=== PATIENT | female | born 1960 | race Caucasian/White ===

== ENCOUNTER → 2017-04-20 12:27 | Outpatient (CLI) | payer OTHER, SELFPAY ==
--- NOTE | 2017-04-20 12:29 | HPBI_ITS ---
MAMMOGRAPHY - BILATERAL SCREENING REASON FOR EXAM: Female, 57 years old. Routine annual screening examination. PERTINENT HISTORY: Aunt with breast cancer. TECHNIQUE: Digital bilateral breast radha (3D mammographic acquisition) in the CC and MLO projections. 2-D mediolateral oblique (MLO) and craniocaudad (CC) views of both breasts were obtained. CAD: Full Field Digital Mammography with Computer Added Detection was performed. COMPARISON: Comparison is made with prior study dated July 25, 2012 and May 18, 2011. FINDINGS: Breast Composition: The breasts are heterogeneously dense, which may obscure small masses. There are no dominant masses or suspicious calcifications. A pacemaker battery pack is seen in the upper quadrant of the left breast. No other significant abnormalities are identified. There has been no significant change since the prior study. HPBI/SCREENING MAMM (CAD), BILAT IMPRESSION: Stable bilateral screening mammogram. Yearly follow-up mammogram recommended. (A) ASSESSMENT CATEGORY: BIRADS Category 1: Negative. A letter regarding these results will be sent to the patient by the facility within 30 days. Approximately 10% of breast cancers are not detected by mammography. A normal mammogram should not delay biopsy of a clinically suspicious abnormality. [id number] Electronically Signed: Adelso Reese MD at 13:54 EST Tel [phone], Service support ,
== END ==
PROVIDERS: Visit Provider Internal Medicine Hematology & Oncology
DX: Z12.31 Encounter for screening mammogram for malignant neoplasm of breast (principal); D47.2 Monoclonal gammopathy
CPT/HCPCS: 77063; 77067

== ENCOUNTER → 2017-06-22 11:14 | Outpatient (CLI) | payer OTHER, SELFPAY ==
[2017-06-22 12:41] LABS: AST(SGOT) 25 U/L (15-37); Alanine Aminotransfer ALT/SGPT 17 U/L (13-56); Albumin, Serum 4.1 g/dL (3.2-5.0); Alkaline Phosphatase 120 U/L (45-117); Bilirubin, Direct 0.11 mg/dL (0.00-0.30); Cholesterol 151 mg/dL (200); Globulin 3.7 g/dL (2.2-4.2); High Density Lipoprotein 66 mg/dL; Protein, Total 7.8 g/dL (6.4-8.2); Triglycerides 53 mg/dL; Very Low Density Lipoprotein 11 mg/dL (5-40)
== END ==
PROVIDERS: Visit Provider Nurse Practitioner Family
DX: E78.5 Hyperlipidemia, unspecified (principal); Z79.899 Other long term (current) drug therapy
CPT/HCPCS: 36415; 80061; 80076

== ENCOUNTER → 2017-08-03 10:06 | Outpatient (CLI) | payer OTHER, SELFPAY ==
--- NOTE | 2017-08-03 10:15 | EKG12_ITS ---
Test Reason : PRE-OP Blood Pressure : / mmHG Vent. Rate : 077 BPM Atrial Rate : 077 BPM P-R Int : 158 ms QRS Dur : 158 ms QT Int : 430 ms P-R-T Axes : 060 270 064 degrees QTc Int : 486 ms Normal sinus rhythm with ventricular pacing Ventricular pre-excitation, WPW pattern type A Abnormal ECG Confirmed by HAL OWUSU, ROSENDO ([id number]), proposal editor KIRK SQUIRES ([id number]) on 08/06/2017 2:57:34 PM Referred By: SUSANNAH THAPA Confirmed By:ROSENDO HONG MD
[2017-08-03 11:11] LABS: Anion Gap 4 (5-15); BUN 22 mg/dL (7-18); BUN/Creat Ratio 26.4 RATIO (10-20); Calcium,Total 9.2 mg/dL (8.5-10.1); Chloride 105 mmol/L (98-107); Creatinine, Serum 0.83 mg/dL (0.55-1.02); EST Glomerular Filtration Rate 75 mL/min (>60); Est Glom Filt Rate - Afr Amer 91 mL/min (>60); Glucose 86 mg/dL (74-106); Potassium 4.1 mmol/L (3.5-5.1); Sodium Level 140 mmol/L (136-145)
== END ==
PROVIDERS: Visit Provider Orthopaedic Surgery Hand Surgery
DX: M67.432 Ganglion, left wrist (principal); I10 Essential (primary) hypertension
CPT/HCPCS: 36415; 80048; 93005

== ENCOUNTER → 2018-01-18 10:57 | Outpatient (CLI) | payer OTHER, SELFPAY ==
[2018-01-18 11:53] LABS: AST(SGOT) 22 U/L (15-37); Alanine Aminotransfer ALT/SGPT 18 U/L (13-56); Albumin, Serum 4.1 g/dL (3.2-5.0); Alkaline Phosphatase 113 U/L (45-117); Bilirubin, Direct 0.14 mg/dL (0.00-0.30); Cholesterol 171 mg/dL (200); Globulin 3.7 g/dL (2.2-4.2); High Density Lipoprotein 75 mg/dL; Protein, Total 7.8 g/dL (6.4-8.2); Triglycerides 70 mg/dL; Very Low Density Lipoprotein 14 mg/dL (5-40)
== END ==
PROVIDERS: Referring Provider Nurse Practitioner Family; Visit Provider Nurse Practitioner Family
DX: E78.5 Hyperlipidemia, unspecified (principal); Z79.899 Other long term (current) drug therapy
CPT/HCPCS: 36415; 80061; 80076

== ENCOUNTER → 2018-04-22 14:51 | Outpatient (CLI) | payer OTHER, SELFPAY ==
--- NOTE | 2018-04-22 15:15 | BI_ITS ---
MAMMOGRAPHY - BILATERAL SCREENING REASON FOR EXAM: Female, 58 years old. Routine annual screening examination. PERTINENT HISTORY: Aunt with breast cancer. Remote left excisional breast biopsy. TECHNIQUE: Digital bilateral breast radha (3D mammographic acquisition) in the CC and MLO projections. 2-D mediolateral oblique (MLO) and craniocaudad (CC) views of both breasts were obtained. CAD: Full Field Digital Mammography with Computer Added Detection was performed. COMPARISON: Comparison is made with prior study dated April 20, 2017 and July 25, 2012. FINDINGS: Breast Composition: The breasts are heterogeneously dense, which may obscure small masses. There are no dominant masses or suspicious calcifications. A pacemaker battery pack is once again seen in the axillary region of the left breast. No other significant abnormalities are identified. There has been no significant change since the prior study. BI/SCREENING MAMM (CAD), BILAT IMPRESSION: Stable bilateral screening mammogram. Yearly follow-up mammogram recommended. (A) ASSESSMENT CATEGORY: BIRADS Category 1: Negative. A letter regarding these results will be sent to the patient by the facility within 30 days. Approximately 10% of breast cancers are not detected by mammography. A normal mammogram should not delay biopsy of a clinically suspicious abnormality. [id number] Electronically Signed: Adelso Reese MD at 8:39 EST , Service support ,
[2018-04-22 15:32] LABS: Absolute Lymphocyte Count 1.79 X10^3/ul (0.83-4.51); Absolute Neutrophil Count 2.8 X10^3/uL (2.0-7.7); Basophil# 0.01 X10^3/uL; Basophil% 0.2 % (0-1); Eosinophil# 0.01 X10^3/uL; Eosinophils% 0.2 % (0-5); Hematocrit 40.2 % (37-47); Hemoglobin 13.1 g/dl (12.0-15.0); Lymphocyte # 1.79 X10^3/ul (4.0); Lymphocyte % 36.9 % (19-41); Mean Corp Hgb Conc 32.6 g/gl (32-36); Mean Corpuscular Volume 92.2 fL (81-99); Mean Platelet Vol. 9.6 fl (6.2-12.0); Monocyte# 0.23 X10^3/uL; Monocyte% 4.7 % (0-10); Neutrophil # 2.81 X10^3/uL (2.7-7.7); Platelet Count 270 K/mm3 (150-450); RBC Distribution Width SD 43.5 fl (35.1-43.9); Red Blood Count 4.36 M/mm3 (4.2-5.4); White Blood Count 4.9 K/mm3 (4.4-11.0)
[2018-04-22 15:34] LABS: POSITIVE COUNT NO; POSITIVE DIFFERENTIAL NO; POSITIVE MORPHOLOGY NO
[2018-04-22 15:56] LABS: ALB/GLOB Ratio 1.1 RATIO (0.9-2.4); AST(SGOT) 20 U/L (15-37); Alanine Aminotransfer ALT/SGPT 20 U/L (13-56); Albumin, Serum 4.1 g/dL (3.2-5.0); Alkaline Phosphatase 126 U/L (45-117); Anion Gap 9 (5-15); BUN 20 mg/dL (7-18); BUN/Creat Ratio 25.8 RATIO (10-20); Calcium,Total 9.5 mg/dL (8.5-10.1); Chloride 104 mmol/L (98-107); Creatinine, Serum 0.78 mg/dL (0.55-1.02); EST Glomerular Filtration Rate 81 mL/min (>60); Est Glom Filt Rate - Afr Amer 98 mL/min (>60); Globulin 3.7 g/dL (2.2-4.2); Glucose 98 mg/dL (74-106); Potassium 4.1 mmol/L (3.5-5.1); Protein, Total 7.8 g/dL (6.4-8.2); Sodium Level 142 mmol/L (136-145)
[2018-04-24 20:08] LABS: Albumin 4.1 g/dL (2.9-4.4); Alpha-1-Globulins 0.3 g/dL (0.0-0.4); Alpha-2-Globulins 0.9 g/dL (0.4-1.0); Free Kappa Light Chains 14.4 mg/L (3.3-19.4); Free Lambda Light Chains 10.6 mg/L (5.7-26.3); Gamma Globulin 0.8 g/dL (0.4-1.8); Immunoglobulin A 206 mg/dL (87-352); Immunoglobulin G 932 mg/dL (700-1600); Immunoglobulin M 71 mg/dL (26-217); PROEL- TOTAL PROTEIN 7.5 g/dL (6.0-8.5)
== END ==
PROVIDERS: Referring Provider Internal Medicine Hematology & Oncology; Visit Provider Internal Medicine Hematology & Oncology
DX: Z12.31 Encounter for screening mammogram for malignant neoplasm of breast (principal); D47.2 Monoclonal gammopathy
CPT/HCPCS: 36415; 77063; 77067; 80053; 82784; 83883; 84165; 85025; 86334

== ENCOUNTER → 2018-08-06 11:21 | Outpatient (CLI) | payer OTHER, SELFPAY ==
[2018-05-27 13:05] VITALS: BMI 21.7
[2018-08-06 13:05] LABS: AST(SGOT) 21 U/L (15-37); Alanine Aminotransfer ALT/SGPT 16 U/L (13-56); Albumin, Serum 4.3 g/dL (3.2-5.0); Alkaline Phosphatase 115 U/L (45-117); Bilirubin, Direct 0.14 mg/dL (0.00-0.30); Cholesterol 184 mg/dL (200); High Density Lipoprotein 74 mg/dL; Protein, Total 8.3 g/dL (6.4-8.2); Triglycerides 87 mg/dL; Very Low Density Lipoprotein 17 mg/dL (5-40)
== END ==
PROVIDERS: Referring Provider Nurse Practitioner Family; Visit Provider Nurse Practitioner Family
DX: E78.5 Hyperlipidemia, unspecified (principal)
CPT/HCPCS: 36415; 80061; 80076

== ENCOUNTER → 2018-08-29 14:20 | Outpatient (CLI) | payer OTHER, SELFPAY ==
[2018-05-27 13:05] VITALS: BMI 21.7
[2018-08-29 15:17] LABS: Absolute Neutrophil Count 2.9 X10^3/uL (2.0-7.7); Eosinophil# 0.03 X10^3/uL; Eosinophils% 0.6 % (0-5); Hematocrit 39.3 % (37-47); Hemoglobin 13.1 g/dl (12.0-15.0); Lymphocyte % 29.9 % (19-41); Mean Corp Hgb Conc 33.3 g/gl (32-36); Mean Corpuscular Volume 90.1 fL (81-99); Mean Platelet Vol. 9.6 fl (6.2-12.0); Monocyte% 8.5 % (0-10); Neutrophil # 2.85 X10^3/uL (2.7-7.7); Neutrophil % 60.8 % (47-70); Platelet Count 241 K/mm3 (150-450); RBC Distribution Width CV 12.8 % (11.6-14.6); RBC Distribution Width SD 41.5 fl (35.1-43.9); Red Blood Count 4.36 M/mm3 (4.2-5.4); White Blood Count 4.7 K/mm3 (4.4-11.0)
[2018-08-29 15:20] LABS: POSITIVE COUNT NO; POSITIVE DIFFERENTIAL NO; POSITIVE MORPHOLOGY NO
[2018-08-29 15:58] LABS: T3 Total - Triiodothyronine 0.88 ng/mL (0.6-1.81)
[2018-08-29 16:06] LABS: AST(SGOT) 20 U/L (15-37); Alanine Aminotransfer ALT/SGPT 18 U/L (13-56); Albumin, Serum 3.8 g/dL (3.2-5.0); Alkaline Phosphatase 116 U/L (45-117); Anion Gap 7 (5-15); BUN 18 mg/dL (7-18); BUN/Creat Ratio 22.6 RATIO (10-20); Calcium,Total 9.2 mg/dL (8.5-10.1); Chloride 104 mmol/L (98-107); EST Glomerular Filtration Rate 78 mL/min (>60); Est Glom Filt Rate - Afr Amer 95 mL/min (>60); Globulin 3.8 g/dL (2.2-4.2); Glucose 102 mg/dL (74-106); Potassium 3.9 mmol/L (3.5-5.1); Protein, Total 7.6 g/dL (6.4-8.2); Sodium Level 142 mmol/L (136-145); T4 Total, Thyroxin 8.5 ug/dL (4.8-13.9)
== END ==
PROVIDERS: Referring Provider Physician Assistant; Visit Provider Physician Assistant
DX: L65.9 Nonscarring hair loss, unspecified (principal)
CPT/HCPCS: 36415; 80053; 84436; 84480; 85025

== ENCOUNTER → 2018-11-12 13:19 | Outpatient (CLI) | payer OTHER, SELFPAY ==
[2018-05-27 13:05] VITALS: BMI 21.7
[2018-11-19 08:21] LABS: HPV HC, High Risk Negative (Negative)
== END ==
PROVIDERS: Family Provider Family Medicine; PCP Family Medicine; Visit Provider Family Medicine
DX: Z01.419 Encounter for gynecological examination (general) (routine) without abnormal findings (principal); Z12.4 Encounter for screening for malignant neoplasm of cervix; Z11.3 Encounter for screening for infections with a predominantly sexual mode of transmission
CPT/HCPCS: 87624; 88175; G0145

== ENCOUNTER → 2019-03-03 | Outpatient (CLI) | payer OTHER, SELFPAY ==
[2018-12-04 14:15] VITALS: BMI 21.7
[2019-03-03 11:57] LABS: AST(SGOT) 19 U/L (15-37); Alanine Aminotransfer ALT/SGPT 18 U/L (13-56); Albumin, Serum 4.1 g/dL (3.2-5.0); Alkaline Phosphatase 116 U/L (45-117); Bilirubin, Direct 0.15 mg/dL (0.00-0.30); Cholesterol 161 mg/dL (200); Globulin 3.9 g/dL (2.2-4.2); High Density Lipoprotein 75 mg/dL; Triglycerides 73 mg/dL; Very Low Density Lipoprotein 15 mg/dL (5-40)
== END | disposition home or self-care (01) ==
LOC: LAB 10:41
PROVIDERS: Family Provider Family Medicine; PCP Family Medicine; Referring Provider Nurse Practitioner Family; Visit Provider Nurse Practitioner Family
DX: E78.2 Mixed hyperlipidemia (principal)
CPT/HCPCS: 36415; 80061; 80076

== ENCOUNTER → 2019-03-10 10:55 | Day surgery (SDC) | payer OTHER, SELFPAY ==
[2018-12-04 14:15] VITALS: BMI 21.7
[2019-03-05 09:35] LABS: Bacteria 0 SEEN /hpf (None Seen); Mucous, Urine 0 SEEN /hpf (<or=2+)
[2019-03-05 09:50] VITALS: BMI 21.6
[2019-03-05 10:15] LABS: Hematocrit 40.3 % (37-47); Hemoglobin 13.2 g/dL (12.0-15.0); Mean Corp Hgb Conc 32.8 g/dL (32-36); Mean Corpuscular Hgb 30.3 pg (27.0-32.0); Mean Corpuscular Volume 92.6 fL (81-99); Mean Platelet Vol. 9.3 fl (6.2-12.0); Platelet Count 281 K/mm3 (150-450); RBC Distribution Width CV 12.5 % (11.6-14.6); RBC Distribution Width SD 42.6 fl (35.1-43.9); Red Blood Count 4.35 M/mm3 (4.2-5.4)
[2019-03-05 10:22] LABS: International Normalized Ratio 1.1; Prothrombin Time (Protime)PT. 13.5 SECONDS (11.7-14.9)
[2019-03-05 10:25] LABS: Color, Urine Yellow (Yellow); Glucose, Dipstick Normal (Normal); Ketone-Dipstick Negative (Negative); Leukocyte Esterase-Dipstick 25 /ul (Negative); Nitrite-Dipstick Negative (Negative); Occult Blood-Urine 50 /ul (Negative); Protein-Dipstick Negative (Negative); Urine Bilirubin Dipstick Negative (Negative); Urine Clarity Clear (Clear); Urine Urobilinogen Normal (Normal)
[2019-03-05 10:36] LABS: Red Blood Cells-Urine 0-5 SEEN /hpf (0-5); Squamous Epithelial Cells - UA 0-5 SEEN /hpf (5-10); White Blood Cells 0-5 SEEN /hpf (0-5)
--- NOTE | 2019-03-05 10:42 | RAD_ITS ---
STUDY: X-RAY CHEST REASON FOR EXAM: Female, 59 years old. Pacemaker generator change TECHNIQUE: PA and lateral views of the chest. COMPARISON: None. FINDINGS: Left-sided cardiac device. Cardiac silhouette unremarkable. Pulmonary vascularity unremarkable. Aorta unremarkable. No focal airspace opacities. No pleural effusions. Upper abdomen unremarkable. Osseous structures intact. No pneumothorax. RAD/Chest PA and Lateral IMPRESSION: No acute cardiopulmonary findings Electronically Signed: Neymar Cross, at 21:35 EST Tel , Service support ,
[2019-03-05 10:57] LABS: Anion Gap 7 (5-15); BUN 25 mg/dL (7-18); BUN/Creat Ratio 28.7 RATIO (10-20); Calcium,Total 9.2 mg/dL (8.5-10.1); Chloride 105 mmol/L (98-107); Creatinine, Serum 0.87 mg/dL (0.55-1.02); EST Glomerular Filtration Rate 71 mL/min (>60); Est Glom Filt Rate - Afr Amer 86 mL/min (>60); Glucose 79 mg/dL (74-106); Potassium 3.7 mmol/L (3.5-5.1); Sodium Level 140 mmol/L (136-145)
--- NOTE | 2019-03-06 01:19 | HP_ITS ---
HPI HPI History of Present Illness Surgical H&P: Yes Details: DAKOTA GORDON, is a 59 F who presents to the office today for an updated history and physical for a generator change for her pacemaker. She has a history of Mobitz 2 second-degree AV block with AV sequential pacemaker, mild coronary artery disease, mild aortic sclerosis, hypertension, and hyperlipidemia. From a cardiac standpoint, patient is doing well. She does not have any chest discomfort/heaviness/tightness. Her exercise tolerance is stable for her age. She does not have any worsening symptoms of shortness of breath. She does not have any orthopnea. She denies PND. She does not have any symptoms of congestive heart failure. She does not have any palpitations that she is aware of. She does not have any lightheadedness or dizziness. She does not have any near-syncope or syncope. She does not have any lower extremity edema. She does not have any symptoms of claudication. Patient has multiple questions regarding her generator change on her pacemaker. These were all answered for her. 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 Required: No Is patient in pain?: No Allergies adhesive tape Allergy (Unknown, Verified 03/05/19 09:51) Rash Penicillins Adverse Reaction (Severe, Verified 03/05/19 09:51) Rash Medications Aspirin [Aspirin EC] 81 mg PO DAILY 04/02/17 [History Confirmed 03/05/19] multivitamin 1 tab PO QDAY 06/04/17 [History Confirmed 03/05/19] nebivolol 5 mg tablet 2.5 mg PO DAILY #45 tab 05/27/18 [Rx Confirmed 03/05/19] pravastatin 20 mg tablet 20 mg PO QHS #90 tab 05/27/18 [Rx Confirmed 03/05/19] dupilumab 300 mg/2 mL subcutaneous syringe 300 mg SC Q2W 03/05/19 [History Confirmed 03/05/19] PFSH Medical History Pacemaker at end of battery life (Acute) Non-rheumatic aortic sclerosis (Chronic) Mixed hyperlipidemia (Chronic) Essential hypertension (Chronic) Atherosclerotic heart disease of [place] coronary artery without angina pectoris (Chronic) Other heart block (Chronic) Cardiac pacemaker in situ (Chronic) 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) MGUS (monoclonal gammopathy of unknown significance) (Chronic) Ganglion cyst (Acute) MGUS (monoclonal gammopathy of unknown significance) (Acute) Hypertension (Chronic) Hyperlipidemia (Inactive) Hypertension (Inactive) Surgical History H/O: (Acute) History of surgical removal of ganglion cyst (Acute) Hx of breast biopsy (Acute) Hx of tonsillectomy (Acute) S/P placement of cardiac pacemaker (Acute) Family History Father FH: prostate cancer FH: HTN (hypertension) FH: hyperlipidemia Gait apraxia Mother FH: HTN (hypertension) FH: hyperlipidemia Aunt Breast cancer Grandmother Ovarian cancer Social History (Updated 03/06/19 @ 13:19 by DANIEL Bassett) Smoking Status: Never smoker ROS Const Const: Negative for fatigue, weakness, fever(s) or headache(s) Eyes Eyes: Negative for blind spots, loss of peripheral vision or transient loss of vision ENT ENT: Negative for headache(s), dizziness, tinnitus or Nosebleed/epistaxis Cardio Chest Pain: No Palpitations: No Edema: None Muscle aches with walking: None Resp Respiratory: Negative for SOB with activity, SOB at rest, SOB orthopnea\SOB lying down or Cough GI GI: Negative nausea, vomiting, heartburn or vomiting blood/hematemesis : Negative for hematuria Musc Musc: Negative for muscle aches/ myalgia Neuro Neuro: Negative for dizziness, lightheadedness, near syncope, syncope, orthostatic symptoms, headache(s) or weakness Reed Hematologic/Lymphatic: Negative for easy bleeding Endo Endo: Negative for fatigue Cardiology Exam Const Appearance: cooperative, healthy appearing, comfortable, no acute distress, well developed and well groomed Nutritional Appearance: thin Orientation: alert, awake and oriented x3 Head Head: normal to inspection, normocephalic and atraumatic Nose: external nose normal Mouth: oral mucosae normal Teeth and gingiva: fair dentition Eyes Eyelids: eyelids normal Conjunctivae: conjunctivae normal Pupils: PERRL EOM: EOM intact bilaterally Neck Neck: normal visual inspection, full ROM and no JVD Carotids: normal carotid upstroke Chest Chest inspection: normal inspection of the chest, symmetric chest movement and normal respiratory effort Auscultation: Bilateral: Clear to Auscultation Cardio Rate: regular rate Rhythm: regular rhythm Heart sounds: S1 normal and S2 normal; negative rub or gallop GI GI: normal to inspection, soft and bowel sounds present Neuro General: alert, awake, oriented x3, gait normal and moves all extremities Skin Skin: no rashes or lesions noted Extremities Pulses: Normal: Right Posterior Tibial Pulse, Left Posterior Tibial Pulse, Right Radial Pulse, Left Radial Pulse Lower Extremity Edema: None: Bilateral Musculoskel Musculoskeletal: joint tenderness Psych Psychological: normal affect, anxious Assessment & Plan 1. Essential hypertension I10 Plan Blood pressure is well controlled on current medications, we do not recommend any changes at this time. 2. Cardiac pacemaker in situ Z95.0 Implant of dual chamber pacemaker 08/18/09 Plan Patient is scheduled to undergo a generator change with a Dr. Coreas on March 10, 2019. She will follow-up accordingly in our office after. Orders Orders: 12 Lead EKG performed by [facility] 03/05/19 3. Mixed hyperlipidemia E78.2 Plan Recent lipid profile demonstrates that they are adequately controlled. She has a total cholesterol of 161, HDL 75, LDL 71. She will continue with her low intensity statin. Plan Detail Other Orders Orders: 12 Lead EKG performed by [facility] 03/05/19 I25.10, Z45.010 Follow Up 03/05/19 (keep as is) Coding Level of Care Code Off vis,est,level 3 Diagnoses Essential hypertension I10 Cardiac pacemaker in situ Z95.0 Mixed hyperlipidemia E78.2 Coding Level of Care Code Off vis,est,level 3 Diagnoses Essential hypertension I10 Cardiac pacemaker in situ Z95.0 Mixed hyperlipidemia E78.2 Supplemental Info Supplemental Information Heart catheterization from August 2009 showed an ejection fraction of 65%, left main with mild luminal irregularities, LAD with minor luminal irregularities, LCx with minor luminal irregularities, and RCA with minor luminal irregularities. Echocardiogram from July 2009 showed estimated ejection fraction 55%, trivial mitral valve insufficiency, mild tricuspid valve insufficiency, mild diffuse aortic valve thickening, mild focal aortic valve calcification predominantly right coronary cusps, mild aortic sclerosis, no significant stenosis, trivial aortic valve insufficiency, trivial pulmonic valve insufficiency, and an RVSP of 25 mmHg. Pacemaker/ICD check from December 2016 showed 2 MS episodes (less than 1%), no VHR episodes, P synchronous paced at 80 ppm, and battery longevity approximately 4.7-5.2 years. Labs LDL Cholesterol 71 mg/dL (0-130) 03/03/19 HDL Cholesterol 75 mg/dL (40-) 03/03/19 Triglycerides 73 mg/dL (-199) 03/03/19 VLDL Cholesterol 15 mg/dL (5-40) 03/03/19 Diagnostics Electrocardiogram 03/05/19 Pacemaker Check 03/05/19 Chest X-Ray 03/05/19 03/06/19 1319 <Electronically signed by Frannie Sanchez> Date _ Frannie SANCHEZ
[2019-03-07 07:59] VITALS: BMI 21.6
--- NOTE | 2019-03-10 13:21 | CL.IE_ITS ---
Patient: DAKOTA GORDON Study Date: 03/10/2019 Performing: Pramod Coreas MD : 1960 Age: 59 Gender: female PROCEDURES PERFORMED [id number] REMOVAL+REPLACEMENT PACER-DUAL LEAD INDICATIONS Atrioventricular (AV) block PROCEDURE DETAILS The patient was brought to the Catheterization Lab in the postabsorptive nonsedated state. Infor med consent was obtained prior to the procedure. Local anesthetic was given subcutaneously to the le ft upper chest area with Lidocaine 2%. Incision was made to the left upper chest. PPM generator was r emoved. PPM atrial lead (existing) was checked and tested. PPM ventricular lead (existing) was checke d and tested. PPM generator was attached to the lead(s) and inserted into the pocket. Device pocket w as irrigated with antibiotic. Subcutaneous closure was completed with 3-0 Vicryl. Skin closure was co mpleted with 4-0 Vicryl. Steri-strips applied to left subclavicular incision. The patient tolerated the procedure well. 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 Signed By Pramod Coreas MD On 03/10/2019 13:22:09 Pramod Coreas MD
== END ==
PROVIDERS: Internal Medicine Cardiovascular Disease; Family Provider Family Medicine; PCP Family Medicine; Referring Provider Internal Medicine Cardiovascular Disease; Visit Provider Internal Medicine Cardiovascular Disease
DX: Z45.010 Encounter for checking and testing of cardiac pacemaker pulse generator [battery] (principal); I35.0 Nonrheumatic aortic (valve) stenosis; I05.9 Rheumatic mitral valve disease, unspecified; I44.1 Atrioventricular block, second degree; I25.10 Atherosclerotic heart disease of native coronary artery without angina pectoris; I70.0 Atherosclerosis of aorta; I10 Essential (primary) hypertension; D50.9 Iron deficiency anemia, unspecified; E78.2 Mixed hyperlipidemia; M19.90 Unspecified osteoarthritis, unspecified site; Z79.82 Long term (current) use of aspirin; Z79.899 Other long term (current) drug therapy
CPT/HCPCS: 33228; 36415; 71046; 80048; 81001; 85027; 85610; 99152; 99153; J7040; J7050

== ENCOUNTER → 2019-09-11 11:15 | Outpatient (CLI) | payer OTHER, SELFPAY ==
[2019-03-07 07:59] VITALS: BMI 21.6
[2019-08-08 15:10] VITALS: BMI 21.7
--- NOTE | 2019-09-11 11:17 | BI_ITS ---
MAMMOGRAPHY - BILATERAL SCREENING 3-D TOMOSYNTHESIS REASON FOR EXAM: Female, 59 years old. Routine screening PERTINENT HISTORY: BILAT SCREENING - FAM HX OF PATERNAL AUNT @ AGE 60 and amp; amp; MATERNAL AUNT @ AGE 60 - LT PACEMAKER 2010 REPLACED 02/2019 - LT EXC BX 2002 - RT MOLE. TECHNIQUE: 2-D mammograms and 3-D Tomosynthesis of the breast (s) were performed. CAD was performed. COMPARISON: 04/22/18 FINDINGS: The breast composition is heterogeneously dense that can obscure small breast masses. Scattered benign calcifications are seen. No dense spiculated masses or suspicious microcalcifications are identified. No architectural distortion is identified. There is no skin thickening or retraction. There has been no significant change since the prior study. BI/SCREEN MAMM (CAD) W/GLORIA BILAT IMPRESSION: No mammographic signs of malignancy. Routine yearly mammograms recommended. ASSESSMENT CATEGORY: BIRADS Category 2: Benign. A letter regarding these results will be sent to the patient by the facility within 30 days. FOLLOW UP RECOMMENDATION: Yearly follow up mammogram recommended. (A) Approximately 10% of breast cancers are not detected by mammography. A normal mammogram should not delay biopsy of a clinically suspicious abnormality. Electronically Signed: Christopher Mckeon MD at 13:35 EDT , Service support ,
[2019-09-11 11:30] LABS: Absolute Lymphocyte Count 2.07 X10^3/uL (0.83-4.51); Absolute Neutrophil Count 2.3 X10^3/uL (2.0-7.7); Basophil# 0.01 X10^3/uL; Basophil% 0.2 % (0-1); Eosinophil# 0.04 X10^3/uL; Eosinophils% 0.9 % (0-5); Hematocrit 42.7 % (37-47); Lymphocyte # 2.07 X10^3/ul (4.0); Lymphocyte % 44.2 % (19-41); Mean Corp Hgb Conc 32.8 g/dL (32-36); Mean Corpuscular Hgb 30.4 pg (27.0-32.0); Mean Corpuscular Volume 92.8 fL (81-99); Monocyte% 6.4 % (0-10); NRBC Flagged by Analyzer 0 % (0-5); Neutrophil # 2.25 X10^3/uL (2.7-7.7); Neutrophil % 48.1 % (47-70); Platelet Count 292 K/mm3 (150-450); RBC Distribution Width CV 13.1 % (11.6-14.6); White Blood Count 4.7 K/mm3 (4.4-11.0)
[2019-09-11 12:04] LABS: AST(SGOT) 22 U/L (15-37); Alanine Aminotransfer ALT/SGPT 19 U/L (13-56); Albumin, Serum 4.2 g/dL (3.2-5.0); Alkaline Phosphatase 117 U/L (45-117); Bilirubin, Direct 0.16 mg/dL (0.00-0.30); Cholesterol 174 mg/dL (200); Globulin 4.1 g/dL (2.2-4.2); High Density Lipoprotein 79 mg/dL; Protein, Total 8.3 g/dL (6.4-8.2); Triglycerides 78 mg/dL; Very Low Density Lipoprotein 16 mg/dL (5-40)
[2019-09-11 12:08] LABS: ALB/GLOB Ratio 1.1 RATIO (0.9-2.4); AST(SGOT) 21 U/L (15-37); Alanine Aminotransfer ALT/SGPT 20 U/L (13-56); Albumin, Serum 4.3 g/dL (3.2-5.0); Alkaline Phosphatase 116 U/L (45-117); Anion Gap 5 (5-15); BUN 18 mg/dL (7-18); BUN/Creat Ratio 20.4 RATIO (10-20); Calcium,Total 9.6 mg/dL (8.5-10.1); Chloride 104 mmol/L (98-107); Creatinine, Serum 0.88 mg/dL (0.55-1.02); EST Glomerular Filtration Rate 69 mL/min (>60); Est Glom Filt Rate - Afr Amer 84 mL/min (>60); Globulin 3.9 g/dL (2.2-4.2); Glucose 90 mg/dL (74-106); Protein, Total 8.2 g/dL (6.4-8.2); Sodium Level 139 mmol/L (136-145)
[2019-09-12 16:08] LABS: Albumin 4.1 g/dL (2.9-4.4); Alpha-1-Globulins 0.3 g/dL (0.0-0.4); Alpha-2-Globulins 0.8 g/dL (0.4-1.0); Gamma Globulin 0.9 g/dL (0.4-1.8); Immunoglobulin A 224 mg/dL (87-352); Immunoglobulin G 1041 mg/dL (586-1602); Immunoglobulin M 75 mg/dL (26-217); PROEL- TOTAL PROTEIN 7.3 g/dL (6.0-8.5)
== END ==
PROVIDERS: Nurse Practitioner Family; Family Provider Family Medicine; PCP Family Medicine; Referring Provider Internal Medicine Hematology & Oncology; Visit Provider Internal Medicine Hematology & Oncology
DX: Z12.31 Encounter for screening mammogram for malignant neoplasm of breast (principal); D47.2 Monoclonal gammopathy; E78.00 Pure hypercholesterolemia, unspecified; E78.2 Mixed hyperlipidemia
CPT/HCPCS: 36415; 77063; 77067; 80053; 80061; 80076; 82784; 84165; 85025; 86334

== ENCOUNTER → 2020-03-01 12:39 | Outpatient (CLI) | payer OTHER, SELFPAY ==
[2019-09-23 14:41] VITALS: BMI 21.7
[2020-03-01 13:32] LABS: AST(SGOT) 18 U/L (15-37); Alanine Aminotransfer ALT/SGPT 16 U/L (13-56); Albumin, Serum 4.3 g/dL (3.2-5.0); Alkaline Phosphatase 126 U/L (45-117); Bilirubin, Direct 0.13 mg/dL (0.00-0.30); Cholesterol 173 mg/dL (200); Globulin 3.7 g/dL (2.2-4.2); High Density Lipoprotein 76 mg/dL; Triglycerides 69 mg/dL; Very Low Density Lipoprotein 14 mg/dL (5-40)
== END ==
PROVIDERS: PCP Family Medicine; Referring Provider Internal Medicine Cardiovascular Disease; Visit Provider Internal Medicine Cardiovascular Disease
DX: E78.00 Pure hypercholesterolemia, unspecified (principal)
CPT/HCPCS: 36415; 80061; 80076

== ENCOUNTER 2020-06-01 08:36 | Outpatient (RCR) | payer OTHER, SELFPAY ==
[2019-09-23 14:41] VITALS: BMI 21.7
[2020-06-01] MEDS: COVID-19 VACC, MRNA(PFIZER)/PF 30 MCG/0.3 ML SYRINGE IM (11:47)
[2020-06-22] MEDS: COVID-19 VACC, MRNA(PFIZER)/PF 30 MCG/0.3 ML SYRINGE IM (11:47)
== END 2020-08-24 23:59 ==
LOC: IMMUN 08:36
PROVIDERS: PCP Family Medicine; Visit Provider Family Medicine
DX: Z23 Encounter for immunization (principal)
CPT/HCPCS: 0001A; 0002A; 91300

== ENCOUNTER → 2020-09-06 11:14 | Outpatient (CLI) | payer OTHER, SELFPAY ==
[2019-09-23 14:41] VITALS: BMI 21.7
[2020-09-06 12:53] LABS: AST(SGOT) 19 U/L (15-37); Alanine Aminotransfer ALT/SGPT 17 U/L (13-56); Alkaline Phosphatase 111 U/L (45-117); Bilirubin, Direct 0.16 mg/dL (0.00-0.30); Cholesterol 176 mg/dL (200); Globulin 3.7 g/dL (2.2-4.2); High Density Lipoprotein 75 mg/dL; Protein, Total 7.7 g/dL (6.4-8.2); Triglycerides 99 mg/dL; Very Low Density Lipoprotein 20 mg/dL (5-40)
== END ==
PROVIDERS: Nurse Practitioner Family; PCP Family Medicine; Referring Provider Physician Assistant Medical; Visit Provider Physician Assistant Medical
DX: E78.00 Pure hypercholesterolemia, unspecified (principal); E78.2 Mixed hyperlipidemia
CPT/HCPCS: 36415; 80061; 80076

== ENCOUNTER → 2021-02-01 11:50 | Outpatient (CLI) | payer OTHER, SELFPAY ==
--- NOTE | 2021-02-01 11:52 | BI_ITS ---
MAMMOGRAPHY - BILATERAL SCREENING REASON FOR EXAM: Female, 60 years old. Routine annual screening examination. PERTINENT HISTORY: Aunts with breast cancer. Remote left external breast biopsy. TECHNIQUE: Digital bilateral breast gloria (3D mammographic acquisition) in the CC and MLO projections. 2-D mediolateral oblique (MLO) and craniocaudad (CC) views of both breasts were obtained. CAD: Full Field Digital Mammography with Computer Added Detection was performed. COMPARISON: Comparison is made with prior study dated 09/11/2019 and 04/22/2018. FINDINGS: Breast Composition: The breasts are heterogeneously dense, which may obscure small masses. There are no dominant masses or suspicious calcifications. A pacemaker battery pack is seen in the left axillary region. No other significant abnormalities are identified. There has been no significant change since the prior study. BI/SCRN MAMM (CAD)W/GLORIA BILAT IMPRESSION: Stable bilateral screening mammogram. Yearly follow-up mammogram recommended. (A) ASSESSMENT CATEGORY: BIRADS Category 2: Benign. A letter regarding these results will be sent to the patient by the facility within 30 days. Approximately 10% of breast cancers are not detected by mammography. A normal mammogram should not delay biopsy of a clinically suspicious abnormality. [id number] Electronically Signed: Adelso Reese MD at 12:33 EST , Service support ,
== END ==
PROVIDERS: PCP Family Medicine; Referring Provider Family Medicine; Visit Provider Family Medicine
DX: Z12.31 Encounter for screening mammogram for malignant neoplasm of breast (principal)
CPT/HCPCS: 77063; 77067

== ENCOUNTER → 2021-02-18 11:41 | Outpatient (CLI) | payer OTHER, SELFPAY ==
[2021-02-18 13:25] LABS: AST(SGOT) 22 U/L (15-37); Alanine Aminotransfer ALT/SGPT 17 U/L (13-56); Albumin, Serum 3.9 g/dL (3.2-5.0); Alkaline Phosphatase 115 U/L (45-117); Bilirubin, Direct 0.15 mg/dL (0.00-0.30); Cholesterol 166 mg/dL (200); Globulin 3.7 g/dL (2.2-4.2); High Density Lipoprotein 76 mg/dL; Protein, Total 7.6 g/dL (6.4-8.2); Triglycerides 62 mg/dL; Very Low Density Lipoprotein 12 mg/dL (5-40)
== END ==
PROVIDERS: PCP Family Medicine; Referring Provider Nurse Practitioner Family; Visit Provider Nurse Practitioner Family
DX: E78.00 Pure hypercholesterolemia, unspecified (principal)
CPT/HCPCS: 36415; 80061; 80076

== ENCOUNTER → 2021-09-09 | Outpatient (CLI) | payer OTHER, SELFPAY | END | disposition home or self-care (01) | PROVIDERS: PCP Family Medicine; Referring Provider Nurse Practitioner Family; Visit Provider Nurse Practitioner Family | DX: Z00.00 Encounter for general adult medical examination without abnormal findings (principal) ==

== ENCOUNTER → 2022-05-03 | Outpatient (CLI) | payer OTHER, SELFPAY ==
[2022-05-03 09:03] LABS: AST(SGOT) 20 U/L (15-37); Alanine Aminotransfer ALT/SGPT 14 U/L (13-56); Alkaline Phosphatase 90 U/L (45-117); Bilirubin, Direct 0.18 mg/dL (0.00-0.30); Cholesterol 160 mg/dL (200); Globulin 3.2 g/dL (2.2-4.2); High Density Lipoprotein 84 mg/dL; Protein, Total 7.2 g/dL (6.4-8.2); Triglycerides 56 mg/dL; Very Low Density Lipoprotein 11 mg/dL (5-40)
== END | disposition home or self-care (01) ==
PROVIDERS: PCP Family Medicine; Referring Provider Nurse Practitioner Family; Visit Provider Nurse Practitioner Family
DX: E78.00 Pure hypercholesterolemia, unspecified (principal)
CPT/HCPCS: 36415; 80061; 80076

== ENCOUNTER → 2022-05-30 | Outpatient (CLI) | payer OTHER, SELFPAY ==
--- NOTE | 2022-05-30 12:51 | ECHOD_ITS ---
Reason For Study: ATHERSCLEROSIS OF AORTA Procedure This was a 2D Doppler, Color Flow transthoracic echocardiogram. Exam performed in department. Left Ventricle Normal LV size. Left ventricular systolic function is normal. The estimated ejection fraction is 60 %. Stage 1 diastolic dysfunction. No regional wall motion abnormalities noted. Right Ventricle Normal RV size. ICD or pacer leads identified within the right ventricle. Normal systolic function. Mitral Valve Normal mitral valve. Tricuspid Valve Normal tricuspid valve. Mild tricuspid valve insufficiency. Pulmonary artery systolic pressure is 26 mmHg. Aortic Valve Trisinus/trileaflet aortic valve. Mild (1+) aortic valve insufficiency. Pulmonic Valve Normal pulmonic valve. Great Vessels Normal aortic root. The pulmonary artery is normal size. Normal inferior vena cava. Pericardium/Pleural No pericardial effusion. MMode/2D Measurements & Calculations LVIDd: 3.8 cm IVSd: 1.1 cm Ao root diam: 3.1 cm LVIDs: 2.4 cm LVPWd: 0.92 cm FS: 35.2 % LAV(MOD-bp): 15.2 ml LVAd ap4: 21.5 cm2 LVAd ap2: 22.1 cm2 LAV(MOD-bp) Indexed: 9.2 ml/m2 LVLd ap4: 7.1 cm LVLd ap2: 7.7 cm LAV(MOD-sp2): 15.8 ml EDV(MOD-sp4): 55.2 ml EDV(MOD-sp2): 51.4 ml LAV(MOD-sp4): 14.4 ml EDV(sp4-el): 55.1 ml EDV(sp2-el): 53.7 ml LVAs ap4: 12.0 cm2 LVAs ap2: 12.7 cm2 LVLs ap4: 6.4 cm LVLs ap2: 7.0 cm ESV(MOD-sp4): 19.0 ml ESV(MOD-sp2): 18.4 ml ESV(sp4-el): 19.3 ml ESV(sp2-el): 19.5 ml EF(MOD-sp4): 65.5 % EF(MOD-sp2): 64.2 % EF(sp4-el): 65.0 % SV(MOD-sp4): 36.2 ml SV(MOD-sp2): 33.0 ml SV(sp4-el): 35.8 ml LA dimension(2D): 2.5 cm LA A4 area: 8.2 cm2 RA A4 area: 7.8 cm2 Time Measurements MV dec time: 0.22 sec Doppler Measurements & Calculations MV E max matheus: 77.1 cm/sec Lat Peak E' Matheus: 8.2 cm/sec Med Peak E' Matheus: 5.5 cm/sec MV A max matheus: 82.4 cm/sec E/E' lat: 9.4 E/E' med: 14.0 MV E/A: 0.94 MV V2 max: 111.2 cm/sec MV dec slope: 370.1 cm/sec2 Ao V2 max: 126.8 cm/sec MV max P.0 mmHg Ao max P.4 mmHg MV V2 mean: 79.5 cm/sec Ao V2 mean: 89.4 cm/sec MV mean P.7 mmHg Ao mean P.6 mmHg MV V2 VTI: 34.3 cm Ao V2 VTI: 26.7 cm AV (velocity ratio): 0.81 LV V1 max: 99.7 cm/sec PA V2 max: 88.2 cm/sec TR max matheus: 240.9 cm/sec LV V1 max P.0 mmHg PA V2 mean: 62.7 cm/sec TR max P.2 mmHg LV V1 mean P.3 mmHg LV V1 mean: 71.8 cm/sec LV V1 VTI: 21.5 cm ECHO/Echo Complete Interpretation Summary Normal LV size. Left ventricular systolic function is normal. The estimated ejection fraction is 60 %. Mild (1+) aortic valve insufficiency. Stage 1 diastolic dysfunction. Ordering Physician: Frannie Rodriguez Referring Physician: Frannie Rodriguez Performed By: Courtney Engel RCS
== END | disposition home or self-care (01) ==
LOC: CVS 12:50
PROVIDERS: PCP Family Medicine; Referring Provider Physician Assistant Medical; Visit Provider Physician Assistant Medical
DX: I70.0 Atherosclerosis of aorta (principal); Z95.0 Presence of cardiac pacemaker
CPT/HCPCS: 93306

== ENCOUNTER → 2022-10-19 | Outpatient (CLI) | payer OTHER, SELFPAY ==
--- NOTE | 2022-10-19 12:35 | BI_ITS ---
MAMMOGRAPHY - BILATERAL SCREENING REASON FOR EXAM: Female, 62 years old. Routine annual screening examination. PERTINENT HISTORY: Aunts with breast cancer. TECHNIQUE: Digital bilateral breast gloria (3D mammographic acquisition) in the CC and MLO projections. 2-D mediolateral oblique (MLO) and craniocaudad (CC) views of both breasts were obtained. CAD: Full Field Digital Mammography with Computer Added Detection was performed. COMPARISON: Comparison is made with prior study dated February 01, 2021 and September 11, 2019. FINDINGS: Breast Composition: The breasts are heterogeneously dense, which may obscure small masses. There are no dominant masses or suspicious calcifications. No other significant abnormalities are identified. There has been no significant change since the prior study. BI/SCRN MAMM (CAD)W/GLORIA BILAT IMPRESSION: Stable bilateral screening mammogram. Yearly follow-up mammogram recommended. (A) ASSESSMENT CATEGORY: BIRADS Category 1: Negative. A letter regarding these results will be sent to the patient by the facility within 30 days. Approximately 10% of breast cancers are not detected by mammography. A normal mammogram should not delay biopsy of a clinically suspicious abnormality. [id number] Electronically Signed: Adelso Reese MD at 13:56 EDT ,
== END | disposition home or self-care (01) ==
LOC: OPBI 12:34
PROVIDERS: PCP Family Medicine; Referring Provider Internal Medicine Hematology & Oncology; Visit Provider Internal Medicine Hematology & Oncology
DX: Z12.31 Encounter for screening mammogram for malignant neoplasm of breast (principal)
CPT/HCPCS: 77063; 77067

== ENCOUNTER → 2023-04-30 | Outpatient (CLI) | payer OTHER, SELFPAY ==
--- OUTSIDE RECORDS SUMMARY | 2023-04-30 11:23 | XMS RPT_ITS | CCD ---
Author Name Unknown Address [id number] [place] [address] Organization [facility] Care Team Providers Care Occupational Therapy Supervisor Name Role Phone Joslyn Dove Unavailable Unavailable Sweta, RN, Zina Ladd Unavailable Unavailable DeFinis, Harromie Y Unavailable Unavailable DeFinis, Harumi Y Unavailable Unavailable Yahir Avilez Unavailable Unavailable DIEGO GASTRO RN 1, FRANTZ Unavailable Unavail able Marysol Bennett Unavailable Unavailable Jose Guadalupe Mercer Unavailable Unavailable Allergies Allergy Classification Reported Allergen(s) Allergy Type Date of Onset Reaction(s) Facility (6 sources) Penicillin Drug Allergy 07-17-2011 [facility] Work Phone: (1 source) Adhesive Tape allergy to substance Rash [facility] Work Phone: (1 source) Penicillins; Translations: [Penicillins] drug allergy Hives [facility] Work Phone: Medications Completed/Discontinued Medications Medication Drug Class(es) Dates Sig (Normalized) Sig (Original) aspirin 81 mg oral tablet (7 sources) Platelet Aggregation Inhibitor, Nonsteroidal Anti-inflammatory Drug Start: 07-17-2011 take 1 tablet by mouth once daily ASPIRIN 81 MG TABS One tablet by mouth daily ASPIRIN [id number] Ana Aldridge Problems Active Problems Problem Classification Problem Date Documented Date Episodic/Chronic Cataract (1 source) Bilateral cataracts; Translations: [History of Cataracts, bilateral] Chronic Conduction disorders (6 sources) Heart block ; Translations: [Cardiac pacemaker in situ] Onset: 07-17-2011 07-17-2011 Chronic Coronary atherosclerosis and other heart disease (6 sources) Atherosclerotic heart disease of [place] coronary artery without angina pectoris; Translations: [Coronary arteriosclerosis] Onset: 07-17-2011 06-05-2016 Chronic Disorders of lipid metabolism (3 sources) Hyperlipidemia; Translations: [Hyperlipidemia, unspecified] Onset: 07-14-2011 07-14-2011 Chronic Essential hypertension (3 sources) Hypertensive disorder; Translations: [Essential (primary) hypertension] Onset: 07-17-2011 07-17-2011 Chronic Neoplasms of unspecified nature or uncertain behavior (3 sources) Monoclonal gammopathy (clinical); Translations: [Monoclonal gammopathy] 05-30-2012 Chronic Other circulatory disease (1 source) H/O: hypertension; Translations: [History of hypertension] Episodic Other circulatory disease (1 source) Personal history of other diseases of the circulatory system; Translations: [History of Mobitz type II block] Episodic Other hematologic conditions (1 source) H/O: anemia; Translations: [History of anemia] Episodic Other nutritional; endocrine; and metabolic disorders (1 source) H/O: raised blood lipids; Translations: [History of hyperlipidemia] Episodic Other upper respiratory disease (1 source) Seasonal allergy; Translations: [History of Seasonal allergies] Chronic Residual codes; unclassified (1 source) H/O: Disorder; Translations: [History of complications due to general anesthesia] Episodic Unclassified (1 source) Unknown / UNK(Unknown) Onset: 08-29-2017 Unclassified (9 sources) Long-term drug therapy; Translations: [Long-term (current) use of other medications] Onset: 07-14-2011 Resolved: 01-22-2015 07-14-2011 Past or Other Problems Problem Classification Problem Date Documented Da te Episodic/Chronic Residual codes; unclassified (3 sources) FH: Hypertension; Translations: [Family history of ischemic heart disease and other diseases of the circulatory system] 09-10-2013 Episodic Residual codes; unclassified (3 sources) FH: Raised blood lipids; Translations: [Family history of other endocrine, nutritional and metabolic diseases] 03-25-2014 Episodic Unclassified (1 source) L WRIST DORSAL CARPAL GANGLION Onset: 08-29-2017 Unclassified (1 source) Patient encounter status; Translations: [Screening for colon cancer] Results Test Name Value Interpretation Reference Range Facil ity Vital Signs Date Time Vital Sign Value Performing Clinician Doron choi 01-13-2019 16:51-0400 BMI (Body Mass Index) 22.11 kg/m2 Edward Schirack [facility] Work Phone: 01-13-2019 16:51-0400 Body weight 62.14 kg Yahir Avilez [facility] Work Phone: 01-13-2019 16:51-0400 BP Diastolic 64 mm[Hg] Yahir Avilez [facility] Work Phone: 01-13-2019 16:51-0400 BP Systolic 128 mm[Hg] Yahir Avilez [facility] Work Phone: 01-13-2019 16:51-0400 BSA (Body Surface Area) 1.7 m2 Yahir Avilez [facility] Work Phone: 01-13-2019 16:51-0400 Height 167.64 cm Yahir Avilez [facility] Work Phone: 01-13-2019 16:51-0400 Pulse (Heart Rate) 92 /min Yahir Avilez [facility] Work Phone: 01-13-2019 16:51-0400 Pulse Oximetry 98 % Yahir Avilez [facility] Work Phone: Encounters Encounter Date Encounter Type Care Provider Facility Start: 08-29-2017 Ambulatory Joslyn Dove Facili ty:[facility] Procedures Date Procedure Procedure Detail Performing Clinician Start: 12-19-2016 End: 12-19-2016 Program eval implantable in persn dual ld pacer Frannie Rodriguez, RENAEC Work Phone: Start: 11-30-2016 End: 12-19-2016 *Hepatic Function Panel Jose Guadalupe Mercer MD Start: 11-30-2016 End: 12-19-2016 Lipid 1996 panel - Serum or Plasma Jose Guadalupe Mercer MD Start: 06-07-2016 End: 06-07-2016 *Hepatic Function Panel Jose Guadalupe Mercer MD Start: 06-07-2016 End: 06-07-2016 Lipid 1996 panel - Serum or Plasma Jose Guadalupe Mercer MD Start: 05-30-2016 End: 05-30-2016 Program eval implantable in persn dual ld pacer Pramod Coreas MD Start: 05-17-2016 End: 05-30-2016 *Hepatic Function Panel Jose Guadalupe Mercer MD Start: 05-17-2016 End: 05-30-2016 Lipid 1996 panel - Serum or Plasma Jose Guadalupe Mercer MD Start: 01-25-2016 End: 01-25-2016 Program eval implantable in persn dual ld pacer Frannie Rodriguez PA-C Work Phone: Start: 08-09-2015 End: 08-09-2015 Program eval implantable in persn dual ld pacer Jose Guadalupe Mercer MD Start: 05-28-2015 End: 05-28-2015 Follow Up Appt 1 year Frannie kumari PA-C Work Phone: Start: 05-28-2015 End: 05-28-2015 PF Frannie Rodriguez PA-C Work Phone: Start: 01-22-2015 End: 05-19-2015 Follow Up Appt 6 months Jose Guadalupe Mercer MD Start: 01-22-2015 End: 01-22-2015 Lipid 1996 panel - Serum or Plasma Jose Guadalupe Mercer MD Start: 01-22-2015 End: 05-19-2015 Pacer Clinic Jose Guadalupe Mercer MD Start: 01-22-2015 End: 01-22-2015 Program eval implantable in persn dual ld pacer Jose Guadalupe Mercer MD Start: 10-23-2014 End: 10-24-2014 Documentation of current medications Jose Guadalupe Mercer MD Start: 10-23-2014 End: 10-23-2014 Follow Up Appt 6 months Jose Guadalupe Mercer MD Start: 10-23-2014 End: 10-23-2014 MMM Jose Guadalupe Mercer MD Start: 07-17-2014 End: 05-19-2015 Follow Up Appt 6 months Jose Guadalupe Mercer MD Start: 07-17-2014 End: 08-13-2014 Lipid 1996 panel - Serum or Plasma Jose Guadalupe Mercer MD Start: 07-17-2014 End: 05-19-2015 Pacer Clinic Jose Guadalupe Mercer MD Start: 07-17-2014 End: 08-13-2014 Program eval implantable in persn dual ld pacer Jose Guadalupe Mercer MD Start: 03-25-2014 End: 03-25-2014 Follow Up Appt 6 months Frannie johnson PA-C Work Phone: Start: 03-25-2014 End: 03-25-2014 [facility] Frannie Rodriguez PA-C Work Phone: Start: 01-16-2014 End: 03-04-2014 Follow Up Appt 6 months Jose Guadalupe Mercer MD Start: 01-16-2014 End: 03-04-2014 Pacer Clinic Jose Guadalupe Mercer MD Start: 01-16-2014 End: 01-16-2014 Program eval implantable in persn dual ld pacer Jose Guadalupe Mercer MD Start: 12-17-2013 End: 01-16-2014 Lipid 1996 panel - Serum or Plasma Jose Guadalupe Mercer MD Start: 12-17-2013 End: 01-16-2014 Program eval implantable in persn dual ld pacer Jose Guadalupe Mercer MD Start: 09-10-2013 End: 09-10-2013 Follow Up Appt 6 months Jose Guadalupe Mercer MD Start: 09-10-2013 End: 09-10-2013 MMM Jose Guadalupe Mercer MD Start: 07-11-2013 End: 01-16-2014 Follow Up Appt 6 months Jose Guadalupe Mercer MD Start: 07-11-2013 End: 01-16-2014 Program eval implantable in persn dual ld pacer Jose Guadalupe Mercer MD Start: 07-09-2013 End: 07-11-2013 *Hepatic Function Panel Jose Guadalupe Mercer MD Start: 07-09-2013 End: 07-11-2013 Lipid 1996 panel - Serum or Plasma Jose Guadalupe Mercer MD Start: 03-26-2013 End: 01-16-2014 Follow Up Appt 3 months Jose Guadalupe Mercer MD Start: 03-26-2013 End: 01-16-2014 Pacer Clinic Jose Guadalupe Mercer MD Start: 03-26-2013 End: 03-26-2013 Program eval implantable in persn dual ld pacer Jose Guadalupe Mercer MD Start: 03-05-2013 End: 03-05-2013 PFM Jose Guadalupe Mercer MD Start: 03-05-2013 End: 03-05-2013 Program eval implantable in persn dual ld pacer Jose Guadalupe Mercer MD Start: 12-17-2012 End: 01-16-2014 *Hepatic Function Panel Jose Guadalupe Mercer MD Start: 12-17-2012 End: 01-16-2014 Lipid 1996 panel - Serum or Plasma Jose Guadalupe Mercer MD Start: 12-06-2012 End: 01-16-2014 Follow Up Appt 3 months Dayday Gaines MD Work Phone: Start: 12-06-2012 End: 01-16-2014 Pacer Clinic Dayday Gaines MD Work Phone: Start: 12-06-2012 End: 12-06-2012 Program eval implantable in persn dual ld pacer Dayday Gaines MD Work Phone: Start: 09-04-2012 End: 01-16-2014 *Hepatic Function Panel Brian barrera MD Start: 09-04-2012 End: 01-16-2014 Lipid 1996 panel - Serum or Plasma Brian Chang MD Start: 08-30-2012 End: 01-16-2014 Follow Up Appt 3 months Julee Hernandez Start: 08-30-2012 End: 01-16-2014 Pacer Clinic Pramod Coreas MD Start: 08-30-2012 End: 08-30-2012 Program eval implantable in persn dual ld pacer Pramod Coreas MD Start: 05-31-2012 End: 01-16-2014 Follow Up Appt 3 months Brian barrera MD Start: 05-31-2012 End: 01-16-2014 Pacer Clinic Brian booker MD Start: 05-31-2012 End: 05-31-2012 Program eval implantable in persn dual ld pacer Brian Chang MD Start: 02-19-2012 End: 02-19-2012 Program eval implantable in persn dual ld pacer Brian Chang MD Start: 01-24-2012 End: 01-24-2012 *Hepatic Function Panel Brian barrera MD Start: 01-24-2012 End: 01-24-2012 Lipid 1996 panel - Serum or Plasma Brian Chang MD Start: 07-20-2011 End: 07-20-2011 Follow Up Appt 6 months Brian barrera MD Biopsy of breast [facility]cision [facility] ganglion [facility] Ed [facility] Insertion of pacemak er pulse generator emily [facility] Tonsillectomy [facility] k Plan of Treatment Date Care Activity Detail Author Start: 06-19-2017 End: 12-22-2016 *Hepatic Function Panel *Hepatic Function Panel [facility] Work Phone: Start: 06-19-2017 End: 12-22-2016 Lipid 1996 panel *Lipid Profile CC PCP [facility] Work Phone: Start: 06-04-2017 End: 06-04-2017 Appointment Appointment [facility] Work Phone: Start: 12-19-2016 End: 12-19-2016 Follow Up Appt 6 months Follow Up Appt 6 months [facility] Work Phone: Start: 12-19-2016 End: 12-19-2016 Pacer Clinic [facility] Work Phone: Start: 12-19-2016 End: 12-19-2016 Appointment Appointment [facility] Work Phone: Start: 11-30-2016 End: 12-19-2016 *Hepatic Function Panel *Hepatic Function Panel [facility] Work Phone: Start: 11-30-2016 End: 12-19-2016 Lipid 1996 panel *Lipid Profile CC PCP [facility] Work Phone: Start: 06-07-2016 End: 06-07-2016 *Hepatic Function Panel *Hepatic Function Panel [facility] Work Phone: Start: 06-07-2016 End: 06-07-2016 Follow Up Appt 6 months Follow Up Appt 6 months [facility] Work Phone: Start: 06-07-2016 End: 06-07-2016 Lipid 1996 panel *Lipid Profile CC PCP [facility] Work Phone: Start: 06-07-2016 End: 06-07-2016 MMM MMM [facility] Work Phone: Start: 05-30-2016 End: 05-30-2016 Follow Up Appt 6 months Follow Up Appt 6 months [facility] Work Phone: Start: 05-30-2016 End: 05-30-2016 Pacer Clinic [facility] Work Phone: Start: 05-17-2016 End: 05-30-2016 *Hepatic Function Panel *Hepatic Function Panel [facility] Work Phone: Start: 05-17-2016 End: 05-30-2016 Lipid 1996 panel *Lipid Profile CC PCP [facility] Work Phone: Start: 02-14-2016 End: 02-19-2015 *CBC with Differential *CBC with Differential [facility] Work Phone: Start: 02-14-2016 End: 02-19-2015 *CMP Complete Metabolic Panel *CMP Complete Metabolic Panel [facility] Work Phone: Start: 02-14-2016 End: 02-19-2015 *MISC - Miscellaneous Lab Test #1 *MISC - Miscellaneous Lab Test #1 [facility] Work Phone: Start: 02-14-2016 End: 02-19-2015 *SPEP (Serum Protein Electrophoresis) *SPEP (Serum Protein Electrophoresis) [facility] Work Phone: Start: 02-14-2016 End: 02-19-2015 LDH enzyme act/vol *LDH -LDH (Lactate Dehydrogenase) [facility] Work Phone: Start: 02-14-2016 End: 02-19-2015 Urate mass conc *Uric Acid Blood [facility] Work Phone: Start: 01-25-2016 End: 01-25-2016 Follow Up Appt 6 months Follow Up Appt 6 months [facility] Work Phone: Start: 01-25-2016 End: 01-25-2016 Pac[facility] Clinic [facility] Work Phone: Start: 08-09-2015 End: 08-09-2015 Follow Up Appt 6 months Follow Up Appt 6 months [facility] Work Phone: Start: 08-09-2015 End: 08-09-2015 Pacer Clinic [facility] Work Phone: Start: 07-23-2015 End: 01-22-2015 *Hepatic Function Panel *Hepatic Function Panel [facility] Work Phone: Start: 07-23-2015 End: 01-22-2015 Lipid 1996 panel *Lipid Profile CC PCP [facility] Work Phone: Start: 05-28-2015 End: 05-28-2015 Follow Up Appt 1 year Follow Up Appt 1 year [facility] Work Phone: Start: 05-28-2015 End: 05-28-2015 PFM PFM [facility] Work Phone: Start: 02-12-2015 End: 01-22-2015 Lipid 1996 panel *Lipid Profile CC PCP [facility] Work Phone: Start: 01-22-2015 End: 05-19-2015 Follow Up Appt 6 months Follow Up Appt 6 months [facility] Work Phone: Start: 01-22-2015 End: 05-19-2015 Pacer Clinic Pacer Clinic [facility] Work Phone: Start: 10-23-2014 End: 10-23-2014 Follow Up Appt 6 months Follow Up Appt 6 months [facility] Work Phone: Start: 10-23-2014 End: 10-23-2014 MMM MMM [facility] Work Phone: Start: 07-17-2014 End: 08-13-2014 *Hepatic Function Panel *Hepatic Function Panel [facility] Work Phone: Start: 07-17-2014 End: 05-19-2015 Follow Up Appt 6 months Follow Up Appt 6 months [facility] Work Phone: Start: 07-17-2014 End: 08-13-2014 Lipid 1996 panel *Lipid Profile CC PCP [facility] Work Phone: Start: 07-17-2014 End: 05-19-2015 Pacer Clinic [facility] Work Phone: Start: 03-25-2014 End: 03-25-2014 Follow Up Appt 6 months Follow Up Appt 6 months [facility] Work Phone: Start: 03-25-2014 End: 03-25-2014 PFM PFM [facility] Work Phone: Start: 01-16-2014 End: 03-04-2014 Follow Up Appt 6 months Follow Up Appt 6 months [facility] Work Phone: Start: 01-16-2014 End: 03-04-2014 Pacer Clinic [facility] Work Phone: Start: 12-17-2013 End: 01-16-2014 *Hepatic Function Panel *Hepatic Function Panel [facility] Work Phone: Start: 12-17-2013 End: 01-16-2014 Lipid 1996 panel *Lipid Profile CC PCP [facility] Work Phone: Start: 09-10-2013 End: 09-10-2013 Follow Up Appt 6 months Follow Up Appt 6 months [facility] Work Phone: Start: 09-10-2013 End: 09-10-2013 MMM MMM [facility] Work Phone: Start: 07-11-2013 End: 01-16-2014 Follow Up Appt 6 months Follow Up Appt 6 months [facility] Work Phone: Start: 07-11-2013 End: 01-16-2014 Pacer Clinic [facility] Work Phone: Start: 07-09-2013 End: 07-11-2013 *Hepatic Function Panel *Hepatic Function Panel [facility] Work Phone: Start: 07-09-2013 End: 07-11-2013 Lipid 1996 panel *Lipid Profile CC PCP [facility] Work Phone: Start: 03-26-2013 End: 01-16-2014 Follow Up Appt 3 months Follow Up Appt 3 months [facility] Work Phone: Start: 03-26-2013 End: 01-16-2014 Pacer Clinic Pacer Clinic [facility] Work Phone: Start: 03-05-2013 End: 03-05-2013 Follow Up Appt 6 months Follow Up Appt 6 months [facility] Work Phone: Start: 03-05-2013 End: 03-05-2013 PFM PFM [facility] Work Phone: Start: 12-17-2012 End: 01-16-2014 *Hepatic Function Panel *Hepatic Function Panel [facility] Work Phone: Start: 12-17-2012 End: 01-16-2014 Lipid 1996 panel *Lipid Profile [facility] Work Phone: Start: 12-06-2012 End: 01-16-2014 Follow Up Appt 3 months Follow Up Appt 3 months [facility] Work Phone: Start: 12-06-2012 End: 01-16-2014 Pacer Clinic Pacer Clinic [facility] Work Phone: Start: 09-04-2012 End: 01-16-2014 *Hepatic Function Panel *Hepatic Function Panel [facility] Work Phone: Start: 09-04-2012 End: 01-16-2014 Lipid 1996 panel *Lipid Profile [facility] Work Phone: Start: 08-30-2012 End: 01-16-2014 Follow Up Appt 3 months Follow Up Appt 3 months [facility] Work Phone: Start: 08-30-2012 End: 01-16-2014 Pacer Clinic [facility] Work Phone: Start: 05-31-2012 End: 01-16-2014 Follow Up Appt 3 months Follow Up Appt 3 months [facility] Work Phone: Start: 05-31-2012 End: 01-16-2014 Pacer Clinic Pacer Clinic [facility] Work Phone: Start: 02-19-2012 End: 02-19-2012 Follow Up Appt 1 year Follow Up Appt 1 year [facility] Work Phone: Start: 01-24-2012 End: 01-24-2012 *Hepatic Function Panel *Hepatic Function Panel [facility] Work Phone: Start: 01-24-2012 End: 01-24-2012 Lipid 1996 panel *Lipid Profile [facility] Work Phone: Start: 07-20-2011 End: 07-20-2011 Follow Up Appt 6 months Follow Up Appt 6 months [facility] Work Phone: Patient Education [facility] Work Phone: Immunizations Immunization Date Immunization Notes Care Provider Fa cility influenza, seasonal, injectable Yahir Avilez [facility] Work Phone: Payers Date Payer Category Payer Unknown [id number] Social History Date Type Detail Facility NEGATED: Highlighted row - - [facility] Work Phone: Functional Status Date Assessment Result Facility NEGATED: Highlighted row Functional performance Functional status health issues are not documented Disease [facility] Work Phone: Mental Status Date Assessment Result Facility NEGATED: Highlighted row Cognitive function [Interpretation] Cognitive status health issues are not documented Disease [facility] Work Phone: Summary Purpose Family History No Family History Records Found Advance Directives No Advanced Directives Records Found Additional Source Comments INFORMATION SOURCE (unrecogn ized section and content) FOR RECORDS PERTAINING TO PATIENTS WHO ARE OR HAVE BEEN ENROLLED IN A CHEMICAL DEPENDENCY/SUBSTANCEABUSE PROGRAM, SOME INFORMATION MAY BE OMITTED. This clinical summary was aggregated from multiple sources. Caution should be exercised in using it in the provision of clinical care. This summary normalizes information from multiple sources, and as a consequence, information in this document may materially change the coding, format and clinical context of patient data. In addition, data may be omitted in some cases. CLINICAL DECISIONS SHOULD BE BASED ON THE PRIMARY CLINICAL RECORDS. [facility] [employer] [facility]. provides no warranty or guarantee of the accuracy or completeness of information in this document.
[2023-04-30 14:12] LABS: AST(SGOT) 22 U/L (15-37); Alanine Aminotransfer ALT/SGPT 16 U/L (13-56); Albumin, Serum 4.2 g/dL (3.2-5.0); Alkaline Phosphatase 103 U/L (45-117); Bilirubin, Direct 0.18 mg/dL (0.00-0.30); Cholesterol 164 mg/dL (200); Globulin 3.4 g/dL (2.2-4.2); High Density Lipoprotein 78 mg/dL; Protein, Total 7.6 g/dL (6.4-8.2); Triglycerides 51 mg/dL; Very Low Density Lipoprotein 10 mg/dL (5-40)
== END | disposition home or self-care (01) ==
LOC: LAB 11:04
PROVIDERS: Internal Medicine Cardiovascular Disease; PCP Family Medicine; Visit Provider Physician Assistant Medical
DX: E78.00 Pure hypercholesterolemia, unspecified (principal)
CPT/HCPCS: 36415; 80061; 80076

== ENCOUNTER → 2023-10-23 | Outpatient (CLI) | payer OTHER, SELFPAY ==
--- NOTE | 2023-10-23 12:00 | BI_ITS ---
MAMMOGRAPHY - BILATERAL SCREENING REASON FOR EXAM: Female, 63 years old. Routine annual screening examination. PERTINENT HISTORY: Aunts with breast cancer. TECHNIQUE: Digital bilateral breast gloria (3D mammographic acquisition) in the CC and MLO projections. 2-D mediolateral oblique (MLO) and craniocaudad (CC) views of both breasts were obtained. CAD: Full Field Digital Mammography with Computer Added Detection was performed. COMPARISON: Comparison is made with prior study dated October 19, 2022 and February 01, 2021. FINDINGS: Breast Composition: The breasts are heterogeneously dense, which may obscure small masses. There are no dominant masses or suspicious calcifications. A battery pack from a pacemaker is seen in the left axilla. No other significant abnormalities are identified. There has been no significant change since the prior study. BI/SCRN MAMM (CAD)W/GLORIA BILAT IMPRESSION: Stable bilateral screening mammogram. Yearly follow-up mammogram recommended. (A) ASSESSMENT CATEGORY: BIRADS Category 2: Benign. A letter regarding these results will be sent to the patient by the facility within 30 days. Approximately 10% of breast cancers are not detected by mammography. A normal mammogram should not delay biopsy of a clinically suspicious abnormality. [id number] Electronically Signed: Adelso Reese MD at 12:42 EDT ,
== END | disposition home or self-care (01) ==
LOC: OPBI 12:00
PROVIDERS: PCP Family Medicine; Referring Provider Internal Medicine Hematology & Oncology; Visit Provider Internal Medicine Hematology & Oncology
DX: Z12.31 Encounter for screening mammogram for malignant neoplasm of breast (principal)
CPT/HCPCS: 77063; 77067

== ENCOUNTER → 2023-11-05 | Outpatient (CLI) | payer OTHER, SELFPAY ==
[2023-11-05 12:03] LABS: AST(SGOT) 22 U/L (15-37); Alanine Aminotransfer ALT/SGPT 16 U/L (13-56); Albumin, Serum 3.8 g/dL (3.2-5.0); Alkaline Phosphatase 112 U/L (45-117); Bilirubin, Direct 0.13 mg/dL (0.00-0.30); Cholesterol 176 mg/dL (200); Globulin 3.5 g/dL (2.2-4.2); High Density Lipoprotein 79 mg/dL; Protein, Total 7.3 g/dL (6.4-8.2); Triglycerides 50 mg/dL; Very Low Density Lipoprotein 10 mg/dL (5-40)
== END | disposition home or self-care (01) ==
PROVIDERS: PCP Family Medicine; Referring Provider Nurse Practitioner Family; Visit Provider Nurse Practitioner Family
DX: E78.00 Pure hypercholesterolemia, unspecified (principal)
CPT/HCPCS: 36415; 80061; 80076

== ENCOUNTER → 2024-06-03 | Outpatient (CLI) | payer OTHER, SELFPAY ==
[2024-06-03 10:01] LABS: AST(SGOT) 39 U/L (<=31); Alanine Aminotransfer ALT/SGPT 14 U/L (<=34); Albumin, Serum 4.7 g/dL (3.4-4.8); Alkaline Phosphatase 109 U/L (35-104); Bilirubin, Direct 0.24 mg/dL (0.00-0.30); Protein, Total 7.7 g/dL (5.9-8.4); Total Bilirubin 0.53 mg/dL (0.00-1.30)
[2024-06-03 10:52] LABS: Cholesterol 162 mg/dL (<=200); High Density Lipoprotein 78 mg/dL; Low Density Lipoprotein Calc. 70 mg/dL; Triglycerides 71 mg/dL; Very Low Density Lipoprotein 14 mg/dL (5-40); cholesterol:hdl ratio screen 2.09
== END | disposition home or self-care (01) ==
LOC: PAVLAB 09:25
PROVIDERS: PCP Family Medicine; Referring Provider Physician Assistant Medical; Visit Provider Physician Assistant Medical
DX: E78.00 Pure hypercholesterolemia, unspecified (principal)
CPT/HCPCS: 80061; 80076

== ENCOUNTER → 2024-06-06 | Outpatient (CLI) | payer SELFPAY, OTHER ==
--- NOTE | 2024-06-06 14:18 | BI_ITS ---
EXAM: DIAG MAMM W/CAD, UNILAT; BREAST LIMITED UNILATERAL; LT BRST UNILAT GLORIA ADD ON 06/06/2024 CLINICAL HISTORY: 64-year-old female presents with palpable concern in the left breast. Family history of breast cancer in a paternal aunt and a maternal aunt. TECHNIQUE: Left diagnostic digital breast tomosynthesis with 2D and 3D images. Computer aided detection. Also, targeted left breast ultrasound was performed. COMPARISON: Prior exam(s) dated 10/23/2023. FINDINGS: MAMMOGRAM: The breast tissue is heterogenously dense, which may obscure small masses. There is a high density irregular mass in the upper-outer left breast at posterior depth, which is partially obscured by the overlying cardiac pacemaker device. ULTRASOUND: Targeted left breast ultrasound performed of the upper-outer left breast. Ultrasound performed of the area of palpable concern in the left breast demonstrates a heterogeneous area with internal echogenic septations and internal vascular flow at 1 o'clock 8 cm from the nipple, measuring 3.9 x 3.5 x 1.2 cm. Also, there are 2 mildly prominent left axillary lymph nodes, measuring 2.0 x 2.1 x 0.7 cm and 1.7 x 1.0 x 1.0 cm. BI/Lt Brst Unilat Gloria Add On IMPRESSION: Suspicious left breast mass at 1 o'clock 8 cm from the nipple requires further evaluation. Recommend tissue sampling with ultrasound guided core needle biopsy. OVERALL FINAL ASSESSMENT: BIRADS 4B SUSPICIOUS ABNORMALITY-Moderate suspicion f or malignancy (10-50% likelihood of cancer). RECOMMENDATION: Recommendation: Biopsy should be considered. A letter with findings and recommendations will be mailed to the patient. Reading Location: [id number]
--- NOTE | 2024-06-06 14:30 | BI_ITS ---
EXAM: DIAG MAMM W/CAD, UNILAT; BREAST LIMITED UNILATERAL; LT BRST UNILAT GLORIA ADD ON 06/06/2024 CLINICAL HISTORY: 64-year-old female presents with palpable concern in the left breast. Family history of breast cancer in a paternal aunt and a maternal aunt. TECHNIQUE: Left diagnostic digital breast tomosynthesis with 2D and 3D images. Computer aided detection. Also, targeted left breast ultrasound was performed. COMPARISON: Prior exam(s) dated 10/23/2023. FINDINGS: MAMMOGRAM: The breast tissue is heterogenously dense, which may obscure small masses. There is a high density irregular mass in the upper-outer left breast at posterior depth, which is partially obscured by the overlying cardiac pacemaker device. ULTRASOUND: Targeted left breast ultrasound performed of the upper-outer left breast. Ultrasound performed of the area of palpable concern in the left breast demonstrates a heterogeneous area with internal echogenic septations and internal vascular flow at 1 o'clock 8 cm from the nipple, measuring 3.9 x 3.5 x 1.2 cm. Also, there are 2 mildly prominent left axillary lymph nodes, measuring 2.0 x 2.1 x 0.7 cm and 1.7 x 1.0 x 1.0 cm. BI/DIAG MAMM W/CAD, UNILAT IMPRESSION: Suspicious left breast mass at 1 o'clock 8 cm from the nipple requires further evaluation. Recommend tissue sampling with ultrasound guided core needle biopsy. OVERALL FINAL ASSESSMENT: BIRADS 4B SUSPICIOUS ABNORMALITY-Moderate suspicion f or malignancy (10-50% likelihood of cancer). RECOMMENDATION: Recommendation: Biopsy should be considered. A letter with findings and recommendations will be mailed to the patient. Reading Location: [id number]
== END | disposition home or self-care (01) ==
PROVIDERS: PCP Family Medicine; Referring Provider Nurse Practitioner Family; Visit Provider Nurse Practitioner Family
DX: N63.20 Unspecified lump in the left breast, unspecified quadrant (principal)
CPT/HCPCS: 76642; 77061; 77065; G0279

== ENCOUNTER → 2024-06-11 | Outpatient (CLI) | payer OTHER, SELFPAY ==
--- NOTE | 2024-06-11 15:00 | BRBX_PTH ---
PATIENT: DAKOTA GORDON [facility]: [facility] U#:[id number] AGE/SX: 64/F ROOM: RE06/11/[address]: Dr. Amy Fish MD : 1960 BED: DIS: 06/11/2024 SPEC #: [id number] RECD: 06/12/24 09:10 STATUS: DANNY REQ #: [id number] GIDEON: 06/11/24 15:[address]: Amy Fish DEPT: SURGICAL PATHOLOGY RECD BY: Alexy Hester ENTERED: 06/12/24 09:11 SP TYPE: BREAST BX OTHR DR: Dr. Marysol Bennett MD Tissues: A - Left breast, NOS Procedures: Immunohistochemical Stains Surgery Specimen Level IV IHC Stain ADDITIONAL HEADER OPERATION: Left breast biopsy PRE-OP DIAGNOSIS: Left breast mass TISSUE SUBMITTED: A- Left breast mass, 1o'clock, 8cm from nipple Ischemic Time: 1 minute Fixation Time: 28.5 hours MICROSCOPIC DIAGNOSIS A. 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 * Intermediate nuclear grade, negative for comedonecrosis. * ER: negative (<1%). * ME: negative (0). Note: IHC for CK5/6 supports the histologic impression of DCIS. COMMENT The slides were reviewed in intradepartmental consultation by Dr Romero Mitchell ([facility], [facility]). MICROSCOPIC DESCRIPTION Slides are reviewed. These tests were developed and their performance characteristics determined by [facility]. They may not have been cleared or approved by the U.[place]. Food and Drug Administration. The FDA has determined that such clearance or approval is not necessary. The above immunohistochemical/dualISH markers are ordered and reviewed by the Pathologist. GROSS DESCRIPTION A. Received in formalin labeled, Dakota Gordon and designated left breast, are four yellow-gamino, smooth, cylindrical, tissue cores that range from 0.1 to 1.2 cm long and averages 0.2 cm in diameter. Totally submitted in one cassette. JK 06/12/2024 CPT:44149,65419, [id number] ADDENDUM ADDENDUM ADDENDUM ADDENDUM ADDENDUM ADDENDUM ADDENDUM ADDENDUM ADDENDUM ADDENDUM ADDENDUM 08/04/2024 15:20 ADDENDUM 08/04/2024 15:20 ADDENDUM 08/04/2024 15:20 ADDENDUM 08/04/2024 15:20 ADDENDUM 08/04/2024 15:20 This addendum is added to incorporate an outside pathology consultation report. The case was examined at by Dr. Clemons (#[id number]) and the following diagnosis was rendered. A. Left breast mass, 1o'clock, 8cm from nipple, core biopsy: Apocrine ductal carcinoma in situ (DCIS), cribriform type. Intermediate nuclear grade. Please see complete above mentioned consultation report in EMR
== END | disposition home or self-care (01) ==
LOC: LABSPEC 16:02
PROVIDERS: PCP Family Medicine; Referring Provider Surgery; Visit Provider Surgery
DX: N63.20 Unspecified lump in the left breast, unspecified quadrant (principal)
CPT/HCPCS: 88305; 88342

== ENCOUNTER → 2024-12-15 | Outpatient (CLI) | payer OTHER, SELFPAY ==
--- OUTSIDE RECORDS SUMMARY | 2024-11-25 08:54 | XMS RPT_ITS ---
Author Name Auto Generated Organization OHIP Support Name Relationship Address Phone YANELIS PANIAGUA Next of Kin Unknown [phone] [address] SARAH Next of Kin [address] [place] [address] + ~(330 CIPRIANO SARAH Next of Kin Unknown + ARCELIAYANELIS Next of Kin Unknown [phone] Next of Kin [address] [place] [address] + ~(330 CIPRIANO SARAH Next of Kin Unknown + ARCELIAYANELIS Next of Kin Unknown [phone] EV[address] HORACE Next of Kin [address] [place] [address] + ~(330 CIPRIANO SARAH Next of Kin Unknown + YANELIS PANIAGUA Next of Kin Unknown [phone] [address] SARAH Next of Kin [address] [place] [address] + ~(330 CIPRIANO SARAH Next of Kin Unknown + YANELIS PANIAGUA Next of Kin Unknown [phone] [address] SARAHREY Next of Kin [address] [place] [address] + ~(330 CIPRIANO SARAH Next of Kin Unknown + ARCELIAYANELIS Next of Kin Unknown [phone] H[address] SARAH Next of Kin [address] [place] [address] + ~(330 KREIS, CIPRIANO Next of Kin Unknown + ARCELIA, YANELIS Next of Kin Unknown [phone] KREIS, HORACE Next of Kin Unknown [phone]~(330 KREIS, CIPRIANO Next of Kin Unknown + ARCELIA, YANELIS Next of Kin Unknown [phone] KREIS, HORACE Next of Kin Unknown [phone]~(330 KREIS, CIPRIANO Next of Kin Unknown + ARCELIA, YANELIS Next of Kin Unknown [phone] KREIS, HORACE Next of Kin Unknown [phone]~(330 KREIS, CIPRIANO Next of Kin Unknown + ARCELIA, YANELIS Next of Kin Unknown [phone] KREIS, HORACE Next of Kin Unknown [phone]~(330 KREIS, CIPRIANO Next of Kin Unknown + ARCELIA, YANELIS Next of Kin Unknown [phone] KREIS, HORACE Next of Kin Unknown [phone]~(330 KREIS, CIPRIANO Next of Kin Unknown + ARCELIA, YANELIS Next of Kin Unknown [phone] KREIS, HORACE Next of Kin Unknown [phone]~(330 KREIS, CIPRIANO Next of Kin Unknown + ARCELIA, YANELIS Next of Kin Unknown [phone] KREIS, HORACE Next of Kin Unknown [phone]~([phone] KREIS, CIPRIANO Next of Kin Unknown + ARCELIA, YANELIS Next of Kin Unknown [phone] KREIS, HORACE Next of Kin Unknown [phone]~([phone] KREIS, CIPRIANO Next of Kin Unknown + ARCELIA, YANELIS Next of Kin Unknown [phone] KREIS, HORACE Next of Kin Unknown [phone]~([phone] KREIS, CIPRIANO Next of Kin Unknown + ARCELIA, YANELIS Next of Kin Unknown [phone] KREIS, HORACE Next of Kin Unknown [phone]~([phone] KREIS, CIPRIANO Next of Kin Unknown + ARCELIA, YANELIS Next of Kin Unknown [phone] KREIS, HORACE Next of Kin Unknown [phone]~([phone] KREIS, CIPRIANO Next of Kin Unknown + ARCELIA, YANELIS Next of Kin Unknown [phone] KREIS, HORACE Next of Kin Unknown [phone]~(330 KREIS, CIPRIANO Next of Kin Unknown + ARCELIA, YANELIS Next of Kin Unknown [phone] KREIS, HORACE Next of Kin Unknown [phone]~(330 KREIS, CIPRIANO Next of Kin Unknown + ACRELIA, YANELIS Next of Kin Unknown [phone] KREIS, HORACE Next of Kin Unknown [phone]~(330 KREIS, CIPRIANO Next of Kin Unknown + ARCELIA, YANELIS Next of Kin Unknown [phone] KREIS, HORACE Next of Kin Unknown [phone]~(330 KREIS, CIPRIANO Next of Kin Unknown + ARCELIA, YANELIS Next of Kin Unknown [phone] KREIS, HORACE Next of Kin Unknown [phone]~(330 KREIS, CIPRIANO Next of Kin Unknown + ARCELIA, YANELIS Next of Kin Unknown [phone] KREIS, HORACE Next of Kin Unknown [phone] KREIS, CIPRIANO Next of Kin Unknown + ARCELIA, YANELIS Next of Kin Unknown [phone] HORACE SARAH Next of Kin Unknown [phone] CIPRIANO SARAH Next of Kin Unknown + Care Team Providers 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 Name Role Phone [facility] MARYSOL Primary Care Unavailable MIEDEL, MARYSOL Primary Care Unavailable VAN FOSSEN, GIANNA Referring Unavailable VAN FOSSEN, GIANNA Attending Unavailable MIEDEL, MARYSOL Primary Care Unavailable VAN FOSSEN, GIANNA Referring Unavailable MIEDEL, MARYSOL Primary Care Unavailable VAN FOSSEN, GIANNA Referring Unavailable LORI MYRICK Attending Unavailable MIEDEL, MARYSOL Primary Care Unavailable VAN FOSSEN, GIANNA Referring Unavailable MIEDEL, MARYSOL Primary Care Unavailable ROBOTHAM, ROBIN Referring Unavailable MIEDEL, [facility] Primary Care Unavailable MIEDEL, MARYSOL Referring Unavailable VAN FOSSEN, GIANNA Attending Unavailable MIED, MARYSOL Primary Care Unavailable PAULA HICKS Attending Unavailable MIEDEL, MARYSOL Primary Care Unavailable VAN FOSSEN, GIANNA Attending Unavailable MIEDEL, MARYSOL Primary Care Unavailable VAN FOSSEN, GIANNA Referring Unavailable VAN FOSSEN, GIANNA Attending Unavailable VAN FOSSEN, GIANNA Attending Unavailable MIEDEL, MARYSOL Primary Care Unavailable VAN FOSSEN, GIANNA Referring Unavailable MIEDEL, MARYSOL Primary Care Unavailable VAN FOSSEN, GIANNA Referring Unavailable VAN FOSSEN, GIANNA Attending Unavailable VAN FOSSEN, GIANNA Referring Unavailable MIEDEL, MARYSOL Primary Care Unavailable RICCARDO SMITH Attending Unavailable MIEDEL, MARYSOL Primary Care Unavailable MIEDEL, MARYSOL Primary Care Unavailable DOROTA MAYFIELD Attending Unavailable MIEDEL, MARYSOL Primary Care Unavailable RICCARDO SMITH Attending Unavailable MIEDEL, MARYSOL Primary Care Unavailable DOROTA MAYFIELD Attending Unavailable MIEDEL, MARYSOL Primary Care Unavailable DOROTA MAYFIELD Attending Unavailable MIEDEL, MARYSOL Primary Care Unavailable MIEDEL, MARYSOL Referring Unavailable VAN FOSSEN, GIANNA Attending Unavailable MIEDEL, MARYSOL Primary Care Unavailable DONAL TRAMMELL Attending Unavailable MIEDEL, MARYSOL Primary Care Unavailable LAURIE REED Referring Unavailable MIEDEL, MARYSOL Primary Care Unavailable VAN FOSSEN, GIANNA Attending Unavailable VAN FOSSEN, GIANNA Admitting Unavailable MIEDEL, MARYSOL Primary Care Unavailable ROBOTHAM, ROBIN Referring Unavailable VAN FOSSEN, GIANNA Attending Unavailable MARYSOL BENNETT Primary Care Unavailable DONAL TRAMMELL Attending Unavailable PROBLEMS DATE TYPE CONDITION / CODE ATTENDING STATUS [facility] 11/25/2024 Admitting Diagnosis Stiffness of unspecified joint, not elsewhere classified / M25.60(ICD-10) [facility] 08/26/2024 Admitting Diagnosis Acquired absence of left breast and nipple / Z90.12(ICD-10) GIANNA CARDONA [facility] 10/03/2024 Admitting Diagnosis Post-op / 483() DOROTA MAYFIELD [facility] 09/12/2024 Admitting Diagnosis Presence of cardiac pacemaker / Z95.0(ICD-10) MARQUITA ESCALANTE [facility] 09/12/2024 Admitting Diagnosis Atrioventricular block, complete (HCC) / I44.2(ICD-10) MARQUITA ESCALANTE [facility] 09/10/2024 Admitting Diagnosis Other specified postprocedural states / Z98.890(ICD-10) DOROTA MAYFIELD [facility] 08/27/2024 Admitting Diagnosis 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(ICD-10) MARQUITA ESCALANTE [facility] 08/19/2024 Admitting Diagnosis Encounter for other preprocedural examination / Z01.818(ICD-10) MARQUITA ESCALANTE [facility] 07/30/2024 Admitting Diagnosis Surgical Consult / 868() RICCARDO SMITH [facility] 07/25/2024 Admitting Diagnosis New Patient / 542() DONAL TRAMMELL [facility] 07/25/2024 Admitting Diagnosis Pre-op Exam / [id number]() DONAL TRAMMELL [facility] 07/25/2024 Admitting Diagnosis Abnormal ECG / 293() DONAL TRAMMELL [facility] 07/25/2024 Admitting Diagnosis Encounter for adjustment and management of other cardiac device / Z45.09(ICD-10) [facility] 07/17/2024 Admitting Diagnosis Other abnormal and inconclusive findings on diagnostic imaging of breast / R92.8(ICD-10) [facility] 07/17/2024 Admitting Diagnosis Unspecified lump in the left breast, upper outer quadrant / N63.21(ICD-10) GIANNA CARDONA [facility] 07/11/2024 Admitting Diagnosis Encounter for other screening for genetic and chromosomal anomalies / Z13.79(ICD-10) PAULA HICKS [facility] 07/11/2024 Admitting Diagnosis Family history of malignant neoplasm of ovary / Z80.41(ICD-10) PAULA HICKS [facility] 07/11/2024 Admitting Diagnosis Family history of malignant neoplasm of breast / Z80.3(ICD-10) PAULA HICKS [facility] 07/11/2024 Admitting Diagnosis Dense breasts, unspecified / R92.30(ICD-10) GIANNA CARDONA [facility] PROCEDURES No Procedure Records Found RESULTS PROGRESS NOTE Observed: 11/25/2024 9:00 AM Status: COMPLETED Source: [facility] AT [facility] AT [address] [address] Dept: [phone] Dept PHYSICAL THERAPY TREATMENT Patient Name: Dakota Sarah : 1960 Date of Service: 11/25/2024 Referring Provider: Gianna Cardona MD Visit #: 2 Diagnosis: Ductal carcinoma in situ (DCIS) of left breast Mechanism of injury: L shoulder impaired ROM post L mastectomy 08/26/24 for L breast cancer Patient Preferences: Dakota Precautions: Yes L chest wall pacemaker Subjective Pt reports that the flexibility ex's are really helping. Pt concerned about band of tissue in L axilla that responds well and loosens up with daily stretching but then tightens up over night. Compliance with HEP: Yes Pertinent history of: Diagnosed L breast cancer, DCIS, ER/OK-, Hx of heart block with implanted pacemaker L chest wall Involved body region: left breast Surgery date: 08/26/24, 08/27/24 return to surgery for evacuation and wash out of L mastectomy hematoma. Drain in place till 09/10/24 Related surgery description: Breast Cancer Surgery Breast cancer surgery: simple mastectomy Breast reconstruction: none Lymph Node Surgery Surgery type: SLNB # of nodes removed: 2 # of nodes positive: 0 Chemotherapy: No Radiation Therapy: No Complications: hematoma Objective AROM L shoulder seated: Flex 150, ABD 170 Treatment Therapeutic Exercise # of Activities: 7 Therapeutic Exercise Activity 1: Hands behind head Activity 1 Comment: supine Therapeutic Exercise Activity 2: wand assisted shoulder Flex Activity 2 Comment: supine Therapeutic Exercise Activity 4: standing wall slides Activity 4 Comment: Flex, with lift off Therapeutic Exercise Activity 5: standing wall slides Activity 5 Comment: ABD Therapeutic Exercise Activity 6: Pectorals stretch Activity 6 Comment: standing in doorway Therapeutic Exercise Activity 7: arm hang Activity 7 Comment: standing, use of finger ladder Soft Tissue Mobilization Location: L axilla, pectorals lateral to pacemaker, upper inner arm Body Position: Supine Comments: LUE in varied degrees of shoulder ABD, arm pull Patient Education: Daily education. Written HEP. Pt to avoid extremes of flexibility ex's that might cause any pinching pain in L shoulder. Home Exercise Program: Progressed home exercise program Assessment Skilled physical therapy interventions utilized to improve patient?s impairments and work towards established goals. Pt is now 13 weeks post op. Pt presents with soft tissue tightness of thick band of scar tissue or axillary cording in L axilla that she reports responds well to daily stretching but tightens up over night. Pt responded well this date to STM to this area which is located in L axilla and just lateral to pacemaker site, followed up by flexibility ex's. STM to this area is limited by pacemaker placement. Pt to attempt self massage to area and continue with daily stretching ex's till next PT session. Patient response to treatment: decreases in soft tissue tightness and increases in AROM L shoulder Patient will benefit from continued physical therapy to continue STM L axilla area to The rationale for today?s treatment was explained to the patient. Verbal cues were provided for correct form with all exercises. Advised patient to continue with Home Exercise Program (HEP). Goals General/Ortho Patient will be independent with HEP. (Progressing) Start: 10/28/24 Expected End: 01/26/25 Patient will report decreased pain at 2/10 in L chest wall to be able to improve functional use LUE to 80% baseline. (Progressing) Start: 10/28/24 Expected End: 01/26/25 Patient will increase ROM of L shoulder to be able to perform overhead activities (Progressing) Start: 10/28/24 Expected End: 01/26/25 Patient will increase strength in LUE to be able to improve functional baseline use to 80% (Not Addressed) Start: 10/28/24 Expected End: 01/26/25 Lymphedema Decrease soft tissue restriction/fibrosis in L chest wall/pectorals to allow for improved lymphatic flow and improved ROM/function (Progressing) Start: 10/28/24 Expected End: 01/26/25 Osteoporosis Demonstrate postural awareness and independent ability to self-correct as directed for optimal personal posture and functional use of Devan Ue's. (Progressing) Start: 10/28/24 Expected End: 01/26/25 Plan Plan for next session: STM and flexibility ex's. Time Entry Total Treatment Time Start Time: 09 Stop Time: 944 Time Calculation (min): 45 min PT Therapeutic Procedures Time Entry Therapeutic Exercise Time Entry: 15 Manual Therapy Time Entry: 25 Mya Contreras, PT PROGRESS NOTE Observed: 10/28/2024 10:30 AM Status: COMPLETED [facility] AT [facility] AT [address] [address] Dept: [phone] Dept PHYSICAL THERAPY EVALUATION Patient Name: Dakota Sarah : 1960 Date of Service: 10/28/2024 Referring Provider: Gianna Cardona MD Visit #: 1 Diagnosis: Ductal carcinoma in situ (DCIS) of left breast S/P mastectomy, left General Information Mechanism of injury: L shoulder impaired ROM post L mastectomy 08/26/24 for L breast cancer Patient Preferences: Dakota Precautions: Yes L chest wall pacemaker Red Flags: Negative screen Fall Risk: No Work status: retired Home Setup: Lives with Schuyler who accompanied pt to this visit PMHX: Dakota has a past medical history of Atherosclerotic heart disease of [place] coronary artery without angina pectoris, Breast cancer (HCC), Cardiac pacemaker in situ, Hypertension, Mixed hyperlipidemia, Other specified heart block, PONV (postoperative nausea and vomiting), and Sleep apnea. PSHX: Dakota has a past surgical history that includes Breast biopsy (Left, 06/11/2024); pacemaker (historical); section; Ganglion cyst excision; Tonsillectomy; Breast biopsy (2002); Insert / replace / remove pacemaker (08/18/09 & 03/10/19); Other surgical history (Ganglion cyst removal, left wrist); Colonoscopy (01/16/2019); section, low transverse (09/30/90 & 08/10/92); Breast biopsy (Left); and Mastectomy (Left, 08/26/2024). Have you experienced any anxiety or depression?: No Have you experienced thoughts of self-harm or suicidal thoughts?: No Social Drivers of Health Reviewed: Yes Physician follow-up appointment?: Yes Subjective Chief Complaint: Decreased ROM L shoulder and ability to use LUE overhead post mastectomy Pain: Current: 0/10 Best: 0/10 Worst: 4/10 Symptoms Aggravated by: overhead reaching, stretching Symptoms Relieved by: rest Prior Level of Function: Indep Current Level of Function: Indep ADL's, reports LUE with limited overhead use by 50% Patient?s Stated Goal: Increases ROM L shoulder and increases functional use of LUE Additional Specialty Information: LYMPHEDEMA Pertinent history of: Diagnosed L breast cancer, DCIS, ER/OK-, Hx of heart block with implanted pacemaker L chest wall Involved body region: left breast Surgery date: 08/26/24, 08/27/24 return to surgery for evacuation and wash out of L mastectomy hematoma. Drain in place till 09/10/24 Related surgery description: Breast Cancer Surgery Breast cancer surgery: simple mastectomy Breast reconstruction: none Lymph Node Surgery Surgery type: SLNB # of nodes removed: 2 # of nodes positive: 0 Chemotherapy: No Radiation Therapy: No Complications: hematoma Previous treatment for this condition: no Sleep: - quality: fair - surface: standard mattress bed - positions: supine and R side Sensation/patient reports: tingling, tightness, tenderness, and weakness Factors that increase swelling: NA Factors that improve swelling: NA Cellulitis History: no Compression Garment Worn: no Outcome Measures SPADI: Total Raw score 29, Raw pain score 15, Raw difficulty score 14 Objective LYMPHEDEMA Observation: Unsupported sitting posture with rounded T spine/shoulders and forward head Dominant hand: Right Visible edema: No Pitting: No Cording: No Skin Integrity: Intact Skin Condition/Temp: WNL Skin Color: ecchymosis healing mastectomy scar Palpation: tenderness to palpation L pectorals Upper Extremity ROM (degrees) Right Left AROM PROM AROM PROM Shoulder Flexion 150 seated 140 seated 155 supine Shoulder Abduction 165 seated 140 seated 115 supine Shoulder External Rotation (ER) WFL WFL Shoulder Internal Rotation (IR) WFl WFL Assessment Dakota is a 64 y.o. patient with chief complaint of impaired ROM L shoulder, who presents with signs and symptoms consistent with soft tissue tightness 9 weeks post op L mastectomy with SLNB. The patient would benefit from skilled physical therapy to address decreased strength, decreased range of motion, pain, soft tissue impairment, and impaired functional activities. Evaluation complexity is low secondary to: patient has 1-2 personal factors and/or comorbidities that will affect plan of care, therapy will be addressing 3 or more elements, and clinical presentation is evolving. Body Systems Affected: musculoskeletal and lymphatic Rehab Potential: Good Learning Preferences: none noted Barriers to Rehab: none Goals General/Ortho Patient will be independent with HEP. (Initiated) Start: 10/28/24 Expected End: 01/26/25 Patient will report decreased pain at 2/10 in L chest wall to be able to improve functional use LUE to 80% baseline. (Initiated) Start: 10/28/24 Expected End: 01/26/25 Patient will increase ROM of L shoulder to be able to perform overhead activities (Initiated) Start: 10/28/24 Expected End: 01/26/25 Patient will increase strength in LUE to be able to improve functional baseline use to 80% (Initiated) Start: 10/28/24 Expected End: 01/26/25 Lymphedema Decrease soft tissue restriction/fibrosis in L chest wall/pectorals to allow for improved lymphatic flow and improved ROM/function (Initiated) Start: 10/28/24 Expected End: 01/26/25 Osteoporosis Demonstrate postural awareness and independent ability to self-correct as directed for optimal personal posture and functional use of Devan Ue's. (Initiated) Start: 10/28/24 Expected End: 01/26/25 Plan Frequency and Duration: 1/wk for every 2 weeks 3-4 sessions with intermittent follow up as needed over 90 day timeframe Therapeutic Contents: client education, home exercise program, manual therapy techniques, self care/home management, therapeutic activities, therapeutic exercise, and lymphedema surveillance Plan for next session: Advance flexibility ex's, resistance bands when appropriate, posture education Risks and benefits were discussed with the patient and/or family, and the patient and/or family participated with the plan of care and agrees. Treatment Therapeutic Exercise # of Activities: 5 Therapeutic Exercise Activity 1: Hands behind head Activity 1 Comment: supine Therapeutic Exercise Activity 2: wand assisted shoulder Flex Activity 2 Comment: supine Therapeutic Exercise Activity 3: wand assisted shoulder Extn Activity 3 Comment: standing Therapeutic Exercise Activity 4: standing wall slides Activity 4 Comment: Flex, with lift off Therapeutic Exercise Activity 5: standing wall slides Activity 5 Comment: ABD Patient Education: Daily education. Written HEP Home Exercise Program: Created Time Entry Total Treatment Time Start Time: 1030 Stop Time: 1115 Time Calculation (min): 45 min PT Evaluation Time Entry PT Evaluation (Low) Time Entry: 20 PT Therapeutic Procedures Time Entry Therapeutic Exercise Time Entry: 20 Mya Contreras, PT 36 Observed: 10/22/2024 9:45 AM Status: COMPLETED Source: [facility] LVM with pt about scheduling her yearly visit when the schedule opens. 36 Observed: 10/21/2024 1:19 PM Status: COMPLETED Source: [facility] Pt called to set up follow u p visits with Team Jp/johann. Please advise if she needs to be seen every 6 months JKS/LO. 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 Please advise. 36 Observed: 10/15/2024 12:20 PM Status: COMPLETED Source: [facility] Spoke to pt. She wanted mamm ogram to be done same day as plastics but after her appointment. She is scheduled 01/09/2025 at 12:50. Patient states she will check Fluid-1 for appt info. 36 Observed: 10/10/2024 8:40 AM Status: COMPLETED Source: [facility] Spoke to Dakota today and rec ommended second opinion With her current insurance, she cannot go to [facility] or [facility] She will check and see if she can go to She does change to medicare in January She will discuss options with her and let me know her decision 36 Observed: 10/09/2024 1:43 PM Status: COMPLETED Source: [facility] Update: Spoke with Dr. Trammell from cardiology: If pacemaker needs moved, given her young age- leads also should be extracted which has risk 3-8% of significant problem ( bleeding etc) Other option is capsule pacemaker- limited experience She is pacemaker dependent Spoke with Dr. Myrick- radiation recommended due to 2 focal + margins (anterior and posterior) DCIS palpable and 4 cm in size ER-,OK- Radiation will reduce risk of local recurrence Will discuss with Dakota second opinion at [facility] for radiation oncology evaluation and for EP cardiology LMOM for Dakota to discuss above PROGRESS NOTE Observed: 10/07/2024 11:00 AM Status: COMPLETED Source: [employer] [facility] Cardiology Note Chief Complaint: Chief Complaint Patient presents with Annual Exam History of Present Illness: Dakota Sarah is a 64 y.o. female presenting for follow-up status post left-sided mastectomy and hematoma evacuation with plastic surgery. She has a dual-chamber pacemaker implanted originally in 2009 at [facility] subsequent generator change in [place]. She has a [place] 2087 in the ventricle and in 1998 to in the atrium. She has occasional atrial lead noise causing false mode switching. At this point episodes are short-lived lasting only several seconds. She presents back to consider what changes would be made to her pacing system if she has radiation on the left side. She is considering radiation therapy but has not quite decided to move forward. From a cardiac standpoint she is feeling fine. There has been no lightheadedness presyncope or syncope. Past Medical History: Medical History[1] Past Surgical History Surgical History[2] Family History Family History[3] Social History Social History[4] Allergies: Allergies[5] Medications: Current Medications[6] Review of Systems: Review of Systems Constitutional: Negative. HENT: Negative. Eyes: Negative. Respiratory: Negative. Cardiovascular: Negative. Gastrointestinal: Negative. Endocrine: Negative. Genitourinary: Negative. Musculoskeletal: Negative. Skin: Negative. Allergic/Immunologic: Negative. Neurological: Negative. Hematological: Negative. Psychiatric/Behavioral: Negative. Physical Examination: Vitals: Vitals: 10/07/24 1101 BP: 132/80 BP Location: Right arm Patient Position: Sitting BP Cuff Size: Adult Pulse: 89 SpO2: 98% Weight: 122 lb (55.3 kg) Height: 5' 6 (1.676 m) Body mass index is 19.69 kg/m?. Physical Exam Vitals reviewed. Constitutional: Appearance: Normal appearance. HENT: Head: Normocephalic. Right Ear: External ear normal. Left Ear: External ear normal. Nose: Nose normal. Mouth/Throat: Mouth: Mucous membranes are moist. Eyes: Pupils: Pupils are equal, round, and reactive to light. Cardiovascular: Rate and Rhythm: Normal rate and regular rhythm. Heart sounds: No murmur heard. Pulmonary: Effort: No respiratory distress. Musculoskeletal: General: Normal range of motion. Right lower leg: No edema. Left lower leg: Edema present. Skin: General: Skin is warm and dry. Coloration: Skin is not jaundiced. Neurological: General: No focal deficit present. Mental Status: She is alert. Gait: Gait normal. Psychiatric: Mood and Affect: Mood normal. Behavior: Behavior normal. Thought Content: Thought content normal. Judgment: Judgment normal. Laboratory Tests: Lab Results Component Value Date WBC 9.9 08/27/2024 HGB 10.1 (L) 08/27/2024 HCT 29.4 (L) 08/27/2024 MCV 89.1 08/27/2024 PLT 245 08/27/2024 Lab Results Component Value Date GLUCOSE 130 (H) 08/27/2024 CALCIUM 9.0 08/27/2024 NA 138 08/27/2024 K 4.7 08/27/2024 CO2 25 08/27/2024 CL 107 08/27/2024 BUN 18 08/27/2024 CREATININE 0.76 08/27/2024 @LASTCMP@ No results found for: CHLPL, CHOL No results found for: TRIG No results found for: HDL No results found for: LDLCALC Assessment and Plan: Complete heart block: Pacemaker system is functioning normally but there is some noise on the optisense atrial lead. We discussed several options. Reviewing her chest x-ray combined with the age of her leads as well as the occasional noise on the atrial, I do not believe it is feasible to simply move the system tunneling the leads from left to right. Implanting an entire new system on the right we have the pacemaker with abandonment of the left-sided leads is also not in her best interest given her age of 64 years. We discussed two options of implantation of a capsule system atrial and ventricle versus lead extraction and subsequent reimplantation of a new system on the right side. The age of the leads-15 years, increases the extraction risk. We discussed there are no very long-term data with the capsule systems. The overall risk of the lead extraction in terms of major complications is likely somewhere around 5%. Overall of the 4 options I recommended that she is to move forward with radiation that she pursue lead extraction from the left side, implantation of a right-sided new system likely with an attempt at conduction system pacing. 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 snoring that sometimes results in occasional sleep apnea? no CPAP [2] Past Surgical History: Procedure Laterality Date BREAST BIOPSY Left 06/11/2024 Left Breast US biopsy @ [facility] BRE[facility] [address] [facility] 07/2024, [facility] SECTION (HISTORICAL) SECTION, LOW TRANSVERSE 09/30/90 & 08/10/92 COLONOSCOPY 01/16/2019 Good report. GANGLION CYST EXCISION INSERT / REPLACE / REMOVE PACEMAKER 08/18/09 & 03/10/19 MASTECTOMY Left 08/26/2024 LEFT SIMPLE MASTECTOMY - Left General IDENTIFICATION LYMPH NODE, SENTINEL, INTRAOPERATIVE - Left SENTINEL LYMPH NODE BIOPSY - Left X-RAY, SURGICAL SPECIMEN, BREAST - Left OTHER SURGICAL HISTORY Ganglion cyst removal, left wrist 4x: 2012, 2014, 2016, 2017 PACEMAKER (HISTORICAL) TONSILLECTOMY [3] Family History Problem Relation Name Age of Onset Other cancer Mother KS 87 Gallbladder Cancer Mother KS Hyperlipidemia Mother KS Hypertension Mother KS Rashes / Skin problems Mother KS Thyroid disease Mother KS Prostate cancer Father DS 67 Cancer Father DS Hyperlipidemia Father DS Hypertension Father DS Rashes / Skin problems Father DS Arthritis Father DS Breast cancer Mother's Sister BH 66 Cancer Mother's Sister BH Breast cancer Father's Sister EH 60 Breast Cancer Addt'l Onset Father's Sister EH 69 mets to bone and beyond Cancer Father's Sister EH Hyperlipidemia Maternal Grandmother AB Hypertension Maternal Grandmother AB Hearing loss Maternal Grandmother AB Depression Maternal Grandmother AB Ovarian cancer Paternal Grandmother ES 79 Cancer Paternal Grandmother ES Hypertension Paternal Grandmother ES Arthritis Paternal Grandmother ES Diabetes Maternal Grandfather WB Heart disease Maternal Grandfather WB Heart disease Paternal Grandfather DS Cancer Other Paternal & Maternal Aunts [4] Social History Tobacco Use Smoking status: Never Smokeless tobacco: Never Vaping Use Vaping status: Never Used Substance Use Topics Alcohol use: Never Drug use: Never [5] Allergies Allergen Reactions Penicillins Rash Other Reaction(s): Hives, Rash Tape Rash Wound Dressing Adhesive Rash Bandaids and silk tape. Requests paper tape [6] Current Outpatient Medications: acetaminophen (Tylenol) 500 MG tablet, Take by mouth., Disp: , Rfl: nebivolol (Bystolic) 5 MG tablet, Take 2.5 mg by mouth daily with supper., Disp: , Rfl: pravastatin (Pravachol) 20 MG tablet, Take 20 mg by mouth Nightly., Disp: , Rfl: OFFICE VISIT Observed: 10/07/2024 11:00 AM Status: COMPLETED Source: [employer] [id number] Dakota Sarah F Date Provider Department Center 10/07/2024 [id number]-MCMANDONAL TRAMMELL [facility] ELI [facility] 95 Ar Family History Problem Relation Age of Onset Other cancer Mother 87 Comments: Gallbladder Cancer Mother Hyperlipidemia Mother Hypertension Mother Rashes / Skin problems Mother Thyroid disease Mother Prostate cancer Father 67 Cancer Father Hyperlipidemia Father Hypertension Father Rashes / Skin problems Father Arthritis Father Breast cancer Mother's Sister 66 Cancer Mother's Sister Breast cancer Father's Sister 60 Breast Cancer Addt'l Onset Father's Sister 69 Comments: mets to bone and beyond Cancer Father's Sister Hyperlipidemia Maternal Grandmother Hypertension Maternal Grandmother Hearing loss Maternal Grandmother Depression Maternal Grandmother Ovarian cancer Paternal Grandmother 79 Cancer Paternal Grandmother Hypertension Paternal Grandmother Arthritis Paternal Grandmother Diabetes Maternal Grandfather Heart disease Maternal Grandfather Heart disease Paternal Grandfather Cancer Other Family Status - Relation Status Age at Mother Father Mother's Sister Alive Father's Sister Maternal Grandmother Paternal Grandmother Maternal Grandfather Alive Paternal Grandfather Alive Other Alive Level of Service:01476 OK OFFICE/OUTPATIENT ESTABLISHED MOD MDM 30 MIN Reason for Visit and Comments: Annual Exam [83] PROGRESS NOTE Observed: 10/03/2024 8:45 AM Status: COMPLETED Source: [facility] Dakota is 5 weeks post-op: Co mplex closure of mastectomy incision (08/26/2024). Presenting for follow-up and clearance for radiation therapy. S: Doing well. Patient has noted no excessive redness, swelling, pain, and discharge. She is meeting with cardiology and cardiothoracic surgery next week to discuss potentially relocating the pacemaker in order to allow her to have left breast radiation therapy. Pending the conversation, she will decide if she would like to proceed with radiation. She is also planning to start physical therapy to improve her left upper extremity range of motion. She is having some difficulty with overhead reach. O: Wound healing well. The left breast mastectomy incision is clean, dry, and intact. No palpable fluid collections. Healed without any open wounds or signs or symptoms suggestive of infection or inflammation. A: Satisfactory course. P: Patient is cleared for radiation therapy from PRS perspective. Photos obtained. Patient to return in 3 months if she decides against radiation therapy, or 6 months if she decides to pursue radiation therapy. Patient is to return as needed for redness, swelling, discomfort, or any concern about her surgery. The physician was present, and has seen and examined the patient at the bedside with me. CE VISIT Observed: 10/03/2024 8:45 AM Status: COMPLETED Source: [facility] [id number] Dakota Sarah F Date Provider Department Center 10/03/2024 59-[facility] None Family History Problem Relation Age of Onset Other cancer Mother 87 Comments: Gallbladder Cancer Mother Hyperlipidemia Mother Hypertension Mother Rashes / Skin problems Mother Thyroid disease Mother Prostate cancer Father 67 Cancer Father Hyperlipidemia Father Hypertension Father Rashes / Skin problems Father Arthritis Father Breast cancer Mother's Sister 66 Cancer Mother's Sister Breast cancer Father's Sister 60 Breast Cancer Addt'l Onset Father's Sister 69 Comments: mets to bone and beyond Cancer Father's Sister Hyperlipidemia Maternal Grandmother Hypertension Maternal Grandmother Hearing loss Maternal Grandmother Depression Maternal Grandmother Ovarian cancer Paternal Grandmother 79 Cancer Paternal Grandmother Hypertension Paternal Grandmother Arthritis Paternal Grandmother Diabetes Maternal Grandfather Heart disease Maternal Grandfather Heart disease Paternal Grandfather Cancer Other Family Status - Relation Status Age at Mother Father Mother's Sister Alive Father's Sister Maternal Grandmother Paternal Grandmother Maternal Grandfather Alive Paternal Grandfather Alive Other Alive Level of Service:86369 OK POSTOP FOLLOW UP VISIT RELATED TO ORIGINAL PX Reason for Visit and Comments: Post-op [483] 29 Observed: 10/03/2024 8:44 AM Status: COMPLETED Source: [facility] Addended by: RHODA CARDONA on: 10/03/2024 08:44 AM Modules accepted: Orders 36 Observed: 10/03/2024 8:43 AM Status: COMPLETED Source: [facility] Referral placed 36 Observed: 10/02/2024 4:12 PM Status: COMPLETED Source: [facility] Patient called to ask about the physical therapy appointment since she had not heard anything regarding scheduling. Do not see active PT referral. Request sent to Dr Cardona and direct scheduling number provided to patient to call on Sunday once the referral is in there. She verbalized understanding. She also informs me that her appointment with cardiology is Saturday 10/07. She is hoping to gather information from radiation/onc and cardiology in order to make an informed decision. She is not leaning in either direction at the moment as there are risks either way. Emotional support and encouragement provided. 36 Observed: 09/25/2024 12:31 PM Status: COMPLETED Source: [facility] Dr. Cardona asked if the pt could be seen sooner. JKS opened his schedule on 10/07/24. 36 Observed: 09/18/2024 11:20 AM Status: COMPLETED Source: [facility] Scheduled pt with JKS on 10/17 11/10 at 8:45. 36 Observed: 09/18/2024 10:31 AM Status: COMPLETED Source: [facility] LVM to schedule apt with JKS 36 Observed: 09/18/2024 9:34 AM Status: COMPLETED Source: [facility] Need to d/w Dr Trammell. Radiat ion is a concern with devices. 36 Observed: 09/18/2024 8:41 AM Status: COMPLETED Source: [facility] Pt called about her mastecto my results. The plan is to do radiation and she would like a consult with JKS to determine her best options. She said it will be on the same side as her PPM. Please advise. RUBÉN: 07/25/24 new patient NOV: not scheduled CONSULT Observed: 09/16/2024 9:30 AM Status: COMPLETED Source: [facility] RADIATION ONCOLOGY INITIAL C ONSULTATION PATIENT: Dakota Sarah DATE OF SERVICE: 09/16/24 : 1960 AGE: 64 y.o. 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 STAGE: Left breast- cTis N0 M0, 0; pTis pN0 M0, 0 HISTORY OF PRESENT ILLNESS: This is a 64-year-old female who palpated a mass in May 2024 in the upper outer quadrant of the left breast. Diagnostic mammography and ultrasound at [facility] [place] on 06/06/2024 identified an irregular mass in the upper quadrant of the left breast. On ultrasound it measured approximately 3.9 x 3.5 x 1.2 cm. They also noted to mildly prominent left axillary nodes. Due to a pacemaker patient is unable to have an MRI. She had a biopsy performed on 06/11/2024 at [facility]. Pathology revealed intermediate grade DCIS spanning 0.7 cm on core biopsy. ER negative and OK negative. The patient transferred her care to [facility]. Chest x-ray on 07/14/2024 showed no acute process by report. The patient had a second biopsy on 07/17/2024 at [facility]. 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 Microcalcifications were associated with DCIS and nonneoplastic tissue by report. ER negative at less than 1%, OK negative at less than 1%. Patient was also seen in consultation with plastics. 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 On 08/26/2024, a left simple mastectomy with sentinel node removal along complex closure was performed. Pathology identified at least a 3.8 cm area of DCIS, grade 2 of cribriform micropapillary and solid types without necrosis. The anterior margin was unifocal and positive as was the posterior margin. 2 nodes were removed that were negative. Pathologically staged Tis N0. Operative note identified that the tumor was close to the chest wall and the pectoralis fascia was removed it was overlying the tumor. The patient required being taken back to the operating room on 08/27/2024 for a washout of a hematoma along with debridement. Drain was removed on 09/10/2024. The patient's case was discussed at conference. The patient has been referred for consideration of postoperative radiation therapy due to the positive margin and that it is not hormone positive. The patient is accompanied by her . She notes a pain score 2 out of 10 in the left chest wall area. She has decreased range of motion and is being set up for physical therapy. She notes that the ecchymosis is slowly resolving. She is here to discuss possible radiation therapy. PAST MEDICAL HISTORY: Medical History[1] PAST SURGICAL HISTORY: Surgical History[2] OB History Para Term AB Living 2 2 2 0 0 0 SAB IAB Ectopic Multiple Live Births 0 0 0 0 0 # Outcome Date GA Lbr Casey/2nd Weight Sex Type Anes PTL Lv 2 Term 1 Term Age at Menarche: 12 Age at first : 29 Age at first live : 30 Months : Age at menopause: approx 50 No hormone replacement. 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 Social History Socioeconomic History Marital status: Spouse name: Not on file Number of children: Not on file Years of education: Not on file Highest education level: Not on file Occupational History Not on file Tobacco Use Smoking status: Never Smokeless tobacco: Never Vaping Use Vaping status: Never Used Substance and Sexual Activity Alcohol use: Never Drug use: Never Sexual activity: Yes Partners: Male control/protection: Post-menopausal Other Topics Concern Not on file Social History Narrative Not on file Social Drivers of Health Financial Resource Strain: Not on file Food Insecurity: Not on file Transportation Needs: Not on file Physical Activity: Not on file Stress: Not on file Social Connections: Not on file Intimate Partner Violence: Not on file Housing Stability: Not on file FAMILY HISTORY: Family History[3] ALLERGIES: Allergies as of 09/16/2024 - Reviewed 09/16/2024 Allergen Reaction Noted Penicillins Rash 08/14/2009 Tape Rash 10/05/2020 Wound dressing adhesive Rash 12/04/2018 MEDICATIONS: Current Medications[4] SUMMARY OF SIGNIFICIANT X-RAY/LABORATORY FINDINGS: Radiology as per history. Blood count on 08/27/2024 showed a normal white count 9.9, hemoglobin decreased to 10.1 and platelet count normal at 245,000. Post hematoma. BMP on 08/27/2024 was within normal limits except for glucose elevation 130. REVIEW OF SYSTEMS: Review of Systems Constitutional: Negative for appetite change, chills, diaphoresis, fatigue, fever and unexpected weight change. HENT: Negative for hearing loss, sore throat and trouble swallowing. Eyes: Has glasses. Otherwise negative. Respiratory: Negative. Cardiovascular: Negative. Gastrointestinal: Negative. Genitourinary: Negative. Musculoskeletal: Decreased range of motion in the left shoulder. Being referred to PT. No swelling in extremities. Skin: Positive for wound. Neurological: Negative for headaches. Notes slight numbness to the dorsal surface of the left arm extending downward to the wrist since surgery. No other neurological symptoms. No history of connective tissue disease. No history of DVT or blood transfusion. No history of radiation or chemotherapy. KPS: 90 PHYSICAL EXAM: Accompanied by . BP 136/64 Pulse 81 Temp 97.3 ?F (36.3 ?C) Resp 18 Ht 5' 6 (1.676 m) Wt 125 lb 6.4 oz (56.9 kg) SpO2 99% BMI 20.24 kg/m? Pain Score: 2 Fatigue Assessment: Able to perform daily activities GENERAL: Awake, alert, oriented, no anxiety, dressed appropriately, appears of stated age. Ambulates without assistance. Speech pattern fluent. HEAD AND NECK:Good tongue movement. No exudate or thrush. Nonicteric sclera. LUNGS: Clear to auscultation. No rales or rhonchi. HEART: Regular rate and rhythm, S1-S2 noted no murmur. NECK: Symmetric. No thyroid nodule. NODES: No neck, supraclavicular, infraclavicular, or axillary adenopathy. ABDOMEN: Soft, nontender, nondistended. No hepatosplenomegaly, no suspicious mass. BREAST: Right breast without mass or nipple discharge. Left chest wall has diffuse ecchymosis throughout but is resolving. Puckering of the scar noted. No suspicious mass. Pacemaker located in the upper outer quadrant. MUSCULOSKELETAL: No swelling or calf tenderness bilaterally. Motor strength 5/5 in upper and lower extremities with sensation intact to light touch. No spine or posterior chest wall tenderness. No dullness to percussion. SKIN: Without excessive bruising. No open areas or rash. NEURO: PERRLA, EOMI. CN 2-12 grossly intact except full vision alvarez were not tested. Able to hear light finger rub bilaterally. IMPRESSION: Dakota Sarah is a 64 y.o. who presents with DCIS of the left breast. I have reviewed her epic record and radiology. Case discussed at conference. A large area of DCIS was found with positive margin and negative receptors. No invasive component. Nodes were negative. Patient continues to heal following surgery. With these findings, we did discuss use of radiation therapy to the left chest wall region to help maximize local control. We discussed what a course of treatment entails including the set up, positioning, planning, length of therapy of typically 6 weeks with conventional fractionation, possible side effects both acute and long-term. Side effects during therapy include tiredness, skin reaction, skin breakdown, tenderness, swelling, low blood counts. Long-term risks include skin changes, more firmness of the chest wall tissue, shrinkage or swelling in the area rib weakening, lung injury, heart injury, arm swelling, the inability to control the disease and secondary malignancy. We discussed the utilization of deep inspiration breath-hold to help limit the heart exposure. We discussed the importance of healthy nutrition, going more towards plant-based approach, hydration and exercise including arm exercises long-term. Unfortunately, the pacemaker is within the field and if the patient does decide to pursue therapy, this would need to be relocated. She is setting up an appointment to see Dr. Trammell back for further evaluation and discussion of this. The patient and her had opportunity to ask questions. She was given information on radiation therapy. PLAN: We await her decision. We thank you for the consultation. Lori Myrick MD Total time: 70 minutes in chart review, lab/radiology evaluation/interpretation, patient exam, patient counseling and care coordination. The [facility] Department of Radiation Oncology is an Accredited Facility of the [employer] (ACR). This document was completed utilizing speech recognition software. Grammatical errors, random word insertions, pronoun errors, and incomplete sentences are an occasional consequence of this system due to software limitations, ambient noise, and hardware issues. Any formal questions or concerns about the content, text or information contained within the body of this dictation should be directly addressed to the provider for clarification. 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 snoring that sometimes results in occasional sleep apnea? no CPAP [2] Past Surgical History: Procedure Laterality Date BREAST BIOPSY Left 06/11/2024 Left Breast US biopsy @ [facility] BREAST BIOPSY [address] [facility] BREAST BIOPSY Left 07/2024, [facility] SECTION (HISTORICAL) SECTION, LOW TRANSVERSE 09/30/90 & 08/10/92 COLONOSCOPY 01/16/2019 Good report. GANGLION CYST EXCISION INSERT / REPLACE / REMOVE PACEMAKER 08/18/09 & 03/10/19 MASTECTOMY Left 08/26/2024 LEFT SIMPLE MASTECTOMY - Left General IDENTIFICATION LYMPH NODE, SENTINEL, INTRAOPERATIVE - Left SENTINEL LYMPH NODE BIOPSY - Left X-RAY, SURGICAL SPECIMEN, BREAST - Left OTHER SURGICAL HISTORY Ganglion cyst removal, left wrist 4x: 2012, 2014, 2016, 2018 PACEMAKER (HISTORICAL) TONSILLECTOMY [3] Family History Problem Relation Name Age of Onset Other cancer Mother KS 87 Gallbladder Cancer Mother KS Hyperlipidemia Mother KS Hypertension Mother KS Rashes / Skin problems Mother KS Thyroid disease Mother KS Prostate cancer Father DS 67 Cancer Father DS Hyperlipidemia Father DS Hypertension Father DS Rashes / Skin problems Father DS Arthritis Father DS Breast cancer Mother's Sister BH 66 Cancer Mother's Sister BH Breast cancer Father's Sister EH 60 Breast Cancer Addt'l Onset Father's Sister EH 69 mets to bone and beyond Cancer Father's Sister EH Hyperlipidemia Maternal Grandmother AB Hypertension Maternal Grandmother AB Hearing loss Maternal Grandmother AB Depression Maternal Grandmother AB Ovarian cancer Paternal Grandmother ES 79 Cancer Paternal Grandmother ES Hypertension Paternal Grandmother ES Arthritis Paternal Grandmother ES Diabetes Maternal Grandfather WB Heart disease Maternal Grandfather WB Heart disease Paternal Grandfather DS Cancer Other Paternal & Maternal Aunts [4] Current Outpatient Medications Medication Sig Dispense Refill acetaminophen (Tylenol) 500 MG tablet Take by mouth. nebivolol (Bystolic) 5 MG tablet Take 2.5 mg by mouth daily with supper. pravastatin (Pravachol) 20 MG tablet Take 20 mg by mouth Nightly. No current facility-administered medications for this encounter. NURSING NOTE Observed: 09/16/2024 9:30 AM Status: COMPLETED Source: [facility] Here with her at [facility] for consult with Dr. Myrick. She found a lump in May 2024 during self breast exam. She had ultra sound and bx following at [facility]. Surgeon at [facility] was not comfortable performing surgery due to L chest pacemaker, therefore she was referred to Dr. Salcido. She had Left mastectomy on 08/26/24 - Dr. Salcido. She developed a hematoma with swelling and fluid and on 08/27/24 she went back to surgery for debridment - Dr. Smith. She does have a hx of pacemaker due to 2nd degree Mobitz 2 heart block - she is 99% pacer dependant. Prior cardiology care was at [facility] (Dr. Coreas). She has since changed to [facility] [facility] - Dr. Trammell and has been seen at pacer clinic once for initial check in late June. She reports good healing to L breast. She has no prior hx of cancer, but does report small protein spike that has been observed for 15 years. Medication list reviewed via patient recall. Physics consult placed - pacemaker card and pacer check report scanned to [facility]. HOSPITAL ENCOUNTER Observed: 09/16/2024 9:30 AM Status: COMPLETED Source: [facility] [id number] Dakota Sarah F Date Provider Department Center 09/16/2024 [id number] MYRICK None Family History Problem Relation Age of Onset Other cancer Mother 87 Comments: Gallbladder Cancer Mother Hyperlipidemia Mother Hypertension Mother Rashes / Skin problems Mother Thyroid disease Mother Prostate cancer Father 67 Cancer Father Hyperlipidemia Father Hypertension Father Rashes / Skin problems Father Arthritis Father Breast cancer Mother's Sister 66 Cancer Mother's Sister Breast cancer Father's Sister 60 Breast Cancer Addt'l Onset Father's Sister 69 Comments: mets to bone and beyond Cancer Father's Sister Hyperlipidemia Maternal Grandmother Hypertension Maternal Grandmother Hearing loss Maternal Grandmother Depression Maternal Grandmother Ovarian cancer Paternal Grandmother 79 Cancer Paternal Grandmother Hypertension Paternal Grandmother Arthritis Paternal Grandmother Diabetes Maternal Grandfather Heart disease Maternal Grandfather Heart disease Paternal Grandfather Cancer Other Family Status - Relation Status Age at Mother Father Mother's Sister Alive Father's Sister Maternal Grandmother Paternal Grandmother Maternal Grandfather Alive Paternal Grandfather Alive Other Alive Level of Service:32883 [place] OFFICE/OUTPATIENT [facility] 60 MINUTES Reason for Visit and Comments: Consult [484] - Consult with Dr. Myrick 29 Observed: 09/16/2024 9:30 AM Status: COMPLETED Source: [facility] Encounter addended by: Elisabet Armijo RN on: 09/16/2024 2:19 PM Actions taken: Clinical Note Signed PROGRESS NOTE Observed: 09/12/2024 3:30 PM Status: COMPLETED Source: [facility] Chief Complaint Patient presents with Survivorship Patient states she has some discomfort and achy pain on her left breast. Also she states she feels a tendon under her left axilla with manageable pain, and some pulling when reaching for something HPI: Dakota Sarah is S/P Mastectomy with SLNB without reconstruction Final pathology reviewed with patient today and copy provided to them for their records. Had post op hematoma requiring evacuation by plastics- diffuse oozing noted Has focal + anterior and posterior margin Presented at TB and postmastectomy radiation recommended Will need FU with Cardiology for pacemaker replacement Cancer Staging Ductal carcinoma in situ (DCIS) of left breast Staging form: Breast, AJCC 8th Edition - Clinical stage from 07/10/2024: Stage 0 (cTis (DCIS), cN0, cM0, G2, ER-, OK-) - Signed by Gianna Cardona MD on 07/10/2024 - Pathologic stage from 09/12/2024: Stage 0 (pTis (DCIS), pN0(sn), cM0, G2, ER-, OK-) - Signed by Gianna Cardona MD on 09/12/2024 PATHOLOGY: Correction History Correction within synoptic report to remove distance from posterior margin since it is involved. No change to diagnosis. Final Diagnosis A. LEFT AXILLARY SENTINEL LYMPH NODES, RESECTION: - TWO LYMPH NODES NEGATIVE FOR METASTATIC CARCINOMA (0/2) B. LEFT BREAST, SIMPLE MASTECTOMY: - INTERMEDIATE GRADE DUCTAL CARCINOMA IN SITU - SEE SYNOPTIC REPORT Comment: A p63 and myosin demonstrate intact myoepithelial cells. Amendment electronically signed by Jhonny Brandon MD on 09/03/2024 at 1715 EDT at 1601 EDT Synoptic Checklist DCIS OF THE BREAST: Resection 8th Edition - Protocol posted: 2DCIS OF THE BREAST: RESECTION - All Specimens SPECIMEN Procedure Excision (less than total mastectomy) Specimen Laterality Left TUMOR Histologic Type Ductal carcinoma in situ Size (Extent) of DCIS Estimated size (extent) of DCIS is at least (Millimeters): 38 mm Number of Blocks with DCIS 10 Number of Blocks Examined 21 Architectural Patterns Cribriform Micropapillary Solid Nuclear Grade Grade II (intermediate) Necrosis Not identified Microcalcifications Present in nonneoplastic tissue MARGINS Margin Status DCIS present at margin Margin(s) Involved by DCIS Anterior: unifocal Posterior: unifocal REGIONAL LYMPH NODES Regional Lymph Node Status All regional lymph nodes negative for tumor Total Number of Lymph Nodes Examined (sentinel and non-sentinel) 2 Number of Bendena Nodes Examined 2 PATHOLOGIC STAGE CLASSIFICATION (pTNM, AJCC 8th Edition) Reporting of pT, pN, and (when applicable) pM categories is based on information available to the pathologist at the time the report is issued. As per the AJCC (Chapter 1, 8th Ed.) it is the managing physician?s responsibility to establish the final pathologic stage based upon all pertinent information, including but potentially not limited to this pathology report. pT Category pTis (DCIS) Regional Lymph Nodes Modifier (sn): Bendena node(s) evaluated pN Category pN0 Breast Biomarker Testing Performed on Previous Biopsy Estrogen Receptor (ER) Status Negative Breast Biomarker Testing Performed on Previous Biopsy Progesterone Receptor (PgR) Status Negative Testing Performed on Comment(s) Hearing Instrument Specialist block: B1, B4, B10 . 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 [ICD-10-CM] Incision(s) clean and dry, no evidence of infection Some bruising still Assessment/Plan: Diagnoses and all orders for this visit: Ductal carcinoma in situ (DCIS) of left breast - [facility] [place]; Future - [facility] [place] Breast Cancer Survivorship [facility]; Future - PT lymphedema evaluation and treatment; Future Pacemaker - [facility] [place] [facility] [facility]; Future Complete heart block (HCC) Decreased range of motion - PT lymphedema evaluation and treatment; Future H/O left mastectomy - PT lymphedema evaluation and treatment; Future FU breast center 6 mos Referrals: [] Medical Oncology [x] Radiation Oncology [x] [facility] [place] [facility] Appt [x] Physical Therapy/Lymphedema/Functional Assessment/Exercise Breast Cancer Surveillance: History and physical exam 1-4 times per year for 5 years, then annually Mammography every 12 months (routine imaging of reconstructed breast is not indicated) For women on tamoxifen: annual gynecologic assessment every 12 mo if uterus present For women on aromatase inhibitor: Monitoring of bone density at baseline and periodically thereafter Encouraged physical activity, healthy diet, limiting alcohol intake, and achieving and maintaining a healthy body weight Culturally appropriate shared decision making was used to determine optimal course of workup and treatment for this patient. Gianna Cardona MD OFFICE VISIT Observed: 09/12/2024 3:30 PM Status: COMPLETED Source: [facility] [id number] Dakota Sarahe F Date Provider Department Center 09/12/2024 [id number] CARDONA [facility] [place] [facility] None Family History Problem Relation Age of Onset Other cancer Mother 87 Comments: Gallbladder Cancer Mother Hyperlipidemia Mother Hypertension Mother Rashes / Skin problems Mother Thyroid disease Mother Prostate cancer Father 67 Cancer Father Hyperlipidemia Father Hypertension Father Rashes / Skin problems Father Arthritis Father Breast cancer Mother's Sister 66 Cancer Mother's Sister Breast cancer Father's Sister 60 Breast Cancer Addt'l Onset Father's Sister 69 Comments: mets to bone and beyond Cancer Father's Sister Hyperlipidemia Maternal Grandmother Hypertension Maternal Grandmother Hearing loss Maternal Grandmother Depression Maternal Grandmother Ovarian cancer Paternal Grandmother 79 Cancer Paternal Grandmother Hypertension Paternal Grandmother Arthritis Paternal Grandmother Diabetes Maternal Grandfather Heart disease Maternal Grandfather Heart disease Paternal Grandfather Cancer Other Family Status - Relation Status Age at Mother Father Mother's Sister Alive Father's Sister Maternal Grandmother Paternal Grandmother Maternal Grandfather Alive Paternal Grandfather Alive Other Alive Level of Service:16689 [place] POSTOP FOLLOW UP VISIT RELATED TO ORIGINAL PX Reason for Visit and Comments: Survivorship [620] - Patient states she has some discomfort and achy pain on her left breast. Also she states she feels a tendon under her left axilla with manageable pain, and some pulling when reaching for something [id number] Observed: 09/12/2024 7:40 AM Status: COMPLETED Source: [facility] BREAST TUMOR BOARD RECOMMEND [facility] Consensus Recommendation Summary Privileged Information TUMOR BOARD CLINICAL SUMMARY Basic Demographic Information Dakota Sarah 1960 64 y.o. [id number] Presentation Date and Presenting Physician Date of presentation (mm/dd/yyyy): 09/12/2024 Presenting physician: Dr. Cardona Presentation Type [x] Prospective [] Other Brief Clinical Summary 64 y.o. female s/p left simple mastectomy, left sentinel lymph node biopsy with left breast complex closure on 08/26/24. PATHOLOGY FROM SURGERY 08/26/24: Correction History Correction within synoptic report to remove distance from posterior margin since it is involved. No change to diagnosis. Final Diagnosis A. LEFT AXILLARY SENTINEL LYMPH NODES, RESECTION: - TWO LYMPH NODES NEGATIVE FOR METASTATIC CARCINOMA (0/2) B. LEFT BREAST, SIMPLE MASTECTOMY: - INTERMEDIATE GRADE DUCTAL CARCINOMA IN SITU - SEE SYNOPTIC REPORT Comment: A p63 and myosin demonstrate intact myoepithelial cells. Amendment electronically signed by Jhonny Brandon MD on 09/03/2024 at 1715 EDT at 1601 EDT Synoptic Checklist DCIS OF THE BREAST: Resection 8th Edition - Protocol posted: 2DCIS OF THE BREAST: RESECTION - All Specimens SPECIMEN Procedure Excision (less than total mastectomy) Specimen Laterality Left TUMOR Histologic Type Ductal carcinoma in situ Size (Extent) of DCIS Estimated size (extent) of DCIS is at least (Millimeters): 38 mm Number of Blocks with DCIS 10 Number of Blocks Examined 21 Architectural Patterns Cribriform Micropapillary Solid Nuclear Grade Grade II (intermediate) Necrosis Not identified Microcalcifications Present in nonneoplastic tissue MARGINS Margin Status DCIS present at margin Margin(s) Involved by DCIS Anterior: unifocal Posterior: unifocal REGIONAL LYMPH NODES Regional Lymph Node Status All regional lymph nodes negative for tumor Total Number of Lymph Nodes Examined (sentinel and non-sentinel) 2 Number of Bendena Nodes Examined 2 PATHOLOGIC STAGE CLASSIFICATION (pTNM, AJCC 8th Edition) Reporting of pT, pN, and (when applicable) pM categories is based on information available to the pathologist at the time the report is issued. As per the AJCC (Chapter 1, 8th Ed.) it is the managing physician?s responsibility to establish the final pathologic stage based upon all pertinent information, including but potentially not limited to this pathology report. pT Category pTis (DCIS) Regional Lymph Nodes Modifier (sn): Bendena node(s) evaluated pN Category pN0 Breast Biomarker Testing Performed on Previous Biopsy Estrogen Receptor (ER) Status Negative Breast Biomarker Testing Performed on Previous Biopsy Progesterone Receptor (PgR) Status Negative Stage Cancer Staging Ductal carcinoma in situ (DCIS) of left breast Staging form: Breast, AJCC 8th Edition - Clinical stage from 07/10/2024: Stage 0 (cTis (DCIS), cN0, cM0, G2, ER-, OK-) - Signed by Gianna Cardona MD on 07/10/2024 Specific Question or Problem to be Discussed Treatment Planning and Pathology Review TUMOR BOARD RECOMMENDATIONS Guidelines consulted for recommendations [x] NCCN Notes: [] Other Notes: Genetics [x] Discussed Notes: [x] Tested Results: Negative Available Protocol Recommendation [] Yes Protocol: None at this time Comments Discussed and/or considered: 1) Left simple mastectomy, left sentinel lymph node biopsy with left breast complex closure on 08/26/24. Focal positive anterior and posterior margins- no further surgery planned 2) Discussed referral to radiation oncology. 3) Discussed referral to intervention cardiology for discussion of pacemaker removal and transfer to right chest wall. Guidelines discussed during today's conference are from NCCN unless otherwise stated. Recommendations from Breast Tumor Board are based on national evidence-based guidelines. The plan used by the managing physician(s) may vary based on the status of the individual patient and the reports and results made available at the time of presentation. We recognize that this data set may change and that the final treatment plan may differ from this recommendation. Report Completed by [facility] 09/12/2024 PROGRESS NOTE Observed: 09/10/2024 2:15 PM Status: COMPLETED Source: [facility] Drain Output: Date: Drain Output: (mL) 09/07 13 ml 09/08 15 ml 09/09 15 ml Dixon Gee MA PROGRESS NOTE Observed: 09/10/2024 2:15 PM Status: COMPLETED Source: [facility] Dakota is 15 days post-op: Co mplex closure of mastectomy incision (08/26/2024). Unfortunately, patient was taken back to the OR on postoperative day 1 for washout left breast hematoma. Presenting for drain removal and routine follow-up. S: Doing well. Patient has noted no excessive redness, swelling, and pain. Drain Output: Date: Drain Output: (mL) 09/07 13 ml 09/08 15 ml 09/09 15 ml O: Wound healing well. Left breast transverse mastectomy incision is clean, dry, and intact. Resolving ecchymosis, which is expected given postoperative hematoma. Drainage as expected, minimal and serosanguinous. PROCEDURE: After cleansing the skin with a 70% alcohol wipe, the nylon drain stitch was cut and the negative pressure was released from the drain bulb. The left breast drain was then removed without complication. Patient tolerated the procedure well. The drain site/s was/were dressed with a sterile gauze and paper tape. Patient was advised to leave dressings in place for the first 24 hours, and that some oozing and bleeding from the drain site is to be expected over the next 24-48 hours. A: Satisfactory course. P: Drain removed. Follow-up with Dr. Salcido this Sunday as previously scheduled. Patient to return in 3 weeks for reevaluation and possible clearance for radiation therapy. Patient is to return as needed for redness, swelling, discomfort, or any concern about her surgery. The physician was present, and has seen and examined the patient at the bedside with me. CE VISIT Observed: 09/10/2024 2:15 PM Status: COMPLETED Source: [facility] [id number] Dakota Sarah F Date Provider Department Center 09/10/2024 [address] None Family History Problem Relation Age of Onset Other cancer Mother 87 Comments: Gallbladder Cancer Mother Hyperlipidemia Mother Hypertension Mother Rashes / Skin problems Mother Thyroid disease Mother Prostate cancer Father 67 Cancer Father Hyperlipidemia Father Hypertension Father Rashes / Skin problems Father Arthritis Father Breast cancer Mother's Sister 66 Cancer Mother's Sister Breast cancer Father's Sister 60 Breast Cancer Addt'l Onset Father's Sister 69 Comments: mets to bone and beyond Cancer Father's Sister Hyperlipidemia Maternal Grandmother Hypertension Maternal Grandmother Hearing loss Maternal Grandmother Depression Maternal Grandmother Ovarian cancer Paternal Grandmother 79 Cancer Paternal Grandmother Hypertension Paternal Grandmother Arthritis Paternal Grandmother Diabetes Maternal Grandfather Heart disease Maternal Grandfather Heart disease Paternal Grandfather Cancer Other Family Status - Relation Status Age at Mother Father Mother's Sister Alive Father's Sister Maternal Grandmother Paternal Grandmother Maternal Grandfather Alive Paternal Grandfather Alive Other Alive Level of Service:61452 [place] POSTOP FOLLOW UP VISIT RELATED TO ORIGINAL PX Reason for Visit and Comments: Post-op [483] PROGRESS NOTE Observed: 09/05/2024 10:25 AM Status: COMPLETED Source: [facility] Called to check-in and see h ow recovery from her left simple mastectomy, left SLNB with complex closure was going. She followed up with Dr. Smith's office on 09/03 who stated healing was going well. The LORENZO drain was left in place with repeat follow-up scheduled for 09/10 at 2:15 to re-evaluate. She states she is doing well and has been up moving around without difficulty. She has been alternating tylenol and ibuprofen for pain which has made it tolerable. Discussed arm exercises and lifting restrictions. She inquired about a script for elegant essentials which we discussed she could obtain when she comes in to see Dr. Cardona on 09/12 at 3:30. We also discussed bra use and knitted knockers. She verbalized understanding of all we discussed. Encouraged her to reach out to the breast center over the weekend should she have any concerns. Emotional support and encouragement provided. 36 Observed: 09/03/2024 5:23 PM Status: COMPLETED Source: [facility] Pathology results given to p atient Focal + anterior and posterior margin Tumor approaches cautery Discussed presenting at TB Likely will need radiation and pacemaker removal/moved Please move appt from next Sunday to next Tuesday 09/12 end of day. OFFICE VISIT Observed: 09/03/2024 11:45 AM Status: COMPLETED Source: [facility] [id number] Dakota Sarah F Date Provider Department Center 09/03/2024 59[facility] None Family History Problem Relation Age of Onset Other cancer Mother 87 Comments: Gallbladder Cancer Mother Hyperlipidemia Mother Hypertension Mother Rashes / Skin problems Mother Thyroid disease Mother Prostate cancer Father 67 Cancer Father Hyperlipidemia Father Hypertension Father Rashes / Skin problems Father Arthritis Father Breast cancer Mother's Sister 66 Cancer Mother's Sister Breast cancer Father's Sister 60 Breast Cancer Addt'l Onset Father's Sister 69 Comments: mets to bone and beyond Cancer Father's Sister Hyperlipidemia Maternal Grandmother Hypertension Maternal Grandmother Hearing loss Maternal Grandmother Depression Maternal Grandmother Ovarian cancer Paternal Grandmother 79 Cancer Paternal Grandmother Hypertension Paternal Grandmother Arthritis Paternal Grandmother Diabetes Maternal Grandfather Heart disease Maternal Grandfather Heart disease Paternal Grandfather Cancer Other Family Status - Relation Status Age at Mother Father Mother's Sister Alive Father's Sister Maternal Grandmother Paternal Grandmother Maternal Grandfather Alive Paternal Grandfather Alive Other Alive Level of Service:58171 [place] POSTOP FOLLOW UP VISIT RELATED TO ORIGINAL PX Reason for Visit and Comments: Post-op [483] - MASTECTOMY AND DEBRIDEMENT 08/26 PROGRESS NOTE Observed: 09/03/2024 11:45 AM Status: COMPLETED Source: [facility] Dakota is 8 days post-op: Com plex closure of mastectomy incision (08/26/2024). Unfortunately, patient was taken back to the OR on postoperative day 1 for washout left breast hematoma. Presenting for first postoperative follow-up. S: Doing well. Patient has noted no excessive redness, swelling, and pain. Drain output as follows: 40 mL on 08/31/2024 28 mL on 09/01/2024 22 mL on 09/02/2024 O: Wound healing well. Drainage as expected, serosanguineous. Drain dressing removed and drain stripped in the office to dislodge any clots. We will leave this intact at least through the end of the week, likely through middle of next week to minimize risk of seroma or hematoma formation. Significant ecchymosis of the upper and lower mastectomy flaps, which is expected given hematoma. Incision is otherwise clean, dry, and intact. Still covered by Dermabond. No signs or symptoms suggestive of infection or inflammation. Pressure dressing applied with 4x4s and paper tape to the inferomedial pole of the left breast where crepitus is felt, indicative of significant space and fluid accumulation. Pacemaker palpable within the superior medial pole of the right upper mastectomy flap. A: Satisfactory course. P: Drains left in place. Continue drain care. Continue pressure dressing. Continue antibiotics per Dr. Salcido. Continue weight lifting restrictions, no more than 10 pounds. Patient to return in 1 week for drain removal. Patient is to return as needed for redness, swelling, discomfort, or any concern about her surgery. The physician was present, and has seen and examined the patient at the bedside with me. RESS NOTE Observed: 08/27/2024 11:59 PM Status: COMPLETED Source: [facility] Late entry from 08/27: Visited with Dakota and her -Schuyler while still admitted. They were excited about getting to go home today. They were waiting on medication to be delivered from meds to beds. Discussed pain control, arm exercises and lifting restrictions. She informed me her kids will be with her and helping for the first week after returning home. She was extremely thankful for her care she has received. Will continue to follow and assist as needed. [id number] Observed: 08/27/2024 8:07 PM Status: COMPLETED Source: [facility] Discussed Home Care Services available to patient post DC from the hospital. Educated the patient on the services that are provided, objective of home care, and reason for the services. At this time the patient states they feel home care is not necessary. Pt states she got good instruction on LORENZO drain prior to dc and feels comfortable with it and does not need SN services. The patient politely declined home care services. PROGRESS NOTE Observed: 08/27/2024 7:37 PM Status: COMPLETED Source: [facility] General Surgery Call/Night F loat Progress Note Call concern: PM check Subjective: At bedside patient is sitting up. is next-door. No no acute complaints. Pain well-controlled. Ambulating well Objective: Vitals: 08/27/24 1308 BP: 126/73 Pulse: 88 Resp: 16 Temp: 36.6 ?C (97.9 ?F) SpO2: 98% Exam: Gen: awake, alert, NAD Pulm: non labored breathing, equal chest rise Cor: Regular rate and rhythm Abd: Soft, NT/ND Breast: Left breast incision without obvious hematoma or swelling, LORENZO drain with bloody serosanguineous output A/P: 64 y.o. female s/p left simple mastectomy with sentinel lymph node biopsy plus complex closure - No acute concerns at this time. No concern for hematoma buildup - Incision well-approximated without swelling or hematoma - LORENZO drain with bloody serosanguineous output - No obvious concern at this time to keep patient from discharge - Spoke extensively about return precautions and gave patient clinic numbers Wade Benites MD General Surgery 08/27/24 7:37 PM NURSING NOTE Observed: 08/27/2024 7:28 PM Status: COMPLETED Source: [facility] Pt discharged instructions c ompleted. Questions answered. Education completed for LORENZO drain, Supplies given for monitoring put out. Pt have no concerns at this time. 30 Observed: 08/27/2024 7:00 PM Status: COMPLETED Source: [facility] Problem: Pain - Adult Goal: Verbalizes/displays adequate comfort level or baseline comfort level Outcome: ProgressingProblem: Discharge Planning Goal: Discharge to home or other facility with appropriate resources Outcome: ProgressingProblem: Chronic Conditions and Co-morbidities Goal: Patient's chronic conditions and co-morbidity symptoms are monitored and maintained or improved Outcome: Progressing DISCHARGE SUMMARY Observed: 08/27/2024 5:14 PM Status: COMPLETED Source: [facility] Discharge Summary Dakota Sarah : 1960 ADMIT DATE: 08/26/2024 DISCHARGE DATE: 08/27/2024 PRIMARY CARE PHYSICIAN: Marysol Bennett VISIT STATUS: Admission CODE STATUS: Full Code DISCHARGE DIAGNOSES: Principal Problem: Ductal carcinoma in situ (DCIS) of left breast Active Problems: Pacemaker-dependent due to [place] cardiac rhythm insufficient to support life S/P mastectomy, left HOSPITAL COURSE: Patient presented for elective surgery and was taken 08/26 for Left sided simple mastectomy with sentinel lymph node biopsy. This was done in combination with our plastics reconstructive surgery team who performed the complex closure of the case. There were no apparent immediate operative complications. Due to being pacer dependent the hospital rep placed her pacer in DOO mode prior to the procedure in the OR and re-enabled normal operating mode immediately after the procedure. She was sent for overnight observation to a telemetry floor given the pacer needs and recent surgery. Overnight and into the morning the patient noticed some increased firmness and swelling of the breast, chest wall, and left axilla which was confirmed on physical exam and was taken back to the OR with the PRS team for washout and hematoma evacuation. The procedure had no apparent complications. She was seen hours later after surgery with a stable clinical exam and no residual sign of hematoma. She was previously seen by PT, was ambulating, was tolerating diet, pain and nausea well controlled on medications by mouth, and was agreeable and appropriate for discharge home at this time. SIGNIFICANT DIAGNOSTIC STUDIES: See full chart CONSULTANTS: PRS PT RECOMMENDED NEXT STEPS: Follow up in clinic with breast surgery Follow up in clinic with PRS team, continue drain care DISCHARGE MEDICATIONS: Medication List ASK your doctor about these medications aspirin 81 MG EC tablet biotin 43389 MCG tablet LACTOBACILLUS ACID-PECTIN PO multivitamin tablet nebivolol 5 MG tablet Commonly known as: Bystolic pravastatin 20 MG tablet Commonly known as: Pravachol DIET: NPO diet ACTIVITY: No heavy lifting. COMPLEXITY OF FOLLOW UP: [x] Moderate Complexity: follow up within 7-14 calendar days (99896) [] Severe Complexity: follow up within 7 calendar days (01871) FOLLOW UP TESTING, PENDING RESULTS OR REFERRALS AT TRANSITIONAL CARE VISIT: [] Yes [x] No PENDING STUDIES: Pathology DISPOSITION: Home FACILITY/HOME CARE AGENCY NAME: n/a Follow up with Gianna Cardona MD [address] [place] [phone] Schedule an appointment as soon as possible for a visit in 2 week(s) For post op follow up INSTRUCTIONS TO MA/SW: Please call patient on day after discharge (must document patient contacted within 2 business days of discharge). FOLLOW UP QUESTIONS FOR MA/SW: 1. Did you get medications filled and taking them as instructed from discharge? 2. Are you following your discharge instructions from your hospital stay? 3. Please confirm patient is scheduled for a follow up appointment within the above time frame. DISCHARGE TIME: > 30 minutes SIGNED: Juan Trinidad MD 08/26/2024, 12:22 PM PROGRESS NOTE Observed: 08/27/2024 5:00 PM Status: COMPLETED Source: [facility] Patient seen and evaluated. Exam remains consistent with PRS exam approximately 3 hours prior. Expected ecchymosis, with no residual hematoma appreciated. Skin flat to chest wall laterally. LORENZO drain more SS now. nTTP. Plan for discharge home this evening Dw Dr. Loly Trinidad MD PGY1, General Surgery Resident Pager # [phone] 08/27/24 PROGRESS NOTE Observed: 08/27/2024 3:01 PM Status: COMPLETED Source: [facility] PHYSICAL THERAPY [facility] Initial Evaluation Name/MRN: Dakota Sarah ([id number]) Evaluation Date: 08/27/2024 Date of : 1960 Admission Date: 08/26/2024 8:00 AM Age: 64 y.o. [facility] Discharge Recommendation: Home with assist PRN Equipment Needed: No Assessment IMPRESSION: 64 y.o. pt admitted to [facility] for ductal carcinoma, s/p l simple mastectomy 08/26 and RTOR for hematoma removal 08/27. They were indep with all mobility and demo good safety awareness. Will rec home indep at discharge. No acute PT needs at this time, will sign off. Admitting Diagnosis: ductal carcinoma, s/p l simple mastectomy 08/26 and RTOR for hematoma removal 08/27 Prognosis: excellent Performance Deficits /Impairments: Increased Pain Decision Making: Low Complexity Subjective Pt supine in bed. Agreeable to PT session. Cleared by nursing Pain: Pt denies any current pain. 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 Fall Risk: Pittman Fall Risk Score: 20 (Low Risk) Precautions/Restrictions: Lines/Drains/Airways: PIV, LORENZO drain Post mastectomy: no pushing, no pulling, no shoulder ROM above 90 degrees, no lifting greater than 10# Family/Caregiver Present: spouse Overall Cognitive Status: WFL Overall Orientation Status: Oriented x4 Vision: wears glasses at all times and and are being used during the eval Hearing: normal Social/Functional History Patient admitted from home. Lives With: Spouse Type of Home: single family home Home Layout: Single Level Home Home Access: Stairs to Enter with Rails (# of stairs: 3) Bathroom Shower/Tub: Toilet: Standard Home Equipment: none Homemaking Responsibilities: Independent Receives Help From: None Active Rn Coronary Care Unit: Prior Level of Function Prior Level of ADL Function: Independent Prior Level of Mobility: Independent; Device: None Prior Level of Transfers: Independent Objective Lower Extremity Assessment AROM: WNL PROM: WNL Strength: WNL 5/5 Sensation: WNL Balance: Not assessed this session Bed Mobility: Supine to sit: Supervision Transfers Sit to stand: Supervision Stand to sit: Supervision Ambulation Ambulation 1 Assistive device(s) used: None Assist level: Supervision Distance (ft): 30' Quality of gait: slow master Post-mastectomy handout provided. Performed each exercise 2-5x. IS use x5 to 2000 mL Outcome Measures AM-PAC How much HELP from another person do you currently need Turning from your back to your side while in a flat bed without using bedrails?: None Moving from lying on your back to sitting on the side of a flat bed without using bedrails?: None Moving to and from a bed to a chair (including a wheelchair)?: None Standing up from a chair using your arms (wheelchair or bedside chair)?: None Walking in a hospital room?: A Little Stair climbing assessed?: No AM-PAC Inpatient Mobility Raw Score (No Stairs) : 19 [facility] Score: Walked 25 ft or more (i.e. walked outside of room) Plan No skilled acute PT indicated at this time. Please reconsult should changes occur. Safety/Education Safety Safety Devices in place: All fall risk precautions in place Restraints: No Education Education Given To: patient Education Provided: PT Role, PT Goals, Plan of Care, Home Exercise Program, Precautions, Transfer Training, Fall Prevention Education, Discharge Recommendations, and Benefits of Increasing Activity Education Method: Verbal Barriers to Learning: None Education Outcome: Verbalized Understanding Goals Patient Stated Goal: to go home Encounter Problems Encounter Problems (Active) Pain - Adult Therapy Time Individual Co-Treatment Co-Evaluation Time In 1426 Time Out 1442 Minutes 16 Timed Code Treatment Minutes: (low eval) Lavern Angeles PT Patient's Physical Therapy Plan of Care supervision is transferred to a [facility] Therapy Services Physical Therapist. Goals and/or treatment plan was established in collaboration with patient/family/other representatives. 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 snoring that sometimes results in occasional sleep apnea? no CPAP [2] Past Surgical History: Procedure Laterality Date BREAST BIOPSY Left 06/11/2024 Left Breast US biopsy @ [facility] [address] [facility] Left 07/2024, [facility] SECTION (HISTORICAL) SECTION, LOW TRANSVERSE 09/30/90 & 08/10/92 COLONOSCOPY 01/16/2019 Good report. GANGLION CYST EXCISION INSERT / REPLACE / REMOVE PACEMAKER 08/18/09 & 03/10/19 MASTECTOMY Left 08/26/2024 LEFT SIMPLE MASTECTOMY - Left General IDENTIFICATION LYMPH NODE, SENTINEL, INTRAOPERATIVE - Left SENTINEL LYMPH NODE BIOPSY - Left X-RAY, SURGICAL SPECIMEN, BREAST - Left OTHER SURGICAL HISTORY Ganglion cyst removal, left wrist 4x: 2012, 2014, 2016, 2018 PACEMAKER (HISTORICAL) TONSILLECTOMY NURSING NOTE Observed: 08/27/2024 12:10 PM Status: COMPLETED Source: [facility] Report called to H6 JL robins . Patient resting comfortably and denies any needs. Transport en route. [id number] Observed: 08/27/2024 12:00 PM Status: COMPLETED Source: [facility] Patient: Dakota Sarah Procedure Summary Date: 08/27/24 Room / Location: [address] Operating Room Anesthesia Start: 956 Anesthesia Stop: 1122 Procedure: DEBRIDEMENT SKIN, SUBCUTANEOUS TISSUE/MUSCLE/BONE - LEFT BREAST (Left: Arm Lower) Diagnosis: Ductal carcinoma in situ (DCIS) of left breast Surgeons: Riccardo Smith MD Responsible Provider: Thaddeus De La Cruz MD Anesthesia Type: general ASA Status: 3 - Emergent Anesthesia Type: general Vitals Value Taken Time BP 103/65 08/27/24 11:45 Temp 36.1 ?C (97 ?F) 08/27/24 11:20 Pulse 87 08/27/24 11:59 Resp 14 08/27/24 11:45 SpO2 100 % 08/27/24 11:59 Vitals shown include unfiled device data. Anesthesia Post Evaluation Patient location during evaluation: PACU Patient participation: complete - patient participated Level of consciousness: awake and alert Pain management: satisfactory to patient Airway patency: patent Dental Injury: no Cardiovascular status: acceptable, blood pressure returned to baseline and hemodynamically stable Respiratory status: acceptable and spontaneous ventilation Hydration status: euvolemic Nausea/Vomiting: controlled No notable events documented. Patient can be discharged once all PACU criteria has been met. ANESTHESIA NOTE Observed: 08/27/2024 12:00 PM Status: COMPLETED Source: [facility] [employer] Patient: Dakota Sarah Procedure Summary Date: 08/27/24 Room / Location: [address] Operating Room Anesthesia Start: 956 Anesthesia Stop: 1122 Procedure: DEBRIDEMENT SKIN, SUBCUTANEOUS TISSUE/MUSCLE/BONE - LEFT BREAST (Left: Arm Lower) Diagnosis: Ductal carcinoma in situ (DCIS) of left breast Surgeons: Riccardo Smith MD Responsible Provider: Thaddeus De La Cruz MD Anesthesia Type: general ASA Status: 3 - Emergent Anesthesia Type: general Vitals Value Taken Time BP 103/65 08/27/24 11:45 Temp 36.1 ?C (97 ?F) 08/27/24 11:20 Pulse 87 08/27/24 11:59 Resp 14 08/27/24 11:45 SpO2 100 % 08/27/24 11:59 Vitals shown include unfiled device data. Anesthesia Post Evaluation Patient participation: complete - patient participated Level of consciousness: alert and awake Pain management: satisfactory to patient Multimodal analgesia pain management approach Airway patency: patent Two or more strategies used to mitigate risk of obstructive sleep apnea Respiratory status: acceptable Cardiovascular status: acceptable Hydration status: acceptable No notable events documented. MIPS #[id number] PONV Patient received an inhalational anesthetic (4554F) Patient does not exhibit three or more risk factors for PONV (X0430)) MIPS # 424 Perioperative Temperature Management Anesthesia time was less than 60 minutes (4256F) MIPS #477 Multimodal Pain Management Emergent case Exlusion- Stop here (M1142) MIPS #404 Anesthesiology Smoking Abstinence The patient is not a current smoker (e.g. cigarette, cigar, pipe, e-cigarette/vaping/marijuana) If no stop here (XX404) I completed my handoff to the receiving clinician during which we: 1. Identified the patient 2. Identified the responsible provider 3. Reviewed the pertinent medical history 4. Discussed the surgical course 5. Reviewed intra-op anesthesia management and issues during anesthesia 6. Set expectations for post-procedure period 7. Allowed opportunity for questions and acknowledgement of understanding. PROGRESS NOTE Observed: 08/27/2024 10:33 AM Status: COMPLETED Source: [employer] [facility] PHYSICAL THERAPY [facility] Name/MRN: Dakota Sarah ([id number]) Date: 08/27/2024 PT orders received. Pt back to OR this date. Will follow and assess as able. Lavern Angeles, PT PROCEDURE NOTE Observed: 08/27/2024 10:20 AM Status: COMPLETED Source: [facility] Airway Date/Time: 08/27/2024 10:04 AM Reason: scheduled Airway not difficult General Information and Staff Patient location during procedure: Procedural Resident/ROTARY MACHINE OPERATOR: Michelle Seymour CRNA Performed: ROTARY MACHINE OPERATOR Patient Condition Indications for airway management: anesthesia Patient position: sniffing Sedation level: Asleep and RSI Final Airway Details Preoxygenated: yes Final airway type: endotracheal airway Successful airway: ETT Cuffed: yes Successful intubation technique: direct laryngoscopy Adjuncts used in placement: intubating stylet and cricoid pressure Endotracheal tube insertion site: oral Blade: [place] Blade size: #3 ETT size (mm): 7.0 Cormack-Lehane Classification: grade I - full view of glottis Placement verified by: chest auscultation and capnometry Measured from: lips ETT to lips (cm): 23 Number of attempts at approach: 1 Number of other approaches attempted: 0 PROGRESS NOTE Observed: 08/27/2024 10:00 AM Status: COMPLETED Source: [facility] Department of Plastic & Alan nstructive Surgery Progress Note S: patient doing ok overnight. Some swelling noted to axillary area that she states was not there postop O: BP 109/66 (BP Location: Right arm) Pulse 105 Temp 36.9 ?C (98.5 ?F) (Temporal) Resp 16 SpO2 100% I/O last 3 completed shifts: In: 1379.9 [P.O.:500; I.V.:868.9; IV Piggyback:11] Out: 85 [Drains:55; Blood:30] No intake/output data recorded. GEN: NAD HEENT: NC/AT CV: non-tachycardic PULM: breathing non-labored on RA Chest: Left mastectomy flaps edematous with some bruising, soft but palpable fluid collection laterally, minimal bloody output in drain EXT: moving all NEURO: awake, alert, oriented ASSESSMENT: 64 y.o. F s/p L mastectomy w/ SLNbx and aesthetic closure. Some edema and bruising of mastectomy flaps with palpable fluid collection, does not appear to have firm, expanding hematoma. PLAN: -NPO -OR for washout for likely hematoma -drain care Please contact plastic surgery extension work director fellow with any questions/concerns D/w Dr. Luis Carlos MD PGY-7 Plastic & Reconstructive Surgery Fellow OP NOTE Observed: 08/27/2024 9:58 AM Status: COMPLETED Source: [facility] Date: 08/27/2024 Location: [facility] OR Name: Dakota Sarah, : 1960, Diagnosis Pre-op Diagnosis * Ductal carcinoma in situ (DCIS) of left breast [D05.12] Post-op Diagnosis * Ductal carcinoma in situ (DCIS) of left breast [D05.12] Procedures DEBRIDEMENT SKIN, SUBCUTANEOUS TISSUE/MUSCLE/BONE - LEFT BREAST 30728 - OK DEBRIDEMENT BONE 1ST 20 SQ CM/< Surgeons * Riccardo Said - Primary Dry Cell Tester: Rosita Carlos MD Procedure Summary Anesthesia: General ASA: III Estimated Blood Loss: 400 mL Total IV Fluids: 500 mL Drains: Closed/Suction Drain Left Breast Bulb 19 Fr. (Active) Site Description Intact 08/27/241736 Drainage Appearance Bloody 08/27/241926 Status To bulb suction 08/27/241926 Accordion/Bulb/Other Output (mL) 30 mL 08/27/241926 Staff: Gas Turbine Mechanic: Laura Covarrubias RN Relief Gas Turbine Mechanic: Domi Osborn RN Scrub Person: Iveth Terrellcar Indications: Dakota Sarah is an 64 y.o. female who is having surgery for deep hematoma of the left mastectomy site. On first postoperative day clinical rounds, patient was found to have significant swelling with skin ecchymosis of the left mastectomy site indicative of clinical hematoma. Decision was made to take the patient back to the operating room and explore the mastectomy incision, drain the hematoma and identified a possible source for bleeding. Risk and benefits were discussed with the patient including infection, bleeding, seroma, and recurrent hematoma. In the preoperative holding area, patient's pacemaker settings were adjusted to tolerate a coagulating Bovie. Technical details: Patient was subsequently taken to the operating room. She was placed in the supine position. After induction of general anesthesia with an endotracheal tube, 2 g of Ancef were given for antibiotic prophylaxis. Bilateral sequential devices were placed for DVT prophylaxis. All pressure points were padded and protected for safety. Timeout was conducted as per protocol identifying patient's name, date of , location of the hematoma and the planned procedure. The area of the anterior chest extending from the neck to the umbilicus was prepped and draped in usual sterile fashion. My attention was directed to opening the mastectomy incision. The Dermabond was removed and the incision was reopened cutting the subcuticular Monocryl suture and the deep dermal PDS sutures. We immediately encountered a large hematoma under both the superior and inferior mastectomy flap and extending to the lateral chest wall within the axilla. Hematoma was between 350 to 400 cc. Once the hematoma was evacuated and the surgical field was irrigated we encountered multiple oozing sites with no definitive source. All these oozing and bleeding sites were controlled with a coagulating Bovie. This included on the undersurface of the mastectomy flap, over the pectoralis major muscle and within the lateral axillary tissue. The surgical field was subsequently irrigated with multiple rounds of sterile saline and hemostasis was confirmed to be appropriate. The old drain had clotted blood in the tubing and hence it was discarded and the new #19 Isreal drain was placed through the same stab incision along the lateral aspect of the inframammary fold and secured to the skin with 2-0 nylon suture. Due to the maceration of the edges of the mastectomy incision, the mastectomy incision was cut back 3 mm both along the superior mastectomy flap and the inferior mastectomy flap so as to have straight none macerated edges for adequate suturing and hence a better aesthetic outcome. Closure was performed anatomically in layers by approximation of the deep dermis with 3-0 PDS suture in an inverted interrupted fashion followed by approximation of the superficial dermis and epidermis with a 3-0 Monocryl in a running subcuticular fashion. Incision was cleaned, dried and Dermabond was applied. Patient tolerated the procedure well. Debriefing was done as per protocol. All counts were correct in terms of needles, instruments and sponges. Patient was safely extubated and transferred from the operating room to the PACU for postoperative care. This note may have been dictated using [employer] Practice Edition 2.6 and/or [employer] Voice Recognition Feature. The document was proofread; however, unrecognized voice recognition scheduler conveyor errors may be present. 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 Past Medical History: Past Medical History: No date: Atherosclerotic heart disease of white [place] coronary artery without angina pectoris 06/11/2024: Breast cancer (HCC) Comment: left breast- diagnosed at [facility] No date: Cardiac pacemaker in situ Comment: 2009 No date: Hypertension No date: Mixed hyperlipidemia No date: Other specified heart block Comment: type II 2nd degree AV heart block 2015: PONV (postoperative nausea and vomiting) Comment: proactively given medication to prevent nausea/vomiting for other subsequent anesthesia procedures, after 2014 ?: Sleep apnea Comment: snoring that sometimes results in occasional sleep apnea? no CPAP Past Surgical History: Past Surgical History: 06/11/2024: BREAST BIOPSY; Left Comment: Left Breast US biopsy @ [facility] 2003: [facility] No date: BREAST BIOPSY; Left Comment: 07/2024, [facility] No date: SECTION (HISTORICAL) 09/30/90 & 08/10/92: SECTION, LOW TRANSVERSE 01/16/2019: COLONOSCOPY Comment: Good report. No date: GANGLION CYST EXCISION 08/18/09 & 03/10/19: INSERT / REPLACE / REMOVE PACEMAKER 08/26/2024: MASTECTOMY; Left Comment: LEFT SIMPLE MASTECTOMY - Left General IDENTIFICATION LYMPH NODE, SENTINEL, INTRAOPERATIVE - Left SENTINEL LYMPH NODE BIOPSY - Left X-RAY, SURGICAL SPECIMEN, BREAST - Left Ganglion cyst removal, left wrist: OTHER SURGICAL HISTORY Comment: 4x: 2012, 2014, 2016, 2017 No date: PACEMAKER (HISTORICAL) No date: TONSILLECTOMY Social History: TOBACCO: reports that she has never smoked. She has never used smokeless tobacco. ETOH: reports no history of alcohol use. Social History Substance and Sexual Activity Drug Use Never Family History: Family History[1] Screening: Postmenopausal Clinical information reviewed: Tobacco Allergies Meds Med Hx Surg Hx Fam Hx Soc Hx Physical Exam Airway Mallampati: III TM distance: >3 FB Neck ROM: full Mouth Open: normalendotracheal tube not in place Cardiovascular Dental dentition normal Pulmonary Abdominal Anesthesia Plan patient is not NPO (emergent surgery, full breakfast at 0630) appropriate Any family history or previous problems with anesthesia ASA 3 - emergent general The patient is not a current smoker. Anesthetic plan and risks discussed with patient and spouse. YONG Screening Labs: Lab Results Component Value Date WBC 9.9 08/27/2024 HGB 10.1 (L) 08/27/2024 HCT 29.4 (L) 08/27/2024 MCV 89.1 08/27/2024 PLT 245 08/27/2024 Lab Results Component Value Date NA 138 08/27/2024 K 4.7 08/27/2024 CL 107 08/27/2024 CO2 25 08/27/2024 BUN 18 08/27/2024 CREATININE 0.76 08/27/2024 GLUCOSE 130 (H) 08/27/2024 CALCIUM 9.0 08/27/2024 PROT 7.1 07/14/2024 ALKPHOS 96 07/14/2024 AST 29 07/14/2024 ALT 17 07/14/2024 EGFR 87.6 08/27/2024 Pain Score: Scheduled No echocardiogram results found for the past 14 days 08/19/24 ECG 12-LEAD 08/19/2024 10:23 AM (Final) Impression Atrial-sensed ventricular-paced complexes No previous ECG available for comparison Electronically Signed On 08-19-2024 10:23:49 EDT by Roberto Adrian Signed by: Roberto Adrian MD on 08/19/2024 10:23 AM Equipment Requests: Additional Equipment Requests [1] Family History Problem Relation Name Age of Onset Other cancer Mother [place] 87 Gallbladder Cancer Mother [place] Hyperlipidemia Mother [place] Hypertension Mother [place] Rashes / Skin problems Mother [place] Thyroid disease Mother [place] Prostate cancer Father DS 67 Cancer Father DS Hyperlipidemia Father DS Hypertension Father DS Rashes / Skin problems Father DS Arthritis Father DS Breast cancer Mother's Sister BH 66 Cancer Mother's Sister BH Breast cancer Father's Sister EH 60 Breast Cancer Addt'l Onset Father's Sister EH 69 mets to bone and beyond Cancer Father's Sister EH Hyperlipidemia Maternal Grandmother AB Hypertension Maternal Grandmother AB Hearing loss Maternal Grandmother AB Depression Maternal Grandmother AB Ovarian cancer Paternal Grandmother ES 79 Cancer Paternal Grandmother ES Hypertension Paternal Grandmother ES Arthritis Paternal Grandmother ES Diabetes Maternal Grandfather WB Heart disease Maternal Grandfather WB Heart disease Paternal Grandfather DS Cancer Other Paternal & Maternal Aunts PROGRESS NOTE Observed: 08/27/2024 5:57 AM Status: COMPLETED Source: [facility] Attestation signed by Gianna Cardona MD at 08/27/2024 11:10 AM ~~~~~~~~~~~~~~~~~~~~~~~~~~~~~~~~~~~~~~~~~~~~~~~~~~~~~~~~~~~~~ ATTENDING ADDENDUM I independently saw the above patient and reviewed their imaging, labs, vital signs, and performed a physical exam and ROS. My findings agree with the above note except for any details corrected below. Noted swelling left mastectomy site overnight with pain left axilla Postoperative hematoma Not excessive output from drain Hemoglobin 10 Discuss washout with plastics team Department of Surgery Surgical Service 2 (Breast) Daily Progress Note PATIENT NAME: Dakota Sarah : 1960 ATTENDING PHYSICIAN: Gianna Cardona MD ADMIT DATE: 08/26/2024 TODAY'S DATE: 08/27/2024 SUBJECTIVE Having some pain but tolerable No significant N/V Tolerating diet, ambulating, voiding normally LORENZO drain sanguinous 35/20 output OBJECTIVE VITALS: BP 102/71 Pulse 96 Temp 36.3 ?C (97.3 ?F) (Temporal) Resp 18 SpO2 97% PHYSICAL EXAM: CONSTITUTIONAL: NAD, A&O X3. CHEST: Resp effort easy and unlabored. Left breast incision C/D/I, LORENZO sanguinous output. Edema and likely hematoma with some added fullness to the outer lateral breast/axillary region. Otherwise nTTP, expected ecchymoses. ABDOMEN: soft, nTTP Incisions: C/D/I, no signs of bleeding INTAKE/OUTPUT: @IODETAILS@ I/O last 3 completed shifts: In: 879.9 [I.V.:868.9; IV Piggyback:11] Out: 65 [Drains:35; Blood:30] I/O this shift: In: - Out: 20 [Drains:20] Data Recent Labs 08/27/24 0416 WBC 9.9 HGB 10.1* HCT 29.4* PLT 245 Recent Labs 08/27/24 0416 NA 138 K 4.7 CL 107 CO2 25 BUN 18 CREATININE 0.76 GLUCOSE 130* No results for input(s): AST, ALT, BILITOT, ALKPHOS in the last 72 hours. No lab exists for component: ALB Imaging Pertinent imaging reviewed. ASSESSMENT AND PLAN 64 y.o. female status post Lt simple mastectomy w/ SLNB + PRS complex closure POD 1 - PRS to assess for need of hematoma evacuation - contact REP for pacemaker reset to DOO prior to procedure and reversal afterwards - NPO for tentative OR; otherwise okay for regular outside of OR planning - mIVFs as needed for extended NPO period - MMPR, antiemetics prn - PT to see Dw Dr. Salcido Dispo: pending OR evacuation, likely discharge tomorrow uJan Trinidad MD PGY1, General Surgery Resident Pager # [phone] 08/27/24 CBC WITH AUTO DIFFERENTIAL Collected: 08/27/2024 4:16 AM Status: F Source: [facility] TYPE CODE TESTS RESULT OUT OF RANGE REFERENCE UNITS LAB [id number] WBC 9.9 3.6-10.7 10*3/uL LAB 3465978 RBC 3.30 Low 3.80-5.20 10*6/uL LAB 1367685 HEMOGLOBIN 10.1 Low 11.7-16.0 g/dL LAB 1129522 HEMATOCRIT 29.4 Low 35.0-47.0 % LAB 8849608 MCV 89.1 77.0-99.0 fL LAB 7071342 MCH 30.6 26.0-34.0 pg LAB 2319858 MCHC 34.4 30.5-36.0 % LAB 2125364 RDW 13.0 11.5-15.0 % LAB 9326646 PLATELET COUNT 245 140-440 10*3/uL LAB 0654732 MPV 9.6 9.0-12.7 fL LAB 254 NRBC 0.0 0.0-2.0 /100 WBCs LAB 3377632 NEUTROPHILS RELATIVE 85.7 High 38.0-82.0 % LAB 7470010 LYMPHOCYTES RELATIVE 8.6 Low 15.0-45.0 % LAB 8991458 MONOCYTES RELATIVE 5.3 5.0-13.0 % LAB 8864815 EOSINOPHILS RELATIVE 0.0 0.0-6.0 % LAB 4696369 BASOPHILS RELATIVE 0.1 0.0-2.0 % LAB 6740162 IMMATURE GRANS % 0.3 0.0-2.0 % LAB 5220493 NEUTROPHILS ABSOLUTE 8.5 High 1.8-7.5 10*3/uL LAB 0082062 LYMPHOCYTES ABSOLUTE 0.9 Low 1.0-4.3 10*3/uL LAB 6354700 MONOCYTES ABSOLUTE 0.5 0.0-0.9 10*3/uL LAB 3432019 EOSINOPHILS ABSOLUTE 0.0 0.0-0.5 10*3/uL LAB 4345512 BASOPHILS ABSOLUTE 0.0 0.0-0.2 10*3/uL LAB 549175 IMMATURE GRANS ABSOLUTE 0.0 <0.1 10*3/uL Performed By: #### [id number] # ### Power Manager: SHERYL ALVARES ([id number]) [facility]) [address] [place] [address] BASIC METABOLIC PANEL Collected: 2024 4:16 AM Status: F Source: [facility] TYPE CODE TESTS RESULT OUT OF RANGE REFERENCE UNITS LAB 8376843 SODIUM 138 136-145 mmol/L LAB 4273818 POTASSIUM 4.7 3.5-5.1 mmol/L Result Comment: Plasma potas sium values may be up to 0.5 mmol/L lower than serum values. LAB 0524879 CHLORIDE 107 98-107 mmol/L LAB 2671135 CARBON DIOXIDE 25 23-31 mmol/L LAB 6480136 UREA NITROGEN 18 9-23 mg/dL LAB 0236978 CREATININE 0.76 0.57-1.11 mg/dL LAB 8657152 GLUCOSE 130 High 82-115 mg/dL LAB 8272054 CALCIUM 9.0 8.8-10.0 mg/dL LAB [id number] ANION GAP (MUSE, CALCULATED) 6 3-13 mmol/L LAB 6391128 GLOMERULAR FILTRATION RATE ML/MIN/1.73 SQ M.PREDICTED 87.6 >60.0 mL/min/1. 73m*2 Result Comment: Calculation based on the Chronic Kidney Disease Epidemiology Collaboration (CKD-EPI) equation refit without adjustment for race Performed By: #### [id number] ### # Power Manager: SHERYL ALVARES ([id number]) [facility] ([facility]) [address] [place] [address] 30 Observed: 08/26/2024 6:58 PM Status: COMPLETED Source: [facility] Problem: Pain - Adult Goal: Verbalizes/displays adequate comfort level or baseline comfort level Outcome: ProgressingProblem: Safety - Adult Goal: Free from fall injury Outcome: Progressing PROGRESS NOTE Observed: 08/26/2024 4:38 PM Status: COMPLETED Source: [facility] [employer] [facility] Patient sitting up eating di nner tray, VSS with daughter at bedside, call light within reach NURSING NOTE Observed: 08/26/2024 2:45 PM Status: COMPLETED Source: [facility] [employer] [facility] Family/visitor at bedside wi th patient. NURSING NOTE Observed: 08/26/2024 1:56 PM Status: COMPLETED Source: [facility] [employer] [facility] Pacemaker Rep at bedside to reset pacer for patient. NURSING NOTE Observed: 08/26/2024 1:42 PM Status: COMPLETED Source: [facility] Patient family/visitor updat ed by RN at this time. PROGRESS NOTE Observed: 08/26/2024 1:30 PM Status: COMPLETED Source: [facility] [employer] [facility] REP CALLED TO BEDSIDE TO RES ET PACER [id number] Observed: 08/26/2024 1:20 PM Status: COMPLETED Source: [facility] [employer] [facility] Patient: Dakota Sarah Procedure Summary Date: 08/26/24 Room / Location: [address] Operating Room Anesthesia Start: 1054 Anesthesia Stop: 1307 Procedures: LEFT SIMPLE MASTECTOMY (Left: Breast) IDENTIFICATION LYMPH NODE, SENTINEL, INTRAOPERATIVE (Left: Axilla) SENTINEL LYMPH NODE BIOPSY (Left: Axilla) X-RAY, SURGICAL SPECIMEN, BREAST (Left) LEFT BREAST COMPLEX CLOSURE, POSSIBLE LEFT AXILLA LIPECTOMY FOR LEFT BREAST CANCER, INDOCYANINE GREEN ANGIOGRAPHY/SPY (Left: Breast) Diagnosis: Intraductal carcinoma in situ of left breast Surgeons: Gianna Cardona MD; Riccardo Smith MD Responsible Provider: Violetta Garcia CRNA Anesthesia Type: general, regional ASA Status: 2 Anesthesia Type: general, regional Vitals Value Taken Time BP 120/65 08/26/24 13:15 Temp 97.0 08/26/24 13:20 Pulse 70 08/26/24 13:19 Resp 19 08/26/24 13:19 SpO2 100 % 08/26/24 13:19 Vitals shown include unfiled device data. Anesthesia Post Evaluation Patient location during evaluation: PACU Patient participation: complete - patient participated Level of consciousness: awake and alert Pain management: satisfactory to patient Airway patency: patent Dental Injury: no Cardiovascular status: acceptable, blood pressure returned to baseline and hemodynamically stable Respiratory status: acceptable and spontaneous ventilation Hydration status: euvolemic Nausea/Vomiting: controlled There were no known notable events for this encounter. Patient can be discharged once all PACU criteria has been met. ANESTHESIA NOTE Observed: 08/26/2024 1:19 PM Status: COMPLETED Source: [facility] Patient: Dakota Sarah Procedure Summary Date: 08/26/24 Room / Location: [address] Operating Room Anesthesia Start: 1054 Anesthesia Stop: 1307 Procedures: LEFT SIMPLE MASTECTOMY (Left: Breast) IDENTIFICATION LYMPH NODE, SENTINEL, INTRAOPERATIVE (Left: Axilla) SENTINEL LYMPH NODE BIOPSY (Left: Axilla) X-RAY, SURGICAL SPECIMEN, BREAST (Left) LEFT BREAST COMPLEX CLOSURE, POSSIBLE LEFT AXILLA LIPECTOMY FOR LEFT BREAST CANCER, INDOCYANINE GREEN ANGIOGRAPHY/SPY (Left: Breast) Diagnosis: Intraductal carcinoma in situ of left breast Surgeons: Gianna Cardona MD; Riccardo Smith MD Responsible Provider: Violetta Garcia CRNA Anesthesia Type: general, regional ASA Status: 2 Anesthesia Type: general, regional Vitals Value Taken Time BP 120/65 08/26/24 13:15 Temp 97.0 08/26/24 13:19 Pulse 70 08/26/24 13:19 Resp 19 08/26/24 13:19 SpO2 100 % 08/26/24 13:19 Vitals shown include unfiled device data. Anesthesia Post Evaluation Patient participation: complete - patient participated Level of consciousness: alert and awake Pain management: satisfactory to patient Multimodal analgesia pain management approach Airway patency: patent Two or more strategies used to mitigate risk of obstructive sleep apnea Respiratory status: acceptable Cardiovascular status: acceptable Hydration status: acceptable There were no known notable events for this encounter. MIPS #430 PONV Patient received an inhalational anesthetic (4554F) Patient exhibits three or more risk factors for PONV (4556F) Patient received at leaset 2 prophylactic Rx PONV anti-emtic agents of different classes preop and/or intraop (G9775) MIPS # 424 Perioperative Temperature Management Anesthesia time was 60 minutes or longer (4255F) Anesthesai administered was General (inhalational or TIVA) or Neuraxial block (X0424) At least one body temperature greater than 95.8F/35.5C achieved within the 30 mins immediately prior to or the 15 minutes immediately following anesthesia end time (G9771) MIPS #477 Multimodal Pain Management Not emergent case Patient was administered multimodal pain management (two or more drugs and/or interventions excluding systemic opioids) in the periopeartive period occurring at some time between 6 hours prior to anesthesia start time until discharged from PACU (G2148) MIPS #404 Anesthesiology Smoking Abstinence The patient is not a current smoker (e.g. cigarette, cigar, pipe, e-cigarette/vaping/marijuana) If no stop here (XX404) I completed my handoff to the receiving clinician during which we: 1. Identified the patient 2. Identified the responsible provider 3. Reviewed the pertinent medical history 4. Discussed the surgical course 5. Reviewed intra-op anesthesia management and issues during anesthesia 6. Set expectations for post-procedure period 7. Allowed opportunity for questions and acknowledgement of understanding. XR SURGICAL SPECIMEN IMAGE Observed: 12/2024 12:21 PM Status: F Source: [facility] [employer] [facility] Patient Name: DAKOTA SARAH : 1960 Exam Date/Time: 08/26/2024 11:15 Procedure: XR SURGICAL SPECIMEN IMAGE Ordering Provider: CARDONA VICTORIA Reason For Exam: BREAST BIOPSY FINDINGS: A specimen radiograph was submitted for interpretation. A specimen is submitted including multiple surgical clips along with a biopsy marker clip. I discussed these findings with the ultrasound technologist sonographer Report Dictated on Electronically Signed By: Horace Cesar MD Electronically Signed Date/Time: 08/26/2024 12:21 PM EDT TISSUE EXAM Collected: 12:03 PM Status: C Source: [facility] TYPE CODE TESTS RESULT OUT OF RANGE REFERENCE UNITS PATHOLOGY 1499 LAB AP CASE REPORT Result Comment: Surgical Pat hology Case: [id number] Authorizing Provider: Gianna Cardona MD Collected: 08/26/2024 1203 Ordering Location: [facility] MA[facility] OR Received: 08/26/2024 1412 Pathologist: Jhonny Brandon MD Specimens: A) - Breast, Left, Left Axillary Sentinal Lymph Nodes B) - Breast, Left, Left Breast PATHOLOGY 34 LAB AP REPORT FINAL DIAGNOSIS NARRATIVE Result Comment: A. LEFT AXIL ELIZABETH SENTINEL LYMPH NODES, RESECTION: - TWO LYMPH NODES NEGATIVE FOR METASTATIC CARCINOMA (0/2) B. LEFT BREAST, SIMPLE MASTECTOMY: - INTERMEDIATE GRADE DUCTAL CARCINOMA IN SITU - SEE SYNOPTIC REPORT Comment: A p63 and myosin demonstrate intact myoepithelial cells. Amendment electronically signed by Jhonny Brandon MD on 09/03/2024 at 1715 EDT at 1601 EDT PATHOLOGY 71 LAB AP SYNOPTIC CHECKLIST Result Comment: DCIS OF THE BREAST: Resection DCIS OF THE BREAST: RESECTION - All Specimens 8th Edition - Protocol posted: 06/08/2021 SPECIMEN Procedure: Excision (less than total mastectomy) Specimen Laterality: Left TUMOR Histologic Type: Ductal carcinoma in situ Size (Extent) of DCIS: Estimated size (extent) of DCIS is at least (Millimeters): 38 mm Number of Blocks with DCIS: 10 Number of Blocks Examined: 21 Architectural Patterns: Cribriform Architectural Patterns: Micropapillary Architectural Patterns: Solid Nuclear Grade: Grade II (intermediate) Necrosis: Not identified Microcalcifications: Present in nonneoplastic tissue MARGINS Margin Status: DCIS present at margin Margin(s) Involved by DCIS: Anterior: unifocal Margin(s) Involved by DCIS: Posterior: unifocal REGIONAL LYMPH NODES Regional Lymph Node Status: : All regional lymph nodes negative for tumor Total Number of Lymph Nodes Examined (sentinel and non-sentinel): 2 Number of Bendena Nodes Examined: 2 PATHOLOGIC STAGE CLASSIFICATION (pTNM, AJCC 8th Edition) Reporting of pT, pN, and (when applicable) pM categories is based on information available to the pathologist at the time the report is issued. As per the AJCC (Chapter 1, 8th Ed.) it is the managing physician???s responsibility to establish the final pathologic stage based upon all pertinent information, including but potentially not limited to this pathology report. pT Category: pTis (DCIS) Regional Lymph Nodes Modifier: (sn): Bendena node(s) evaluated pN Category: pN0 Breast Biomarker Testing Performed on Previous Biopsy: Estrogen Receptor (ER) Status: Negative Breast Biomarker Testing Performed on Previous Biopsy: Progesterone Receptor (PgR) Status: Negative Testing Performed on Comment(s): Hearing Instrument Specialist block: B1, B4, B10 PATHOLOGY 29 LAB AP CLINICAL INFORMATION Intraductal carcinoma in situ of left breast - D05.12 [ICD-10-CM] PATHOLOGY 5483329 LAB AP HISTO GROSS DESCRIPTION Result Comment: A. Received in formalin labeled left axillary sentinel lymph nodes is a portion of yellow-gamino soft tissue that measures 2 x 2 x 0.6 cm. Two possible lymph nodes are identified that measure 1.1 and 1.5 cm in greatest dimension. Cassette Summary: 1 one possible lymph node, 2 one possible lymph node bisected. B. Received in formalin labeled left breast is a portion of yellow-gamino soft tissue with overlying portion of skin including nipple and areola complex. It has an overall weight of 359 grams and measures 17 cm from superior to inferior, 16 cm from medial to lateral, and 2.3 cm from anterior to posterior. The portion of skin measures 16 x 5.5 cm. The nipple and areola complex measure approximately 4 x 3 cm. The skin is lightly pigmented, slightly wrinkled, and grossly unremarkable. A short stitch is present on one aspect designated as superior by the surgeon and long stitch is present on another aspect designated as lateral by the surgeon. The specimen is inked as follows: superior/anterior blue, inferior/anterior green, and posterior/deep black. The specimen is X-rayed to reveal a Q-shaped biopsy clip in the upper outer portion of the specimen and numerous vascular clips scattered throughout. The specimen is serially sectioned from medial to lateral into twenty slices. Cut surfaces reveal a mostly well-circumscribed firm and possibly encapsulated heterogenous gamino-white to yellow firm lesion that measures approximately 3.8 x 1.7 x 2.5 cm and they span slices thirteen through seventeen. The Q-shaped biopsy clip is presumed to be within this area. This lesion is approximately 0.3 cm from the closest superior/anterior surface in slice fifteen, 4.5 cm from closest inferior/anterior surface in slice fifteen, and appears to abut the posterior/deep margin but not involve it in slices fourteen through seventeen. The remainder of the tissue reveals lobulated yellow-gamino soft tissue with interspersed areas of gamino-white fibrosis accounting for approximately 50% of the tissue. No additional grossly identifiable masses or lesions are present. Cassette Summary: 1 lesion from slice thirteen, 2 lesion from slice fourteen, 3 and 4 lesion with closest superior/anterior surface from slice fifteen, 5 closest inferior/anterior surface from slice fifteen, 6 and 7 lesion from slice sixteen, 8 lesion from slice seventeen, 9 tissue adjacent to lesion in slice twelve, 10 adjacent to lesion in slice eighteen, 11 and 12 upper inner quadrant, 13 and 14 upper outer quadrant, 15 and 16 lower inner quadrant, 17 and 18 lower outer quadrant, 19 and 20 central tissue, 21 nipple and areolar complex. PATHOLOGY 769 LAB AP ASR DISCLAIMER Result Comment: Disclaimer: The following statement applies to all immunohistochemistry, in situ hybridization, molecular studies, and immunofluorescence testing, if performed on this case. The use of one or more reagents in the above tests is regulated as an analyte specific reagent (ASR). These tests were developed and their performance characteristics determined by the clinical laboratories of [facility]. They have not been cleared by the US Food and Drug Administration (FDA). The FDA has determined that such clearance or approval is not necessary. All immunostains were performed on paraffin embedded tissue. Appropriate positive and negative controls (where applicable) were run in parallel with the patient's specimen; these controls showed expected staining pattern, with acceptable intensity of staining. Immunohistochemical assays have not been validated on decalcified tissues. Results should be interpreted with caution given the raised possibility of false negativity on decalcified specimens. PATHOLOGY 821813 AP CASE PATHOLOGIST INTERP LOCATION [facility], [address] [place] [address], CLIA: [id number]; Joint Commission: [id number]; CAP: [id number] PATHOLOGY EMBDOC OUTGOING CLINICAL RESULTS EMBEDDED DOCUMENT PATHOLOGY 533 LAB AP CORRECTION HISTORY Correction within synoptic report to remove distance from posterior margin since it is involved. No change to diagnosis. Performed By: #### [id number] # ### Power Manager: SHERYL ALVARES ([id number]) [facility] ([facility]) [address] [place] [address] PROCEDURE NOTE Observed: 08/26/2024 11:31 AM Status: COMPLETED Source: [facility] [employer] [facility] Peripheral Block Time Out: 08/26/2024 11:04 AM Patient location during procedure: Procedural Start time: 08/26/2024 11:05 AM End time: 08/26/2024 11:08 AM Reason for block: at surgeon's request and post-op pain management Staffing Performed: ROTARY MACHINE OPERATOR Resident/ROTARY MACHINE OPERATOR: Laurie Domínguez, HARNESS TIER - ROTARY MACHINE OPERATOR Preanesthetic Checklist Completed: patient identified, IV checked, site marked, risks and benefits discussed, surgical consent, monitors and equipment checked, pre-op evaluation and timeout performed Region: [place] Primary: PEC1 (PEC 1) Secondary: PEC 2 Peripheral Block Patient position: supine Prep: ChloraPrep Patient monitoring: heart rate, prenatal genetic counselor, continuous pulse ox and continuous capnometry O2: ETT/LMA Laterality: left Injection technique: single-shot Guidance: ultrasound guided -image retained in chart, tip of the needle identified by ultraound during injection. Needle Needle: 21G X 110 mm Additional Notes Bupivacaine 0.375%/ Epi 1:200,000/ Dex 0.1mg/mL 15ml pec2 Bupivacaine 0.375%/ Epi 1:200,000/ Dex 0.1mg/mL 10ml pec1 08/26/2024 11:05 AM Assessment Injection assessment: negative aspiration for heme and incremental injection Heart rate change: no Slow fractionated injection: yes Required Documentation: Relevant anatomy identified (Nerves, Vessels, Muscles), Negative for blood on aspiration, Local anesthetic injected incrementally with intermittent aspiration every 5 mL, Normal resistance with injection, Local anesthetic spread visualized around nerves or plane., No EKG changes noted, No symptoms of toxicity and Local anesthetic injected without jiyrozbyinAahfhsvogwrysgESPHVhhmdj-ylzopptcjte-zzebiptzkdn (TAP) syringe - Injection 25 mL - 08/26/2024 11:05:00 AM PROCEDURE NOTE Observed: 08/26/2024 11:31 AM Status: COMPLETED Source: [facility] Airway Date/Time: 08/26/2024 11:04 AM Reason: scheduled Airway not difficult General Information and Staff Patient location during procedure: Procedural Resident/ROTARY MACHINE OPERATOR: Violetta Garcia CRNA Performed: SRNA Patient Condition Indications for airway management: anesthesia Patient position: sniffing Sedation level: Asleep Final Airway Details Preoxygenated: yes Final airway type: endotracheal airway Successful airway: ETT Cuffed: yes (MOV) Successful intubation technique: direct laryngoscopy Adjuncts used in placement: intubating stylet Blade: Henny Blade size: #3 ETT size (mm): 7.0 Cormack-Lehane Classification: grade IIb - view of arytenoids or posterior of glottis only Placement verified by: chest auscultation and capnometry Measured from: lips ETT to lips (cm): 22 Number of attempts at approach: 1 Additional Comments atraumatic OP NOTE Observed: 08/26/2024 10:54 AM Status: COMPLETED Source: [employer] Date: 08/26/2024 Location: [facility] OR Name: Dakota Sarah, : 1960, Diagnosis Pre-op Diagnosis * Intraductal carcinoma in situ of left breast [D05.12] Post-op Diagnosis * Intraductal carcinoma in situ of left breast [D05.12] Procedures 1-indocyanine green angiography 2-complex closure mastectomy incision 20 cm Surgeons Panel 1: * Gianna Cardona - Primary Panel 2: * Riccardo Smith - Primary assistant office manager: MD Nehemias Howard PA-C Procedure Summary Anesthesia: General ASA: II Estimated Blood Loss: 30 mL Total IV Fluids: 1000 mL Drains: Closed/Suction Drain Left Breast Bulb 19 Fr. (Active) Site Description Intact 08/27/24 1737 Drainage Appearance Bloody 08/27/24 1927 Status To bulb suction 08/27/24 1927 Accordion/Bulb/Other Output (mL) 30 mL 08/27/24 1927 [REMOVED] Closed/Suction Drain Lateral;Left Breast Bulb 19 Fr. (Removed) Site Description Intact 08/27/24 0910 Dressing Status Clean, dry & intact 08/27/24 0910 Drainage Appearance Bloody 08/26/24 1637 Status To bulb suction 08/27/24 0910 Accordion/Bulb/Other Output (mL) 5 mL 08/27/24 0427 Specimens ID Source Type Tests Collected By Collected At Frozen? Priority Lab ID 1 Breast, Left Tissue TISSUE EXAM Gianna Cardona MD 08/26/24 1203 No Routine [id number] Description: Left Axillary Sentinal Lymph Nodes 2 Breast, Left Tissue TISSUE EXAM Gianna Cardona MD 08/26/24 1209 No Routine [id number] Description: Left Breast Comment: Short Stitch is Superior. Long Stitch is Lateral Staff: Gas Turbine Mechanic: Rocio Phillips RN Relief Scrub: Zulema Chowdhury Scrub Person: Rachel Frazier; Magali Contreras RN Austin to Circ: Ofe Davila RN Indications: Dakota Sarah is an 64 y.o. female who is having surgery for left breast cancer. Patient with a significant history of DCIS of the left breast ER negative, OK negative. Genetic testing was negative for any deleterious mutations. Patient's palpable mass was about 4 cm. Adjuvant radiation treatment is contraindicated since the patient has an active pacemaker. Based on this, patient was offered a skin sparing mastectomy. Patient was seen and evaluated for left breast reconstruction following skin sparing mastectomy. Patient was offered implant-based breast reconstruction. However, at this point patient elected to proceed with skin sparing mastectomy with aesthetic/complex closure. Patient was seen and evaluated in the preoperative holding area where her wristband was matched to her stated name and date of . Preoperative markings were performed by marking the midline from the suprasternal notch to the umbilicus. The breast meridian was marked bilaterally in a symmetrical fashion. The breast footprint was marked in a symmetrical fashion. An oblique as shaped mastectomy excision was marked in elliptical fashion incorporating the anterior and middle portion of the anterior axillary fold to avoid dogears. Patient has a pacemaker along the superior anterior chest wall skin. The perimeter of the pacemaker was marked. We discussed risk and benefits including but not limited to infection, bleeding, seroma and hematoma formation as well as the potential possibility of disrupting the pacemaker or the connected cable. Patient was tentatively wired with a percutaneous pacemaker. All patient questions were answered to her satisfaction patient signed informed consent. Technical details: Patient was subsequently taken to the operating room. She was placed in supine position. After induction of general esthesia with an endotracheal tube, 600 mg of clindamycin were given for antibiotic prophylaxis. Bilateral sequential devices were placed for DVT prophylaxis. All pressure points were padded and protected for safety. Timeout was conducted as per protocol identifying patient's name, date of , location of the breast cancer on the left and the planned procedure. The pacemaker settings were adjusted by the manufacture to tolerate using the coagulating Bovie. The area of the anterior torso extending from the neck to the umbilicus was prepped and draped in usual sterile fashion. Kindly refer to Dr. Salcido's note regarding skin sparing mastectomy which was performed following the preoperative markings. My portion of the procedure started when Dr. Salcido had reached the level of the pacemaker raising the superior mastectomy flap. Once the pacemaker was palpated, using a 10 blade knife dissection was sharply performed between the anterior surface of the breast parenchyma and the posterior capsule of the pacemaker preserving the capsule intact. Cephalad to the superior border of the capsulated pacemaker dissection was taken up to the upper border of the breast parenchyma exposing the pectoralis major muscle. At this point Dr. Salcido had taken over and completed the skin sparing mastectomy and sentinel lymph node biopsy. Once Dr. Salcido had completed her skin sparing mastectomy, I took over irrigating the surgical field with sterile saline. Hemostasis was achieved with a coagulating Bovie for any blood vessel less than 1 mm in diameter and with a clip customer support executive for any blood vessel greater than 1 mm in diameter. Intraoperative understanding angiography was performed, 3 cc of indocyanine green was injected intravenously followed by 10 cc of saline flush. After 3 minutes of buffering, perfusion of the mastectomy flap was evaluated and percentage perfusions were obtained. Clinically mastectomy flaps seem to be well-perfused and percentage perfusion numbers were or above 60%. The edges of the mastectomy flap was sharply trimmed back to sharp bleeding edges. Excision of the axillary fold along the anterior and the mid axillary line was performed sharply with a 10 blade knife to avoid dogears laterally. A small dogear was encountered medially, this was managed by extending the incision slanting medially and upwards. The inferior mastectomy flap was not dropped over the incision and any excess skin was sharply excised with a 10 blade knife. #19 Isreal drain was placed through a separate stab incision just above the lateral aspect of the inframammary fold and secured to the skin with 2-0 nylon suture. Mastectomy incision was approximated anatomically by approximation of the deep dermis with 3-0 PDS suture in an inverted interrupted fashion followed by approximation of the superficial dermis and epidermis with a 3-0 Monocryl in a running subcuticular fashion. Incision was cleaned, dried and Dermabond was applied. Patient tolerated the procedure well. Debriefing was done as per protocol. All counts were correct in terms of needles, instruments and sponges. Patient was safely extubated and transferred from the operating room to the PACU for postoperative care. This note may have been dictated using [employer] Edition 2.6 and/or [employer] Voice Recognition Feature. The document was proofread; however, unrecognized voice recognition scheduler conveyor errors may be present. NOTE Observed: 08/26/2024 10:54 AM Status: COMPLETED Source: 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 Smith) ANESTHESIA: General endotracheal anesthesia, left pectoral block ESTIMATED BLOOD LOSS: Minimal WOUND CLASSIFICATION: Class I: Clean INDICATION FOR PROCEDURE: This is a 64-year-old female who noted a palpable mass in her left breast in May of this year. She underwent a core biopsy which showed ductal carcinoma in situ ER/OK negative, OK negative. She also has a pacemaker in the left chest wall and is pacemaker dependent so could not have an MRI. Repeat imaging and biopsy here also showed ductal carcinoma in situ ER-negative OK negative. She had genetic testing expanded panel which was negative. The palpable mass measured about 4 cm. She was clinically node-negative. Radiation therapy is contraindicated with an active pacemaker. She understood she needed mastectomy as surgical option. She did see plastic surgery and elected to have an aesthetic flat closure. Dr. Smith and I planned a combined case. We discussed sentinel lymph node biopsy and possible subsequent adjuvant therapy pending her final pathology report. She did see cardiology and a pacemaker rep was present in her surgery today to put her in the appropriate mode for surgery. Risks of breast surgery were explained including but not limited to bleeding, infection,seroma formation, lymphedema, arm or chest wall numbness or pain DESCRIPTION OF PROCEDURE: The patient was seen in the presurgical area. She was marked by plastic surgery and myself. She was brought to the operating room. General endotracheal anesthesia was induced. I injected approximately 500 ?Ci of technetium 99 M tilmanocept in divided doses around the left nipple and also injected 2 cc of methylene blue diluted in 2 cc of sterile saline intraparenchymal subareolar left breast. The left breast was massaged for 5 minutes. She did get a left pectoral block by anesthesia. The pacemaker field sales representative did come in to the operating room and convert her pacemaker to D00 mode. Both breasts were then prepped and draped in usual sterile manner. An elliptical incision was made around the nipple areolar complex on the left. Skin flaps were raised superiorly to the clavicle medially to the sternum inferiorly to the inframammary fold and laterally to latissimus dorsi. The superior portion of the flap did go beneath the pacemaker. We were able to liftthe pacemaker up without going into the capsule. The breast and pectoralis fascia were removed in a superior to inferior and medial to lateral fashion. The clavipectoral fascia was opened and in the left axilla were two lymph nodes identified. The first lymph node was blue and had counts of about 1000 the second lymph node was not blue but radioactive with counts of 4300. The lymphatics to these lymph nodes were clipped and these lymph nodes were removed and sent for permanent section. There were no other palpable, blue or radioactive lymph nodes in the left axilla. The left breast was then removed. Margins were marked short superior, long lateral. The tumor was very close to the chest wall but the pectoralis fascia was removed overlying the tumor. The wound was irrigated. Hemostasis controlled. Specimen x-ray showed both core biopsy clips within the left breast mass. Dr. Smith will dictate his portion of the procedure. She tolerated my portion of the procedure well. [place] Node Biopsy for Breast Cancer Operation performed with curative intent Yes Tracer(s) used to identify sentinel nodes in the upfront surgery (non-neoadjuvant) setting Dye and Radioactive tracer Tracer(s) used to identify sentinel nodes in the neoadjuvant setting N/A All nodes (colored or non-colored) present at the end of a dye-filled lymphatic channel were removed Yes All significantly radioactive nodes were removed Yes All palpably suspicious nodes were removed Yes Biopsy-proven positive nodes marked with clips prior to chemotherapy were identified and removed N/A lymph nodes identified. 1 was blue and hot HISTORY AND PHYSICAL NOTE Observed: 08/26/2024 10:00 AM Status: COMPLETED Source: [facility] H&P reviewed. The patient wa s examined and there are no changes to the H&P. Risks of breast surgery were explained including but not limited to bleeding, infection,seroma formation, lymphedema, arm or chest wall numbness or pain. HISTORY AND PHYSICAL NOTE Observed: 08/17 9:37 AM Status: COMPLETED Source: [facility] PLASTIC SURGERY [address] [place] [id number] Dept: [phone] Dept Patient Name: Dakota Sarah Date: 08/26/24 Update History & Physical I examined the patient and there were no significant changes from the previous History and Physical. I verify that the patient's condition and planned treatment has not changed. I also confirm the necessity for the procedure still present. Planned Procedure: LEFT BREAST COMPLEX CLOSURE, POSSIBLE LEFT AXILLA LIPECTOMY FOR LEFT BREAST CANCER, ICG ANGIOGRAPHY/SPY (Left) LIPOSUCTION, TORSO (Left) Patient seen and marked today. Risks/benefits/possible complications were reviewed with the patient as per the preoperative office note to include but not limited to bleeding, infection, wound healing issues, seroma/hematoma. Patient understands and wants to proceed with the procedure. Dear Dr. Salcido, Thank you very much for allowing me to participate in the care of your patient. 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 Her history of present illness includes a breast biopsy performed in May 2024 that revealed DCIS at [facility]. Genetic testing is pending. She is planning to proceed with a right mastectomy. 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 She is pacemaker dependent. She can walk more than a mile without shortness of breath or chest pain. She meets more than 10 METS. Patient is scheduled for a repeat biopsy of the lesion tomorrow. She cannot receive adjuvant radiation treatment due to the presence of the pacemaker and hence decision was made to proceed with a mastectomy. 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 [facility]) GANGLION CYST EXCISION PACEMAKER (HISTORICAL) TONSILLECTOMY Her current medications list includes Current Outpatient Medications Medication Instructions aspirin 81 mg, Daily biotin 06236 MCG tablet Take by mouth. LACTOBACILLUS ACID-PECTIN PO Lactobacillus Combination No.9 (Adult 50 Plus Probiotic) 4 billion cell capsule Active 4000 NMA PO daily June 03, 2024 12:00am administer with a meal Multiple Vitamin (multivitamin) tablet 1 tablet, Daily nebivolol (Bystolic) 5 MG tablet pravastatin (Pravachol) 20 MG tablet She has Allergies Allergies Allergen Reactions Penicillins Rash Other Reaction(s): Hives, Rash Wound Dressing Adhesive Rash Bandaids and silk tape. Requests paper tape On social history, Social History Socioeconomic History Marital status: Spouse name: Not on file Number of children: Not on file Years of education: Not on file Highest education level: Not on file Occupational History Not on file Tobacco Use Smoking status: Never Smokeless tobacco: Never Substance and Sexual Activity Alcohol use: Never Drug use: Never Sexual activity: Yes Partners: Male control/protection: Post-menopausal Other Topics Concern Not on file Social History Narrative Not on file Social Drivers of Health Financial Resource Strain: Not on file Food Insecurity: Not on file Transportation Needs: Not on file Physical Activity: Not on file Stress: Not on file Social Connections: Not on file Intimate Partner Violence: Not on file Housing Stability: Not on file Family history Breast Cancer-related family history includes Breast cancer (age of onset: 60) in her father's sister; Breast cancer (age of onset: 66) in her mother's sister. Family History Family History Problem Relation Name Age of Onset Other cancer Mother KS 87 Gallbladder Cancer Mother KS Hyperlipidemia Mother KS Hypertension Mother KS Rashes / Skin problems Mother KS Thyroid disease Mother KS Prostate cancer Father DS 67 Cancer Father DS Hyperlipidemia Father DS Hypertension Father DS Rashes / Skin problems Father DS Breast cancer Mother's Sister BH 66 Breast cancer Father's Sister EH 60 Breast Cancer Addt'l Onset Father's Sister EH 69 mets to bone and beyond Hyperlipidemia Maternal Grandmother AB Hypertension Maternal Grandmother AB Ovarian cancer Paternal Grandmother ES 79 Cancer Paternal Grandmother ES Hypertension Paternal Grandmother ES Review of Systems Constitutional: Negative. HENT: Negative. Eyes: Negative. Respiratory: Negative. Cardiovascular: Negative. Gastrointestinal: Negative. Endocrine: Negative. Genitourinary: Negative. Musculoskeletal: Negative. Skin: Negative. Allergic/Immunologic: Negative. Neurological: Negative. Hematological: Negative. Psychiatric/Behavioral: Negative. On physical examination, she is a well-nourished, well-developed adult female who appears her stated age. She stands 5'6 tall with 123 pounds and a calculated Body mass index is 19.85 kg/m?. Breasts are a self stated 32 C cup size. Right breast is slightly larger in volume. Palpation of the right breast reveals fibronodular breast tissue with no definitive palpable masses or lumps. Palpation of the right axilla reveals no palpable lymphadenopathy. Palpation of the left breast reveals a palpable lump at the 1 o'clock position measuring 3 cm in diameter 6 cm from the nipple. There is also another palpable fullness at the 12 o'clock position 3 cm from the nipple. Palpation of the left axilla reveals palpable yet mobile and discrete lymph nodes which are not clinically significant. Breast measurements: Family History of Cancer [x] Breast Cancer: Maternal Aunt, Paternal Aunt X 2 [x] Ovarian Cancer: Paternal Grandmother [] Colon Cancer: [x] Pancreatic Cancer: [x] Prostate Cancer: Father [x] Other Cancer: Gallbladder Mother [] Children: [] Future Pregnancies: [] Breast Feeding: [] Weight Stability: [x] Last Mammogram: 05/2024 Breast Measurements: Right Left Sternal Notch to Nipple 23 23.5 IMF to Nipple 7.5 7.5 Midline to Nipple 9.5 7 Areolar Diameter 4.5 4 Ptosis Grade 3 bilaterally 3 bilaterally Breast Base 11 cm New Nipple Location 19 cm from super sternal notch Current Bra Size 32 C or D Larger Breast right Additional Comments: Right: [x] Dense fibronodular tissue [] Masses [] No Masses [] Lumps [x] No Lumps [] Palpable lymph nodes in axilla [x] No palpable lymph nodes in axilla Left: 3 cm palpable lump at 1 o'clock position 6 cm away from the nipple. Freely movable lymph nodes. Another palpable lump 12 o'clock position 3 cm from the nipple [] Dense fibronodular tissue [] Masses [] No Masses [] Lumps [] No Lumps [] Palpable lymph nodes in axilla [] No palpable lymph nodes in axilla There is a 4cm incision that healed well at the 12 oclock position over the left superior breast border for the pacemaker. grade 3 mammary ptosis bilaterally. There are wasscars on her abdomen. C section scar healed well with primary intention. She has no amount of infraumbilical tissue to reconstruct the breasts. Overall, patient Dakota Sarah is a very pleasant 46-year-old female with the unfortunate diagnosis of Left breast cancer who has elected to undergo a Left skin-sparing mastectomy. She presented today to review her options for breast reconstruction. We discussed both implant and autologous tissue reconstructive options. She is not a good candidate for autologous based reconstruction due to lack of abdominal tissue and the thigh tissue is not enough to reconstruct cup C breast (barely a cup B) . We discussed direct to implant with the use of AlloDerm that would need to also include a right mastopexy due to the degree of ptosis present. We discussed intraoperative indocyanine green angiography to test the mastectomy flaps and the possibility of using tissue communication coordinator if the mastectomy flap shows evidence of ischemia. Risks and benefits including but not limited to infection, bleeding, seroma and hematoma formation as well as risks associated with breast implants which includes loss of breast implant infection, implant rupture, implant malposition, capsular contracture and the management of capsular contracture as well as LAVONNE-ALCL and LAVONNE-SCC which are mostly associated with textured breast implant. Patient wanted some time to think about her options including going flat with aesthetic closure versus direct to implant The procedure was explained in detail, including the length of hospital stay and the recovery involved. The patient was seen and examined today by myself. We spent approximately 45 minutes on the patients visit today with greater than 50% of time spent counseling. Thank you once again for allowing us to participate in the care of your patient. Sincerely, Office Visit on 07/16/2024 Note viewed by patient Additional Documentation Vitals: BP 112/72 (BP Location: Left arm, Patient Position: Sitting, BP Cuff Size: Adult) Pulse 82 Ht 5' 6 (1.676 m) Wt 123 lb (55.8 kg) BMI 19.85 kg/m? BSA 1.61 m? More Vitals Encounter Info: Billing Info, History, Allergies, Detailed Report Orders Performed [facility] [place] Closed Medication Changes None Medication List Visit Diagnoses Encounter for breast reconstruction following mastectomy Ductal carcinoma in situ (DCIS) of left breast Pacemaker 36 Observed: 08/20/2024 10:30 AM Status: COMPLETED Source: [facility] I left a vmail msg for pt th at her surgery time for 08/26/24 has changed to 10am with arrival time of 8am. If she has any questions to call the office. BLOOD TYPE AND SCREEN GEL Collected: 08/19/2024 10:45 AM Status: F [facility] TYPE CODE TESTS RESULT OUT OF RANGE REFERENCE UNITS LAB [id number] ABO GROUPING O LAB [id number] ANTIBODY SCREEN NEG LAB [id number] RH TYPE IN BLOOD POS Performed By: #### [id number] ## ## Power Manager: SHERYL ALVARES ([id number]) [facility] ([facility]) [address] [place] [address] ECG 12-LEAD Observed: 08/19/2024 10:23 AM Status: F Source: [facility] IMPRESSION: Atrial-sensed ventricular-paced complexes No previous ECG available for comparison Electronically Signed On 08-19-2024 10:23:49 EDT by Roberto Adrian ANESTHESIA NOTE Observed: 08/19/2024 10:04 AM Status: COMPLETED Source: [facility] Patient: Dakota Sarah Procedure Information Date/Time: 08/26/24 1000 Procedures: LEFT SIMPLE MASTECTOMY (Left: Breast) - LOLY 150 MINS LUIS 60 MINS NUCLEAR MEDICINE APPT NEEDED-SENTINEL INJECTION IN OR IDENTIFICATION LYMPH NODE, SENTINEL, INTRAOPERATIVE (Left: Axilla) SENTINEL LYMPH NODE BIOPSY (Left: Axilla) X-RAY, SURGICAL SPECIMEN, BREAST (Left) LEFT BREAST COMPLEX CLOSURE, POSSIBLE LEFT AXILLA LIPECTOMY FOR LEFT BREAST CANCER, INDOCYANINE GREEN ANGIOGRAPHY/SPY (Left) Location: [facility] OR [address] [place] [address] Operating Room Surgeons: Gianna Cardona MD; Riccardo Smith MD Relevant Problems Anesthesia (+) PONV (postoperative nausea and vomiting) Past Medical History: Past Medical History: No date: 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 no CPAP Past Surgical History: Past Surgical History: 06/11/2024: BREAST BIOPSY; Left Comment: Left Breast US biopsy @ [facility] 2003: BREAST BIOPSY Comment: Excisional biopsy [facility] No date: BREAST BIOPSY; Left Comment: 07/2024, [facility] No date: SECTION (HISTORICAL) 09/30/90 & 08/10/92: SECTION, LOW TRANSVERSE 01/16/2019: COLONOSCOPY Comment: Good report. No date: GANGLION CYST EXCISION 08/18/09 & 03/10/19: INSERT / REPLACE / REMOVE PACEMAKER Ganglion cyst removal, left wrist: OTHER SURGICAL HISTORY Comment: 4x: 2012, 2014, 2016, 2017 No date: PACEMAKER (HISTORICAL) No date: TONSILLECTOMY Social History: TOBACCO: reports that she has never smoked. She has never used smokeless tobacco. ETOH: reports no history of alcohol use. Social History Substance and Sexual Activity Drug Use Never Family History: Family History[1] Screening: Postmenopausal Clinical information reviewed: Tobacco Allergies Meds Med Hx Surg Hx Fam Hx Soc Hx Physical Exam Airway Mallampati: IV TM distance: >3 FB Neck ROM: full Mouth Open: normalendotracheal tube not in place Cardiovascular Dental dentition normal Pulmonary Abdominal Anesthesia Plan patient is NPO appropriate Any family history or previous problems with anesthesia yes (Mother - slow to emerge) ASA 2 general and regional Any family history or previous problems with anesthesia yes (Mother - slow to emerge)(PEC) The patient is not a current smoker. Anesthetic plan and risks discussed with patient (sister). Anesthesia Nielsen Considerations Type II second-degree heart block - Pacemaker in place, last device check 07/25/24; Pacer Rep to change pacer mode to DOO prior to surgery. Pt is pacer dependent YONG Screening Labs: Lab Results Component Value Date WBC 4.9 07/14/2024 HGB 13.2 07/14/2024 HCT 39.5 07/14/2024 MCV 90.6 07/14/2024 PLT 284 07/14/2024 Lab Results Component Value Date NA 140 07/14/2024 K 4.4 07/14/2024 CL 104 07/14/2024 CO2 28 07/14/2024 BUN 27 (H) 07/14/2024 CREATININE 0.77 07/14/2024 GLUCOSE 73 (L) 07/14/2024 CALCIUM 9.6 07/14/2024 PROT 7.1 07/14/2024 ALKPHOS 96 07/14/2024 AST 29 07/14/2024 ALT 17 07/14/2024 EGFR 86.3 07/14/2024 Pain Score: Scheduled No echocardiogram results found for the past 14 days 08/19/24 ECG 12-LEAD 08/19/2024 10:23 AM (Final) Impression Atrial-sensed ventricular-paced complexes No previous ECG available for comparison Electronically Signed On 08-19-2024 10:23:49 EDT by Roberto Adrian Signed by: Roberto Adrian MD on 08/19/2024 10:23 AM Equipment Requests: Additional Equipment Requests Vascular Equipment: 2nd IV [1] Family History Problem Relation Name Age of Onset Other cancer Mother [place] 87 Gallbladder Cancer Mother [place] Hyperlipidemia Mother [place] Hypertension Mother KS Rashes / Skin problems Mother KS Thyroid disease Mother KS Prostate cancer Father DS 67 Cancer Father DS Hyperlipidemia Father DS Hypertension Father DS Rashes / Skin problems Father DS Arthritis Father DS Breast cancer Mother's Sister BH 66 Cancer Mother's Sister BH Breast cancer Father's Sister EH 60 Breast Cancer Addt'l Onset Father's Sister EH 69 mets to bone and beyond Cancer Father's Sister EH Hyperlipidemia Maternal Grandmother AB Hypertension Maternal Grandmother AB Hearing loss Maternal Grandmother AB Depression Maternal Grandmother AB Ovarian cancer Paternal Grandmother ES 79 Cancer Paternal Grandmother ES Hypertension Paternal Grandmother ES Arthritis Paternal Grandmother ES Diabetes Maternal Grandfather WB Heart disease Maternal Grandfather WB Heart disease Paternal Grandfather DS Cancer Other Paternal & Maternal Aunts PROGRESS NOTE Observed: 08/19/2024 9:30 AM Status: COMPLETED Source: [facility] Dakota Sarah : 1960 Primary Care Physician: Marysol Bennett MD The patient and/or family/surrogate voluntarily agreed to participate in ACP services. Patient?s cognitive capacity: A&O x3 Code Status: [x] [FULL CODE - Continue all advanced life support: CPR,intubation,invasive procedures] [_] [DNR-CCA - DO NOT do CPR, intubation] [_] [DNR-[employer] - Comfort care only] [_] DNR form [was/was not] signed Summary of discussion: The patient health care POA/ surrogate is the following: Schuyler Sarah (). [Condition that instigated the ACP on this DOS, relevant PMH, functional status, goals of care, and whom this was discussed with including names and relationship to the patient, and any relevant advance care documentation discussion] I answered all the patient/family questions that I could within the range and scope of the current medical situation. We discussed the medical conditions, risks, benefits, outcomes, and goals of care at this time for the patient's medical issues at hand in the face of the patient's chronic issues and current presentation. Total time spent: 2 minutes were spent discussing the patient's resuscitation status, advance care planning, and end of life care, with patient and/or family/surrogate. Michelle Navarro APRN - LIFE CARE PLANNER [employer] 08/19/2024, 10:44 AM HISTORY AND PHYSICAL NOTE Observed: 05/2024 9:30 AM Status: COMPLETED Source: [facility] Comprehensive Pre Surgical H istory and Physical ? Name: Dakota Sarah : 1960 (Age-64 y.o.) Date of Service: Pt seen/examined on 08/19/2024 Procedure Information Date/Time: 08/26/24 1130 Procedures: LEFT SIMPLE MASTECTOMY (Left: Breast) - LOLY 150 MINS LUIS 60 MINS NUCLEAR MEDICINE APPT NEEDED-SENTINEL INJECTION IN OR IDENTIFICATION LYMPH NODE, SENTINEL, INTRAOPERATIVE (Left: Axilla) SENTINEL LYMPH NODE BIOPSY (Left: Axilla) X-RAY, SURGICAL SPECIMEN, BREAST (Left) LEFT BREAST COMPLEX CLOSURE, POSSIBLE LEFT AXILLA LIPECTOMY FOR LEFT BREAST CANCER, ICG ANGIOGRAPHY/SPY (Left) LIPOSUCTION, TORSO (Left) Location: [address] Operating Room Surgeons: Gianna Cardona MD; Riccardo Smith MD Chief Complaint: 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 Based on the above evaluation, the benefits of the planned procedure likely exceed the risks. The patient is medically optimized to proceed with the planned procedure without any further cardiopulmonary testing. 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 Trammell in EP, last visit 07/22/24, per note: 4) Hyperlipidemia - Treated with pravastatin - Followed by PCP 5) PONV - pt does not know what has worked for her in the past Visit Type: Pre-Admission Testing Visit Labs Ordered: YES - PER PAT PROTOCOL Sleep Referral Ordered: NO - NEGATIVE SCREEN PER SLEEP REFERRAL PROTOCOL Total time spent (which include face to face and non face to face encounters) : 40 minutes Toxic drug monitoring/narrow therapeutic index drug monitoring : # Drug name : NA # Route administered : NA # Method of monitoring : NA PAT Protocol referenced includes: 1. Anesthesia Lab Protocol Orders 2. Perioperative Cardiovascular Risk Assessment 3. Anesthesia Assessment 4. Pain Assessment and Acute Pain Service Consult (if appropriate) 5. Medical Clearance/Consult from Internal Medicine (IMS) 6. Shower/Wash Order (for designated surgeries) 7. YONG Screen and Sleep Clinic Referral (if appropriate) History Of Present Illness: 64 y.o. female who we are asked to see/evaluate by [place] [id number] for pre-operative evaluation prior to ? Case: [id number] Date/Time: 08/26/24 1130 Procedures: LEFT SIMPLE MASTECTOMY (Left: Breast) [33183 CPT(R)] - LOLY 150 MINS LUIS 60 MINS NUCLEAR MEDICINE APPT NEEDED-SENTINEL INJECTION IN OR IDENTIFICATION LYMPH NODE, SENTINEL, INTRAOPERATIVE (Left: Axilla) [82178 CPT(R)] SENTINEL LYMPH NODE BIOPSY (Left: Axilla) [03576 CPT(R)] X-RAY, SURGICAL SPECIMEN, BREAST (Left) [04657 CPT(R)] LEFT BREAST COMPLEX CLOSURE, POSSIBLE LEFT AXILLA LIPECTOMY FOR LEFT BREAST CANCER, ICG ANGIOGRAPHY/SPY (Left) [93829 CPT(R)] LIPOSUCTION, TORSO (Left) [49496 CPT(R)] Anesthesia type: General From last office visit with Dr. Cardona on 08/06/24 : Dakota Sarah is a 64 y.o. female here to discuss upcoming mastectomy for LEFT sided DCIS ( 2 biopsies showed DCIS ER- OK-) Due to her pacemaker on there left side cannot have breast conservation unless pacemaker is moved ( radiation contraindicated) Saw cardiology and recommendation for pacer to be in DOO mode for surgery ( per note) Tumor is close to the pacemaker and discussion at tumor board about moving pacemaker superiorly if needed. Will also plan on SLNB and aesthetic flat closure per patient request From Dr. Smith last telemedicine visit on 07/30/24: Patient with a significant history of DCIS of the left breast who was seen and evaluated on 07/16/2024 regarding breast reconstruction following left mastectomy. After evaluating the patient's history and conducting clinical examination patient was offered Direct to implant with the use of AlloDerm and right mastopexy due to the degree of ptosis for symmetry. At the time, patient's genetic testing was pending. 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 Pt has no new complaints. No recent illnesses. She denies CP, DOMINGUEZ, edema, orthopnea, PND, dizziness, syncope or near syncope. Past Medical History: Past Medical History: No date: 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 no CPAP Past Surgical History: Past Surgical History: 06/11/2024: BREAST BIOPSY; Left Comment: Left Breast US biopsy @ [facility] 2002: BRE[facility]SY [facility] No date: [facility]AST BIOPSY; Left Comment: 07/2024, [facility] No date: SECTION (HISTORICAL) 09/30/90 & 08/10/92: SECTION, LOW TRANSVERSE 01/16/2019: COLONOSCOPY Comment: Good report. No date: GANGLION CYST EXCISION 08/18/09 & 03/10/19: INSERT / REPLACE / REMOVE PACEMAKER Ganglion cyst removal, left wrist: OTHER SURGICAL HISTORY Comment: 4x: 2012, 2014, 2016, 2017 No date: PACEMAKER (HISTORICAL) No date: TONSILLECTOMY Medications Prior to Admission: Medications Ordered Prior to Encounter[1] CHRONIC NARCOTIC USAGE: No Allergies: Penicillins, Tape, and Wound dressing adhesive If patient has opioid allergy, is it okay to take Acetaminophen: Yes Social History: TOBACCO: reports that she has never smoked. She has never used smokeless tobacco. ETOH: reports no history of alcohol use. Social History Substance and Sexual Activity Drug Use Never Family History: Family History[2] REVIEW OF SYSTEMS: Review of Systems Constitutional: Negative for chills and fever. HENT: Negative for congestion and sore throat. Eyes: Negative for visual disturbance. Respiratory: Negative for cough and shortness of breath. Cardiovascular: Negative for chest pain, palpitations and leg swelling. Gastrointestinal: Negative for abdominal pain, nausea and vomiting. Genitourinary: Negative for difficulty urinating, dysuria and hematuria. Musculoskeletal: Negative for gait problem and neck stiffness. Skin: Negative for rash and wound. Allergic/Immunologic: Positive for food allergies (Tomato-based foods - head itching). Negative for immunocompromised state. Neurological: Positive for headaches (2/2 weather changes). Negative for dizziness, seizures, syncope and numbness. Hematological: Does not bruise/bleed easily. Psychiatric/Behavioral: Negative for behavioral problems and confusion. Physical Exam: Physical Exam Constitutional: General: She is not in acute distress. Appearance: Normal appearance. She is normal weight. HENT: Head: Normocephalic and atraumatic. Mouth/Throat: Mouth: Mucous membranes are moist. Pharynx: Oropharynx is clear. No oropharyngeal exudate. Eyes: General: No scleral icterus. Pupils: Pupils are equal, round, and reactive to light. Cardiovascular: Rate and Rhythm: Normal rate and regular rhythm. Heart sounds: No murmur heard. No friction rub. No gallop. Pulmonary: Effort: Pulmonary effort is normal. No respiratory distress. Breath sounds: No wheezing, rhonchi or rales. Abdominal: Palpations: Abdomen is soft. Musculoskeletal: Cervical back: Normal range of motion and neck supple. Comments: Moves all extremities Skin: General: Skin is warm and dry. Capillary Refill: Capillary refill takes less than 2 seconds. Coloration: Skin is not jaundiced. Neurological: General: No focal deficit present. Mental Status: She is alert and oriented to person, place, and time. Psychiatric: Mood and Affect: Mood normal. Behavior: Behavior normal. Vitals: Vitals Value Taken Time BP 128/74 08/19/24 09:43 Temp 36.9 ?C (98.5 ?F) 08/19/24 09:43 Pulse 73 08/19/24 09:43 Resp 16 08/19/24 09:43 SpO2 99 % 08/19/24 09:43 Labs: Lab Results Component Value Date WBC 4.9 07/14/2024 HGB 13.2 07/14/2024 HCT 39.5 07/14/2024 MCV 90.6 07/14/2024 PLT 284 07/14/2024 Lab Results Component Value Date NA 140 07/14/2024 K 4.4 07/14/2024 CL 104 07/14/2024 CO2 28 07/14/2024 BUN 27 (H) 07/14/2024 CREATININE 0.77 07/14/2024 GLUCOSE 73 (L) 07/14/2024 CALCIUM 9.6 07/14/2024 PROT 7.1 07/14/2024 ALKPHOS 96 07/14/2024 AST 29 07/14/2024 ALT 17 07/14/2024 EGFR 86.3 07/14/2024 Manoj's Simple Cardiac Risk Index: MANOJ'S SIMPLE CARDIAC RISK SCORE: 0 Interpretation: 0 Points Class I 0.5% 1 Point Class II 1.3% 2 Points Class III 3.6% 3+ Points Class IV 9.1% PAT Pain Score: 0/10 Postop Pain Management Plan (Pain consult ordered?): Pain consult not indicated at this time ? EKG: Encounter Date: 08/19/24 ECG 12 lead Result Value Heart Rate 70 QRSD Interval 139 QT Interval 421 QTC Interval 456 P [place] 52 QRS [place] -93 T Wave [place] 60 OK Interval 182 Impression Atrial-sensed ventricular-paced complexes No previous ECG available for comparison Electronically Signed On 08-19-2024 10:23:49 EDT by Roberto RAPHAEL and EF:None on file Electronically signed by: SHAHID Fallon CNP Date: 08/19/2024 at 10:43 AM [1] Current Outpatient Medications on File Prior to Visit Medication Sig Dispense Refill LACTOBACILLUS ACID-PECTIN PO Lactobacillus Combination No.9 (Adult 50 Plus Probiotic) 4 billion cell capsule Active 4000 NMA PO daily June 03, 2024 12:00am administer with a meal Multiple Vitamin (multivitamin) tablet Take 1 tablet by mouth daily. nebivolol (Bystolic) 5 MG tablet Take 2.5 mg by mouth daily with supper. pravastatin (Pravachol) 20 MG tablet Take 20 mg by mouth Nightly. aspirin 81 MG EC tablet Take 81 mg by mouth daily. (Patient not taking: Reported on 08/19/2024) biotin 19784 MCG tablet Take by mouth. (Patient not taking: Reported on 08/19/2024) No current facility-administered medications on file prior to visit. [2] Family History Problem Relation Name Age of Onset Other cancer Mother [place] 87 Gallbladder Cancer Mother KS Hyperlipidemia Mother KS Hypertension Mother KS Rashes / Skin problems Mother KS Thyroid disease Mother KS Prostate cancer Father DS 67 Cancer Father DS Hyperlipidemia Father DS Hypertension Father DS Rashes / Skin problems Father DS Arthritis Father DS Breast cancer Mother's Sister BH 66 Cancer Mother's Sister BH Breast cancer Father's Sister EH 60 Breast Cancer Addt'l Onset Father's Sister EH 69 mets to bone and beyond Cancer Father's Sister EH Hyperlipidemia Maternal Grandmother AB Hypertension Maternal Grandmother AB Hearing loss Maternal Grandmother AB Depression Maternal Grandmother AB Ovarian cancer Paternal Grandmother ES 79 Cancer Paternal Grandmother ES Hypertension Paternal Grandmother ES Arthritis Paternal Grandmother ES Diabetes Maternal Grandfather WB Heart disease Maternal Grandfather WB Heart disease Paternal Grandfather DS Cancer Other Paternal & Maternal Aunts [id number] Observed: 08/19/2024 9:30 AM Status: COMPLETED Source: [facility] Medication List Accurate as of August 19, 2024 10:10 AM. Always use your most recent med list. aspirin 81 MG EC tablet Notes to patient: NOT TAKING biotin 39295 MCG tablet Notes to patient: NOT TAKING LACTOBACILLUS ACID-PECTIN PO Medication Adjustments for Surgery: Hold morning of surgery multivitamin tablet Medication Adjustments for Surgery: Hold morning of surgery nebivolol 5 MG tablet Commonly known as: Bystolic Medication Adjustments for Surgery: Take night before surgery pravastatin 20 MG tablet Commonly known as: Pravachol Medication Adjustments for Surgery: Take night before surgery Additional Instructions: You may take your prescription pain medication. You may take Tylenol for pain. NO Motrin, ibuprofen or Advil for 24 hours prior to surgery or longer if instructed by your surgeon. NO Aleve, Aspirin, or Naprosyn for 5 days prior to surgery or longer if instructed by your surgeon. Follow any instructions given to you by Dr. Salcido and Dr. Smith If you have specific questions, please call your surgeon. Shower with an antibacterial soap such as Dial or Safeguard before coming to the hospital. No makeup, lotion, powder, deodorant or body sprays. No hair products. Remove all jewelry and leave it at home. Wear loose comfortable clothing to go home in. You may brush your teeth morning of surgery. Do not wear contacts day of surgery. No marijuana (THC), smoking or alcohol for 24 hours prior to surgery. Please arrange for a responsible adult to drive you home after your surgery and that there is a responsible adult with you for 24 hours post discharge. You will receive a call the day before your surgery to verify your arrival time and date. You will be asked to arrive at least two hours prior to your scheduled surgery time. We encourage you to write down any questions you may have for the surgeon, anesthesiologist, or other members of the surgical team and bring it with you the day of surgery. Please bring photo ID and insurance information. No food after midnight. You may have clear liquids up to 2 hours prior to surgery including: -water -apple or cranberry juice (NO orange juice) -black coffee or clear tea (NO creamer or milk) -soda (carbonated beverages) -sports drinks Have up to 16 ounces of your favorite clear fluid, preferably a sports drink such as Gatorade or Powerade up to 2 hours before your surgery start time. For patients with diabetes, please opt for a zero sugar fluid. SUPPLIER ENGINEER AND PARKING IN THE MAIN DECK ARE FREE DAY OF SURGERY. PARKING IN THE DECK-- AFTER PARKING TAKE THE ELEVATOR TO LEVEL ONE AND TAKE THE BRIDGE TO THE HOSPITAL. GO TO THE RIGHT AND GO AROUND THE CORNER TO THE SAME DAY SURGERY DESK AND CHECK IN THERE. IF GOING IN THE MAIN ENTRANCE-- TURN LEFT AND GO DOWN THE WEI TO THE H ELEVATORS AND TAKE THEM TO ONE, LEFT OFF THE ELEVATOR AND GO AROUND TO THE SAME DAY DESK AND CHECK IN. HISTORY AND PHYSICAL NOTE Observed: 05/2024 9:30 AM Status: COMPLETED Source: [facility] Comprehensive Pre Surgical H istory and Physical ? Name: Dakota Sarah : 1960 (Age-64 y.o.) Date of Service: Pt seen/examined on 08/19/2024 Procedure Information Date/Time: 08/26/24 1130 Procedures: LEFT SIMPLE MASTECTOMY (Left: Breast) - LOLY 150 MINS SAID 60 MINS NUCLEAR MEDICINE APPT NEEDED-SENTINEL INJECTION IN OR IDENTIFICATION LYMPH NODE, SENTINEL, INTRAOPERATIVE (Left: Axilla) SENTINEL LYMPH NODE BIOPSY (Left: Axilla) X-RAY, SURGICAL SPECIMEN, BREAST (Left) LEFT BREAST COMPLEX CLOSURE, POSSIBLE LEFT AXILLA LIPECTOMY FOR LEFT BREAST CANCER, ICG ANGIOGRAPHY/SPY (Left) LIPOSUCTION, TORSO (Left) Location: [facility] OR [address] [place] [address] Operating Room Surgeons: Gianna Cardona MD; Riccardo Smith MD Chief Complaint: 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 Based on the above evaluation, the benefits of the planned procedure likely exceed the risks. The patient is medically optimized to proceed with the planned procedure without any further cardiopulmonary testing. 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 Trammell in EP, last visit 07/22/24, per note: 4) Hyperlipidemia - Treated with pravastatin - Followed by PCP 5) PONV - pt does not know what has worked for her in the past Visit Type: Pre-Admission Testing Visit Labs Ordered: YES - PER PAT PROTOCOL Sleep Referral Ordered: NO - NEGATIVE SCREEN PER SLEEP REFERRAL PROTOCOL Total time spent (which include face to face and non face to face encounters) : 40 minutes Toxic drug monitoring/narrow therapeutic index drug monitoring : # Drug name : NA # Route administered : NA # Method of monitoring : NA PAT Protocol referenced includes: 1. Anesthesia Lab Protocol Orders 2. Perioperative Cardiovascular Risk Assessment 3. Anesthesia Assessment 4. Pain Assessment and Acute Pain Service Consult (if appropriate) 5. Medical Clearance/Consult from Internal Medicine (IMS) 6. Shower/Wash Order (for designated surgeries) 7. YONG Screen and Sleep Clinic Referral (if appropriate) History Of Present Illness: 64 y.o. female who we are asked to see/evaluate by [facility] for pre-operative evaluation prior to ? Case: [id number] Date/Time: 08/26/24 1130 Procedures: LEFT SIMPLE MASTECTOMY (Left: Breast) [96237 CPT(R)] - LOLY 150 MINS LUIS 60 MINS NUCLEAR MEDICINE APPT NEEDED-SENTINEL INJECTION IN OR IDENTIFICATION LYMPH NODE, SENTINEL, INTRAOPERATIVE (Left: Axilla) [52456 CPT(R)] SENTINEL LYMPH NODE BIOPSY (Left: Axilla) [20668 CPT(R)] X-RAY, SURGICAL SPECIMEN, BREAST (Left) [18808 CPT(R)] LEFT BREAST COMPLEX CLOSURE, POSSIBLE LEFT AXILLA LIPECTOMY FOR LEFT BREAST CANCER, ICG ANGIOGRAPHY/SPY (Left) [07331 CPT(R)] LIPOSUCTION, TORSO (Left) [66918 CPT(R)] Anesthesia type: General From last office visit with Dr. Cardona on 08/06/24 : Dakota Sarah is a 64 y.o. female here to discuss upcoming mastectomy for LEFT sided DCIS ( 2 biopsies showed DCIS ER- OK-) Due to her pacemaker on there left side cannot have breast conservation unless pacemaker is moved ( radiation contraindicated) Saw cardiology and recommendation for pacer to be in DOO mode for surgery ( per note) Tumor is close to the pacemaker and discussion at tumor board about moving pacemaker superiorly if needed. Will also plan on SLNB and aesthetic flat closure per patient request From Dr. Smith last telemedicine visit on 07/30/24: Patient with a significant history of DCIS of the left breast who was seen and evaluated on 07/16/2024 regarding breast reconstruction following left mastectomy. After evaluating the patient's history and conducting clinical examination patient was offered Direct to implant with the use of AlloDerm and right mastopexy due to the degree of ptosis for symmetry. At the time, patient's genetic testing was pending. 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 Pt has no new complaints. No recent illnesses. She denies CP, DOMINGUEZ, edema, orthopnea, PND, dizziness, syncope or near syncope. Past Medical History: Past Medical History: No date: Atherosclerotic heart disease of [place] coronary artery without angina pectoris 06/11/2024: Breast cancer (HCC) Comment: left breast- diagnosed at [facility] [place] No date: Cardiac pacemaker in situ Comment: 2009 No date: Hypertension No date: Mixed hyperlipidemia No date: Other specified heart block Comment: type II 2nd degree AV heart block 2015: PONV (postoperative nausea and vomiting) Comment: proactively given medication to prevent nausea/vomiting for other subsequent anesthesia procedures, after 2014 ?: Sleep apnea Comment: snoring that sometimes results in occasional sleep apnea? no CPAP Past Surgical History: Past Surgical History: 06/11/2024: BREAST BIOPSY; Left Comment: Left Breast US biopsy @ [facility] 2002: BREAST [facility]SY [facility] No date: BREAST BIOPSY; Left Comment: 07/2024, [facility] No date: SECTION (HISTORICAL) 09/30/90 & 08/10/92: SECTION, LOW TRANSVERSE 01/16/2019: COLONOSCOPY Comment: Good report. No date: GANGLION CYST EXCISION 08/18/09 & 03/10/19: INSERT / REPLACE / REMOVE PACEMAKER Ganglion cyst removal, left wrist: OTHER SURGICAL HISTORY Comment: 4x: 2012, 2014, 2016, 2017 No date: PACEMAKER (HISTORICAL) No date: TONSILLECTOMY Medications Prior to Admission: Medications Ordered Prior to Encounter[1] CHRONIC NARCOTIC USAGE: No Allergies: Penicillins, Tape, and Wound dressing adhesive If patient has opioid allergy, is it okay to take Acetaminophen: Yes Social History: TOBACCO: reports that she has never smoked. She has never used smokeless tobacco. ETOH: reports no history of alcohol use. Social History Substance and Sexual Activity Drug Use Never Family History: Family History[2] REVIEW OF SYSTEMS: Review of Systems Constitutional: Negative for chills and fever. HENT: Negative for congestion and sore throat. Eyes: Negative for visual disturbance. Respiratory: Negative for cough and shortness of breath. Cardiovascular: Negative for chest pain, palpitations and leg swelling. Gastrointestinal: Negative for abdominal pain, nausea and vomiting. Genitourinary: Negative for difficulty urinating, dysuria and hematuria. Musculoskeletal: Negative for gait problem and neck stiffness. Skin: Negative for rash and wound. Allergic/Immunologic: Positive for food allergies (Tomato-based foods - head itching). Negative for immunocompromised state. Neurological: Positive for headaches (2/2 weather changes). Negative for dizziness, seizures, syncope and numbness. Hematological: Does not bruise/bleed easily. Psychiatric/Behavioral: Negative for behavioral problems and confusion. Physical Exam: Physical Exam Constitutional: General: She is not in acute distress. Appearance: Normal appearance. She is normal weight. HENT: Head: Normocephalic and atraumatic. Mouth/Throat: Mouth: Mucous membranes are moist. Pharynx: Oropharynx is clear. No oropharyngeal exudate. Eyes: General: No scleral icterus. Pupils: Pupils are equal, round, and reactive to light. Cardiovascular: Rate and Rhythm: Normal rate and regular rhythm. Heart sounds: No murmur heard. No friction rub. No gallop. Pulmonary: Effort: Pulmonary effort is normal. No respiratory distress. Breath sounds: No wheezing, rhonchi or rales. Abdominal: Palpations: Abdomen is soft. Musculoskeletal: Cervical back: Normal range of motion and neck supple. Comments: Moves all extremities Skin: General: Skin is warm and dry. Capillary Refill: Capillary refill takes less than 2 seconds. Coloration: Skin is not jaundiced. Neurological: General: No focal deficit present. Mental Status: She is alert and oriented to person, place, and time. Psychiatric: Mood and Affect: Mood normal. Behavior: Behavior normal. Vitals: Vitals Value Taken Time BP 128/74 08/19/24 09:43 Temp 36.9 ?C (98.5 ?F) 08/19/24 09:43 Pulse 73 08/19/24 09:43 Resp 16 08/19/24 09:43 SpO2 99 % 08/19/24 09:43 Labs: Lab Results Component Value Date WBC 4.9 07/14/2024 HGB 13.2 07/14/2024 HCT 39.5 07/14/2024 MCV 90.6 07/14/2024 PLT 284 07/14/2024 Lab Results Component Value Date NA 140 07/14/2024 K 4.4 07/14/2024 CL 104 07/14/2024 CO2 28 07/14/2024 BUN 27 (H) 07/14/2024 CREATININE 0.77 07/14/2024 GLUCOSE 73 (L) 07/14/2024 CALCIUM 9.6 07/14/2024 PROT 7.1 07/14/2024 ALKPHOS 96 07/14/2024 AST 29 07/14/2024 ALT 17 07/14/2024 EGFR 86.3 07/14/2024 Manoj's Simple Cardiac Risk Index: MANOJ'S SIMPLE CARDIAC RISK SCORE: 0 Interpretation: 0 Points Class I 0.5% 1 Point Class II 1.3% 2 Points Class III 3.6% 3+ Points Class IV 9.1% PAT Pain Score: 0/10 Postop Pain Management Plan (Pain consult ordered?): Pain consult not indicated at this time ? EKG: Encounter Date: 08/19/24 ECG 12 lead Result Value Heart Rate 70 QRSD Interval 139 QT Interval 421 QTC Interval 456 P [place] 52 QRS [place] -93 T Wave [place] 60 OK Interval 182 Impression Atrial-sensed ventricular-paced complexes No previous ECG available for comparison Electronically Signed On 08-19-2024 10:23:49 EDT by Roberto RAPHAEL and EF:None on file Electronically signed by: SHAHID Fallon CNP Date: 08/19/2024 at 10:43 AM [1] Current Outpatient Medications on File Prior to Visit Medication Sig Dispense Refill LACTOBACILLUS ACID-PECTIN PO Lactobacillus Combination No.9 (Adult 50 Plus Probiotic) 4 billion cell capsule Active 4000 NMA PO daily June 03, 2024 12:00am administer with a meal Multiple Vitamin (multivitamin) tablet Take 1 tablet by mouth daily. nebivolol (Bystolic) 5 MG tablet Take 2.5 mg by mouth daily with supper. pravastatin (Pravachol) 20 MG tablet Take 20 mg by mouth Nightly. aspirin 81 MG EC tablet Take 81 mg by mouth daily. (Patient not taking: Reported on 08/19/2024) biotin [address]50 MCG tablet Take by mouth. (Patient not taking: Reported on 08/19/2024) No current facility-administered medications on file prior to visit. [2] Family History Problem Relation Name Age of Onset Other cancer Mother KS 87 Gallbladder Cancer Mother [place] Hyperlipidemia Mother KS Hypertension Mother KS Rashes / Skin problems Mother KS Thyroid disease Mother KS Prostate cancer Father DS 67 Cancer Father DS Hyperlipidemia Father DS Hypertension Father DS Rashes / Skin problems Father DS Arthritis Father DS Breast cancer Mother's Sister BH 66 Cancer Mother's Sister BH Breast cancer Father's Sister EH 60 Breast Cancer Addt'l Onset Father's Sister EH 69 mets to bone and beyond Cancer Father's Sister EH Hyperlipidemia Maternal Grandmother AB Hypertension Maternal Grandmother AB Hearing loss Maternal Grandmother AB Depression Maternal Grandmother AB Ovarian cancer Paternal Grandmother ES 79 Cancer Paternal Grandmother ES Hypertension Paternal Grandmother ES Arthritis Paternal Grandmother ES Diabetes Maternal Grandfather WB Heart disease Maternal Grandfather WB Heart disease Paternal Grandfather DS Cancer Other Paternal & Maternal Aunts PROGRESS NOTE Observed: 08/19/2024 8:30 AM Status: COMPLETED Source: [facility] Functional Ass essment Survivorship Phase: Pre-surgery DASH Score: Cervical Evaluation Range of Motion Flexion [x] WNL (60?) []Limited Extension [x] WNL (75?) []Limited Rotation Right [x] WNL (80?) []Limited Rotation Left [x] WNL (80?) []Limited Lateral Bend Right [x] WNL (45?) []Limited Lateral Bend Left [x] WNL (45?) []Limited Cervical ROM Comments: Upper Extremity Evaluation Right Range of Motion Standing Abduction [x] WNL (180?) []Limited Supine Flexion [x] WNL (180?) []Limited Supine Internal Rotation [x] WNL (90?) []Limited Supine External Rotation [x] WNL (90?) []Limited Elbow Flexion [x] WNL (140?) []Limited Elbow Extension [x] WNL (0?) []Limited Pronation [x] WNL (80?) []Limited Supination [x] WNL (80?) []Limited Wrist Flexion [x] WNL (60?) []Limited Wrist Extension [x] WNL (60?) []Limited Ulnar Deviation [x] WNL (20?) []Limited Radial Deviation [x] WNL (20?) []Limited Strength Shoulder Flexion 5/5 Shoulder Abduction 5/5 Shoulder Int Rotation 5/5 Shoulder Ext Rotation 5/5 Elbow Flexion 5/5 Elbow Extension 5/5 Wrist Flexion 5/5 Wrist Extension 5/5 Legal Entity Controller Strength 29 kg Left Range of Motion Standing Abduction [x] WNL (180?) []Limited Supine Flexion [x] WNL (180?) []Limited Supine Internal Rotation [x] WNL (90?) []Limited Supine External Rotation [x] WNL (90?) []Limited Elbow Flexion [x] WNL (140?) []Limited Elbow Extension [x] WNL (0?) []Limited Pronation [x] WNL (80?) []Limited Supination [x] WNL (80?) []Limited Wrist Flexion [x] WNL (60?) []Limited Wrist Extension [x] WNL (60?) []Limited Ulnar Deviation [x] WNL (20?) []Limited Radial Deviation [x] WNL (20?) []Limited Strength Shoulder Flexion 5/5 Shoulder Abduction 5/5 Shoulder Int Rotation 5/5 Shoulder Ext Rotation 5/5 Elbow Flexion 5/5 Elbow Extension 5/5 Wrist Flexion 5/5 Wrist Extension 5/5 Legal Entity Controller Strength 25 kg Upper Extremity Comments: Lower Extremity Evaluation 5x sit to stand without arm assistance [x] WNL <15 sec [] NWNL >15 sec ABC Balance Score: Balance Error Scoring System (CRISTIAN): Lower Extremity Comments: EXERCISE AND CANCER EDUCATION [] Discussed Alin Mendez, LONNIE, etc - N/A [x] Provided educational handouts on importance of exercise and cancer 36 Observed: 08/12/2024 4:08 PM Status: COMPLETED Source: [facility] Pt had returned a call to [facility] office. I called her and informed her that revised copy of genetic result was mailed to her with same result but provider name is corrected. Pt also had called [facility] about her billing and she was told that a form is being mailed to her to fill out for financial assistance. Also pt states that she was told by the rep that they did not know what the TRF is. I told pt that I would reach out to our rep Sharon to contact her to offer some assistance with her billing. I sent a message to Romero Wilcox requesting a call to this pt. 36 Observed: 08/08/2024 3:21 PM Status: COMPLETED Source: [facility] genetic BRCA plus resu lt received, scanned to pt chart and forwarded to [facility] providers. I attempted to call pt to inform her of revised report, unable to reach her. LM on with request for call back This is a revised report with provider corrected. Copy mailed to the pt PROGRESS NOTE Observed: 08/06/2024 3:30 PM Status: COMPLETED Source: [facility] Chief Complaint Patient presents with Cancer Treatment Planning Re-discuss treatment planning History of Present Illness: Dakota Sarah is a 64 y.o. female here to discuss upcoming mastectomy for LEFT sided DCIS ( 2 biopsies showed DCIS ER- OK-) Due to her pacemaker on there left side cannot have breast conservation unless pacemaker is moved ( radiation contraindicated) Saw cardiology and recommendation for pacer to be in DOO mode for surgery ( per note) Tumor is close to the pacemaker and discussion at tumor board about moving pacemaker superiorly if needed. 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 We discussed that this typically includes a combination of surgery, radiation, and estrogen blockade when applicable. Genetic Testing: Pathology: 07/17/2024 Pathology Final Diagnosis LEFT BREAST, 1:00, 8 CM FROM NIPPLE, CORE BIOPSY: - APOCRINE DUCTAL CARCINOMA IN SITU (DCIS), INTERMEDIATE NUCLEAR GRADE, CRIBRIFORM TYPE. - MICROCALCIFICATIONS ASSOCIATED WITH DCIS AND NONNEOPLASTIC TISSUE. at 1025 Comment Immunohistochemistry (A2), with controls: E-cadherin is positive and myoepithelial stains, p63 and myosin, are positive. Intradepartmental consultation: Dr. Marcelo. Synoptic Checklist Breast Biomarker Reporting Template Protocol posted: 02/28/2023REAST BIOMARKER REPORTING TEMPLATE - All Specimens Test(s) Performed Estrogen Receptor (ER) Status Negative (less than 1%) Internal control cells present and stain as expected Test Type Food and Drug Administration (FDA) cleared (test / vendor): CONFIRM ANTI-ER Rabbit Monoclonal Antibody/Nohemy Primary Antibody SP1 Scoring System No separate scoring system used Test(s) Performed Progesterone Receptor (PgR) Status Negative (less than 1%) Internal control cells present and stain as expected Test Type Food and Drug Administration (FDA) cleared (test / vendor): CONFIRM Anti-Progesterone Receptor (OK) Rabbit Monoclonal Antibody/Nohemy Primary Antibody 1E2 Scoring System No separate scoring system used Cold Ischemia and Fixation Times Meet requirements specified in latest version of the ASCO / CAP Guidelines METHODS Fixative Formalin Comment(s) Quality Review Performed by: RANULFO Nicole Clinical Information Ductal carcinoma in situ (DCIS) of left breast - D05.12 [ICD-10-CM] Mass of upper outer quadrant of left breast - N63.21 [ICD-10-CM] Imaging: Exam Date/Time: 07/17/2024 14:19 Procedure: BI US GUIDED BREAST BIOPSY LEFT Ordering Provider: CARDONA VICTORIA Reason For Exam: re biopsy left firm palpable mass UOQ --------ADDENDUM #1 -------- ADDENDUM: This addendum is being provided to report the pathology results, concordance and recommendation for the previous report. PATHOLOGY OUTCOME: Malignant PATHOLOGY RESULT: Imaging and pathology are concordant. Apocrine ductal carcinoma in situ, intermediate grade cribriform type. RECOMMENDATION: Follow Surgical Treatment Plan Left Report Dictated on Electronically Signed By: Laurie Reed MD Electronically Signed Date/Time: 07/21/2024 2:57 PM EDT --------ORIGINAL REPORT -------- REASON FOR EXAMINATION: Repeat biopsy left breast. CONSENT: The patient presents for ultrasound-guided core biopsy of the left breast. Prior to the procedure red rules were performed which included patient name, date of , and procedure type. Risks, benefits and alternatives were explained to the patient and informed consent was obtained. The patient's prior imaging dated 06/06/2024 was reviewed. Prior to the procedure the patient was scanned and the lesion at the 1:00 position 8 cm from the nipple was redemonstrated measuring 4.3 x 4.3 x 1.4 cm. Additionally the left breast was surveyed at the 12:00 position 3 cm from the nipple were a palpable lump was felt on physical examination by the provider. No mass or focal abnormality is seen. PROCEDURE: An audible time out was performed. I washed my hands and wore sterile gloves. The patient was scanned and the lesion in the left breast at the 1:00 position 8 cm from the nipple was redemonstrated. The patient was prepped in the usual sterile fashion. 10 mL of 1% Lidocaine was administered for local anesthesia. A kay was made in the skin and a 14-gauge ACHIEVE core biopsy device was advanced into the lesion with ultrasound guidance. 4 core specimens were obtained. Following the procedure a [place] Q-shape tissue marker was deployed at the site of biopsy. Hemostasis was obtained by holding manual pressure. The patient tolerated the procedure without immediate complications. Home-going instructions were given and the patient was discharged in good condition. IMPRESSION: Technically successful US guided biopsy of the left breast. PATHOLOGY STATUS: Waiting for Pathology MAMMOGRAM: Following the procedure the patient was transported to the mammography suite and a 2D digital mammogram was performed demonstrating satisfactory placement of the tissue marker at the site of biopsy. A risk been tissue marker is also identified from previous biopsy site at the outside institution. This is only seen in the lateral view. The tissue markers are obscured by the pacemaker in the MLO view and outside the [id number] in the cc projection. No hematoma is identified on post procedure mammography. Markings on images: BB's = Nipples; skin lesions Open ambler = Palpable Line = Scar Report Dictated on Electronically Signed By: Laurie Reed MD Electronically Signed Date/Time: 07/17/2024 3:23 PM EDT Lt Surg Trtmnt Pathology Addended by Laurie Reed MD on 07/21/2024 2:57 PM 06/11/2024-Bi[facility] Review of Systems: Review of Systems Constitutional: Negative for appetite change, diaphoresis, fatigue, fever and unexpected weight change. HENT: Negative for trouble swallowing and voice change. Eyes: Negative for visual disturbance. Respiratory: Negative for apnea, cough, choking, shortness of breath and stridor. Cardiovascular: Negative for chest pain. Complete heart block- pacer left chest wall Endocrine: Negative for cold intolerance and heat intolerance. Musculoskeletal: Negative for arthralgias, joint swelling, myalgias and neck pain. Skin: Negative for color change and rash. Allergic/Immunologic: Negative for immunocompromised state. Neurological: Negative for dizziness, tremors, weakness, numbness and headaches. Hematological: Negative for adenopathy. Psychiatric/Behavioral: Negative for decreased concentration and dysphoric mood. The patient is not nervous/anxious. Medical History[1] Surgical History[2] Allergies[3] BP 111/67 (BP Location: Left arm, Patient Position: Sitting) Pulse 83 Temp 36.6 ?C (97.8 ?F) Resp 12 Ht 5' 6 (1.676 m) Wt 123 lb (55.8 kg) BMI 19.85 kg/m? Current Medications[4] Physical Exam: Physical Exam Constitutional: Appearance: Normal appearance. She is normal weight. HENT: Head: Normocephalic and atraumatic. Eyes: Extraocular Movements: Extraocular movements intact. Conjunctiva/sclera: Conjunctivae normal. Pupils: Pupils are equal, round, and reactive to light. Cardiovascular: Rate and Rhythm: Normal rate and regular rhythm. Pulses: Normal pulses. Pulmonary: Effort: Pulmonary effort is normal. Breath sounds: Normal breath sounds. No stridor. Chest: Chest wall: No deformity, tenderness or edema. Breasts: Breasts are symmetrical. Right: No swelling, inverted nipple, mass, nipple discharge, skin change or tenderness. Left: Mass present. No swelling, inverted nipple, nipple discharge, skin change or tenderness. Comments: Appears to be < 1 cm between tumor and pacer Musculoskeletal: General: No swelling, tenderness or deformity. Normal range of motion. Cervical back: Normal range of motion and neck supple. No rigidity or tenderness. Right lower leg: No edema. Left lower leg: No edema. Lymphadenopathy: Cervical: No cervical adenopathy. Right cervical: No superficial, deep or posterior cervical adenopathy. Left cervical: No superficial, deep or posterior cervical adenopathy. Upper Body: Right upper body: No supraclavicular, axillary or pectoral adenopathy. Left upper body: No supraclavicular, axillary or pectoral adenopathy. Skin: General: Skin is warm and dry. Coloration: Skin is not jaundiced or pale. Findings: No erythema, lesion or rash. Neurological: General: No focal deficit present. Mental Status: She is alert and oriented to person, place, and time. Motor: No weakness. Gait: Gait normal. Psychiatric: Mood and Affect: Mood normal. Behavior: Behavior normal. Thought Content: Thought content normal. Assessment: 1. Ductal carcinoma in situ (DCIS) of left breast Cancer Staging Ductal carcinoma in situ (DCIS) of left breast Staging form: Breast, AJCC 8th Edition - Clinical stage from 07/10/2024: Stage 0 (cTis (DCIS), cN0, cM0, G2, ER-, OK-) - Signed by Gianna Cardona MD on 07/10/2024 NCCN guidelines were discussed. Plan: First Treatment: Primary Surgery: LEFT simple Mastectomy with SLNB without reconstruction. Risks of breast surgery were explained including but not limited to bleeding, infection,seroma formation, lymphedema, arm or chest wall numbness or pain Functional Assessment: Yes Plastic Surgery Referral: Yes- saw Dr. Smith Genetic Testing: Yes Orders Placed This Encounter Procedures NM Injection Bendena Node Culturally appropriate shared decision making was used to determine optimal course of workup and treatment for this patient. Patient demonstrates understanding of and agreement with the above plan of care. All questions have been answered to her satisfaction. Gianna Cardona MD 08/06/2024 Please disregard any typographical errors. This note was dictated using voice recognition software. [1] Past Medical History: Diagnosis Date Atherosclerotic heart disease of [place] coronary artery without angina pectoris Breast cancer (HCC) 06/11/2024 left breast- diagnosed at [facility] Cardiac pacemaker in situ Hypertension Mixed hyperlipidemia Other specified heart block [2] Past Surgical History: Procedure Laterality Date BREAST BIOPSY Left 06/11/2024 Left Breast US biopsy @ [facility] [address] [facility] GANGLION CYST EXCISION PACEMAKER (HISTORICAL) TONSILLECTOMY [3] Allergies Allergen Reactions Penicillins Rash Other Reaction(s): Hives, Rash Tape Rash Wound Dressing Adhesive Rash Bandaids and silk tape. Requests paper tape [4] Current Outpatient Medications: LACTOBACILLUS ACID-PECTIN PO, Lactobacillus Combination No.9 (Adult 50 Plus Probiotic) 4 billion cell capsule Active 4000 NMA PO daily June 03, 2024 12:00am administer with a meal, Disp: , Rfl: Multiple Vitamin (multivitamin) tablet, Take 1 tablet by mouth daily., Disp: , Rfl: nebivolol (Bystolic) 5 MG tablet, Take 2.5 mg by mouth daily., Disp: , Rfl: pravastatin (Pravachol) 20 MG tablet, Take 20 mg by mouth Nightly., Disp: , Rfl: aspirin 81 MG EC tablet, Take 81 mg by mouth daily. (Patient not taking: Reported on 07/11/2024), Disp: , Rfl: biotin 49290 MCG tablet, Take by mouth. (Patient not taking: Reported on 07/11/2024), Disp: , Rfl: OFFICE VISIT Observed: 08/06/2024 3:30 PM Status: COMPLETED Source: [facility] [id number] Dakota Sarah Zina F Date Provider Department Center 08/06/2024 [id number]-OVGGIANNA CARDONA [facility] None Family History Problem Relation Age of Onset Other cancer Mother 87 Comments: Gallbladder Cancer Mother Hyperlipidemia Mother Hypertension Mother Rashes / Skin problems Mother Thyroid disease Mother Prostate cancer Father 67 Cancer Father Hyperlipidemia Father Hypertension Father Rashes / Skin problems Father Breast cancer Mother's Sister 66 Breast cancer Father's Sister 60 Breast Cancer Addt'l Onset Father's Sister 69 Comments: mets to bone and beyond Hyperlipidemia Maternal Grandmother Hypertension Maternal Grandmother Ovarian cancer Paternal Grandmother 79 Cancer Paternal Grandmother Hypertension Paternal Grandmother Family Status - Relation Status Age at Mother Father Mother's Sister Alive Father's Sister Maternal Grandmother Paternal Grandmother Level of Service:72206 [place] OFFICE/OUTPATIENT ESTABLISHED LOW MDM 20 MIN Reason for Visit and Comments: Cancer Treatment Planning [712] - Re-discuss treatment planning PROGRESS NOTE Observed: 08/06/2024 3:30 PM Status: COMPLETED Source: [facility] I met with pt and her justine lilly. I reviewed drain care with them with [facility]. I provided pt with drain apron, lanyard for showering with drain, written drain instructions and drain record. I showed pt surgical bra. We discussed importance of ambulation and position change post op. I encouraged pt to call the office with any concerns after surgery especially any signs of infection. Pt is aware of section in her [facility] binder with post op stretching and exercises. I also provided pt with contact number for [facility] to discuss her billing questions further, 36 Observed: 08/01/2024 2:45 PM Status: COMPLETED Source: [facility] Surgery scheduled for 5. She has a follow up appt 5/21/25 to discuss surgery. I called and confirmed surgery information with pt. I advised her that I would give her some additional information at appt. Pt states her understanding. 36 Observed: 08/01/2024 7:39 AM Status: COMPLETED Source: [facility] ----- Message from Riccardo lilly MD sent at 07/16/2024 12:25 PM EDT ----- Sheryl, Patient will call to finalize the decision regarding the procedure whether to go flat or have a breast implant. She might need a telephone encounter. Azalea, once the patient calls please contact me to place the orders with her final decision. Thank you. Riccardo Smith MD 36 Observed: 07/31/2024 2:42 PM Status: COMPLETED Source: [facility] ----- Message from Riccardo lilly MD sent at 07/30/2024 12:51 PM EDT ----- Azalea, Please communicate with the breast center to arrange this combo case with Dr. Salcido The plastic surgery component is only for 1 hour at the end of her procedure. So I will be sitting idle until her portion is done. You can schedule another case for 2 hours at the same time. Procedure is: Left breast complex closure. Possible left axilla lipectomy for left breast cancer. ICG angiography/spy Thank you. Riccardo Smith MD 36 Observed: 07/31/2024 2:00 PM Status: COMPLETED Source: [facility] Case# Procedure: LEFT BREAST COMPLEX CLOSURE POSSIBLE LEFT AXILLA LIPECTOMY FOR LEFT BREAST CANCER. ICG ANGIOGRAPHY/SPY Sx Date: 08/26 Time: 2 HOURS Location: [facility] Anesthesia: GENERAL CPT: 96832, 79383, 85080, 35171 ICD-10: D05.12 Special Equipment: ICG ANGIOGRAPHY/SPY PAT: Submitted auth thru insurance portal, awaiting determination. INSURANCE DENIED CODE [id number], CALLED TO SCHEDULE [id number] 08/12 [id number] SCHEDULED 08/15 AT 12:00 WITH NEHEMIAS. PHONE NUMBER TO CALL IS , CASE # IS [id number] AUTH APPROVAL #[id number] 36 Observed: 07/31/2024 2:00 PM Status: COMPLETED [facility]: [facility] [facility] ----- Message from Riccardo lilly MD sent at 07/30/2024 12:51 PM EDT ----- Azalea, Please communicate with the breast center to arrange this combo case with Dr. Salcido The plastic surgery component is only for 1 hour at the end of her procedure. So I will be sitting idle until her portion is done. You can schedule another case for 2 hours at the same time. Procedure is: Left breast complex closure. Possible left axilla lipectomy for left breast cancer. ICG angiography/spy Thank you. Riccardo Smith MD PROGRESS NOTE Observed: 07/30/2024 12:45 PM Status: COMPLETED Source: [facility] Patient was identified and s een today via Telehealth by agreement and consent. I used the following Telehealth technology: Audio and video capabilities. Patient location: Patient Location: Home. This patient encounter is appropriate and reasonable under the circumstances: Patient's request to finalize her decision regarding upcoming procedure. The patient has been advised of the potential risks and limitations of this mode of treatment (including but not limited to the absence of in-person examination) and has agreed to be treated in a remote fashion in spite of them. Any and all of the patient's/patient's family's questions on this issue have been answered and I have made no promises or guarantees to the patient. The patient has also been advised to contact this office for worsening conditions or problems, and seek emergency medical treatment and/or call 911 if the patient deems either necessary. The patient stated that they are currently in the [facility]. Patient with a significant history of DCIS of the left breast who was seen and evaluated on 07/16/2024 regarding breast reconstruction following left mastectomy. After evaluating the patient's history and conducting clinical examination patient was offered Direct to implant with the use of AlloDerm and right mastopexy due to the degree of ptosis for symmetry. At the time, patient's genetic testing was pending. 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 Patient requested a televisit today to discuss and finalize her decision. Patient wanted to proceed with left mastectomy and metastatic complex closure of the mastectomy incision which includes left axillary lipectomy. Patient had questions related to the procedure, as well as postoperative care. We discussed drain placement and when to remove the drain. All patient questions were answered to her satisfaction. Will place surgical orders and communicate with Dr. Salcido's office. This note may have been dictated using [employer] Edition 2.6 and/or [employer] Voice Recognition Feature. The document was proofread; however, unrecognized voice recognition scheduler conveyor errors may be present. 36 Observed: 07/29/2024 1:08 PM Status: COMPLETED Source: [facility] Spoke with patient about her + [facility] with HOXB13 pathogenic mutation. Will place the copy of the results in the mail and I did make a referral to genetic counseling for her with [facility]. There is no impact for her since the cancer risk is for prostate cancer. Since she is female and does not have a prostate there is no risk to her. She voiced understanding. 36 Observed: 07/29/2024 12:23 PM Status: COMPLETED Source: [facility] genetic final result r eceived, scanned to pt chart and forwarded to [facility] providers for review. 36 Observed: 07/28/2024 3:05 PM Status: COMPLETED Source: [facility] Yes- she needs drain teachin g and wants to go over surgery again Need to coordinate with pacemaker issue 36 Observed: 07/25/2024 4:37 PM Status: COMPLETED Source: [facility] Spoke to patient and mastect iliana recommend from TB unless she wants to move pacemaker ( whichs she does not want to do) We will need to contact Dr. Donal Trammell office once surgery date known for pacemaker rep to change the setting on her pacemaker preop and postop 36 Observed: 07/25/2024 4:23 PM Status: COMPLETED Source: [facility] I spoke with pt today about her cardiology appt. And made her a f/up appt with Dr Salcido. Pt would like to proceed with flat closure if tumor board still recommended a mastectomy. She would like to discuss further with you. Please call the pt. Thank 36 Observed: 07/25/2024 4:18 PM Status: COMPLETED Source: [facility] [employer] [facility] TREATMENT PLANNING APPT MADE FOR 08/06/2024 @ 330PM. Pt is questioning the outcome of tumor board today. What was discussed? Lumpectomy vs mastectomy has anything changed with that. Pt wants to have a flat closure only if she needs a mastectomy . She left a msg at Dr Smith office with this information. OFFICE VISIT Observed: 07/25/2024 9:30 AM Status: COMPLETED Source: [facility] [id number] Dakota Sarah F Date Provider Department Center 07/25/2024 [id number] TRAMMELL [facility]I [facility] 95 Ar Family History Problem Relation Age of Onset Other cancer Mother 87 Comments: Gallbladder Cancer Mother Hyperlipidemia Mother Hypertension Mother Rashes / Skin problems Mother Thyroid disease Mother Prostate cancer Father 67 Cancer Father Hyperlipidemia Father Hypertension Father Rashes / Skin problems Father Breast cancer Mother's Sister 66 Breast cancer Father's Sister 60 Breast Cancer Addt'l Onset Father's Sister 69 Comments: mets to bone and beyond Hyperlipidemia Maternal Grandmother Hypertension Maternal Grandmother Ovarian cancer Paternal Grandmother 79 Cancer Paternal Grandmother Hypertension Paternal Grandmother Family Status - Relation Status Age at Mother Father Mother's Sister Alive Father's Sister Maternal Grandmother Paternal Grandmother Level of Service:26702 OK OFFICE/OUTPATIENT NEW MODERATE MDM 45 MINUTES Reason for Visit and Comments: New Patient [542] Pre-op Exam [705277] Abnormal ECG [293] - Mobitz type II, PPM PROGRESS NOTE Observed: 07/25/2024 9:30 AM Status: COMPLETED Source: [facility] Cardiology Note Chief Complaint: Chief Complaint Patient presents with New Patient Pre-op Exam Abnormal ECG Mobitz type II, PPM History of Present Illness: Dakota Sarah is a 64 y.o. female presents to [facility] for EP care. She is a very pleasant 64-year-old who in 2009 had type II second-degree AV block. She was at [facility] transfer to [facility]. These records are not available for review but she provides an excellent history. She had seen multiple electrophysiologists in the hospital, an MRI was performed and was unremarkable, she had an EP study as well and then immediately underwent permanent pacing. She has a [employer] system with an OPTi sense lead in the atrium. She had her device changed by Dr. CUEVAS and was followed in [place]. She is now transitioning care to [facility]. Overall she feels great from a cardiac standpoint. She walks with her , there is no lower extreme edema chest discomfort or shortness of breath. No orthopnea no PND. No trouble with the pacemaker site. Device was interrogated today. Excellent pacing and sensing parameters are noted. Heart rate histograms are completely normal. She has been troubled by atrial lead noise, very short episodes lasting 2 or 3 seconds causing very brief increases in ventricular pacing. No ventricular lead noise. Last echocardiogram which was followed from time to time was from 2021 and by report was normal Past Medical History: Past Medical History: Diagnosis Date Atherosclerotic heart disease of [place] coronary artery without angina pectoris Breast cancer (HCC) 06/11/2024 left breast- diagnosed at [facility] Cardiac pacemaker in situ Hypertension Mixed hyperlipidemia Other specified heart block Past Surgical History Past Surgical History: Procedure Laterality Date BREAST BIOPSY Left 06/11/2024 Left Breast US biopsy @ [facility] BREAST [facility]OPSY [address] [facility] ([facility]ORICAL) GANGLION CYST EXCISION PACEMAKER (HISTORICAL) TONSILLECTOMY Family History Family History Problem Relation Name Age of Onset Other cancer Mother KS 87 Gallbladder Cancer Mother [place] Hyperlipidemia Mother [place] Hypertension Mother [place] Rashes / Skin problems Mother KS Thyroid disease Mother [place] Prostate cancer Father DS 67 Cancer Father DS Hyperlipidemia Father DS Hypertension Father DS Rashes / Skin problems Father DS Breast cancer Mother's Sister BH 66 Breast cancer Father's Sister EH 60 Breast Cancer Addt'l Onset Father's Sister EH 69 mets to bone and beyond Hyperlipidemia Maternal Grandmother AB Hypertension Maternal Grandmother AB Ovarian cancer Paternal Grandmother ES 79 Cancer Paternal Grandmother ES Hypertension Paternal Grandmother ES Social History Social History Tobacco Use Smoking status: Never Smokeless tobacco: Never Substance Use Topics Alcohol use: Never Drug use: Never Allergies: Allergies Allergen Reactions Penicillins Rash Other Reaction(s): Hives, Rash Wound Dressing Adhesive Rash Bandaids and silk tape. Requests paper tape Medications: Current Outpatient Medications: aspirin 81 MG EC tablet, Take 81 mg by mouth daily. (Patient not taking: Reported on 07/11/2024), Disp: , Rfl: biotin 39099 MCG tablet, Take by mouth. (Patient not taking: Reported on 07/11/2024), Disp: , Rfl: LACTOBACILLUS ACID-PECTIN PO, Lactobacillus Combination No.9 (Adult 50 Plus Probiotic) 4 billion cell capsule Active 4000 NMA PO daily June 03, 2024 12:00am administer with a meal, Disp: , Rfl: Multiple Vitamin (multivitamin) tablet, Take 1 tablet by mouth daily., Disp: , Rfl: nebivolol (Bystolic) 5 MG tablet, , Disp: , Rfl: pravastatin (Pravachol) 20 MG tablet, , Disp: , Rfl: Review of Systems: Review of Systems Constitutional: Negative for activity change. Respiratory: Negative for shortness of breath. Cardiovascular: Negative for chest pain, palpitations and leg swelling. Gastrointestinal: Negative for abdominal distention. Neurological: Negative for dizziness and light-headedness. Physical Examination: Vitals: There were no vitals filed for this visit. There is no height or weight on file to calculate BMI. Physical Exam Vitals reviewed. Constitutional: Appearance: Normal appearance. HENT: Head: Normocephalic. Right Ear: External ear normal. Left Ear: External ear normal. Nose: Nose normal. Mouth/Throat: Mouth: Mucous membranes are moist. Eyes: Pupils: Pupils are equal, round, and reactive to light. Cardiovascular: Rate and Rhythm: Normal rate and regular rhythm. Heart sounds: No murmur heard. Pulmonary: Effort: No respiratory distress. Musculoskeletal: General: Normal range of motion. Right lower leg: No edema. Left lower leg: No edema. Skin: General: Skin is warm and dry. Coloration: Skin is not jaundiced. Neurological: General: No focal deficit present. Mental Status: She is alert. Motor: No weakness. Psychiatric: Mood and Affect: Mood normal. Behavior: Behavior normal. Thought Content: Thought content normal. Judgment: Judgment normal. Laboratory Tests: Lab Results Component Value Date WBC 4.9 07/14/2024 HGB 13.2 07/14/2024 HCT 39.5 07/14/2024 MCV 90.6 07/14/2024 PLT 284 07/14/2024 Lab Results Component Value Date GLUCOSE 73 (L) 07/14/2024 CALCIUM 9.6 07/14/2024 NA 140 07/14/2024 K 4.4 07/14/2024 CO2 28 07/14/2024 CL 104 07/14/2024 BUN 27 (H) 07/14/2024 CREATININE 0.77 07/14/2024 @LASTCMP@ No results found for: CHLPL, CHOL No results found for: TRIG No results found for: HDL No results found for: LDLCALC Assessment and Plan: AV block: The patient has early fibrosis of the conduction system with a full workup at [facility] many years ago. She is pacemaker dependent. She will follow in our device clinic per routine. She is given a remote box as well. She has atrial lead noise seemingly unchanged and not increasing in frequency at less than 1% of the time. We discussed this in detail. Battery life 4 to 5 years on the current device. Breast cancer: She has an excellent functional capacity, has had normal echocardiography from time to time since the original workup, and would be at low risk for the planned breast surgery and can proceed without any further cardiac workup. Her device should be changed to DOO mode for the surgery. [id number] Observed: 07/25/2024 7:40 AM Status: COMPLETED Source: [facility] Consensus Recommendation Summary Privileged Information TUMOR BOARD CLINICAL SUMMARY Basic Demographic Information Dakota Sarah 1960 64 y.o. [id number] Presentation Date and Presenting Physician Date of presentation (mm/dd/yyyy): 07/25/2024 Presenting physician: Dr. Cardona Presentation Type [x] Prospective [] Other Brief Clinical Summary 64 y.o. female here for second opinion from [facility] She had screening mammogram October 2023 negative Did self breast exam in February normal She felt a palpable mass UOQ left breast May 2024 She was diagnosed with DCIS of the left breast 06/11/24 Has pacemaker left chest wall ( so cannot do MRI, cannot have radiation) Films reviewed with Dr. Mayorga- mixed mass LEFT breast [address] seen in left axilla PATHOLOGY FROM BIOPSY COMPLETED AT [facility] 06/11/24: Final Diagnosis OUTSIDE CASE REVIEW - [facility] ([id number]) MICROSCOPIC DIAGNOSIS A. LEFT BREAST MASS, 1:00, 8 cm FN, CORE BIOPSY: APOCRINE DUCTAL CARCINOMA IN SITU (DCIS), CRIBRIFORM TYPE INTERMEDIATE NUCLEAR GRADE at 1532 Comment Case seen in consultation with Monica Marcelo M.D., PhD. Synoptic Checklist Breast Biomarker Reporting Template Protocol posted: 02/28/2023REAST BIOMARKER REPORTING TEMPLATE - All Specimens Test(s) Performed Estrogen Receptor (ER) Status Negative (less than 1%) Internal control cells present and stain as expected Test Type Laboratory-developed test Primary Antibody Not given in the outside report. Test(s) Performed Progesterone Receptor (PgR) Status Negative (less than 1%) Internal control cells present and stain as expected PATHOLOGY FROM REPEAT BIOPSY AT [facility] 07/17/2024: Final Diagnosis LEFT BREAST, 1:00, 8 CM FROM NIPPLE, CORE BIOPSY: - APOCRINE DUCTAL CARCINOMA IN SITU (DCIS), INTERMEDIATE NUCLEAR GRADE, CRIBRIFORM TYPE. - MICROCALCIFICATIONS ASSOCIATED WITH DCIS AND NONNEOPLASTIC TISSUE. at 1025 Comment Immunohistochemistry (A2), with controls: E-cadherin is positive and myoepithelial stains, p63 and myosin, are positive. Intradepartmental consultation: Dr. Marcelo. Synoptic Checklist Breast Biomarker Reporting Template Protocol posted: 02/28/2023REAST BIOMARKER REPORTING TEMPLATE - All Specimens Test(s) Performed Estrogen Receptor (ER) Status Negative (less than 1%) Internal control cells present and stain as expected Test Type Food and Drug Administration (FDA) cleared (test / vendor): CONFIRM ANTI-ER Rabbit Monoclonal Antibody/Nohemy Primary Antibody SP1 Scoring System No separate scoring system used Test(s) Performed Progesterone Receptor (PgR) Status Negative (less than 1%) Stage Cancer Staging Ductal carcinoma in situ (DCIS) of left breast Staging form: Breast, AJCC 8th Edition - Clinical stage from 07/10/2024: Stage 0 (cTis (DCIS), cN0, cM0, G2, ER-, OK-) - Signed by Gianna Cardona MD on 07/10/2024 Specific Question or Problem to be Discussed Treatment Planning and Pathology Review TUMOR BOARD RECOMMENDATIONS Guidelines consulted for recommendations [x] NCCN Notes: [] Other Notes: Genetics [x] Discussed Notes: [x] Tested Results: Negative Available Protocol Recommendation [] Yes Protocol: None at this time Comments Discussed and/or considered: 1) Discussed the particular features of her breast cancer as well as the general treatment paradigm of noninvasive stage 0 breast cancer. We discussed that this typically includes a combination of surgery, radiation, and estrogen blockade when applicable. 2) Discussed patient unable to have breast MRI or radiation due to pacemaker in left chest wall which she does not want to have moved. 3) Discussed recommendation of left mastectomy and sentinel lymph node biopsy give above situation. 4) Referral to [facility] cardiology per pt request to establish and discuss pacemaker 5) Referral to plastic surgery to discuss reconstruction options Guidelines discussed during today's conference are from NCCN unless otherwise stated. Recommendations from Breast Tumor Board are based on national evidence-based guidelines. The plan used by the managing physician(s) may vary based on the status of the individual patient and the reports and results made available at the time of presentation. We recognize that this data set may change and that the final treatment plan may differ from this recommendation. Report Completed by [facility] 07/25/2024 36 Observed: 07/24/2024 3:31 PM Status: COMPLETED Source: [facility] to [facility] thong lilly requested last interrogation. I asked for an email and fax copy. She did inform me the patient's visit from June was just a 1/2 office note but last interrogation is from October 2023. Once received I will give a copy to [facility] for review along with transferring over to [employer]. 36 Observed: 07/24/2024 2:53 PM Status: COMPLETED Source: [facility] Patient is notified of appt prior to [facility]. Implant sheet requested and will download into [employer] once received. 36 Observed: 07/24/2024 2:30 PM Status: COMPLETED Source: [facility] to patient. She has a STJ PPM, gen change on 03.10.2019 at [facility]. Last device check 06.19.24. Toyin is going to double check with [facility] if he wants to review a device check prior to his appt with our device nurse, primarily because there are no reports that I can find. Patient is okay with coming in early for DC. She has no remote box since all device check visits were Clinic. 36 Observed: 07/24/2024 1:44 PM Status: COMPLETED Source: [facility] Patient added as INSULATOR TECHNICIAN appointm ent tomorrow 07/25/24 with [facility], has PPM hx of mobitz 2nd degree AV block, has left sided breast cancer and may require masectomy, establishing with our office and device clinic. 36 Observed: 07/24/2024 1:35 PM Status: COMPLETED Source: [facility] Name of caller: Dakota Contact phone number: [phone] Relationship to Patient: patient Provider: Dr Julee Smith Practice: Plastics Chief Complaint/Reason for Call: patient has made a discission on her surgery and is asking for a call back to discuss them with the provider. Please assist. Thank you Best time of day caller can be reached: any Patient advised that office/PCP has 24-48 business hours to return their call: Yes PROGRESS NOTE Observed: 07/23/2024 4:37 PM Status: COMPLETED Source: [facility] Received message from Dr. 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 Patients current appointment is with Dr. Osorio in [place] on 07/25 at 3pm. New order placed for EP cardiology and I called over to the new patient scheduling line for [facility] [phone]. Message left for Daya requesting new appointment. Will follow-up tomorrow. Update: Patient now scheduled to see Device clinic 07/[address] Trammell 07/25 at 9:30 on the [facility] campus. Dakota is aware of the change. Will continue to monitor and assist as needed. PROGRESS NOTE Observed: 07/23/2024 4:35 PM Status: COMPLETED Source: [facility] Pathology slides that were r brijeshested 06/11/24 have now arrived are available in [facility] with [facility] interpretation. 36 Observed: 07/23/2024 3:39 PM Status: COMPLETED Source: [facility] Patient called in about text from [facility] about her copay amount of 249$. We did fill out paperwork for income under 79,000, so will send a email to [facility] about this to check and provide more support. 36 Observed: 07/22/2024 5:18 PM Status: COMPLETED Source: [facility] I called [facility] to request th at provider name be changed on pt genetic reports to Abdiaziz Hicks NP, the provider who met with pt for genetic counseling visit. [facility] nagy stated that they will make the change and will send revised report. 36 Observed: 07/22/2024 10:38 AM Status: COMPLETED Source: [facility] genetic BRCa plus resu lt received, scanned to pt chart and forwarded to [facility] providers. I called pt and informed her of negative result. Will await final genetic report. BI US GUIDED BREAST BIOPSY LEFT Observed: 07/21/2024 2:57 PM Status: F Source: [facility] Patient Name: DAKOTA SARAH : 1960 Exam Date/Time: 07/17/2024 14:19 Procedure: BI US GUIDED BREAST BIOPSY LEFT Ordering Provider: CARDONA VICTORIA Reason For Exam: re biopsy left firm palpable mass UOQ --------ADDENDUM #1 -------- ADDENDUM: This addendum is being provided to report the pathology results, concordance and recommendation for the previous report. PATHOLOGY OUTCOME: Malignant PATHOLOGY RESULT: Imaging and pathology are concordant. Apocrine ductal carcinoma in situ, intermediate grade cribriform type. RECOMMENDATION: Follow Surgical Treatment Plan Left Report Dictated on Electronically Signed By: Laurie Reed MD Electronically Signed Date/Time: 07/21/2024 2:57 PM EDT --------ORIGINAL REPORT -------- REASON FOR EXAMINATION: Repeat biopsy left breast. CONSENT: The patient presents for ultrasound-guided core biopsy of the left breast. Prior to the procedure red rules were performed which included patient name, date of , and procedure type. Risks, benefits and alternatives were explained to the patient and informed consent was obtained. The patient's prior imaging dated 06/06/2024 was reviewed. Prior to the procedure the patient was scanned and the lesion at the 1:00 position 8 cm from the nipple was redemonstrated measuring 4.3 x 4.3 x 1.4 cm. Additionally the left breast was surveyed at the 12:00 position 3 cm from the nipple were a palpable lump was felt on physical examination by the provider. No mass or focal abnormality is seen. PROCEDURE: An audible time out was performed. I washed my hands and wore sterile gloves. The patient was scanned and the lesion in the left breast at the 1:00 position 8 cm from the nipple was redemonstrated. The patient was prepped in the usual sterile fashion. 10 mL of 1% Lidocaine was administered for local anesthesia. A kay was made in the skin and a 14-gauge ACHIEVE core biopsy device was advanced into the lesion with ultrasound guidance. 4 core specimens were obtained. Following the procedure a [place] Q-shape tissue marker was deployed at the site of biopsy. Hemostasis was obtained by holding manual pressure. The patient tolerated the procedure without immediate complications. Home-going instructions were given and the patient was discharged in good condition. IMPRESSION: Technically successful US guided biopsy of the left breast. PATHOLOGY STATUS: Waiting for Pathology MAMMOGRAM: Following the procedure the patient was transported to the mammography suite and a 2D digital mammogram was performed demonstrating satisfactory placement of the tissue marker at the site of biopsy. A risk been tissue marker is also identified from previous biopsy site at the outside institution. This is only seen in the lateral view. The tissue markers are obscured by the pacemaker in the MLO view and outside the [id number] in the cc projection. No hematoma is identified on post procedure mammography. Markings on images: BB's = Nipples; skin lesions Open ambler = Palpable Line = Scar Report Dictated on Electronically Signed By: Laurie Reed MD Electronically Signed Date/Time: 07/17/2024 3:23 PM EDT Lt Surg Trtmnt Pathology Patient Name: DAKOTA SARAH : 1960 Exam Date/Time: 07/17/2024 14:19 Procedure: BI US GUIDED BREAST BIOPSY LEFT Ordering Provider: CARDONA VICTORIA Reason For Exam: re biopsy left firm palpable mass UOQ REASON FOR EXAMINATION: Repeat biopsy left breast. CONSENT: The patient presents for ultrasound-guided core biopsy of the left breast. Prior to the procedure red rules were performed which included patient name, date of , and procedure type. Risks, benefits and alternatives were explained to the patient and informed consent was obtained. The patient's prior imaging dated 06/06/2024 was reviewed. Prior to the procedure the patient was scanned and the lesion at the 1:00 position 8 cm from the nipple was redemonstrated measuring 4.3 x 4.3 x 1.4 cm. Additionally the left breast was surveyed at the 12:00 position 3 cm from the nipple were a palpable lump was felt on physical examination by the provider. No mass or focal abnormality is seen. PROCEDURE: An audible time out was performed. I washed my hands and wore sterile gloves. The patient was scanned and the lesion in the left breast at the 1:00 position 8 cm from the nipple was redemonstrated. The patient was prepped in the usual sterile fashion. 10 mL of 1% Lidocaine was administered for local anesthesia. A kay was made in the skin and a 14-gauge ACHIEVE core biopsy device was advanced into the lesion with ultrasound guidance. 4 core specimens were obtained. Following the procedure a Tumark Q-shape tissue marker was deployed at the site of biopsy. Hemostasis was obtained by holding manual pressure. The patient tolerated the procedure without immediate complications. Home-going instructions were given and the patient was discharged in good condition. IMPRESSION: Technically successful US guided biopsy of the left breast. PATHOLOGY STATUS: Waiting for Pathology MAMMOGRAM: Following the procedure the patient was transported to the mammography suite and a 2D digital mammogram was performed demonstrating satisfactory placement of the tissue marker at the site of biopsy. A risk been tissue marker is also identified from previous biopsy site at the outside institution. This is only seen in the lateral view. The tissue markers are obscured by the pacemaker in the MLO view and outside the [id number] in the cc projection. No hematoma is identified on post procedure mammography. Markings on images: BB's = Nipples; skin lesions Open ambler = Palpable Line = Scar Report Dictated on Electronically Signed By: Laurie Reed MD Electronically Signed Date/Time: 07/17/2024 3:23 PM EDT 36 Observed: 07/21/2024 1:35 PM Status: COMPLETED Source: [facility] Spoke with patient about her repeated left breast biopsy that again revealed DCIS. The hormone receptors are not returned yet and will call once they are completed. She has not been contacted by cardiology yet and we discussed that when she goes to [facility] for surgical clearance they can get this arranged quickly if needed prior to surgery. Genetics are pending and I could not look them up because they are under Dr. Cardona's name and not mine. She is aware I will send this on to Dr. Cardona Preliminary Diagnosis LEFT BREAST, 1:00, 8 CM FROM NIPPLE, CORE BIOPSY: - APOCRINE DUCTAL CARCINOMA IN SITU (DCIS), INTERMEDIATE NUCLEAR GRADE, CRIBRIFORM TYPE. - MICROCALCIFICATIONS ASSOCIATED WITH DCIS AND NONNEOPLASTIC TISSUE. (IMMUNOHISTOCHEMISTRY PENDING) Preliminary result electronically signed by Jose Guadalupe Lema MD on 07/21/2024 at 11 36 Observed: 07/18/2024 9:58 AM Status: COMPLETED Source: [facility] Dakota Sarah 1960 Are you having discomfort? [x] Yes [] No Have you taken anything for the discomfort? [x] Yes [] No What have you taken Tylenol? [x] Yes [] No Have you used the ice pack? [x] Yes [] No Has it provided relief? [x] Yes [] No Any fever, redness, warmth to the touch? [] Yes [x] No Patient reported bleeding after biopsy [] Yes [x] No If yes, Mass size: If yes, did this require any follow up with provider [] Yes [] No Did they take their antithrombotic after their biopsy as instructed by their breast specialist or provider? [] Yes [x] No Are you having any drainage from your incision? [] Yes [x] No Patient was reminded no tub bathing or swimming until the incision is healed [x] Yes [] No Is patient still wearing bra? [x] Yes [] No Patient was reminded to wear supportive bra for the next day. [x] Yes [] No Remind patient to keep bandages on for 3 days [x] Yes [] No Patient was reminded that their surgeon will follow up with results [x] Yes [] No UE EXAM Collected: 2:53 PM Status: F Source: [facility] TYPE CODE TESTS RESULT OUT OF RANGE REFERENCE UNITS PATHOLOGY 1499 LAB AP CASE REPORT Result Comment: Surgical Pat hology Case: [id number] Authorizing Provider: Gianna Cardona MD Collected: 07/17/2024 9793 Ordering Location: [facility] Breast Received: 07/18/2024 0730 Center Pathologist: Jose Guadalupe Lema MD Specimen: Breast, Left, LEFT BREAST 1:00 8 CM FN US CORE BX PATHOLOGY 35 LAB AP DIAGNOSIS COMMENT Result Comment: Immunohistoc hemistry (A2), with controls: E-cadherin is positive and myoepithelial stains, p63 and myosin, are positive. Intradepartmental consultation: Dr. Marcelo. PATHOLOGY 29 LAB AP CLINICAL INFORMATION Result Comment: Ductal carci noma in situ (DCIS) of left breast - D05.12 [ICD-10-CM] Mass of upper outer quadrant of left breast - N63.21 [ICD-10-CM] PATHOLOGY 3064289 LAB AP HISTO GROSS DESCRIPTION Received in formalin labeled left breast 1:00, 8 cm from nipple are four pink-white and yellow fibroadipose tissue cores ranging from 1.4 x 0.2 cm - 1.8 x 0.2 cm. The specimen has a cold ischemic time of one minute. The specimen is entirely submitted in two cassettes. PATHOLOGY 769 LAB AP ASR DISCLAIMER Result Comment: Disclaimer: The following statement applies to all immunohistochemistry, in situ hybridization, molecular studies, and immunofluorescence testing, if performed on this case. The use of one or more reagents in the above tests is regulated as an analyte specific reagent (ASR). These tests were developed and their performance characteristics determined by the clinical laboratories of [facility]. They have not been cleared by the US Food and Drug Administration (FDA). The FDA has determined that such clearance or approval is not necessary. All immunostains were performed on paraffin embedded tissue. Appropriate positive and negative controls (where applicable) were run in parallel with the patient's specimen; these controls showed expected staining pattern, with acceptable intensity of staining. Immunohistochemical assays have not been validated on decalcified tissues. Results should be interpreted with caution given the raised possibility of false negativity on decalcified specimens. PATHOLOGY 748412 AP CASE PATHOLOGIST INTERP LOCATION [facility], [address] [place] [id number], CLIA: [id number]; Joint Commission: [id number]; CAP: [id number] PATHOLOGY EMBDOC OUTGOING CLINICAL RESULTS EMBEDDED DOCUMENT Result Comment: ORDER COMMEN TS: The previously reported component Preliminary Diagnosis is no longer being reported. PATHOLOGY 34 LAB AP REPORT FINAL DIAGNOSIS NARRATIVE Result Comment: LEFT BREAST, 1:00, 8 CM FROM NIPPLE, CORE BIOPSY: - APOCRINE DUCTAL CARCINOMA IN SITU (DCIS), INTERMEDIATE NUCLEAR GRADE, CRIBRIFORM TYPE. - MICROCALCIFICATIONS ASSOCIATED WITH DCIS AND NONNEOPLASTIC TISSUE. OLOGY 71 LAB AP SYNOPTIC CHECKLIST Result Comment: Breast Bioma rker Reporting Template BREAST BIOMARKER REPORTING TEMPLATE - All Specimens Protocol posted: 02/28/2023 Test(s) Performed: Estrogen Receptor (ER) Status: Negative (less than 1%) : Internal control cells present and stain as expected Test Type: Food and Drug Administration (FDA) cleared (test / vendor): CONFIRM ANTI-ER Rabbit Monoclonal Antibody/Nohemy Primary Antibody: SP1 Scoring System: No separate scoring system used Test(s) Performed: Progesterone Receptor (PgR) Status: Negative (less than 1%) : Internal control cells present and stain as expected Test Type: Food and Drug Administration (FDA) cleared (test / vendor): CONFIRM Anti-Progesterone Receptor (OK) Rabbit Monoclonal Antibody/Nohemy Primary Antibody: 1E2 Scoring System: No separate scoring system used Cold Ischemia and Fixation Times: Meet requirements specified in latest version of the ASCO / CAP Guidelines METHODS Fixative: Formalin Comment(s): Quality Review Performed by: RANULFO Performed By: #### [id number] # ### Power Manager: SHERYL ALVARES ([id number]) [facility] ([facility] PROCEDURE NOTE Observed: 07/17/2024 2:30 PM Status: COMPLETED Source: [facility] [employer] [facility] Local Anesthesia: [x]Lidocaine 1% Total Dose Given 10mL Probe Used: 14 GAUGE (ACHIEVE) Specimen: [x] Specimen A LEFT Position: 1:00 8 CM FN Samples 4 Lot Number [id number] Shape: Tumark Q Post Mammo [x] Yes [] No EDURE NOTE Observed: 07/17/2024 2:30 PM Status: COMPLETED Source: [facility] Patient Name: Dakota Sarah Date of : 1960 Pre-Procedure: Breast: LEFT Biopsy Type: ULTRASOUND Number of Sites: 1 History and Physical Performed: Date:07/11/2024 Level of Consciousness: [x]Alert & Oriented []Confused & Disoriented []Other Allergy to Lidocaine: [] Yes [x] No Allergy to other numbing medications: [] Yes [x] No List drug name: Blood Thinners: [] Yes [x] No If yes, please list: Date of last dose: Mg of dose: Pain: [x] None [] Present: 0 Intraprocedure Notes: Prep: [x] Chlorhexidine [] Betadine Pain: 0 Bleeding: Scant, <1 cc Emotional Support Provided: [x] Yes [] No Post Procedure Notes: Biopsy Site Care: [x] Pressure Held for 5 minutes [x] Steri-Strip and Tegaderm [x] Cold Pack [x] Susan Bandage Level of Consciousness [x] Alert & Oriented [] Confused & Disoriented [] Other Post Procedure Symptoms: [x] Pt tolerated procedure without any symptoms [] Lightheaded [] Dizziness [] Nausea [] Sweating [] Fainting [] Pallor [] Low Blood Pressure [] Rapid Heart rate/Palpitations [] Hematoma present per radiologist and patient made aware Care Provided if Symptomatic: [] Radiologist notified Time: Name of Radiologist: [] Ambulated with assistance [] Assisted to chair/wheelchair [] Assisted to exam table/cart [] Patient placed in trendelenburg position [] Provided fluids (cleve jillian;water) [] Provided crackers [] Code Blue Team 4 called [] Patient remained in department [] Patient transferred to Emergency Department Pain: 0 Post Biopsy Discharge Instructions: [x] Image Guided Breast Biopsy Discharge Instructions reviewed and given to patient, patient verbalizes understanding [x] Gauze placed over biopsy site, cold pack applied over gauze at biopsy site for 20 minutes. After 20 minutes remove ice pack for one hour. Repeat 20 minutes gauze/ice at site and one hour with ice removed from site for remainder of day. [x] Patient instructed to wear supportive bra for 48 hours [] *If excessive bleeding or patient taking blood thinners, then 6 inch susan is wrapped around the patient to provide support, patient will need to wear for 24 hours *[] After 24 hours the patient may remove the susan wrap and wear supportive bra for the next 24 hours *[] Patient instructed to observe the biopsy site each time cold pack is removed to check for active bleeding *[] Patient instructed if bleeding noted to ambler the bleeding with a marking pen and note if bleeding goes beyond the ambler *[] If patient notes bleeding continues, the patient is to hold pressure on the site for up to 20 minutes with a clean dry washcloth tightly at biopsy site *[] If bleeding still occurs after continuously applying pressure for 20 minutes, the patient is to call the Breast Center at the number provided *[] If the patient notices any new mass or lump under the dressing at the biopsy site, please ambler the mass or lump with a pen and check frequently for any increase in size outside of the ambler. Please call the Breast Center at the number provided *[] If patient taking blood thinners, instructed to take as directed by ordering provider Discharge: Time: 1520 Accompanied by: [x] Self [] Family/friend [] Attendant [] Other, explain To: [x] Home [] Skilled Care Facility [] Hospital Inpatient [] Other, explain RESS NOTE Observed: 07/17/2024 2:22 PM Status: COMPLETED [facility] Pathology also shows DCIS She will need surgery first: LEFT mastectomy with SLNB LEFT axilla Flat closure with Said I placed referral to cardiology ( pacemaker) and they have not scheduled yet- this needs scheduled preop She also wants another appt here to go over surgery 36 Observed: 07/16/2024 4:08 PM Status: COMPLETED Source: [facility] [employer] [facility] I left a vmail for pt. I nee d her to sign pathology slide release form tomorrow when she comes for her additional bx. I asked that she stop by front desk assistant 07/22 to sign for me. If she has any questions to please call me. XR CHEST 2 VIEWS Observed: 07/16/2024 12:39 PM Status: F Source: [facility] [employer] [facility] Patient Name: DAKOTA SARAH : 1960 Exam Date/Time: 07/14/2024 12:27 Procedure: XR CHEST 2 VIEWS Ordering Provider: CARDONA VICTORIA Reason For Exam: breast cancer EXAMINATION: PA/Lateral chest INDICATION: breast cancer FINDINGS: There is no focal consolidation, sizable pleural effusion or pneumothorax. The cardiac silhouette and mediastinum are within normal limits. Left-sided cardiac pacemaker is present. Minimal degenerative changes of the spine. IMPRESSION: No radiographic evidence of acute cardiopulmonary process. Report Dictated on Electronically Signed By: Amanda Douglass MD Electronically Signed Date/Time: 07/16/2024 12:39 PM EDT 36 Observed: 07/16/2024 11:00 AM Status: COMPLETED Source: [facility] Left voice message to remind of upcoming procedure. Aware of arrival time 30 minutes prior to procedure scheduled for Date:07/16/2024 Time: 2:30 Patient encouraged to eat and drink prior to procedure. Also to bring or wear a supportive bra without wires. No perfumes, lotions, powder, or deodorant on the day of procedure. Provided contact information and encouraged to call with any questions or concerns. PROGRESS NOTE Observed: 07/16/2024 11:00 AM Status: COMPLETED Source: [facility] *Leads 15 years old, device was change in 02/2019.* Family History of Cancer [x] Breast Cancer: Maternal Aunt, Paternal Aunt X 2 [x] Ovarian Cancer: Paternal Grandmother [] Colon Cancer: [x] Pancreatic Cancer: [x] Prostate Cancer: Father [x] Other Cancer: Gallbladder Mother [] Children: [] Future Pregnancies: [] Breast Feeding: [] Weight Stability: [x] Last Mammogram: 05/2024 Breast Measurements: Right Left Sternal Notch to Nipple 23 23.5 IMF to Nipple 7.5 7.5 Midline to Nipple 9.5 7 Areolar Diameter 4.5 4 Ptosis Grade 3 bilaterally 3 bilaterally Breast Base 11 cm New Nipple Location 19 cm from super sternal notch Current Bra Size 32 C or D Larger Breast right Additional Comments: Right: [x] Dense fibronodular tissue [] Masses [] No Masses [] Lumps [x] No Lumps [] Palpable lymph nodes in axilla [x] No palpable lymph nodes in axilla Left: 3 cm palpable lump at 1 o'clock position 6 cm away from the nipple. Freely movable lymph nodes. Another palpable lump 12 o'clock position 3 cm from the nipple [] Dense fibronodular tissue [] Masses [] No Masses [] Lumps [] No Lumps [] Palpable lymph nodes in axilla [] No palpable lymph nodes in axilla Pearl Gee OFFICE VISIT Observed: 07/16/2024 11:00 AM Status: COMPLETED Source: [facility] [id number] Dakota Sarah F Date Provider Department Center 07/16/2024 [id number][facility] [employer] [facility] None Family History Problem Relation Age of Onset Other cancer Mother 87 Comments: Gallbladder Cancer Mother Hyperlipidemia Mother Hypertension Mother Rashes / Skin problems Mother Thyroid disease Mother Prostate cancer Father 67 Cancer Father Hyperlipidemia Father Hypertension Father Rashes / Skin problems Father Breast cancer Mother's Sister 66 Breast cancer Father's Sister 60 Breast Cancer Addt'l Onset Father's Sister 69 Comments: mets to bone and beyond Hyperlipidemia Maternal Grandmother Hypertension Maternal Grandmother Ovarian cancer Paternal Grandmother 79 Cancer Paternal Grandmother Hypertension Paternal Grandmother Family Status - Relation Status Age at Mother Father Mother's Sister Alive Father's Sister Maternal Grandmother Paternal Grandmother Level of Service:88488 OK OFFICE/OUTPATIENT NEW MODERATE MDM 45 MINUTES Reason for Visit and Comments: New Patient [542] - Left breast cancer DCIS. Has a pacemaker heart block PROGRESS NOTE Observed: 07/16/2024 11:00 AM Status: COMPLETED Source: [facility] Dear Dr. Salcido, Thank you very much for allowing me to participate in the care of your patient. 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 Her history of present illness includes a breast biopsy performed in May 2024 that revealed DCIS at [facility]. Genetic testing is pending. She is planning to proceed with a right mastectomy. 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 She is pacemaker dependent. She can walk more than a mile without shortness of breath or chest pain. She meets more than 10 METS. Patient is scheduled for a repeat biopsy of the lesion tomorrow. She cannot receive adjuvant radiation treatment due to the presence of the pacemaker and hence decision was made to proceed with a mastectomy. Patient has a significant past medical history of breast cancer, ovarian cancer and prostate cancer as follows: Breast cancer maternal aunt 60 Breast cancer paternal aunt 60 Paternal gma ovarian cancer Father prostate cancer age 67 Her past medical history is significant for the above-stated left breast cancer Past Medical History: Diagnosis Date Atherosclerotic heart disease of [place] coronary artery without angina pectoris Breast cancer (HCC) 06/11/2024 left breast- diagnosed at [facility] [place] Cardiac pacemaker in situ Hypertension Mixed hyperlipidemia Other specified heart block Past Surgical History: Procedure Laterality Date BREAST BIOPSY Left 06/11/2024 Left Breast US biopsy @ [facility] BRE[facility]SY [address] [facility] GANGLION CYST EXCISION PACEMAKER (HISTORICAL) TONSILLECTOMY Her current medications list includes Current Outpatient Medications Medication Instructions aspirin 81 mg, Daily biotin 84138 MCG tablet Take by mouth. LACTOBACILLUS ACID-PECTIN PO Lactobacillus Combination No.9 (Adult 50 Plus Probiotic) 4 billion cell capsule Active 4000 NMA PO daily June 03, 2024 12:00am administer with a meal Multiple Vitamin (multivitamin) tablet 1 tablet, Daily nebivolol (Bystolic) 5 MG tablet pravastatin (Pravachol) 20 MG tablet She has Allergies Allergen Reactions Penicillins Rash Other Reaction(s): Hives, Rash Wound Dressing Adhesive Rash Bandaids and silk tape. Requests paper tape On social history, Social History Socioeconomic History Marital status: Spouse name: Not on file Number of children: Not on file Years of education: Not on file Highest education level: Not on file Occupational History Not on file Tobacco Use Smoking status: Never Smokeless tobacco: Never Substance and Sexual Activity Alcohol use: Never Drug use: Never Sexual activity: Yes Partners: Male control/protection: Post-menopausal Other Topics Concern Not on file Social History Narrative Not on file Social Drivers of Health Financial Resource Strain: Not on file Food Insecurity: Not on file Transportation Needs: Not on file Physical Activity: Not on file Stress: Not on file Social Connections: Not on file Intimate Partner Violence: Not on file Housing Stability: Not on file Family history Breast Cancer-related family history includes Breast cancer (age of onset: 60) in her father's sister; Breast cancer (age of onset: 66) in her mother's sister. Family History Problem Relation Name Age of Onset Other cancer Mother [place] 87 Gallbladder Cancer Mother [place] Hyperlipidemia Mother [place] Hypertension Mother [place] Rashes / Skin problems Mother [place] Thyroid disease Mother [place] Prostate cancer Father DS 67 Cancer Father DS Hyperlipidemia Father DS Hypertension Father DS Rashes / Skin problems Father DS Breast cancer Mother's Sister BH 66 Breast cancer Father's Sister EH 60 Breast Cancer Addt'l Onset Father's Sister EH 69 mets to bone and beyond Hyperlipidemia Maternal Grandmother AB Hypertension Maternal Grandmother AB Ovarian cancer Paternal Grandmother ES 79 Cancer Paternal Grandmother ES Hypertension Paternal Grandmother ES Review of Systems Constitutional: Negative. HENT: Negative. Eyes: Negative. Respiratory: Negative. Cardiovascular: Negative. Gastrointestinal: Negative. Endocrine: Negative. Genitourinary: Negative. Musculoskeletal: Negative. Skin: Negative. Allergic/Immunologic: Negative. Neurological: Negative. Hematological: Negative. Psychiatric/Behavioral: Negative. On physical examination, she is a well-nourished, well-developed adult female who appears her stated age. She stands 5'6 tall with 123 pounds and a calculated Body mass index is 19.85 kg/m?. Breasts are a self stated 32 C cup size. Right breast is slightly larger in volume. Palpation of the right breast reveals fibronodular breast tissue with no definitive palpable masses or lumps. Palpation of the right axilla reveals no palpable lymphadenopathy. Palpation of the left breast reveals a palpable lump at the 1 o'clock position measuring 3 cm in diameter 6 cm from the nipple. There is also another palpable fullness at the 12 o'clock position 3 cm from the nipple. Palpation of the left axilla reveals palpable yet mobile and discrete lymph nodes which are not clinically significant. Breast measurements: Family History of Cancer [x] Breast Cancer: Maternal Aunt, Paternal Aunt X 2 [x] Ovarian Cancer: Paternal Grandmother [] Colon Cancer: [x] Pancreatic Cancer: [x] Prostate Cancer: Father [x] Other Cancer: Gallbladder Mother [] Children: [] Future Pregnancies: [] Breast Feeding: [] Weight Stability: [x] Last Mammogram: 05/2024 Breast Measurements: Right Left Sternal Notch to Nipple 23 23.5 IMF to Nipple 7.5 7.5 Midline to Nipple 9.5 7 Areolar Diameter 4.5 4 Ptosis Grade 3 bilaterally 3 bilaterally Breast Base 11 cm New Nipple Location 19 cm from super sternal notch Current Bra Size 32 C or D Larger Breast right Additional Comments: Right: [x] Dense fibronodular tissue [] Masses [] No Masses [] Lumps [x] No Lumps [] Palpable lymph nodes in axilla [x] No palpable lymph nodes in axilla Left: 3 cm palpable lump at 1 o'clock position 6 cm away from the nipple. Freely movable lymph nodes. Another palpable lump 12 o'clock position 3 cm from the nipple [] Dense fibronodular tissue [] Masses [] No Masses [] Lumps [] No Lumps [] Palpable lymph nodes in axilla [] No palpable lymph nodes in axilla There is a 4cm incision that healed well at the 12 oclock position over the left superior breast border for the pacemaker. grade 3 mammary ptosis bilaterally. There are wasscars on her abdomen. C section scar healed well with primary intention. She has no amount of infraumbilical tissue to reconstruct the breasts. Overall, patient Dakota Sarah is a very pleasant 46-year-old female with the unfortunate diagnosis of Left breast cancer who has elected to undergo a Left skin-sparing mastectomy. She presented today to review her options for breast reconstruction. We discussed both implant and autologous tissue reconstructive options. She is not a good candidate for autologous based reconstruction due to lack of abdominal tissue and the thigh tissue is not enough to reconstruct cup C breast (barely a cup B) . We discussed direct to implant with the use of AlloDerm that would need to also include a right mastopexy due to the degree of ptosis present. We discussed intraoperative indocyanine green angiography to test the mastectomy flaps and the possibility of using tissue communication coordinator if the mastectomy flap shows evidence of ischemia. Risks and benefits including but not limited to infection, bleeding, seroma and hematoma formation as well as risks associated with breast implants which includes loss of breast implant infection, implant rupture, implant malposition, capsular contracture and the management of capsular contracture as well as LAVONNE-ALCL and LAVONNE-SCC which are mostly associated with textured breast implant. Patient wanted some time to think about her options including going flat with aesthetic closure versus direct to implant The procedure was explained in detail, including the length of hospital stay and the recovery involved. The patient was seen and examined today by myself. We spent approximately 45 minutes on the patients visit today with greater than 50% of time spent counseling. Thank you once again for allowing us to participate in the care of your patient. Sincerely, 36 Observed: 07/15/2024 3:05 PM Status: COMPLETED Source: [facility] Rcvd referral from JL Riddle that pt was interested in talking about breast cancer grants/resources. Placed t/c to pt and offered assistance. Provided education on SW role and ways this worker can be of assistance. Provided information on breat cancer grants of [facility], Tracie Edouard, Sandy Deng, and Carie Nicci. Along with information on [facility] and this workers contact information. Encouraged pt to reach out to this worker with any concerns/needs moving forward. PROGRESS NOTE Observed: 07/15/2024 2:28 PM Status: COMPLETED Source: [facility] Received a phone call from Casper varela requesting referral to nephrology social worker regarding breast grants as well as information about her surgery. Discussed that I would send her information over to the nephrology social worker who would reach out to her about the grants. Answered patient questions about surgery and antibacterial showering prior to surgery. Will continue to monitor and assist as needed. CBC (HEMOGRAM) Collected: 07/14/2024 1:23 PM Status: F Source: [facility] TYPE CODE TESTS RESULT OUT OF RANGE REFERENCE UNITS LAB [id number] WBC 4.9 3.6-10.7 10*3/uL LAB [id number] RBC 4.36 3.80-5.20 10*6/uL LAB [id number] HEMOGLOBIN 13.2 11.7-16.0 g/dL LAB [id number] HEMATOCRIT 39.5 35.0-47.0 % LAB [id number] MCV 90.6 77.0-99.0 fL LAB [id number] MCH 30.3 26.0-34.0 pg LAB [id number] MCHC 33.4 30.5-36.0 % LAB [id number] RDW 13.1 11.5-15.0 % LAB [id number] PLATELET COUNT 284 140-440 10*3/uL LAB [id number] MPV 10.3 9.0-12.7 fL Performed By: #### [id number] ## ## Power Manager: SHERYL ALVARES ([id number]) [facility] ([facility]) [address] [place] [address] COMPREHENSIVE METABOLIC PANEL Collected: 07/14/2024 1 :23 PM Status: F Source: [facility] TYPE CODE TESTS RESULT OUT OF RANGE REFERENCE UNITS LAB [id number] SODIUM 140 136-145 mmol/L LAB [id number] POTASSIUM 4.4 3.5-5.1 mmol/L Result Comment: Plasma potas sium values may be up to 0.5 mmol/L lower than serum values. LAB [id number] CHLORIDE 104 98-107 mmol/L LAB [id number] CARBON DIOXIDE 28 23-31 mmol/L LAB [id number] ANION GAP (MUSE, CALCULATED) 8 3-13 mmol/L LAB [id number] UREA NITROGEN 27 High 9-23 mg/dL LAB [id number] CREATININE 0.77 0.57-1.11 mg/dL LAB [id number] GLUCOSE 73 Low 82-115 mg/dL LAB [id number] CALCIUM 9.6 8.8-10.0 mg/dL LAB [id number] AST (SGOT) 29 <34 U/L LAB [id number] ALT 17 <30 U/L LAB [id number] ALKALINE PHOSPHATASE 96 40-150 U/L LAB [id number] ALBUMIN 4.2 3.4-4.8 g/dL LAB [id number] BILIRUBIN, TOTAL 0.5 <1.2 mg/dL LAB [id number] TOTAL PROTEIN 7.1 6.4-8.3 g/dL LAB [id number] GLOMERULAR FILTRATION RATE ML/MIN/1.73 SQ M.PREDICTED 86.3 >60.0 mL/min/1. 73m*2 Result Comment: Calculation based on the Chronic Kidney Disease Epidemiology Collaboration (CKD-EPI) equation refit without adjustment for race Performed By: #### LAB17 ### # Power Manager: SHERYL ALVARES ([id number]) [address] PROGRESS NOTE Observed: 07/14/2024 9:33 AM Status: COMPLETED Source: [facility] Breast Imaging Nurse Navigat or Note Today's Date: July 14, 2024 Patient Name: Dakota Sarah : 1960 Summary of discussion with patient: Nurse Navigator Note: Spoke with patient today regarding her upcoming Ultrasound Biopsy of the Left Breast scheduled for 07/17/24. Patient knows to check in at 1415, to be ready for biopsy at 1430. Patient does take ASA 81mg and has a pacemaker in her left chest wall. Patient states she has a sensitivity to band aids and silk tape. Patient is unsure of tegaderm/steri strips. Pre, during and post procedure was discussed with patient, along with Breast Center Diagnostic Plan of Care. All questions were answered and patient verbalized understanding. The contact information for the nurse navigator was provided and the patient was encouraged to call with any additional questions or concerns. Signed, Didi Borges RN PROGRESS NOTE Observed: 07/11/2024 2:48 PM Status: COMPLETED Source: [facility] [facility] Met with patient and spouse Schuyler for discussion of new breast cancer diagnosis, Left DCIS following office visit with Dr Cardona. Introduced myself and role. Reviewed pathology and answered questions. Reviewed contents of breast cancer bag and binder and encouraged to review areas that are marked for specific breast cancer related resources. Provided surgical pillow, exercise ball and contact information. Discussed available supportive services including but not limited to financial navigator, nephrology social worker, dietitian, psychologist, renewal nook, massage therapy and wig salon. Discussed support groups available through [facility] and at [facility]. Encouraged patient to explore [facility] website for available options including exercise classes. Education provided on importance of keeping physically active and benefits of activity throughout the journey. At this time patient denies any current needs but is aware she can request information or referrals at any time. Distress level reviewed at a 4 out of 10 due to diagnosis and wanting to know plan and timeframe of treatment. Endorses a good support system at home. Feels better after speaking with Dr. Cardona. Discussed what to expect with surgery and location of same day surgery. Educated patient on tracer/dye used for SLNB and that it can cause temporary ashen skin discoloration and blue/green urine post-operatively. Reviewed signs and symptoms of infection and reasons to contact the office. Reviewed risk for lymphedema and prevention by avoiding extreme temperature cold or hot for extended periods of time, constriction of the extremity, injury or trauma to the surgical arm and prolonged inactivity. Instructed to call anytime for increased pain, swelling, fever, arm heaviness, rash, itching or redness. Encouraged various prevention strategies such as exercise, hydration, avoiding sun exposure for extended periods of time, use of sunscreen reapplied every half hour when in the sun and a moisturizing lotion for the affected arm. Patient aware that prior to surgery they will be evaluated by an business trainer with a functional assessment to determine if there are any mobility concerns to be aware of prior to surgery. Patient is also aware of pre-admission testing appointment and purpose for visit. Provided emotional support and encouraged to call with any questions or concerns. Patient currently has a repeat left breast biopsy scheduled for 07/17 at 2:30 and an appointment with the plastic surgeon, Dr. Smith, on 07/30 at 2:30. Further treatment planning once we get results of repeat biopsy and appointment with plastics. Patient verbalizes understanding and agrees with the plan. PROGRESS NOTE Observed: 07/11/2024 2:30 PM Status: COMPLETED Source: [facility] Paula Hicks HARNESS TIER 07/11/2024 at 3:25 PM Breast Center [facility] [place] [address] [address] [facility] [address] [facility] [address] Dept: [phone] Dept Loc: [phone] Dakota Sarah is a 64 y.o. F here for genetic counseling. HPI Breast History: 1. Patient is here for genetic counseling. She recently had a left breast biopsy that is + for DCIS and ER- OK- diagnosed on 06/19/2024 at [facility] [place]. She is here today to discuss diagnosis with Dr. Cardona and her is present today in the office. 2. Family history of breast cancer: Self breast cancer age 64 Maternal aunt breast cancer age 66 Paternal aunt breast cancer age 60 metastatic breast cancer age 69 . Family history of ovarian, pancreatic, or prostate cancer: Father prostate cancer Paternal grandmother ovarian cancer age 79 Family history of Viera-syndrome related cancers: None Prior personal or family history of genetic testing:none She does meet NCCN criteria for genetic testing for hereditary cancer. Risk Factors: Menarche: age 12 Age of first : age 30 Menopause: post Weight: BMI 20.18 kg/m2 Smoking: non smoker ETOH: not currently Family History of Cancer and Cancer Risk Assessment : Self breast cancer age 64 Mother gall bladder cancer age 87 Father prostate cancer age 67 Paternal grandmother ovarian cancer age 79 Maternal aunt breast cancer age 66 Paternal aunt breast cancer age 60, metastatic breast cancer age 69 The patient's medical history, reproductive history, breast history and family history have been reviewed. Using Cvent software, the family genogram has been generated and reviewed. A complete risk assessment has been performed using validated statistical models. The estimated risk of a BRCA 1/2 mutation predicted by BRCAPRO is 9.22 %. The estimated risk of a mutation in an HNPCC related gene is 0.03 %. The patient does meet NCCN criteria for genetic testing for hereditary cancer. 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 Surgical History includes : Past Surgical History: Procedure Laterality Date BREAST BIOPSY Left 06/11/2024 Left Breast US biopsy @ [facility] BRE[facility]SY [address] [facility]) GANGLION CYST EXCISION PACEMAKER (HISTORICAL) TONSILLECTOMY Medications include: Current Outpatient Medications Medication Sig Dispense Refill aspirin 81 MG EC tablet Take 81 mg by mouth daily. (Patient not taking: Reported on 07/11/2024) biotin 97269 MCG tablet Take by mouth. (Patient not taking: Reported on 07/11/2024) LACTOBACILLUS ACID-PECTIN PO Lactobacillus Combination No.9 (Adult 50 Plus Probiotic) 4 billion cell capsule Active 4000 NMA PO daily June 03, 2024 12:00am administer with a meal LACTOBACILLUS PROBIOTIC PO Take by mouth. Multiple Vitamin (multivitamin) tablet Take 1 tablet by mouth daily. Multiple Vitamins-Minerals (Centrum Adults) tablet Take by mouth. nebivolol (Bystolic) 5 MG tablet pravastatin (Pravachol) 20 MG tablet No current facility-administered medications for this visit. Allergies include: Allergies as of 07/11/2024 - Reviewed 07/11/2024 Allergen Reaction Noted Penicillins Rash 08/14/2009 Wound dressing adhesive Rash 12/04/2018 Review of Systems Constitutional: Negative. Negative for chills and fever. Respiratory: Negative. Cardiovascular: Negative. Gastrointestinal: Negative. Negative for constipation, diarrhea, nausea and vomiting. Genitourinary: Negative. Musculoskeletal: Negative. Negative for arthralgias and joint swelling. Skin: Negative. Negative for rash. Neurological: Negative. Negative for dizziness. Psychiatric/Behavioral: Negative. BP 134/81 Pulse 78 Ht 5' 6 (1.676 m) Wt 125 lb (56.7 kg) BMI 20.18 kg/m? Physical Exam Constitutional: Appearance: Normal appearance. She is normal weight. Eyes: Pupils: Pupils are equal, round, and reactive to light. Pulmonary: Effort: Pulmonary effort is normal. Musculoskeletal: Right lower leg: No edema. Left lower leg: No edema. Neurological: Mental Status: She is alert and oriented to person, place, and time. Psychiatric: Mood and Affect: Mood normal. Behavior: Behavior normal. Assessment/Plan: Diagnoses and all orders for this visit: Genetic testing - This is a 64 y.o. woman who meets HBOC criteria based on her family history of breast and ovarian cancer - An extended visit was carried out for analysis of family history, pedigree construction, discussion of genetic principles and familial cancer patterns. The patient received counseling about the risks, benefits, and limitations of genetic analysis. We reviewed options for management of increased cancer risk including high risk surveillance, surgical intervention, and chemo prevention options. - We discussed the process of testing, which genes are tested, possible results and their implications for management, [place] law, notifying relatives if a pathogenic mutation is found, cascade testing for blood relatives, and post counseling if a pathogenic mutation was found. - The patient expressed understanding of the information provided and decided to proceed with genetic testing. She signed consent for genetic testing. - I have reviewed this chart and this patient does meet NCCN criteria for genetic testing. The patient has been given the opportunity to ask questions. - We did discuss that [facility] will prior Auth the blood draw for genetics. Generally it is covered at $0-$100. If it goes over $100 the maximum [id number] would be $250 and if this occurs [facility] will call her and let her know before they proceed with the testing and she can choose to cancel at that time. If she does not answer the call and does not call them back they will run the test and charged the full $250. - Genetics-Call with results With patient's new diagnosis discussed that we would be running the BRCA plus analysis along with the full genetics. The BRCA plus analysis covers the 8 highest risk for breast cancer genes. This testing will return in 7 to 10 days and this will help guide treatment planning. To the rest the panel will return at 2 to 4 weeks. We will call patient once we get the results. - Call with any questions or breast concerns - Encourage self breast awareness and SBE's Ductal carcinoma in situ (DCIS) of left breast - outside biopsy completed with diagnosis and ER- OK- Family history of ovarian cancer - patient has paternal grandmother with ovarian cancer and she does qualify for genetic testing. Family history of breast cancer She was previously seen by Dr. Cardona today. I spent 31 minutes total on the day of the visit obtaining history, reviewing imaging and laboratory results, performing a physical exam and providing patient education and counseling and documenting. Culturally appropriate shared decision making was used to determine optimal course of workup and treatment for this patient. Paula Hicks, SHAHID - LIFE CARE PLANNER 07/11/24 Please disregard any typographical errors. This note was dictated using voice recognition software. PROGRESS NOTE Observed: 07/11/2024 2:30 PM Status: COMPLETED Source: [facility] Genetics paperwork signes. L eft AC prepped with alcohol after tourniquet applied. #23F butterfly needle used to access vein on first attempt. 2 vials of blood were drawn. Tourniquet removed and needle retracted. Direct pressure applied to venipuncture site until bleeding stopped. Band aid applied to site. Patient tolerated procedure without problems. OFFICE VISIT Observed: 07/11/2024 2:30 PM Status: COMPLETED Source: [facility] [id number] Dakota Sarah Zina Date Provider Department Center 07/11/2024 [id number] MENEZES [facility] None Family History Problem Relation Age of Onset Other cancer Mother 87 Comments: Gallbladder Prostate cancer Father 67 Breast cancer Mother's Sister 66 Breast cancer Father's Sister 60 Breast Cancer Addt'l Onset Father's Sister 69 Comments: mets to bone and beyond Ovarian cancer Paternal Grandmother 79 Family Status - Relation Status Age at Mother Father Mother's Sister Alive Father's Sister Maternal Grandmother Paternal Grandmother Level of Service:39925 [place] POSTOP FOLLOW UP VISIT RELATED TO ORIGINAL PX Reason for Visit and Comments: Breast Cancer [302] - Genetic testing OFFICE VISIT Observed: 07/11/2024 1:15 PM Status: COMPLETED Source: [facility] [id number] Dakota Sarahe Date Provider Department Center 07/11/2024 [id number] RIVERA [facility] None Family History Problem Relation Age of Onset Other cancer Mother 87 Comments: Gallbladder Prostate cancer Father 67 Breast cancer Mother's Sister 66 Breast cancer Father's Sister 60 Breast Cancer Addt'l Onset Father's Sister 69 Comments: mets to bone and beyond Ovarian cancer Paternal Grandmother 79 Family Status - Relation Status Age at Mother Father Mother's Sister Alive Father's Sister Maternal Grandmother Paternal Grandmother Level of Service:87082 [place] OFFICE/OUTPATIENT NEW MODERATE MDM 45 MINUTES Reason for Visit and Comments: Cancer Treatment Planning [712] - Treatment planning 29 Observed: 07/11/2024 1:15 PM Status: COMPLETED Source: [facility] Addended by: ANGELINE CHOWDHURY on: 07/14/2024 12:47 PM Modules accepted: Orders PROGRESS NOTE Observed: 07/11/2024 1:15 PM Status: COMPLETED Source: [facility] Chief Complaint Patient presents with Cancer Treatment Planning Treatment planning History of Present Illness: Dakota Sarah is a 64 y.o. female here for second opinion from [facility] She had screening mammogram October 2023 negative Did self breast exam in February normal She felt a palpable mass UOQ left breast May 2024 She was diagnosed with DCIS of the left breast 06/11/24 Has pacemaker left chest wall ( so cannot do MRI, cannot have radiation) BREAST CANCER TYPE: DCIS Today, we discussed the particular features of her breast cancer as well as the general treatment paradigm of noninvasive stage 0 breast cancer. We discussed that this typically includes a combination of surgery, radiation, and estrogen blockade when applicable. FH: Breast cancer maternal aunt 60 Breast cancer paternal aunt 60 Paternal gma ovarian cancer Father prostate cancer age 67 Meets criteria for genetic testing- done today Breast density C Films reviewed with Dr. Mayorga- mixed mass LEFT breast [address] seen in left axilla Pathology: Imagin06/11/2024-Biopsy- In Office- Dr. Fish- [facility] Review of Systems: Review of Systems Constitutional: Negative for appetite change, diaphoresis, fatigue, fever and unexpected weight change. HENT: Negative for trouble swallowing and voice change. Eyes: Negative for visual disturbance. Respiratory: Negative for apnea, cough, choking, shortness of breath and stridor. Cardiovascular: Negative for chest pain. Has pacemaker due to complete heart block 2009 Endocrine: Negative for cold intolerance and heat intolerance. Musculoskeletal: Negative for arthralgias, joint swelling, myalgias and neck pain. Skin: Negative for color change and rash. Allergic/Immunologic: Negative for immunocompromised state. Neurological: Negative for dizziness, tremors, weakness, numbness and headaches. Hematological: Negative for adenopathy. Psychiatric/Behavioral: Negative for decreased concentration and dysphoric mood. The patient is not nervous/anxious. 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 [facility] ([facility]OR[facility]) GANGLION CYST EXCISION PACEMAKER (HISTORICAL) TONSILLECTOMY Allergies Allergen Reactions Penicillins Rash Other Reaction(s): Hives, Rash Wound Dressing Adhesive Rash BP 134/81 (BP Location: Left arm, Patient Position: Sitting, BP Cuff Size: Small adult) Pulse 78 Temp 36.7 ?C (98 ?F) Ht 5' 6 (1.676 m) Wt 125 lb (56.7 kg) BMI 20.18 kg/m? Current Outpatient Medications: LACTOBACILLUS ACID-PECTIN PO, Lactobacillus Combination No.9 (Adult 50 Plus Probiotic) 4 billion cell capsule Active 4000 NMA PO daily June 03, 2024 12:00am administer with a meal, Disp: , Rfl: Multiple Vitamin (multivitamin) tablet, Take 1 tablet by mouth daily., Disp: , Rfl: nebivolol (Bystolic) 5 MG tablet, , Disp: , Rfl: pravastatin (Pravachol) 20 MG tablet, , Disp: , Rfl: aspirin 81 MG EC tablet, Take 81 mg by mouth daily. (Patient not taking: Reported on 07/11/2024), Disp: , Rfl: biotin 91031 MCG tablet, Take by mouth. (Patient not taking: Reported on 07/11/2024), Disp: , Rfl: LACTOBACILLUS PROBIOTIC PO, Take by mouth., Disp: , Rfl: Multiple Vitamins-Minerals (Centrum Adults) tablet, Take by mouth., Disp: , Rfl: Physical Exam: Physical Exam Constitutional: Appearance: Normal appearance. She is normal weight. HENT: Head: Normocephalic and atraumatic. Eyes: Extraocular Movements: Extraocular movements intact. Conjunctiva/sclera: Conjunctivae normal. Pupils: Pupils are equal, round, and reactive to light. Cardiovascular: Rate and Rhythm: Normal rate and regular rhythm. Pulses: Normal pulses. Pulmonary: Effort: Pulmonary effort is normal. Breath sounds: Normal breath sounds. No stridor. Chest: Chest wall: No deformity, tenderness or edema. Breasts: Breasts are symmetrical. Right: No swelling, inverted nipple, mass, nipple discharge, skin change or tenderness. Left: Mass (firm 4 cm mass) present. No swelling, inverted nipple, nipple discharge, skin change or tenderness. Musculoskeletal: General: No swelling, tenderness or deformity. Normal range of motion. Cervical back: Normal range of motion and neck supple. No rigidity or tenderness. Right lower leg: No edema. Left lower leg: No edema. Lymphadenopathy: Cervical: No cervical adenopathy. Right cervical: No superficial, deep or posterior cervical adenopathy. Left cervical: No superficial, deep or posterior cervical adenopathy. Upper Body: Right upper body: No supraclavicular, axillary or pectoral adenopathy. Left upper body: No supraclavicular, axillary or pectoral adenopathy. Skin: General: Skin is warm and dry. Coloration: Skin is not jaundiced or pale. Findings: No erythema, lesion or rash. Neurological: General: No focal deficit present. Mental Status: She is alert and oriented to person, place, and time. Motor: No weakness. Gait: Gait normal. Psychiatric: Mood and Affect: Mood normal. Behavior: Behavior normal. Thought Content: Thought content normal. Assessment: 1. Ductal carcinoma in situ (DCIS) of left breast 2. Mass of upper outer quadrant of left breast 3. Dense breasts 4. Family history of breast cancer 5. Family history of ovarian cancer 6. Pacemaker 7. Complete heart block (HCC) NCCN guidelines were discussed. Plan: Pending second US guided biopsy - recommend second biopsy due to concerning physical examination She has pacemaker and cannot have MRI or radiation unless pacemaker is moved( does not want to do this)so mastectomy with SLNB possible ax LN dissection She will meet with plastic surgery to discuss reconstruction options Wants to change cardiology to here Genetic testing today Functional Assessment: Yes Plastic Surgery Referral: Yes Genetic Testing: Yes Orders Placed This Encounter Procedures XR chest 2 views BI US guided breast biopsy left Comprehensive metabolic panel [facility] Films reviewed I spent 50 minutes total on the day of the visit obtaining history, reviewing imaging and laboratory results, performing a physical exam and providing patient education and counseling. Culturally appropriate shared decision making was used to determine optimal course of workup and treatment for this patient. Patient demonstrates understanding of and agreement with the above plan of care. All questions have been answered to her satisfaction. Gianna Cardona MD 07/11/2024 Please disregard any typographical errors. This note was dictated using voice recognition software. 36 Observed: 07/08/2024 8:50 AM Status: COMPLETED Source: [facility] Appt 07/11/2024 Films obtained from [employer] and will be merged into [employer] chart by Film room. 36 Observed: 07/04/2024 1:10 PM Status: COMPLETED Source: [facility] Records received from [employer] r-will scan into [employer]. Sent request to obtain films from [employer]. ALLERGIES No Allergies Records Found ENCOUNTERS ADMIT/DISCHARGE ACCOUNT NUMBER ADMITTING ENCOUNTER CLASS LOC ATION SOURCE 11/25/2024/ 5 [id number] Ambulatory Buildin [id number] [facility] 10/28/2024/ 5 [id number] Ambulatory Buildin [id number] [facility] 10/27/2024/ 5 [id number] Ambulatory Buildin [id number] [facility] 10/07/2024/ 5 [id number] Ambulatory Buildin [id number] [facility] 10/03/2024/ 5 [id number] Ambulatory Buildin [id number] [facility] 09/16/2024/ 5 [id number] Ambulatory Buildin [id number] [facility] 09/12/2024/ 5 [id number] Ambulatory Buildin [id number] [facility] 09/10/2024/ 5 [id number] Ambulatory Buildin [id number] [facility] 09/03/2024/ 5 [id number] Ambulatory Buildin [id number] [facility] 08/26/2024/ 5 [id number] Ambulatory Buildin [id number] [facility] 08/26/2024/ 5 [id number] GIANNA CARDONA Inpatient Encounter Buildin [id number]: [facility] H-6125Bed: H-6125 A [facility] 08/19/2024/ 5 [id number] Ambulatory Buildin [id number] [facility] 08/19/2024/ 5 [id number] Ambulatory Buildin [id number] [facility] 08/06/2024/ 5 [id number] Ambulatory Buildin [id number] [facility] 07/30/2024/ 5 [id number] Ambulatory Buildin [id number] [facility] 07/25/2024/ 5 [id number] Ambulatory Buildin [id number] [facility] 07/25/2024/ 5 [id number] Ambulatory Buildin [id number] [facility] 07/17/2024/ 5 [id number] Ambulatory Buildin [id number] [facility] 07/17/2024/ 5 [id number] Ambulatory Buildin [id number] [facility] 07/16/2024/ 5 [id number] Ambulatory Buildin [id number] [facility] 07/14/2024/ 5 [id number] Ambulatory Buildin [id number] [facility] 07/14/2024/ 5 [id number] Ambulatory Buildin [id number] [facility] 07/11/2024/ 5 [id number] Ambulatory Buildin [id number] [facility] 07/11/2024/ 5 [id number] Ambulatory Buildin [id number] [facility] PAYERS ENCOUNTER [employer]OURCE 11/25/2024 Primary Insurance:MEDICAL MUTUALPolicy Number: [id number] Date:3094-43-39Dkbz Name:Hayden VALENZUELAOB: [id number] [place] [address] [facility] 10/28/2024 Primary Insurance:MEDICAL MUTUALPolicy Number: [id number] Date:3089-37-58Kzok Name:Commercial DAKOTA HUIISDOB: [id number] [place] [address] [facility] 10/27/2024 Primary Insurance:MEDICAL MUTUALPolicy Number: [id number] Date:0067-56-87Nqeo Name:Commercial DAKOTA JOYCE KREISDOB: [id number] [place] [address] [facility] 10/07/2024 Primary Insurance:MEDICAL MUTUALPolicy Number: [id number] Date:0681-26-69Ussi Name:Commercial DAKOTA JOYCE KREISDOB: [id number] [place] [address] [facility] 10/03/2024 Primary Insurance:MEDICAL MUTUALPolicy Number: [id number] Date:5908-17-12Nqgu Name:Commercial DAKOTA JOYCE KREISDOB: [id number] [place] [address] [facility] 09/16/2024 Primary Insurance:MEDICAL MUTUALPolicy Number: [id number] Date:8686-88-59Hxgw Name:Commercial DAKOTA HUIISDOB: [id number] [place] [address] [facility] 09/12/2024 Primary Insurance:MEDICAL MUTUALPolicy Number: [id number] Date:3679-22-07Nwjq Name:Commercial DAKOTA HUIISDOB: [id number] [place] [address] [facility] 09/10/2024 Primary Insurance:MEDICAL MUTUALPolicy Number: [id number] Date:5319-31-65Lziq Name:Commercial DAKOTA HUIISDOB: [id number] [place] [address] [facility] 09/03/2024 Primary Insurance:MEDICAL MUTUALPolicy Number: [id number] Date:7745-17-02Uvgn Name:Commercial DAKOTA HUIISDOB: [id number] [place] [address] [facility] 08/26/2024 Primary Insurance:MEDICAL MUTUALPolicy Number: [id number] Date:3311-88-04Chdp Name:Commercial DAKOTA HUIISDOB: [id number] [place] [address] [facility] 08/26/2024 Primary Insurance:MEDICAL MUTUALPolicy Number: [id number] Date:9652-25-06Vaev Name:Commercial DAKOTA HUIISDOB: [id number] [place], [place] [address] [place] [address] 08/19/2024 Primary Insurance:MEDICAL MUTUALPolicy Number: [id number] Date:8838-31-91Sphg Name:Commercial DAKOTA HUIISDOB: [id number] [place] [address] [facility] 08/19/2024 Primary Insurance:MEDICAL MUTUALPolicy Number: [id number] Date:0918-22-97Yatj Name:Commercial DAKOTA HUIISDOB: [id number] [place] [address] [facility] 08/06/2024 Primary Insurance:MEDICAL MUTUALPolicy Number: [id number] Date:7260-09-06Lles Name:Commercial DAKOTA HUIISDOB: [id number] [place] [address] [facility] 07/30/2024 Primary Insurance:MEDICAL MUTUALPolicy Number: [id number] Date:5564-32-38Yejc Name:Commercial DAKOTA HUIISDOB: [id number] [place] [address] [facility] 07/25/2024 Primary Insurance:MEDICAL MUTUALPolicy Number: [id number] Date:5285-50-37Pyol Name:Commercial DAKOTA HUIISDOB: [id number] [place] [address] [facility] 07/25/2024 Primary Insurance:MEDICAL MUTUALPolicy Number: [id number] Date:1180-92-83Qxpz Name:Commercial DAKOTA HUIISDOB: [id number] [place], [place] [address] [place] [address] 07/17/2024 Primary Insurance:MEDICAL MUTUALPolicy Number: [id number] Date:5298-09-02Jcnp Name:Hayden HUIISDOB: [id number] [place] [address] [facility] 07/17/2024 Primary Insurance:MEDICAL MUTUALPolicy Number: [id number] Date:7342-59-13Hpaf Name:Commercial DAKOTA HUIISDOB: [id number] [place], [place] [address] [place] [address] 07/16/2024 Primary Insurance:MEDICAL MUTUALPolicy Number: [id number] Date:2883-74-81Wggs Name:Hayden HUIISDOB: [id number] [place] [address] [facility] 07/14/2024 Primary Insurance:MEDICAL MUTUALPolicy Number: [id number] Date:0444-71-27Wcdn Name:Commercial DAKOTA HUIISDOB: [id number] [place], [place] [address] [place] [address] 07/14/2024 Primary Insurance:MEDICAL MUTUALPolicy Number: [id number] Date:6432-06-33Tpjh Name:Hayden HUIISDOB: [id number] [place] [address] [facility] 07/11/2024 Primary Insurance:MEDICAL MUTUALPolicy Number: [id number] Date:0604-72-34Cdfe Name:Commercial DAKOTA HUIKRISTINOB: [id number] [place] [address] [facility] 07/11/2024 Primary Insurance:MEDICAL MUTUALPolicy Number: [id number] Date:4718-89-02Eumd Name:Commercial DAKOTA HUIKRISTINOB: [id number] [facility] [place] [address] [facility]
--- OUTSIDE RECORDS SUMMARY | 2024-11-25 08:54 | XMS RPT_ITS ---
Author Name Auto Generated Organization OHIP Support Name Relationship Address Phone YANELIS PANIAGUA Next of Kin Unknown [phone] HORACE SARAH Next of Kin [address] [place] [address] + ~([phone] CIPRIANO SARAH Next of Kin Unknown + ARCELIAYANELIS Next of Kin Unknown [phone] [address]ACE Next of Kin [address] [place] [address] + ~(330 CIPRIANO SARAH Next of Kin Unknown + ARCELIAYANELIS Next of Kin Unknown [phone] EVAN HORACE Next of Kin [address] [place] [address] + ~(330 CIPRIANO SARAH Next of Kin Unknown + YANELIS PANIAGUA Next of Kin Unknown [phone] HORACE SARAH Next of Kin [address] [place] [address] + ~(330 CIPRIANO SARAH Next of Kin Unknown + YANELIS PANIAGUA Next of Kin Unknown [phone] SCHUYLER SARAHREY Next of Kin [address] [place] [address] + ~(330 CIPRIANO SARAH Next of Kin Unknown + ARCELIAYANELIS Next of Kin Unknown [phone] HORACE SARAH Next of Kin [address] [place] [address] + ~(330 KREIS, CIPRIANO Next of Kin [...] + ARCELIA, YANELIS Next of Kin Unknown [phone] HORAEC SARAH Next of Kin Unknown [phone] CIPRIANO SARAH Next of Kin Unknown + Care Team Providers Care Rental Agent Name Role Phone [facility] Primary Care Unavailable MIEDEL, MARYSOL Primary Care Unavailable VAN FOSSEN, GIANNA Referring Unavailable VAN FOSSEN, GIANNA Attending Unavailable MIEDEL, MARYSOL Primary Care Unavailable VAN FOSSEN, GIANNA Referring Unavailable MIEDEL, MARYSOL Primary Care Unavailable VAN FOSSEN, GIANNA Referring Unavailable LORI MYRICK Attending Unavailable MIEDEL, MARYSOL Primary Care Unavailable VAN FOSSEN, GIANNA Referring Unavailable MIEDEL, MARYSOL Primary Care Unavailable ROBOTHAM, ROBIN Referring Unavailable MIEDEL, BRONWOOD Primary Care Unavailable MIEDEL, MARYSOL Referring Unavailable [...] DATE TYPE CONDITION / CODE ATTENDING STATUS [facility] 11/25/2024 Admitting Diagnosis Stiffness of unspecified joint, not elsewhere classified / M25.60(ICD-10) [facility] 08/26/2024 Admitting Diagnosis Acquired absence of left breast and nipple / Z90.12(ICD-10) GIANNA CARDONA [facility] 10/03/2024 Admitting Diagnosis Post-op / 483() DOROTA MAYFIELD [facility] 09/12/2024 Admitting Diagnosis Presence of cardiac pacemaker / Z95.0(ICD-10) MARQUITA ESCALANTE [facility] 09/12/2024 Admitting Diagnosis Atrioventricular block, complete (HCC) / I44.2(ICD-10) MARQUITA ESCALANTE [facility] 09/10/2024 Admitting Diagnosis Other specified postprocedural states / Z98.890(ICD-10) DOROTA MAYFIELD [facility] 08/27/2024 Admitting Diagnosis 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(ICD-10) MARQUITA ESCALANTE [facility] 08/19/2024 Admitting Diagnosis Encounter for other preprocedural examination / Z01.818(ICD-10) MARQUITA ESCALANTE [facility] 07/30/2024 Admitting Diagnosis Surgical Consult / 868() RICCARDO SMITH [facility] 07/25/2024 Admitting Diagnosis New Patient / 542() DONAL TRAMMELL [facility] 07/25/2024 Admitting Diagnosis Pre-op Exam / [id number]() DONAL TRAMMELL [facility] 07/25/2024 Admitting Diagnosis Abnormal ECG / 293() DONAL TRAMMELL [facility] 07/25/2024 Admitting Diagnosis Encounter for adjustment and management of other cardiac device / Z45.09(ICD-10) [facility] 07/17/2024 Admitting Diagnosis Other abnormal and inconclusive findings on diagnostic imaging of breast / R92.8(ICD-10) [facility] 07/17/2024 Admitting Diagnosis Unspecified lump in the left breast, upper outer quadrant / N63.21(ICD-10) GIANNA CARDONA [facility] 07/11/2024 Admitting Diagnosis Encounter for other screening for genetic and chromosomal anomalies / Z13.79(ICD-10) PAULA HICKS [facility] 07/11/2024 Admitting Diagnosis Family history of malignant neoplasm of ovary / Z80.41(ICD-10) PAULA HICKS [facility] 07/11/2024 Admitting Diagnosis Family history of malignant neoplasm of breast / Z80.3(ICD-10) PAULA HICKS [facility] 07/11/2024 Admitting Diagnosis Dense breasts, unspecified / R92.30(ICD-10) GIANNA CARDONA [facility] PROCEDURES No Procedure Records Found RESULTS PROGRESS NOTE Observed: 11/25/2024 9:00 AM Status: COMPLETED Source: [facility] AT [facility] AT [address] [address] Dept: [phone] Dept PHYSICAL THERAPY TREATMENT Patient Name: Dakota [...] history of: Diagnosed L breast cancer, DCIS, ER/NV-, Hx of heart block with implanted pacemaker [...] Observed: 10/28/2024 10:30 AM Status: COMPLETED [facility] AT [facility] AT [address] [address] Dept: [phone] Dept PHYSICAL THERAPY EVALUATION Patient Name: Dakota [...] medical history of 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 36 Observed: 10/21/2024 1:19 PM Status: COMPLETED Source: [facility] Pt called to set up follow u p visits with Team Jp/johann. Please advise if she needs to be seen every 6 months JKS/LO. 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 Please advise. 36 Observed: 10/15/2024 12:20 PM Status: COMPLETED Source: [facility] Spoke to pt. She wanted mamm ogram to be done same day as plastics but after her appointment. She is scheduled 01/09/2025 at 12:50. Patient states she will check [email or web address] for appt info. 36 Observed: 10/10/2024 8:40 AM Status: COMPLETED Source: [facility] Spoke to Dakota today and rec ommended second opinion With her current insurance, she cannot go to [facility] or [facility] She will check and see if she can go to She does change to medicare in January She will discuss options with her and let me know her decision 36 Observed: 10/09/2024 1:43 PM Status: COMPLETED Source: [facility] Update: Spoke with Dr. Trammell from [...] DCIS palpable and 4 cm in size ER-,NV- Radiation will reduce risk of local recurrence Will discuss with Dakota second opinion at [facility] for radiation oncology evaluation and for EP cardiology LMOM for Dakota to discuss above PROGRESS NOTE Observed: 10/07/2024 11:00 AM Status: COMPLETED Source: [employer] [facility] Cardiology Note Chief Complaint: Chief Complaint Patient presents with Annual Exam History of Present Illness: Dakota Sarah is a 64 y.o. female presenting for follow-up status post left-sided mastectomy and hematoma evacuation with plastic surgery. She has a dual-chamber pacemaker implanted originally in 2009 at [facility] subsequent generator change in [place]. 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 [facility] BI[facility]SY Left 07/2024, [facility] SECTION (HISTORICAL) SECTION, LOW TRANSVERSE 09/30/90 [...] Observed: 10/07/2024 11:00 AM Status: COMPLETED Source: [employer] [facility] [id number] Dakota Sarah F Date Provider Department Center 10/07/2024 [id number]-TJBTRDONAL TRAMMELL [facility] [address] [...] Paternal Grandfather Alive Other Alive Level of Service:18182 [place] OFFICE/OUTPATIENT ESTABLISHED MOD MDM 30 MIN Reason for Visit and Comments: Annual Exam [83] PROGRESS NOTE Observed: 10/03/2024 8:45 AM Status: COMPLETED Source: [facility] Dakota is 5 weeks post-op: Co [...] Observed: 10/03/2024 8:45 AM Status: COMPLETED Source: [facility] [id number] Dakota Sarah F Date Provider Department Center [...] Paternal Grandfather Alive Other Alive Level of Service:45200 [place] POSTOP FOLLOW UP VISIT RELATED TO ORIGINAL PX Reason for Visit and Comments: Post-op [483] 29 Observed: 10/03/2024 8:44 AM Status: COMPLETED Source: [facility] Addended by: RHODA CARDONA on: 10/03/2024 08:44 AM Modules accepted: Orders 36 Observed: 10/03/2024 8:43 AM Status: COMPLETED Source: [facility] Referral placed 36 Observed: 10/02/2024 4:12 PM Status: COMPLETED Source: [facility] Patient called to ask about the [...] Observed: 09/25/2024 12:31 PM Status: COMPLETED Source: [facility] Dr. Cardona asked if the pt could be seen sooner. JKS opened his schedule on 10/07/24. 36 Observed: 09/18/2024 11:20 AM Status: COMPLETED Source: [facility] Scheduled pt with JKS on 10/17 11/10 at 8:45. 36 Observed: 09/18/2024 10:31 AM Status: COMPLETED Source: [facility] LVM to schedule apt with JKS 36 Observed: 09/18/2024 9:34 AM Status: COMPLETED Source: [facility] Need to d/w Dr Trammell. Radiat ion is a concern with devices. 36 Observed: 09/18/2024 8:41 AM Status: COMPLETED Source: [facility] Pt called about her mastecto my results. The plan is to do radiation and she would like a consult with JKS to determine her best options. She said it will be on the same side as her PPM. Please advise. RUBÉN: 07/25/24 new patient NOV: not scheduled CONSULT Observed: 09/16/2024 9:30 AM Status: COMPLETED Source: [facility] RADIATION ONCOLOGY INITIAL C ONSULTATION PATIENT: Dakota Sarah DATE OF SERVICE: 09/16/24 : 1960 AGE: 64 y.o. 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 STAGE: Left breast- cTis N0 M0, 0; pTis pN0 M0, 0 HISTORY OF PRESENT ILLNESS: This is a 64-year-old female who palpated a mass in May 2024 in the upper outer quadrant of the left breast. Diagnostic mammography and ultrasound at [facility] on 06/06/2024 identified an irregular mass in the upper quadrant of the left breast. On ultrasound it measured approximately 3.9 x 3.5 x 1.2 cm. They also noted to mildly prominent left axillary nodes. Due to a pacemaker patient is unable to have an MRI. She had a biopsy performed on 06/11/2024 at [facility]. Pathology revealed intermediate grade DCIS spanning 0.7 cm on core biopsy. ER negative and NV negative. The patient transferred her care to [facility]. Chest x-ray on 07/14/2024 showed no acute process by report. The patient had a second biopsy on 07/17/2024 at [facility]. 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 Microcalcifications were associated with DCIS and nonneoplastic tissue by report. ER negative at less than 1%, NV negative at less than 1%. Patient was also seen in consultation with plastics. She underwent [employer] genetic testing with the final result on [...] 0 0 # Outcome Date GA Lbr Casye/2nd Weight Sex Type Anes PTL Lv 2 Term 1 Term Age at Menarche: 12 Age at first : 29 Age at first live : 30 Months : Age at menopause: approx 50 No hormone replacement. 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 She is also a [...] exam, patient counseling and care coordination. The [facility] Department of Radiation Oncology is an Accredited Facility of the [employer] (ACR). 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 [facility] BREAST BIOPSY Left 07/2024, [facility] SECTION [...] Observed: 09/16/2024 9:30 AM Status: COMPLETED Source: [facility] Here with her at [facility] for consult with Dr. Myrick. She found a lump in May 2024 during self breast exam. She had ultra sound and bx following at [facility]. Surgeon at [facility] was not comfortable performing surgery due [...] pacer dependant. Prior cardiology care was at [facility] (Dr. Coreas). She has since changed to [facility] - Dr. Trammell and has been seen at pacer clinic once for initial check in late June. She reports good healing to L breast. She has no prior hx of cancer, but does report small protein spike that has been observed for 15 years. Medication list reviewed via patient recall. Physics consult placed - pacemaker card and pacer check report scanned to [facility]. HOSPITAL ENCOUNTER Observed: 09/16/2024 9:30 AM Status: COMPLETED Source: [facility] [id number] Dakota Sarah F Date Provider Department Center 09/16/2024 [id number]-YXYRCMFLORI MYRICK None Family History Problem Relation Age [...] Paternal Grandfather Alive Other Alive Level of Service:66663 [place] OFFICE/OUTPATIENT [facility] 60 MINUTES Reason for Visit and Comments: Consult [484] - Consult with Dr. Myrick 29 Observed: 09/16/2024 9:30 AM Status: COMPLETED Source: [facility] Encounter addended by: Elisbaet Armijo RN on: 09/16/2024 2:19 PM Actions taken: Clinical Note Signed PROGRESS NOTE Observed: 09/12/2024 3:30 PM Status: COMPLETED Source: [facility] Chief Complaint Patient presents with Survivorship [...] 0 (cTis (DCIS), cN0, cM0, G2, ER-, NV-) - Signed by Gianna Cardona MD on 07/10/2024 - Pathologic stage from 09/12/2024: Stage 0 (pTis (DCIS), pN0(sn), cM0, G2, ER-, NV-) - Signed by Gianna Cardona MD on [...] Examined (sentinel and non-sentinel) 2 Number of Dandridge Nodes Examined 2 PATHOLOGIC STAGE CLASSIFICATION (pTNM, [...] pTis (DCIS) Regional Lymph Nodes Modifier (sn): Dandridge node(s) evaluated pN Category pN0 Breast Biomarker Testing Performed on Previous Biopsy Estrogen Receptor (ER) Status Negative Breast Biomarker Testing Performed on Previous Biopsy Progesterone Receptor (PgR) Status Negative Testing Performed on Comment(s) Nutrition Professor block: B1, B4, B10 . 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 [ICD-10-CM] Incision(s) clean and dry, no evidence of infection Some bruising still Assessment/Plan: Diagnoses and all orders for this visit: Ductal carcinoma in situ (DCIS) of left breast - [facility]; Future - [facility]; Future - PT lymphedema evaluation and treatment; Future Pacemaker - [facility]; Future Complete heart block (HCC) Decreased range of motion - PT lymphedema evaluation and treatment; Future H/O left mastectomy - PT lymphedema evaluation and treatment; Future FU breast center 6 mos Referrals: [] Medical Oncology [x] Radiation Oncology [x] [facility] Appt [x] Physical Therapy/Lymphedema/Functional [...] Observed: 09/12/2024 3:30 PM Status: COMPLETED Source: [facility] [id number] Dakota Sarahe F Date Provider Department Center 09/12/2024 [id number] CARDONA [facility] None Family History Problem Relation [...] Paternal Grandfather Alive Other Alive Level of Service:12378 [place] POSTOP FOLLOW UP VISIT RELATED TO ORIGINAL PX Reason for Visit and Comments: Survivorship [620] - Patient states she has some discomfort and achy pain on her left breast. Also she states she feels a tendon under her left axilla with manageable pain, and some pulling when reaching for something [id number] Observed: 09/12/2024 7:40 AM Status: COMPLETED Source: [facility] Cons[facility]ation Summary Privileged Information TUMOR BOARD CLINICAL SUMMARY Basic Demographic Information Dakota Sarah 1960 64 y.o. [id number] Presentation Date and Presenting Physician Date of [...] Examined (sentinel and non-sentinel) 2 Number of Dandridge Nodes Examined 2 PATHOLOGIC STAGE CLASSIFICATION (pTNM, [...] pTis (DCIS) Regional Lymph Nodes Modifier (sn): Dandridge node(s) evaluated pN Category pN0 Breast Biomarker Testing Performed on Previous Biopsy Estrogen Receptor (ER) Status Negative Breast Biomarker Testing Performed on Previous Biopsy Progesterone Receptor (PgR) Status Negative Stage Cancer Staging Ductal carcinoma in situ (DCIS) of left breast Staging form: Breast, AJCC 8th Edition - Clinical stage from 07/10/2024: Stage 0 (cTis (DCIS), cN0, cM0, G2, ER-, NV-) - Signed by Gianna Cardona MD on [...] Observed: 09/10/2024 2:15 PM Status: COMPLETED Source: [facility] Drain Output: Date: Drain Output: (mL) 09/07 13 ml 09/08 15 ml 09/09 15 ml Dixon Gee MA PROGRESS NOTE Observed: 09/10/2024 2:15 PM Status: COMPLETED Source: [facility] Dakota is 15 days post-op: Co [...] Observed: 09/10/2024 2:15 PM Status: COMPLETED Source: [facility] [id number] Dakota Sarah F Date Provider Department Center [...] Paternal Grandfather Alive Other Alive Level of Service:65707 [place] POSTOP FOLLOW UP VISIT RELATED TO ORIGINAL PX Reason for Visit and Comments: Post-op [483] PROGRESS NOTE Observed: 09/05/2024 10:25 AM Status: COMPLETED Source: [facility] Called to check-in and see h [...] Observed: 09/03/2024 5:23 PM Status: COMPLETED Source: [facility] Pathology results given to p atient Focal + anterior and posterior margin Tumor approaches cautery Discussed presenting at [facility] Likely will need radiation and pacemaker removal/moved Please move appt from next Sunday to next Tuesday 09/12 end of day. OFFICE VISIT Observed: 09/03/2024 11:45 AM Status: COMPLETED Source: [facility] [id number] Dakota Sarah F Date Provider Department Center [...] Paternal Grandfather Alive Other Alive Level of Service:30484 [place] POSTOP FOLLOW UP VISIT RELATED TO ORIGINAL PX Reason for Visit and Comments: Post-op [483] - MASTECTOMY AND DEBRIDEMENT 08/26 PROGRESS NOTE Observed: 09/03/2024 11:45 AM Status: COMPLETED Source: [facility] Dakota is 8 days post-op: Com [...] Observed: 08/27/2024 11:59 PM Status: COMPLETED Source: [facility] Late entry from 08/27: Visited with [...] continue to follow and assist as needed. [id number] Observed: 08/27/2024 8:07 PM Status: COMPLETED Source: [facility] Discussed Home Care Services available to [...] Observed: 08/27/2024 7:37 PM Status: COMPLETED Source: [facility] General Surgery Call/Night F loat Progress [...] Observed: 08/27/2024 7:28 PM Status: COMPLETED Source: [facility] Pt discharged instructions c ompleted. Questions answered. Education completed for LORENZO drain, Supplies given for monitoring put out. Pt have no concerns at this time. 30 Observed: 08/27/2024 7:00 PM Status: COMPLETED Source: [facility] Problem: Pain - Adult Goal: Verbalizes/displays adequate comfort level or baseline comfort level Outcome: ProgressingProblem: Discharge Planning Goal: Discharge to home or other facility with appropriate resources Outcome: ProgressingProblem: Chronic Conditions and Co-morbidities Goal: Patient's chronic conditions and co-morbidity symptoms are monitored and maintained or improved Outcome: Progressing DISCHARGE SUMMARY Observed: 08/27/2024 5:14 PM Status: COMPLETED Source: [facility] Discharge Summary Dakota Sarah : 1960 ADMIT DATE: 08/26/2024 DISCHARGE DATE: 08/27/2024 PRIMARY CARE PHYSICIAN: Marysol Bennett VISIT STATUS: Admission CODE STATUS: Full Code DISCHARGE DIAGNOSES: Principal Problem: Ductal carcinoma in situ (DCIS) of left breast Active Problems: 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 COMPLEXITY OF FOLLOW UP: [x] Moderate Complexity: follow up within 7-14 calendar days (97963) [] Severe Complexity: follow up within 7 calendar days (88284) FOLLOW UP TESTING, PENDING RESULTS OR REFERRALS AT TRANSITIONAL CARE VISIT: [] Yes [x] No PENDING STUDIES: Pathology DISPOSITION: Home FACILITY/HOME CARE AGENCY NAME: n/a Follow up with Gianna Cardona MD [address] [place] [address] [phone] Schedule an appointment as soon as possible [...] Observed: 08/27/2024 5:00 PM Status: COMPLETED Source: [facility] Patient seen and evaluated. Exam remains consistent with PRS exam approximately 3 hours prior. Expected ecchymosis, with no residual hematoma appreciated. Skin flat to chest wall laterally. LORENZO drain more SS now. nTTP. Plan for discharge home this evening Dw Dr. Loly Trinidad MD PGY1, General Surgery Resident Pager # [phone] 08/27/24 PROGRESS NOTE Observed: 08/27/2024 3:01 PM Status: COMPLETED Source: [facility] PHYSICAL THERAPY [facility] Initial Evaluation Name/MRN: Dakota Sarah ([id number]) Evaluation Date: 08/27/2024 Date of : 1960 Admission Date: 08/26/2024 8:00 AM Age: 64 y.o. [facility] Discharge Recommendation: Home with assist PRN Equipment Needed: No Assessment IMPRESSION: 64 y.o. 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 [...] of Care supervision is transferred to a [facility] Therapy Services Physical Therapist. Goals and/or treatment plan was established in collaboration with patient/family/other representatives. [1] Past Medical History: Diagnosis Date 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 Breast cancer (HCC) 06/11/2024 left breast- diagnosed at [facility] Cardiac pacemaker in situ 2009 Hypertension Mixed [...] Left 06/11/2024 Left Breast US biopsy @ [facility] BREAST BIOPSY [address] [facility] BREAST BIOPSY Left 07/2024, [facility] SECTION (HISTORICAL) SECTION, LOW TRANSVERSE 09/30/90 [...] Observed: 08/27/2024 12:10 PM Status: COMPLETED Source: [facility] Report called to H6 JL robins . Patient resting comfortably and denies any needs. Transport en route. [id number] Observed: 08/27/2024 12:00 PM Status: COMPLETED Source: [facility] Patient: Dakota Sarah Procedure Summary Date: 08/27/24 Room / Location: [address] Operating Room Anesthesia Start: 956 Anesthesia [...] Observed: 08/27/2024 12:00 PM Status: COMPLETED Source: [employer] [facility] Patient: Dakota Sarah Procedure Summary Date: 08/27/24 Room / Location: [address] Operating Room Anesthesia Start: 956 Anesthesia [...] Observed: 08/27/2024 10:33 AM Status: COMPLETED Source: [employer] [place] [facility] Name/MRN: Dakota Sarah ([id number]) Date: 08/27/2024 PT orders received. Pt back to OR this date. Will follow and assess as able. Lavern Angeles, PT PROCEDURE NOTE Observed: 08/27/2024 10:20 AM Status: COMPLETED Source: [employer] [facility] Airway Date/Time: 08/27/2024 10:04 AM Reason: scheduled Airway not difficult General Information and Staff Patient location during procedure: Procedural Resident/GLASS ROLLING MACHINE OPERATOR: Michelle Seymour CRNA Performed: GLASS ROLLING MACHINE OPERATOR Patient Condition Indications for airway [...] Observed: 08/27/2024 10:00 AM Status: COMPLETED Source: [facility] Department of Plastic & Alan nstructive [...] hematoma -drain care Please contact plastic surgery rn occupational fellow with any questions/concerns D/w Dr. Luis Carlos MD PGY-7 Plastic & Reconstructive Surgery Fellow OP NOTE Observed: 08/27/2024 9:58 AM Status: COMPLETED Source: [facility] Date: 08/27/2024 Location: [facility] OR Name: Dakota Sarah, : 1960, Diagnosis Pre-op Diagnosis * Ductal carcinoma in situ (DCIS) of left breast [D05.12] Post-op Diagnosis * Ductal carcinoma in situ (DCIS) of left breast [D05.12] Procedures DEBRIDEMENT SKIN, SUBCUTANEOUS TISSUE/MUSCLE/BONE - LEFT BREAST 23336 - NV DEBRIDEMENT BONE 1ST 20 SQ CM/< Surgeons * Riccardo Said - Primary Catering Server: Rosita Carlos MD Procedure Summary Anesthesia: General ASA: III Estimated Blood Loss: 400 mL Total IV Fluids: 500 mL Drains: Closed/Suction Drain Left Breast Bulb 19 Fr. (Active) Site Description Intact 08/27/241736 Drainage Appearance Bloody 08/27/241926 Status To bulb suction 08/27/241926 Accordion/Bulb/Other Output (mL) 30 mL 08/27/241926 Staff: Bridge Instructor: Laura Covarrubias RN Relief Bridge Instructor: Domi Osborn RN Scrub Person: Iveth Terrellcar [...] This note may have been dictated using Lookback Practice Edition 2.6 and/or Fluentify Voice Recognition Feature. The document was proofread; however, unrecognized voice recognition truck caterer errors may be present. 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 No date: BREAST BIOPSY; Left Comment: 07/2024, [...] Observed: 08/27/2024 5:57 AM Status: COMPLETED Source: [place] [facility] Attestation signed by Gianna Cardona MD [...] Dispo: pending OR evacuation, likely discharge tomorrow Juan Trinidad MD PGY1, General Surgery Resident Pager # [phone] 08/27/24 CBC WITH AUTO DIFFERENTIAL Collected: 08/27/2024 4:16 AM Status: F Source: [facility] TYPE CODE TESTS RESULT OUT OF RANGE REFERENCE UNITS LAB 4343067 WBC 9.9 3.6-10.7 10*3/uL LAB 9248273 RBC 3.30 Low 3.80-5.20 10*6/uL LAB 9817765 HEMOGLOBIN 10.1 Low 11.7-16.0 g/dL LAB 8264533 HEMATOCRIT 29.4 Low 35.0-47.0 % LAB 4224212 MCV 89.1 77.0-99.0 fL LAB 8396118 MCH 30.6 26.0-34.0 pg LAB 5237505 MCHC 34.4 30.5-36.0 % LAB 2592381 RDW 13.0 11.5-15.0 % LAB 2561661 PLATELET COUNT 245 140-440 10*3/uL LAB 0778808 MPV 9.6 9.0-12.7 fL LAB 254 NRBC 0.0 0.0-2.0 /100 WBCs LAB 1315526 NEUTROPHILS RELATIVE 85.7 High 38.0-82.0 % LAB 4461098 LYMPHOCYTES RELATIVE 8.6 Low 15.0-45.0 % LAB 0911987 MONOCYTES RELATIVE 5.3 5.0-13.0 % LAB 7959932 EOSINOPHILS RELATIVE 0.0 0.0-6.0 % LAB 4872813 BASOPHILS RELATIVE 0.1 0.0-2.0 % LAB 7566079 IMMATURE GRANS % 0.3 0.0-2.0 % LAB 2549107 NEUTROPHILS ABSOLUTE 8.5 High 1.8-7.5 10*3/uL LAB 7643536 LYMPHOCYTES ABSOLUTE 0.9 Low 1.0-4.3 10*3/uL LAB 5979651 MONOCYTES ABSOLUTE 0.5 0.0-0.9 10*3/uL LAB 8602857 EOSINOPHILS ABSOLUTE 0.0 0.0-0.5 10*3/uL LAB 2767285 BASOPHILS ABSOLUTE 0.0 0.0-0.2 10*3/uL LAB 658387 IMMATURE GRANS ABSOLUTE 0.0 <0.1 10*3/uL Performed By: #### [id number] # ### Edge Stripper: SHERYL ALVARES ([id number]) [facility]) [address] [place] [address] BASIC METABOLIC PANEL Collected: 2024 4:16 AM Status: F Source: [facility] TYPE CODE TESTS RESULT OUT OF RANGE REFERENCE UNITS LAB 3384581 SODIUM 138 136-145 mmol/L LAB 6314011 POTASSIUM 4.7 3.5-5.1 mmol/L Result Comment: Plasma potas sium values may be up to 0.5 mmol/L lower than serum values. LAB 9945373 CHLORIDE 107 98-107 mmol/L LAB 3401220 CARBON DIOXIDE 25 23-31 mmol/L LAB 6417405 UREA NITROGEN 18 9-23 mg/dL LAB 8850938 CREATININE 0.76 0.57-1.11 mg/dL LAB 8502509 GLUCOSE 130 High 82-115 mg/dL LAB 2319641 CALCIUM 9.0 8.8-10.0 mg/dL LAB [id number] ANION GAP (MUSE, CALCULATED) 6 3-13 mmol/L LAB 9818169 GLOMERULAR FILTRATION RATE ML/MIN/1.73 SQ M.PREDICTED 87.6 >60.0 mL/min/1. 73m*2 Result Comment: Calculation based on the Chronic Kidney Disease Epidemiology Collaboration (CKD-EPI) equation refit without adjustment for race Performed By: #### [id number] ### # Edge Stripper: SHERYL ALVARES ([id number]) [facility] ([facility]) [address] [place] [address] 30 Observed: 08/26/2024 6:58 PM Status: COMPLETED Source: [facility] Problem: Pain - Adult Goal: Verbalizes/displays adequate comfort level or baseline comfort level Outcome: ProgressingProblem: Safety - Adult Goal: Free from fall injury Outcome: Progressing PROGRESS NOTE Observed: 08/26/2024 4:38 PM Status: COMPLETED Source: [facility] [employer] [facility] Patient sitting up eating di nner tray, VSS with daughter at bedside, call light within reach NURSING NOTE Observed: 08/26/2024 2:45 PM Status: COMPLETED Source: [facility] [employer] [facility] Family/visitor at bedside wi th patient. NURSING NOTE Observed: 08/26/2024 1:56 PM Status: COMPLETED Source: [facility] [employer] [facility] Pacemaker Rep at bedside to reset pacer for patient. NURSING NOTE Observed: 08/26/2024 1:42 PM Status: COMPLETED Source: [facility] Patient family/visitor updat ed by RN at this time. PROGRESS NOTE Observed: 08/26/2024 1:30 PM Status: COMPLETED Source: [facility] [employer] [facility] REP CALLED TO BEDSIDE TO RES ET PACER [id number] Observed: 08/26/2024 1:20 PM Status: COMPLETED Source: [facility] [employer] [facility] Patient: Dakota Sarah Procedure Summary Date: 08/26/24 Room / Location: [address] Operating Room Anesthesia Start: 1054 Anesthesia [...] Observed: 08/26/2024 1:19 PM Status: COMPLETED Source: [facility] Patient: Dakota Sarah Procedure Summary Date: 08/26/24 Room / Location: [address] Operating Room Anesthesia Start: 1054 Anesthesia [...] Observed: 12/2024 12:21 PM Status: F Source: [facility] [employer] [facility] Patient Name: DAKOTA SARAH : 1960 Exam Date/Time: 08/26/2024 11:15 Procedure: XR SURGICAL SPECIMEN IMAGE Ordering Provider: CARDONA VICTORIA Reason For Exam: BREAST BIOPSY FINDINGS: A specimen radiograph was submitted for interpretation. A specimen is submitted including multiple surgical clips along with a biopsy marker clip. I discussed these findings with the rn operating room Report Dictated on Electronically Signed By: Horace Cesar MD Electronically Signed Date/Time: 08/26/2024 12:21 PM EDT TISSUE EXAM Collected: 12:03 PM Status: C Source: [facility] TYPE CODE TESTS RESULT OUT OF RANGE REFERENCE UNITS PATHOLOGY 1499 LAB AP CASE REPORT Result Comment: Surgical Pat hology Case: [id number] Authorizing Provider: Gianna Cardona MD Collected: 08/26/2024 1203 Ordering Location: [facility] OR Received: 08/26/2024 1412 Pathologist: [...] Examined (sentinel and non-sentinel): 2 Number of Dandridge Nodes Examined: 2 PATHOLOGIC STAGE CLASSIFICATION (pTNM, [...] pTis (DCIS) Regional Lymph Nodes Modifier: (sn): Dandridge node(s) evaluated pN Category: pN0 Breast Biomarker Testing Performed on Previous Biopsy: Estrogen Receptor (ER) Status: Negative Breast Biomarker Testing Performed on Previous Biopsy: Progesterone Receptor (PgR) Status: Negative Testing Performed on Comment(s): Nutrition Professor block: B1, B4, B10 PATHOLOGY 29 LAB AP CLINICAL INFORMATION 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 They have not been cleared by the [...] of false negativity on decalcified specimens. PATHOLOGY 575884 AP CASE PATHOLOGIST INTERP LOCATION [facility], [address] [place] [address], CLIA: [id number]; Joint Commission: [id number]; CAP: [id number] PATHOLOGY EMBDOC OUTGOING CLINICAL RESULTS EMBEDDED DOCUMENT PATHOLOGY 533 LAB AP CORRECTION HISTORY Correction within synoptic report to remove distance from posterior margin since it is involved. No change to diagnosis. Performed By: #### [id number] # ### Edge Stripper: SHERYL ALVARES ([id number]) [facility] ([facility]) [address] [place] [address] PROCEDURE NOTE Observed: 08/26/2024 11:31 AM Status: COMPLETED Source: [facility] [employer] [facility] Peripheral Block Time Out: 08/26/2024 11:04 AM Patient location during procedure: Procedural Start time: 08/26/2024 11:05 AM End time: 08/26/2024 11:08 AM Reason for block: at surgeon's request and post-op pain management Staffing Performed: GLASS ROLLING MACHINE OPERATOR Resident/GLASS ROLLING MACHINE OPERATOR: Laurie Domínguez, ARTIFICIAL CANDY MAKER - GLASS ROLLING MACHINE OPERATOR Preanesthetic Checklist Completed: patient identified, IV checked, site marked, risks and benefits discussed, surgical consent, monitors and equipment checked, pre-op evaluation and timeout performed Region: [place] Primary: PEC1 (PEC 1) Secondary: PEC 2 Peripheral Block Patient position: supine Prep: ChloraPrep Patient monitoring: heart rate, head still operator, continuous pulse ox and continuous capnometry O2: [...] of toxicity and Local anesthetic injected without bxvxtyjlgyAhsjeopotoyowoQOQAWiqtzo-kmgqkkrdafe-npjxxnywcnj (TAP) syringe - Injection 25 mL - 08/26/2024 11:05:00 AM PROCEDURE NOTE Observed: 08/26/2024 11:31 AM Status: COMPLETED Source: [facility] Airway Date/Time: 08/26/2024 11:04 AM Reason: scheduled Airway not difficult General Information and Staff Patient location during procedure: Procedural Resident/GLASS ROLLING MACHINE OPERATOR: Violetta Garcia CRNA Performed: SRNA [...] Observed: 08/26/2024 10:54 AM Status: COMPLETED Source: [employer] [facility] Date: 08/26/2024 Location: [facility] OR Name: Dakota Sarah, : 1960, Diagnosis Pre-op Diagnosis * 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 Long Stitch is Lateral Staff: Bridge Instructor: Rocio Phillips RN Relief Scrub: Zulema Chowdhury Scrub Person: Rachel Frazier; Magali Contreras RN [place] to Circ: Ofe Davila RN Indications: Dakota Sarah is an 64 y.o. female who is having surgery for left breast cancer. 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 Genetic testing was negative for any [...] mm in diameter and with a clip direct service provider for any blood vessel greater than 1 [...] This note may have been dictated using Unomy Medical Practice Edition 2.6 and/or Fluentify Voice Recognition Feature. The document was proofread; however, unrecognized voice recognition truck caterer errors may be present. NOTE Observed: 08/26/2024 10:54 AM Status: COMPLETED Source: [facility] OPERATIVE NOTE Patient Name: Dakota Sarah : 1960 DATE OF PROCEDURE: 08/26/24 SURGEON: Gianna Cardona MD PREOPERATIVE DIAGNOSES: DCIS LEFT breast Cancer Staging Ductal carcinoma in situ (DCIS) of left breast Staging form: Breast, AJCC 8th Edition - Clinical stage from 07/10/2024: Stage 0 (cTis (DCIS), cN0, cM0, G2, ER-, NV-) - Signed by Gianna Cardona MD on [...] biopsy which showed ductal carcinoma in situ ER/NV negative, NV negative. She also has a pacemaker in the left chest wall and is pacemaker dependent so could not have an MRI. Repeat imaging and biopsy here also showed ductal carcinoma in situ ER-negative NV negative. She had genetic testing expanded panel [...] left pectoral block by anesthesia. The pacemaker route sales representative did come in to the [...] tolerated my portion of the procedure well. Dandridge Node Biopsy for Breast Cancer Operation performed [...] Observed: 08/26/2024 10:00 AM Status: COMPLETED Source: [place] [facility] H&P reviewed. The patient wa s examined and there are no changes to the H&P. Risks of breast surgery were explained including but not limited to bleeding, infection,seroma formation, lymphedema, arm or chest wall numbness or pain. HISTORY AND PHYSICAL NOTE Observed: 08/17 9:37 AM Status: COMPLETED Source: [facility] PLAST[facility]GERY [address] [place] [id number] Dept: [phone] Dept Patient Name: Dakota Sarah Date: 08/26/24 [...] in May 2024 that revealed DCIS at [facility]. Genetic testing is pending. 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 [facility] SECTION (HISTORICAL) GANGLION CYST EXCISION PACEMAKER (HISTORICAL) TONSILLECTOMY Her current medications list includes Current Outpatient Medications Medication Instructions aspirin 81 mg, Daily biotin 41756 MCG tablet Take by mouth. LACTOBACILLUS ACID-PECTIN [...] flaps and the possibility of using tissue certified green building engineer if the mastectomy flap shows evidence of [...] Info, History, Allergies, Detailed Report Orders Performed [facility] Closed Medication Changes None Medication List Visit Diagnoses Encounter for breast reconstruction following mastectomy Ductal carcinoma in situ (DCIS) of left breast Pacemaker 36 Observed: 08/20/2024 10:30 AM Status: COMPLETED Source: [place] [facility] I left a vmail msg for pt th at her surgery time for 08/26/24 has changed to 10am with arrival time of 8am. If she has any questions to call the office. BLOOD TYPE AND SCREEN GEL Collected: 08/19/2024 10:45 AM Status: F [facility] TYPE CODE TESTS RESULT OUT OF RANGE REFERENCE UNITS LAB 3785078 ABO GROUPING O LAB 9826927 ANTIBODY SCREEN NEG LAB 5138731 RH TYPE IN BLOOD POS Performed By: #### [id number] ## ## Edge Stripper: SHERYL ALVARES ([id number]) [facility] ([facility]) [address] [place] [address] ECG 12-LEAD Observed: 08/19/2024 10:23 AM Status: F Source: [employer] [facility] IMPRESSION: Atrial-sensed ventricular-paced complexes No previous ECG available for comparison Electronically Signed On 08-19-2024 10:23:49 EDT by Roberto Adrian ANESTHESIA NOTE Observed: 08/19/2024 10:04 AM Status: COMPLETED Source: [employer] [facility] Patient: Dakota Sarah Procedure Information Date/Time: [...] BREAST CANCER, INDOCYANINE GREEN ANGIOGRAPHY/SPY (Left) Location: [facility] OR [address] [place] [address] Operating Room Surgeons: Gianna Cardona MD; Riccardo Smith MD Relevant Problems Anesthesia (+) PONV (postoperative nausea and vomiting) Past Medical History: Past Medical History: No date: 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 06/11/2024: Breast cancer (HCC) Comment: left breast- diagnosed at [facility] No date: Cardiac pacemaker in situ Comment: [...] Left Comment: Left Breast US biopsy @ [facility] 2003: BREAST BIOPSY Comment: Excisional biopsy [facility] No date: BREAST BIOPSY; Left Comment: 07/2024, [facility] No date: SECTION (HISTORICAL) 09/30/90 & [...] Observed: 08/19/2024 9:30 AM Status: COMPLETED Source: [facility] ADVANCED CARE PLANNING Dakota Sarah : 1960 Primary Care Physician: Marysol Bennett MD The patient and/or family/surrogate voluntarily agreed to participate in ACP services. Patient?s cognitive capacity: A&O x3 Code Status: [x] [FULL CODE - Continue all advanced life support: CPR,intubation,invasive procedures] [_] [DNR-CCA - DO NOT do CPR, intubation] [_] [DNR-SHREDDED FILLER CUTTER OPERATOR - Comfort care only] [_] DNR form [...] patient and/or family/surrogate. Michelle Navarro APRN - DIRECTOR OF COMMUNITY SERVICES [facility] care [facility] 08/19/2024, 10:44 AM HISTORY AND PHYSICAL NOTE Observed: 05/2024 9:30 AM Status: COMPLETED Source: [facility] Comprehensive Pre Surgical H istory and [...] ICG ANGIOGRAPHY/SPY (Left) LIPOSUCTION, TORSO (Left) Location: [address] Operating Room Surgeons: Gianna Cardona MD; [...] who we are asked to see/evaluate by [place] [address] for pre-operative evaluation prior to ? Case: [id number] Date/Time: 08/26/24 1130 Procedures: LEFT SIMPLE MASTECTOMY (Left: Breast) [93574 CPT(R)] - LOLY 150 MINS LUIS 60 MINS NUCLEAR MEDICINE APPT NEEDED-SENTINEL INJECTION IN OR IDENTIFICATION LYMPH NODE, SENTINEL, INTRAOPERATIVE (Left: Axilla) [73171 CPT(R)] SENTINEL LYMPH NODE BIOPSY (Left: Axilla) [64894 CPT(R)] X-RAY, SURGICAL SPECIMEN, BREAST (Left) [40857 CPT(R)] LEFT BREAST COMPLEX CLOSURE, POSSIBLE LEFT AXILLA LIPECTOMY FOR LEFT BREAST CANCER, ICG ANGIOGRAPHY/SPY (Left) [55856 CPT(R)] LIPOSUCTION, TORSO (Left) [92513 CPT(R)] Anesthesia type: General From last office visit with Dr. Cardona on 08/06/24 : Dakota Sarah is a 64 y.o. female here to discuss upcoming mastectomy for LEFT sided DCIS ( 2 biopsies showed DCIS ER- NV-) Due to her pacemaker on there left [...] History: No date: 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 06/11/2024: Breast cancer (HCC) Comment: left breast- diagnosed at [facility] No date: Cardiac pacemaker in situ Comment: [...] Left Comment: Left Breast US biopsy @ [facility] 2002: BREAST BIOPSY Comment: [facility] No date: BREAST BIOPSY; Left Comment: 07/2024, [...] QT Interval 421 QTC Interval 456 P [employer] 52 QRS [employer] -93 T Wave [employer] 60 NV Interval 182 Impression Atrial-sensed ventricular-paced complexes No [...] (Patient not taking: Reported on 08/19/2024) biotin 35142 MCG tablet Take by mouth. (Patient not [...] DS Cancer Other Paternal & Maternal Aunts [id number] Observed: 08/19/2024 9:30 AM Status: COMPLETED Source: [employer] [facility] Medication List Accurate as of August 19, 2024 10:10 AM. Always use your most recent med list. aspirin 81 MG EC tablet Notes to patient: NOT TAKING biotin 56024 MCG tablet Notes to patient: NOT TAKING [...] please opt for a zero sugar fluid. MARKETING PERFORMANCE ANALYST AND PARKING IN THE MAIN DECK ARE [...] Observed: 05/2024 9:30 AM Status: COMPLETED Source: [facility] Comprehensive Pre Surgical H istory and [...] ICG ANGIOGRAPHY/SPY (Left) LIPOSUCTION, TORSO (Left) Location: [facility] OR [address] [place] [address] Operating Room Surgeons: Gianna Cardona MD; Riccardo [...] who we are asked to see/evaluate by [facility] NEELIMA for pre-operative evaluation prior to ? Case: [id number] Date/Time: 08/26/24 1130 Procedures: LEFT SIMPLE MASTECTOMY (Left: Breast) [94700 CPT(R)] - LOLY 150 MINS LUIS 60 MINS NUCLEAR MEDICINE APPT NEEDED-SENTINEL INJECTION IN OR IDENTIFICATION LYMPH NODE, SENTINEL, INTRAOPERATIVE (Left: Axilla) [48883 CPT(R)] SENTINEL LYMPH NODE BIOPSY (Left: Axilla) [74493 CPT(R)] X-RAY, SURGICAL SPECIMEN, BREAST (Left) [01575 CPT(R)] LEFT BREAST COMPLEX CLOSURE, POSSIBLE LEFT AXILLA LIPECTOMY FOR LEFT BREAST CANCER, ICG ANGIOGRAPHY/SPY (Left) [42147 CPT(R)] LIPOSUCTION, TORSO (Left) [45182 CPT(R)] Anesthesia type: General From last office visit with Dr. Cardona on 08/06/24 : Dakota Sarah is a 64 y.o. female here to discuss upcoming mastectomy for LEFT sided DCIS ( 2 biopsies showed DCIS ER- NV-) Due to her pacemaker on there left [...] History: No date: 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 06/11/2024: Breast cancer (HCC) Comment: left breast- diagnosed at [facility] No date: Cardiac pacemaker in situ Comment: [...] Left Comment: Left Breast US biopsy @ [facility] 2002: BREAST BIOPSY Comment: [facility] No date: BREAST BIOPSY; Left Comment: 07/2024, [...] QT Interval 421 QTC Interval 456 P [employer] 52 QRS [employer] -93 T Wave [employer] 60 NV Interval 182 Impression Atrial-sensed ventricular-paced complexes No [...] (Patient not taking: Reported on 08/19/2024) biotin 45665 MCG tablet Take by mouth. (Patient not [...] Observed: 08/19/2024 8:30 AM Status: COMPLETED Source: [facility] Breast Center Functional Ass essment Survivorship [...] 5/5 Wrist Flexion 5/5 Wrist Extension 5/5 Electrical Power Station Technician Strength 29 kg Left Range of Motion [...] 5/5 Wrist Flexion 5/5 Wrist Extension 5/5 Electrical Power Station Technician Strength 25 kg Upper Extremity Comments: Lower [...] Observed: 08/12/2024 4:08 PM Status: COMPLETED Source: [facility] Pt had returned a call to [facility] office. I called her and informed her [...] Observed: 08/08/2024 3:21 PM Status: COMPLETED Source: [facility] [place] genetic BRCA plus resu lt received, scanned to pt chart and forwarded to [facility] providers. I attempted to call pt to inform her of revised report, unable to reach her. LM on with request for call back This is a revised report with provider corrected. Copy mailed to the pt PROGRESS NOTE Observed: 08/06/2024 3:30 PM Status: COMPLETED Source: [facility] Chief Complaint Patient presents with Cancer Treatment Planning Re-discuss treatment planning History of Present Illness: Dakota Sarah is a 64 y.o. female here to discuss upcoming mastectomy for LEFT sided DCIS ( 2 biopsies showed DCIS ER- NV-) Due to her pacemaker on there left [...] 0 (cTis (DCIS), cN0, cM0, G2, ER-, NV-) - Signed by Gianna Cardona MD on [...] cleared (test / vendor): [employer] Anti-Progesterone Receptor (NV) Rabbit Monoclonal Antibody/Nohemy Primary Antibody 1E2 Scoring [...] in the MLO view and outside the mxbnq-bm-mctd in the cc projection. No hematoma is identified on post procedure mammography. Markings on images: BB's = Nipples; skin lesions Open [place] = Palpable Line = Scar Report Dictated on Electronically Signed By: Laurie Reed MD Electronically Signed Date/Time: 07/17/2024 3:23 PM EDT Lt Surg Trtmnt Pathology Addended by Laurie Reed MD on 07/21/2024 2:57 PM 06/11/2024-Biopsy- [facility] of Systems: Review of [...] 0 (cTis (DCIS), cN0, cM0, G2, ER-, NV-) - Signed by Gianna Cardona MD on [...] Orders Placed This Encounter Procedures NM Injection Dandridge Node Culturally appropriate shared decision making was used to determine optimal course of workup and treatment for this patient. Patient demonstrates understanding of and agreement with the above plan of care. All questions have been answered to her satisfaction. Gainna Cardona MD 08/06/2024 Please disregard any typographical errors. This note was dictated using voice recognition software. [1] Past Medical History: Diagnosis Date 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 Breast cancer (HCC) 06/11/2024 left breast- diagnosed at [facility] Cardiac pacemaker in situ Hypertension Mixed hyperlipidemia Other specified heart block [2] Past Surgical History: Procedure Laterality Date BREAST BIOPSY Left 06/11/2024 Left Breast US biopsy @ [facility] BREAST BIOPSY [address] [facility] SECTION (HISTORICAL) GANGLION CYST EXCISION PACEMAKER (HISTORICAL) [...] Reported on 07/11/2024), Disp: , Rfl: biotin 89483 MCG tablet, Take by mouth. (Patient not taking: Reported on 07/11/2024), Disp: , Rfl: OFFICE VISIT Observed: 08/06/2024 3:30 PM Status: COMPLETED Source: [facility] [id number] Dakota Sarah Zina F Date Provider Department Center 08/06/2024 50688-KZIGIANNA CARDONA [facility] None Family History Problem Relation [...] Sister Maternal Grandmother Paternal Grandmother Level of Service:66452 [place] OFFICE/OUTPATIENT ESTABLISHED LOW MDM 20 MIN Reason for Visit and Comments: Cancer Treatment Planning [712] - Re-discuss treatment planning PROGRESS NOTE Observed: 08/06/2024 3:30 PM Status: COMPLETED Source: [facility] I met with pt and her [...] Pt is aware of section in her [facility] binder with post op stretching and exercises. I also provided pt with contact number for [facility] to discuss her billing questions further, 36 Observed: 08/01/2024 2:45 PM Status: COMPLETED Source: [facility] Surgery scheduled for 5. She has a follow up appt 5/21/25 to discuss surgery. I called and confirmed surgery information with pt. I advised her that I would give her some additional information at appt. Pt states her understanding. 36 Observed: 08/01/2024 7:39 AM Status: COMPLETED Source: [facility] ----- Message from Riccardo lilly MD [...] Observed: 07/31/2024 2:42 PM Status: COMPLETED Source: [facility] ----- Message from Riccardo lilly MD [...] Observed: 07/31/2024 2:00 PM Status: COMPLETED Source: [facility] Case# Procedure: LEFT BREAST COMPLEX CLOSURE POSSIBLE LEFT AXILLA LIPECTOMY FOR LEFT BREAST CANCER. ICG ANGIOGRAPHY/SPY Sx Date: 08/26 Time: 2 HOURS Location: [facility] Anesthesia: GENERAL CPT: 06890, 15681, 93875, 69414 ICD-10: D05.12 Special Equipment: ICG ANGIOGRAPHY/SPY PAT: Submitted auth thru insurance portal, awaiting determination. INSURANCE DENIED CODE 96335, CALLED TO SCHEDULE [id number] 08/12 [id number] SCHEDULED 08/15 AT 12:00 WITH NEHEMIAS. PHONE NUMBER TO CALL IS , CASE # IS [id number] AUTH APPROVAL #[id number] 36 Observed: 07/31/2024 2:00 PM Status: COMPLETED Source: [facility] ----- Message from Riccardo lilly MD [...] Observed: 07/30/2024 12:45 PM Status: COMPLETED Source: [facility] Patient was identified and s een [...] stated that they are currently in the [facility]. Patient with a significant history of [...] This note may have been dictated using Un[employer] Medical Practice Edition 2.6 and/or Fluentify Voice Recognition Feature. The document was proofread; however, unrecognized voice recognition truck caterer errors may be present. 36 Observed: 07/29/2024 1:08 PM Status: COMPLETED Source: [facility] Spoke with patient about her + [...] Observed: 07/29/2024 12:23 PM Status: COMPLETED Source: [facility] genetic final result r eceived, scanned to pt chart and forwarded to [facility] providers for review. 36 Observed: 07/28/2024 3:05 PM Status: COMPLETED Source: [facility] Yes- she needs drain teachin g and wants to go over surgery again Need to coordinate with pacemaker issue 36 Observed: 07/25/2024 4:37 PM Status: COMPLETED Source: [facility] Spoke to patient and mastect iliana recommend from TB unless she wants to move pacemaker ( whichs she does not want to do) We will need to contact Dr. Donal Trammell office once surgery date known for pacemaker rep to change the setting on her pacemaker preop and postop 36 Observed: 07/25/2024 4:23 PM Status: COMPLETED Source: [facility] I spoke with pt today about her cardiology appt. And made her a f/up appt with Dr Salcido. Pt would like to proceed with flat closure if tumor board still recommended a mastectomy. She would like to discuss further with you. Please call the pt. Thank 36 Observed: 07/25/2024 4:18 PM Status: COMPLETED Source: [facility] [employer] [facility] TREATMENT PLANNING APPT MADE FOR 08/06/2024 @ 330PM. Pt is questioning the outcome of tumor board today. What was discussed? Lumpectomy vs mastectomy has anything changed with that. Pt wants to have a flat closure only if she needs a mastectomy . She left a msg at Dr Smith office with this information. OFFICE VISIT Observed: 07/25/2024 9:30 AM Status: COMPLETED Source: [facility] [id number] Dakota Sarah F Date Provider Department Center 07/25/2024 87127-VHJRBDONAL TRAMMELL [facility] [address] [...] Sister Maternal Grandmother Paternal Grandmother Level of Service:39798 [place] OFFICE/OUTPATIENT NEW MODERATE MDM 45 MINUTES Reason for Visit and Comments: New Patient [542] Pre-op Exam [741345] Abnormal ECG [293] - Mobitz type II, PPM PROGRESS NOTE Observed: 07/25/2024 9:30 AM Status: COMPLETED Source: [facility] Cardiology Note Chief Complaint: Chief Complaint Patient presents with New Patient Pre-op Exam Abnormal ECG Mobitz type II, PPM History of Present Illness: Dakota Saarh is a 64 y.o. female presents to [facility] for EP care. She is a very pleasant 64-year-old who in 2009 had type II second-degree AV block. She was at [facility] transfer to [facility]. These records are not available for review [...] by Dr. CUEVAS and was followed in [place]. She is now transitioning care to [facility]. 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 [facility] SECTION (HISTORICAL) GANGLION CYST EXCISION PACEMAKER (HISTORICAL) [...] Reported on 07/11/2024), Disp: , Rfl: biotin 75971 MCG tablet, Take by mouth. (Patient not [...] conduction system with a full workup at [facility] many years ago. She is pacemaker dependent. [...] changed to DOO mode for the surgery. [id number] Observed: 07/25/2024 7:40 AM Status: COMPLETED Source: [facility] Cons[facility]ation Summary Privileged Information TUMOR BOARD CLINICAL SUMMARY Basic Demographic Information Dakota Sarah 1960 64 y.o. [id number] Presentation Date and Presenting Physician Date of presentation (mm/dd/yyyy): 07/25/2024 Presenting physician: Dr. Cardona Presentation Type [x] Prospective [] Other Brief Clinical Summary 64 y.o. female here for second opinion from [facility] She had screening mammogram October 2023 [...] left axilla PATHOLOGY FROM BIOPSY COMPLETED AT [facility] 06/11/24: Final Diagnosis OUTSIDE CASE REVIEW - [facility] ([id number]) MICROSCOPIC DIAGNOSIS A. LEFT BREAST MASS, 1:00, [...] as expected PATHOLOGY FROM REPEAT BIOPSY AT [facility] 07/17/2024: Final Diagnosis LEFT BREAST, 1:00, [...] 0 (cTis (DCIS), cN0, cM0, G2, ER-, NV-) - Signed by Gianna Cardona MD on [...] biopsy give above situation. 4) Referral to [employer] cardiology per pt request to establish and [...] Observed: 07/24/2024 3:31 PM Status: COMPLETED Source: [facility] to [facility] thong lilly requested last interrogation. I asked for an email and fax copy. She did inform me the patient's visit from June was just a 1/2 office note but last interrogation is from October 2023. Once received I will give a copy to [facility] for review along with transferring over to [employer]. 36 Observed: 07/24/2024 2:53 PM Status: COMPLETED Source: [facility] Patient is notified of appt prior to [facility]. Implant sheet requested and will download into [employer] once received. 36 Observed: 07/24/2024 2:30 PM Status: COMPLETED Source: [facility] to patient. She has a STJ PPM, gen change on 03.10.2019 at [facility]. Last device check 06.19.24. Toyin is going to double check with [facility] if he wants to review a device check prior to his appt with our device nurse, primarily because there are no reports that I can find. Patient is okay with coming in early for DC. She has no remote box since all device check visits were Clinic. 36 Observed: 07/24/2024 1:44 PM Status: COMPLETED Source: [facility] Patient added as NUTRITIONIST appointm ent tomorrow 07/25/24 with CHIARA, has PPM hx of mobitz 2nd degree AV block, has left sided breast cancer and may require masectomy, establishing with our office and device clinic. 36 Observed: 07/24/2024 1:35 PM Status: COMPLETED Source: [facility] Name of caller: Dakota Contact phone number: [phone] Relationship to Patient: patient Provider: Dr Julee [...] Observed: 07/23/2024 4:37 PM Status: COMPLETED Source: [facility] Received message from Dr. 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 Patients current appointment is with Dr. Osorio in [place] on 07/25 at 3pm. New order placed for EP cardiology and I called over to the new patient scheduling line for [facility] [phone]. Message left for Daya requesting new appointment. Will follow-up tomorrow. Update: Patient now scheduled to see Device clinic 07/[address] Trammell 07/25 at 9:30 on the [facility] campus. Dakota is aware of the change. Will continue to monitor and assist as needed. PROGRESS NOTE Observed: 07/23/2024 4:35 PM Status: COMPLETED Source: [facility] Pathology slides that were r brijeshested 06/11/24 have now arrived are available in [facility] with [facility] interpretation. 36 Observed: 07/23/2024 3:39 PM Status: COMPLETED Source: [facility] Patient called in about text from [facility] about her copay amount of 249$. We did fill out paperwork for income under 79,000, so will send a email to [facility] Wilcox about this to check and provide more support. 36 Observed: 07/22/2024 5:18 PM Status: COMPLETED Source: [facility] I called [facility] to request th at provider name be changed on pt genetic reports to Abdiaziz Hicks NP, the provider who met with pt for genetic counseling visit. [facility] nagy stated that they will make the change and will send revised report. 36 Observed: 07/22/2024 10:38 AM Status: COMPLETED Source: [facility] genetic BRCa plus resu lt received, scanned to pt chart and forwarded to [facility] providers. I called pt and informed her of negative result. Will await final genetic report. BI US GUIDED BREAST BIOPSY LEFT Observed: 07/21/2024 2:57 PM Status: F Source: [facility] Patient Name: DAKOTA SARAH : 1960 [...] in the MLO view and outside the [id number]-yv-dpgm in the cc projection. No hematoma is identified on post procedure mammography. Markings on images: BB's = Nipples; skin lesions Open [place] = Palpable Line = Scar Report Dictated [...] in the MLO view and outside the [id number]-dv-ibcv in the cc projection. No hematoma is identified on post procedure mammography. Markings on images: BB's = Nipples; skin lesions Open [place] = Palpable Line = Scar Report Dictated on Electronically Signed By: Laurie Reed MD Electronically Signed Date/Time: 07/17/2024 3:23 PM EDT 36 Observed: 07/21/2024 1:35 PM Status: COMPLETED Source: [facility] Spoke with patient about her repeated left breast biopsy that again revealed DCIS. The hormone receptors are not returned yet and will call once they are completed. She has not been contacted by cardiology yet and we discussed that when she goes to [facility] for surgical clearance they can get this [...] Observed: 07/18/2024 9:58 AM Status: COMPLETED Source: [facility] Dakota Sarah 1960 Are you having [...] EXAM Collected: 2:53 PM Status: F Source: [facility] TYPE CODE TESTS RESULT OUT OF RANGE REFERENCE UNITS PATHOLOGY 1499 LAB AP CASE REPORT Result Comment: Surgical Pat hology Case: [id number] Authorizing Provider: Gianna Cardona MD Collected: 07/17/2024 1613 Ordering Location: [facility] Breast Received: 07/18/2024 0730 Center Pathologist: Jose [...] of left breast - N63.21 [ICD-10-CM] PATHOLOGY [id number] LAB AP HISTO GROSS DESCRIPTION Received in [...] characteristics determined by the clinical laboratories of [facility]. They have not been cleared by the [...] of false negativity on decalcified specimens. PATHOLOGY 405884 AP CASE PATHOLOGIST INTERP LOCATION [facility], [address] [place] [address] 10[address], CLIA: [id number]; Joint Commission: [id number]; CAP: [id number] PATHOLOGY EMBDOC OUTGOING CLINICAL RESULTS EMBEDDED DOCUMENT [...] cleared (test / vendor): CONFIRM Anti-Progesterone Receptor (NV) Rabbit Monoclonal Antibody/Onhemy Primary Antibody: 1E2 Scoring System: No separate scoring system used Cold Ischemia and Fixation Times: Meet requirements specified in latest version of the ASCO / CAP Guidelines METHODS Fixative: Formalin Comment(s): Quality Review Performed by: RANULFO Performed By: #### [id number] # ### Edge Stripper: SHERYL ALVARES ([id number]) [facility] ([address] PROCEDURE NOTE Observed: 07/17/2024 2:30 PM Status: COMPLETED Source: [facility] [employer] [facility] Local Anesthesia: [x]Lidocaine 1% Total Dose Given 10mL Probe Used: 14 GAUGE (ACHIEVE) Specimen: [x] Specimen A LEFT Position: 1:00 8 CM FN Samples 4 Lot Number [id number] Shape: Tumark Q Post Mammo [x] Yes [] No EDURE NOTE Observed: 07/17/2024 2:30 PM Status: COMPLETED Source: [facility] Patient Name: Dakota Sarah Date of [...] *[] Patient instructed if bleeding noted to [place] the bleeding with a marking pen and note if bleeding goes beyond the [place] *[] If patient notes bleeding continues, the [...] the dressing at the biopsy site, please [place] the mass or lump with a pen and check frequently for any increase in size outside of the [place]. Please call the Breast Center at the number provided *[] If patient taking blood thinners, instructed to take as directed by ordering provider Discharge: Time: 1520 Accompanied by: [x] Self [] Family/friend [] Attendant [] Other, explain To: [x] Home [] Skilled Care Facility [] Hospital Inpatient [] Other, explain RESS NOTE Observed: 07/17/2024 2:22 PM Status: COMPLETED [facility] Pathology also shows DCIS She will need surgery first: LEFT mastectomy with SLNB LEFT axilla Flat closure with Said I placed referral to cardiology ( pacemaker) and they have not scheduled yet- this needs scheduled preop She also wants another appt here to go over surgery 36 Observed: 07/16/2024 4:08 PM Status: COMPLETED Source: [facility] [employer] [facility] I left a vmail for pt. I nee d her to sign pathology slide release form tomorrow when she comes for her additional bx. I asked that she stop by front office specialist 07/22 to sign for me. If she has any questions to please call me. XR CHEST 2 VIEWS Observed: 07/16/2024 12:39 PM Status: F Source: [facility] [employer] [facility] Patient Name: DAKOTA SARAH : 1960 [...] Observed: 07/16/2024 11:00 AM Status: COMPLETED Source: [facility] Left voice message to remind of upcoming [...] Observed: 07/16/2024 11:00 AM Status: COMPLETED Source: [facility] *Leads 15 years old, device was change [...] Observed: 07/16/2024 11:00 AM Status: COMPLETED Source: [facility] [id number] Dakota Sarah F Date Provider Department Center 07/16/2024 67472-OZPOR[facility]ARDO [employer] [employer] None Family History Problem [...] Sister Maternal Grandmother Paternal Grandmother Level of Service:68283 [place] OFFICE/OUTPATIENT NEW MODERATE MDM 45 MINUTES Reason for Visit and Comments: New Patient [542] - Left breast cancer DCIS. Has a pacemaker heart block PROGRESS NOTE Observed: 07/16/2024 11:00 AM Status: COMPLETED Source: [facility] Dear Dr. Salcido, Thank you very [...] in May 2024 that revealed DCIS at [facility]. Genetic testing is pending. 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 [facility] SECTION (HISTORICAL) GANGLION CYST EXCISION PACEMAKER (HISTORICAL) TONSILLECTOMY Her current medications list includes Current Outpatient Medications Medication Instructions aspirin 81 mg, Daily biotin 73090 MCG tablet Take by mouth. LACTOBACILLUS ACID-PECTIN [...] flaps and the possibility of using tissue certified green building engineer if the mastectomy flap shows evidence of [...] Provided information on breat cancer grants of [facility], Tracie Edouard, Sandy Deng, and Carie Nicci. Along with information on [facility] and this workers contact information. Encouraged pt to reach out to this worker with any concerns/needs moving forward. PROGRESS NOTE Observed: 07/15/2024 2:28 PM Status: COMPLETED Source: [facility] Received a phone call from Casper varela requesting referral to social services director regarding breast grants as well as information about her surgery. Discussed that I would send her information over to the social services director who would reach out to her about the grants. Answered patient questions about surgery and antibacterial showering prior to surgery. Will continue to monitor and assist as needed. CBC (HEMOGRAM) Collected: 07/14/2024 1:23 PM Status: F Source: [facility] TYPE CODE TESTS RESULT OUT OF RANGE REFERENCE UNITS LAB [id number] WBC 4.9 3.6-10.7 10*3/uL LAB 6959124 RBC 4.36 3.80-5.20 10*6/uL LAB 2530824 HEMOGLOBIN 13.2 11.7-16.0 g/dL LAB 1818143 HEMATOCRIT 39.5 35.0-47.0 % LAB 3600487 MCV 90.6 77.0-99.0 fL LAB 8513919 MCH 30.3 26.0-34.0 pg LAB 5033098 MCHC 33.4 30.5-36.0 % LAB 8602335 RDW 13.1 11.5-15.0 % LAB 4418822 PLATELET COUNT 284 140-440 10*3/uL LAB 9564918 MPV 10.3 9.0-12.7 fL Performed By: #### [id number] ## ## Edge Stripper: SHERYL ALVARES ([id number]) [facility] ([facility]) [address] [place] [address] COMPREHENSIVE METABOLIC PANEL Collected: 07/14/2024 1 :23 PM Status: F Source: [facility] TYPE CODE TESTS RESULT OUT OF RANGE REFERENCE UNITS LAB 9849398 SODIUM 140 136-145 mmol/L LAB 6507578 POTASSIUM 4.4 3.5-5.1 mmol/L Result Comment: Plasma potas sium values may be up to 0.5 mmol/L lower than serum values. LAB 7143022 CHLORIDE 104 98-107 mmol/L LAB 0777182 CARBON DIOXIDE 28 23-31 mmol/L LAB [id number] ANION GAP (MUSE, CALCULATED) 8 3-13 mmol/L LAB 0938624 UREA NITROGEN 27 High 9-23 mg/dL LAB 3812291 CREATININE 0.77 0.57-1.11 mg/dL LAB 9857252 GLUCOSE 73 Low 82-115 mg/dL LAB 2383870 CALCIUM 9.6 8.8-10.0 mg/dL LAB 3191629 AST (SGOT) 29 <34 U/L LAB 0810779 ALT 17 <30 U/L LAB 6133942 ALKALINE PHOSPHATASE 96 40-150 U/L LAB 4199297 ALBUMIN 4.2 3.4-4.8 g/dL LAB 9121153 BILIRUBIN, TOTAL 0.5 <1.2 mg/dL LAB 2073663 TOTAL PROTEIN 7.1 6.4-8.3 g/dL LAB 1454263 GLOMERULAR FILTRATION RATE ML/MIN/1.73 SQ M.PREDICTED 86.3 >60.0 mL/min/1. 73m*2 Result Comment: Calculation based on the Chronic Kidney Disease Epidemiology Collaboration (CKD-EPI) equation refit without adjustment for race Performed By: #### [id number] ### # Edge Stripper: SHERYL ALVARES ([id number]) [address] PROGRESS NOTE Observed: 07/14/2024 9:33 AM Status: COMPLETED Source: [facility] Breast Imaging Nurse Navigat or Note [...] Observed: 07/11/2024 2:48 PM Status: COMPLETED Source: [facility] [employer] [facility] Met with patient and spouse Schuyler for [...] including but not limited to financial navigator, social services director, dietitian, psychologist, renewal nook, massage therapy and wig salon. Discussed support groups available through [facility] and at [facility]. Encouraged patient to explore [facility] website for available options including exercise classes. [...] surgery they will be evaluated by an athletic field custodian with a functional assessment to determine if [...] Observed: 07/11/2024 2:30 PM Status: COMPLETED Source: [facility] Paula Hicks ARTIFICIAL CANDY MAKER 07/11/2024 at 3:[address] [facility] [address] [facility] [address] [facility] [address] Dept: [phone] Dept Loc: [phone] Dakota Sarah is a 64 y.o. F here for genetic counseling. HPI Breast History: 1. Patient is here for genetic counseling. She recently had a left breast biopsy that is + for DCIS and ER- NV- diagnosed on 06/19/2024 at [facility]. She is here today to discuss diagnosis [...] and family history have been reviewed. 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 Surgical History includes : Past Surgical History: Procedure Laterality Date BREAST BIOPSY Left 06/11/2024 Left Breast US biopsy @ [facility] BREAST BIOPSY [address] [facility] SECTION (HISTORICAL) GANGLION CYST EXCISION PACEMAKER (HISTORICAL) TONSILLECTOMY Medications include: Current Outpatient Medications Medication Sig Dispense Refill aspirin 81 MG EC tablet Take 81 mg by mouth daily. (Patient not taking: Reported on 07/11/2024) biotin 51142 MCG tablet Take by mouth. (Patient not [...] If it goes over $100 the maximum yla-lf-zgjtee would be $250 and if this occurs [...] outside biopsy completed with diagnosis and ER- NV- Family history of ovarian cancer - patient [...] for this patient. Paula Hicks, SHAHID - DIRECTOR OF COMMUNITY SERVICES 07/11/24 Please disregard any typographical errors. This note was dictated using voice recognition software. PROGRESS NOTE Observed: 07/11/2024 2:30 PM Status: COMPLETED Source: [facility] Genetics paperwork signes. L eft AC prepped with alcohol after tourniquet applied. #23F butterfly needle used to access vein on first attempt. 2 vials of blood were drawn. Tourniquet removed and needle retracted. Direct pressure applied to venipuncture site until bleeding stopped. Band aid applied to site. Patient tolerated procedure without problems. OFFICE VISIT Observed: 07/11/2024 2:30 PM Status: COMPLETED Source: [facility] [id number] Dakota Sarah Zina Date Provider Department Center 07/11/2024 63016-OWXKPAULA MENEZES [facility] None Family History Problem Relation [...] Sister Maternal Grandmother Paternal Grandmother Level of Service:88529 [place] POSTOP FOLLOW UP VISIT RELATED TO ORIGINAL PX Reason for Visit and Comments: Breast Cancer [302] - Genetic testing OFFICE VISIT Observed: 07/11/2024 1:15 PM Status: COMPLETED Source: [facility] [id number] Dakota Sarahe Date Provider Department Center 07/11/2024 67252-SFTGIANNA RIVERA [facility] None Family History Problem Relation [...] Sister Maternal Grandmother Paternal Grandmother Level of Service:23263 [place] OFFICE/OUTPATIENT NEW MODERATE MDM 45 MINUTES Reason for Visit and Comments: Cancer Treatment Planning [712] - Treatment planning 29 Observed: 07/11/2024 1:15 PM Status: COMPLETED Source: [facility] Addended by: ANGELINE CHOWDHURY on: 07/14/2024 12:47 PM Modules accepted: Orders PROGRESS NOTE Observed: 07/11/2024 1:15 PM Status: COMPLETED Source: [facility] Chief Complaint Patient presents with Cancer Treatment Planning Treatment planning History of Present Illness: Dakota Sarah is a 64 y.o. female here for second opinion from [facility] She had screening mammogram October 2023 [...] axilla Pathology: Imagin06/11/2024-Biopsy- In Office- Dr. Fish- [facility] Review of Systems: Review of Systems [...] History: Diagnosis Date 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 Breast cancer (HCC) 06/11/2024 left breast- diagnosed at [facility] Cardiac pacemaker in situ Hypertension Mixed hyperlipidemia Other specified heart block Past Surgical History: Procedure Laterality Date BREAST BIOPSY Left 06/11/2024 Left Breast US biopsy @ [facility] BREAST BIOPSY [address] [facility] SECTION (HISTORICAL) GANGLION CYST EXCISION PACEMAKER (HISTORICAL) [...] Reported on 07/11/2024), Disp: , Rfl: biotin 53998 MCG tablet, Take by mouth. (Patient not [...] Observed: 07/08/2024 8:50 AM Status: COMPLETED Source: [facility] Appt 07/11/2024 Films obtained from [employer] and will be merged into [employer] chart by Film room. 36 Observed: 07/04/2024 1:10 PM Status: COMPLETED Source: [facility] Records received from [employer] by [employer] r-will scan into [facility]. Sent request to obtain films from [employer]. ALLERGIES No Allergies Records Found ENCOUNTERS ADMIT/DISCHARGE ACCOUNT NUMBER ADMITTING ENCOUNTER CLASS LOC ATION SOURCE 11/25/2024/ 5 [id number] Ambulatory Buildin [id number] [facility] 10/28/2024/ 5 [id number] Ambulatory Buildin [id number] [facility] 10/27/2024/ 5 [id number] Ambulatory Buildin [id number] [facility] 10/07/2024/ 5 [id number] Ambulatory Buildin [id number] [facility] 10/03/2024/ 5 [id number] Ambulatory Buildin [id number] [facility] 09/16/2024/ 5 [id number] Ambulatory Buildin [id number] [facility] 09/12/2024/ 5 [id number] Ambulatory Buildin [id number] [facility] 09/10/2024/ 5 [id number] Ambulatory Buildin [id number] [facility] 09/03/2024/ 5 [id number] Ambulatory Buildin [id number] [facility] 08/26/2024/ 5 [id number] Ambulatory Buildin [id number] [facility] 08/26/2024/ 5 [id number] GIANNA CARDONA Inpatient Encounter Buildin [id number]: [facility] H-6125Bed: H-6125 A [facility] 08/19/2024/ 5 [id number] Ambulatory Buildin [id number] [facility] 08/19/2024/ 5 [id number] Ambulatory Buildin [id number] [facility] 08/06/2024/ 5 [id number] Ambulatory Buildin [id number] [facility] 07/30/2024/ 5 [id number] Ambulatory Buildin [id number] [facility] 07/25/2024/ 5 [id number] Ambulatory Buildin [id number] [facility] 07/25/2024/ 5 [id number] Ambulatory Buildin [id number] [facility] 07/17/2024/ 5 [id number] Ambulatory Buildin [id number] [facility] 07/17/2024/ 5 [id number] Ambulatory Buildin [id number] [facility] 07/16/2024/ 5 [id number] Ambulatory Buildin [id number] [facility] 07/14/2024/ 5 [id number] Ambulatory Buildin [id number] [facility] 07/14/2024/ 5 [id number] Ambulatory Buildin [id number] [facility] 07/11/2024/ 5 [id number] Ambulatory Buildin [id number] [facility] 07/11/2024/ 5 [id number] Ambulatory Buildin [id number] [facility] PAYERS ENCOUNTER GUARANTOR PAYER SUBSCRIBER SOURCE 11/25/2024 Primary Insurance:MEDICAL MUTUALPolicy Number: [id number] Date:7062-34-52Uawj Name:Hayden VALENZUELAOB: [id number] [place] [address] [facility] 10/28/2024 Primary Insurance:MEDICAL MUTUALPolicy Number: [id number] Date:8043-13-16Plrm Name:Commercial DAKOTA HUIISDOB: [id number] [place] [address] [facility] 10/27/2024 Primary Insurance:MEDICAL MUTUALPolicy Number: [id number] Date:5486-20-35Ijhn Name:Commercial DAKOTA JOYCE KREISDOB: [id number] [place] [address] [facility] 10/07/2024 Primary Insurance:MEDICAL MUTUALPolicy Number: [id number] Date:7706-18-57Dqnt Name:Commercial DAKOTA JOYCE KREISDOB: [id number] [place] [address] [facility] 10/03/2024 Primary Insurance:MEDICAL MUTUALPolicy Number: [id number] Date:1585-72-21Hfqn Name:Commercial DAKOTA JOYCE KREISDOB: [id number] [place] [address] [facility] 09/16/2024 Primary Insurance:MEDICAL MUTUALPolicy Number: [id number] Date:6516-68-72Dpwt Name:Commercial DAKTOA HUIISDOB: [id number] [place] [address] [facility] 09/12/2024 Primary Insurance:MEDICAL MUTUALPolicy Number: [id number] Date:6818-18-13Lngz Name:Commercial DAKOTA HUIISDOB: [id number] [place] [address] [facility] 09/10/2024 Primary Insurance:MEDICAL MUTUALPolicy Number: [id number] Date:8293-05-19Ctsx Name:Commercial DAKOTA HUIISDOB: [id number] [place] [address] [facility] 09/03/2024 Primary Insurance:MEDICAL MUTUALPolicy Number: [id number] Date:5977-18-60Loxp Name:Commercial DAKOTA HUIISDOB: [id number] [place] [address] [facility] 08/26/2024 Primary Insurance:MEDICAL MUTUALPolicy Number: [id number] Date:3842-81-21Yqxt Name:Commercial DAKOTA HUIISDOB: [id number] [place] [address] [facility] 08/26/2024 Primary Insurance:MEDICAL MUTUALPolicy Number: [id number] Date:0169-24-23Bmhe Name:Commercial DAKOTA HUIISDOB: [id number] [place], [place] [address] [place] [address] 08/19/2024 Primary Insurance:MEDICAL MUTUALPolicy Number: [id number] Date:1310-11-56Edit Name:Commercial DAKOTA HUIISDOB: [id number] [place] [address] [facility] 08/19/2024 Primary Insurance:MEDICAL MUTUALPolicy Number: [id number] Date:0147-00-05Buia Name:Commercial DAKOTA HUIISDOB: [id number] [place] [address] [facility] 08/06/2024 Primary Insurance:MEDICAL MUTUALPolicy Number: [id number] Date:2149-43-56Nezo Name:Commercial DAKOTA HUIISDOB: [id number] [place] [address] [facility] 07/30/2024 Primary Insurance:MEDICAL MUTUALPolicy Number: [id number] Date:8655-04-37Ybwd Name:Commercial DAKOTA HUIISDOB: [id number] [place] [address] [facility] 07/25/2024 Primary Insurance:MEDICAL MUTUALPolicy Number: [id number] Date:5918-86-41Hpke Name:Commercial DAKOTA HUIISDOB: [id number] [place] [address] [facility] 07/25/2024 Primary Insurance:MEDICAL MUTUALPolicy Number: [id number] Date:7660-40-74Byvz Name:Commercial DAKOTA HUIISDOB: [id number] [place], [place] [address] [place] [address] 07/17/2024 Primary Insurance:MEDICAL MUTUALPolicy Number: [id number] Date:6660-40-94Wdzo Name:Hayden HUIISDOB: [id number] [place] [address] [facility] 07/17/2024 Primary Insurance:MEDICAL MUTUALPolicy Number: [id number] Date:2214-23-28Umcn Name:Commercial DAKOTA HUIISDOB: [id number] [place], [place] [address] [place] [address] 07/16/2024 Primary Insurance:MEDICAL MUTUALPolicy Number: [id number] Date:4478-99-07Pagq Name:Hayden HUIISDOB: [id number] [place] [address] [facility] 07/14/2024 Primary Insurance:MEDICAL MUTUALPolicy Number: [id number] Date:2125-54-68Pupz Name:Commercial DAKOTA HUIISDOB: [id number] [place], [place] [address] [place] [address] 07/14/2024 Primary Insurance:MEDICAL MUTUALPolicy Number: [id number] Date:9650-74-85Zuqo Name:Hayden HUIISDOB: [id number] [place] [address] [facility] 07/11/2024 Primary Insurance:MEDICAL MUTUALPolicy Number: [id number] Date:5860-78-32Iebi Name:Commercial DAKOTA HUIKRISTINOB: [id number] [facility] [place] [address] [facility] 07/11/2024 Primary Insurance:MEDICAL MUTUALPolicy Number: [id number] Date:6115-82-37Isea Name:Commercial DAKOTA HUIKRISTINOB: [id number] [facility] [place] [address] [facility]
[2024-12-15 11:53] LABS: AST(SGOT) 28 U/L (<=31); Alanine Aminotransfer ALT/SGPT 13 U/L (<=34); Albumin, Serum 4.3 g/dL (3.4-4.8); Alkaline Phosphatase 112 U/L (35-104); Bilirubin, Direct 0.17 mg/dL (0.00-0.30); Cholesterol 172 mg/dL (<=200); Globulin 2.9 g/dL (2.2-4.2); Low Density Lipoprotein Calc. 76 mg/dL; Triglycerides 64 mg/dL; Very Low Density Lipoprotein 13 mg/dL (5-40); cholesterol:hdl ratio screen 2.05
== END | disposition home or self-care (01) ==
LOC: LAB 10:24
PROVIDERS: Physician Assistant Medical; PCP Family Medicine; Referring Provider Nurse Practitioner Gerontology; Visit Provider Nurse Practitioner Gerontology
DX: E78.00 Pure hypercholesterolemia, unspecified (principal)
CPT/HCPCS: 36415; 80061; 80076